=== PATIENT | male | born 1965 | race Caucasian/White ===

== ENCOUNTER 2017-06-23 22:43 | Emergency (ER) | payer OTHER ==
[2017-06-23 22:53] VITALS: TEMP 99.1; BMI 32.5
--- NOTE | 2017-06-23 23:02 | PDOC ---
History of Present Illness - General Chief Complaint: Respiratory Stated Complaint: DIFF BREATHING Time Seen by Provider: 06/23/17 22:50 - History of Present Illness Initial Comments: This 51-year-old man with history of hypertension/diabetes mellitus/ hyperlipidemia/hepatitis C/diabetic neuropathy presents to the emergency room with difficulty breathing of sudden onset this evening: Patient states when he was eating dinner at approximately 9 PM, he began to have sensation of not being able to catch his breath with some cough. He denies chest pain/nausea. Patient has had some diaphoresis during this time. He has generalized mild abdominal discomfort secondary to constipation (patient is on chronic morphine for neuropathy pain and has frequent constipation). He states that he has feeling of needing to have a bowel movement after taking cathartic (senna) earlier today No history of AZ/COPD No history of previous stress test: Patient states that he was able to have tests completed when it was scheduled several years ago. Past History - Past Medical History Allergies/Adverse Reactions: Allergies Allergy/AdvReac Type Severity Reaction Status Date / Time No Known Allergies Allergy Unverified 09/13/12 18:32 Home Medications: Ambulatory Orders Glyburide/Metformin HCl [Glyburide-Metformin 2.5-500 Mg] 1 each PO BID tablet 09/13/12 Cholecalciferol (Vitamin D3) [Vitamin D3] 4,000 unit PO DAILY capsule 08/18/15 Lisinopril 20 mg PO BID #60 tablet 07/08/16 Amlodipine Besylate [Norvasc -] 5 mg PO BIDAC 01/06/17 Clonidine HCl 1 mg PO DAILY 01/06/17 Collagenase Clostridium Hist. [Santyl] 1 applic TP DAILY #90 oint...g. 01/25/17 Morphine Sulfate [Morphine Sulfate ER] 240 mg PO DAILY 02/01/17 Collagenase Clostridium Hist. [Santyl] 1 applic TP DAILY #90 oint...g. 02/12/17 Collagenase Clostridium Hist. [Santyl] 1 applic TP DAILY #90 oint...g. 03/05/17 Collagenase Clostridium Hist. [Santyl] 1 applic TP DAILY #90 oint...g. 04/02/17 Anemia: No Asthma: No Cancer: No Cardiac Disorders: No CVA: No COPD: No CHF: No Dementia: No Diabetes: Yes GI Disorders: No Disorders: No HTN: Yes Hypercholesterolemia: Yes Liver Disease: No Seizures: No Thyroid Disease: No - Suicide/Smoking/Psychosocial Hx Smoking History: Former smoker Have you smoked in the past 12 months: Yes Number of Cigarettes Smoked Daily: 30 If you are a former smoker, when did you quit?: 7 months Cigars Per Day: 0 Information on smoking cessation initiated: No Hx Alcohol Use: No Drug/Substance Use Hx: No Substance Use Type: None Review of Systems - Review of Systems Able to Perform ROS?: Yes *Physical Exam - Vital Signs Last Vital Signs Temp Pulse Resp BP Pulse Ox 99.1 F 125 H 16 127/100 96 06/23/17 22:45 06/23/17 22:45 06/23/17 22:45 06/23/17 22:45 06/23/17 22:45 - Physical Exam Comments: GENERAL: Adult male, diaphoretic/pale and moderate respiratory distress HEAD: Normal with no signs of trauma. EYES: PERRLA, EOMI, sclera anicteric, conjunctiva clear. ENT: Ears normal, nares patent, oropharynx clear without exudates. Dry mucous membranes. NECK: Normal range of motion, supple without lymphadenopathy LUNGS: Distant breath sounds clear to auscultation bilaterally. No wheezes, and no crackles. HEART:Regular rate and rhythm, normal S1 and S2 without murmur, rub or gallop. ABDOMEN:.normal bowel sounds No guarding,tenderness or rebound.No masses No distention. EXTREMITIES: Normal range of motion, no edema. No clubbing or cyanosis. No erythema, or tenderness. NEUROLOGICAL: Cranial nerves II through XII grossly intact. Normal speech. No focal neurological deficits. MUSCULOSKELETAL: Back non-tender to palpation, no CVA tenderness SKIN: Warm, Dry, normal turgor, no rashes or lesions noted. ED Treatment Course - LABORATORY CBC & Chemistry Diagram: 06/23/17 23:15 06/23/17 23:15 Medical Decision Making - Medical Decision Making 06/24/17 00:00 Laboratory evaluation notable for troponin of 8.19; creatinine is normal at 0.9 CT angiogram of the chest ordered to rule out acute pulmonary embolus Dr. Reese called and case discussed with him: Agrees to Lopressor 5 mg IV. Anticoagulation will be started. 06/24/17 00:13 12-lead EKG discussed with Dr. Mitchell Because patient has Q waves in V [address] elevations in 3/4/5, it is unclear whether this is a subacute or acute AZ. Since there is no availability of critical care beds at [facility], transfer recommended. Portable chest x-ray shows pulmonary edema 06/24/17 00:46 Case discussed with community health agent at [facility] after transfer instituted through the transfer center. Patient will be admitted to the CCU under service. Patient has been given Plavix 300 mg/aspirin 324 milligrams orally *DC/Admit/Observation/Transfer Diagnosis at time of Disposition: Acute [place] Qualifiers: Myocardial infarction ST status: ST elevation myocardial infarction Involved coronary artery: unspecified coronary artery Qualified Code(s): I21.3 - ST elevation (STEMI) myocardial infarction of unspecified site Pulmonary edema Qualifiers: Chronicity: acute Qualified Code(s): J81.0 - Acute pulmonary edema - Discharge Dispostion Disposition: TRANSFER ACUTE CARE/OTHER HOSP Condition at time of disposition: Guarded - Referrals - Patient Instructions - Post Discharge Activity
[2017-06-23 23:26] LABS: BASO % 3.6 % (0-2.0); EOS % 1.4 % (0-4.5); HEMATOCRIT 43.4 % (35.4-49); HEMOGLOBIN 14.7 GM/dl (11.7-16.9); LYMPH % 22.4 % (8-40); MCH 31.3 pg (25.7-33.7); MCHC 33.9 g/dl (32.0-35.9); MEAN CELL VOLUME 92.4 fl (80-96); MEAN PLT VOLUME 10.4 fl (7.5-11.1); MONO % 10.4 % (3.8-10.2); NEUT % 62.2 % (42.8-82.8); PLATELET COUNT 252 K/MM3 (134-434); RDW 12.3 % (11.9-15.9); WHITE BLOOD COUNT 12.1 K/mm3 (4.0-10.8)
[2017-06-23 23:31] LABS: INR 1.1 (0.82-1.09); PROTHROMBIN TIME (PATIENT) 12.3 SEC (10.2-13.0)
[2017-06-23 23:36] LABS: ALBUMIN 3.7 g/dl (3.5-5.0); ALK PHOS 113 U/L (32-92); ANION GAP 12 (8-16); BILIRUBIN,TOTAL 0.9 mg/dl (0.2-1.0); BLOOD UREA NITROGEN 24 mg/dl (7-18); CALCIUM 8.9 mg/dl (8.4-10.2); CHLORIDE 94 mmol/L (98-107); CO2 22 mmol/L (22-28); CREATININE 0.9 mg/dl (0.6-1.3); GLUCOSE,RANDOM 234 mg/dl (74-106); POTASSIUM 3.9 mmol/L (3.5-5.1); SGOT/AST 91 U/L (10-42); SGPT/ALT 49 U/L (10-40); SODIUM 128 mmol/L (136-145); TOT PROT 8.1 g/dl (6.4-8.3)
[2017-06-23 23:48] LABS: TROPONIN I (DFP) 8.19 ng/ml (0.03-0.50)
[2017-06-23] MEDS ORDERED: METOPROLOL TARTRATE 5 MG/5 ML VIAL IVPUSH ONE (23:51)
[2017-06-24] MEDS ORDERED: ENOXAPARIN NA (PORCINE) 100 MG/1 ML DISP.SYRIN SQ ONE ×2 (00:09→00:13)
[2017-06-24] MEDS ORDERED: METOPROLOL TARTRATE 5 MG/5 ML VIAL ONE (00:13)
[2017-06-24] MEDS ORDERED: FUROSEMIDE 40 MG/4 ML INJECTABLE VIAL ONE (00:23)
[2017-06-24] MEDS ORDERED: FUROSEMIDE 40 MG/4 ML INJECTABLE VIAL IVPUSH ONE (00:23)
[2017-06-24] MEDS ORDERED: CLOPIDOGREL BISULFATE 300 MG TABLET ONE (00:36)
[2017-06-24] MEDS ORDERED: ASPIRIN 325 MG TABLET ONE (00:36)
[2017-06-24] MEDS ORDERED: ASPIRIN 81 MG CHEWABLE TABLETS PO ONE (00:40)
[2017-06-24] MEDS ORDERED: CLOPIDOGREL BISULFATE 300 MG TABLET PO ONE (00:40)
[2017-06-24 01:02] VITALS: BP 121/80; PULSE 105
--- NOTE | 2017-06-24 17:40 | EKG ---
Test Reason : Blood Pressure : / mmHG Vent. Rate : 125 BPM Atrial Rate : 125 BPM P-R Int : 172 ms QRS Dur : 100 ms QT Int : 286 ms P-R-T Axes : 047 069 079 degrees QTc Int : 412 ms POOR DATA QUALITY, INTERPRETATION MAY BE ADVERSELY AFFECTED SINUS TACHYCARDIA POSSIBLE LEFT ATRIAL ENLARGEMENT ANTERIOR INFARCT , possibly acute -> clinical correlation NO PREVIOUS ECGS AVAILABLE Confirmed by MD KAUR, JESSENIA ([id number]) on 06/24/2017 5:40:19 PM Referred By: MD BOWDEN Confirmed By:JESSENIA DIETRICH MD
== END 2017-06-24 01:04 | disposition short-term general hospital (02) ==
LOC: FER 22:43
PROC: 3E023GC Introduction of Other Therapeutic Substance into Muscle, Percutaneous Approach (ICD-10-PCS; principal; 2017-06-23)
DX: I21.3 ST elevation (STEMI) myocardial infarction of unspecified site (principal); J81.0 Acute pulmonary edema; I10 Essential (primary) hypertension; B19.20 Unspecified viral hepatitis C without hepatic coma; Z79.84 Long term (current) use of oral hypoglycemic drugs; E78.5 Hyperlipidemia, unspecified; E11.40 Type 2 diabetes mellitus with diabetic neuropathy, unspecified
CPT/HCPCS: 36415; 71045-TC; 80053; 82550; 82553; 84484; 85025; 85379; 85610; 93005; 99284-25

== ENCOUNTER 2019-01-23 08:16 | Inpatient (IN) | payer OTHER ==
[2019-01-23] MEDS ORDERED: FAMOTIDINE 20 MG/50 ML IVPB 20 MG/50 ML MG IVPB ONE ×2 (08:23→08:25)
[2019-01-23] MEDS ORDERED: methylPREDNISolone NA SUCC 125 MG/2 ML VIAL ONE (08:23)
[2019-01-23] MEDS ORDERED: methylPREDNISolone NA SUCC 125 MG/2 ML VIAL IVPB ONE (08:24)
[2019-01-23] MEDS ORDERED: EPINEPHrine 1:1,000 0.3 MG/0.3 ML SYR IM ONE (08:24)
--- NOTE | 2019-01-23 08:24 | PDOC ---
History of Present Illness - General Stated Complaint: BEE STING History Source: Patient Exam Limitations: No Limitations - History of Present Illness Initial Comments: 01/23/19 08:20 53 yo male h/o HTN CAD CABG chronic pain here s/p bee sting yesterday was stung in afternoon behind left ear. this am awoke with significant tongue swelling and inability to talk. no difficulty breathing. no n/v no loose stool no abd pain. no rash. mild irritation behind left ear. no h/o allergy to bees in the past. did not take anything prior to arrival. Past History - Past Medical History Allergies/Adverse Reactions: Allergies Allergy/AdvReac Type Severity Reaction Status Date / Time No Known Allergies Allergy Verified 01/23/19 08:33 Home Medications: Ambulatory Orders Glyburide/Metformin HCl [Glyburide-Metformin 2.5-500 Mg] 1 each PO BID tablet 09/13/12 Lisinopril 20 mg PO BID #60 tablet 07/08/16 Amlodipine Besylate [Norvasc -] 10 mg PO DAILY 01/06/17 Clonidine HCl 1 mg PO DAILY 01/06/17 Morphine Sulfate [Morphine Sulfate ER] 60 mg PO QID 02/01/17 Anemia: No Asthma: No Cancer: No Cardiac Disorders: No CVA: No COPD: No CHF: No Dementia: No Diabetes: Yes GI Disorders: No Disorders: No HTN: Yes Hypercholesterolemia: Yes Liver Disease: No Seizures: No Thyroid Disease: No - Suicide/Smoking/Psychosocial Hx Smoking History: Former smoker Have you smoked in the past 12 months: Yes Number of Cigarettes Smoked Daily: 30 If you are a former smoker, when did you quit?: 7 months Cigars Per Day: 0 Hx Alcohol Use: No Drug/Substance Use Hx: No Substance Use Type: None Review of Systems - Review of Systems Constitutional: No: Chills HEENTM: No: Eye Pain, Blurred Vision Respiratory: No: Cough, Orthopnea, Shortness of Breath Cardiac (ROS): No: Chest Pain, Edema Musculoskeletal: No: Back Pain Integumentary: Yes: Other (bee sting lesion behind ear) All Other Systems: Reviewed and Negative *Physical Exam - Physical Exam Comments: 01/23/19 08:22 awake alert NAD voice muflled. lungs clear bilat no stridor overairway. left sided significant tongue swelling involving base of tongue. min lip swelling. abd soft nt nd ext wwp. no edema. no calf tenderness. skin warm and dry no rash. nuero alert oriented x 3. Heart Score/ECG Review #1 General ECG Interpretation: Sinus Rhythm, Normal Rate, Normal Intervals, No acute ischemic changes ED Treatment Course - LABORATORY CBC & Chemistry Diagram: 01/23/19 08:50 01/23/19 08:50 Medical Decision Making - Medical Decision Making 01/23/19 08:22 53 yo M with h/o htn cad cabg here with bee sting, tongue swelling allergic reaction. plan benadryl solumedrol, epi IM, pepcid. will d/w ICU due to significance of swelling. 01/23/19 08:43 dr aguilera paged ENT DR Castañeda ICU paged. 01/23/19 08:[address] najera anesthesia at [facility], will evaluate on arrival should he worsen for possible awake nasotracheal intubation dW ICU pt accepted for transfer microblog sent , awaiting call back for admission 01/23/19 09:00 airway precautions taken, setup at bedside pt improving post meds. 01/23/19 09:18 d/w dr dubon in ED who will evaluate pt on arrival. overall pt voice much clearer, and improving 01/23/19 09:23 d/w admitting resident, accpting hospitalist for admission will be DR Merlos *DC/Admit/Observation/Transfer Diagnosis at time of Disposition: Allergic reaction, Anaphylaxis - Discharge Dispostion Decision to Admit order: Yes - Referrals - Patient Instructions - Post Discharge Activity
[2019-01-23 08:50] VITALS: BMI 27.1
[2019-01-23 09:30] LABS: BASO % 1.3 % (0-2.0); EOS % 4.9 % (0-4.5); HEMATOCRIT 42.8 % (35.4-49); HEMOGLOBIN 14.3 GM/dl (11.7-16.9); LYMPH % 41.9 % (8-40); MCH 32.5 pg (25.7-33.7); MCHC 33.3 g/dl (32.0-35.9); MEAN CELL VOLUME 97.6 fl (80-96); MEAN PLT VOLUME 8.8 fl (7.5-11.1); MONO % 14.8 % (3.8-10.2); NEUT % 37.1 % (42.8-82.8); PLATELET COUNT 380 K/MM3 (134-434); RBC 4.39 M/mm3 (4.00-5.60); RDW 13.6 % (11.9-15.9); WHITE BLOOD COUNT 10.9 K/mm3 (4.0-10.8)
[2019-01-23 09:47] LABS: ALBUMIN 4.3 g/dl (3.4-5.0); BILIRUBIN,TOTAL 0.7 mg/dl (0.2-1); CALCIUM 9.5 mg/dl (8.5-10); POTASSIUM 3.9 mmol/L (3.5-5.1); TOT PROT 8.1 g/dl (6.4-8.2)
--- NOTE | 2019-01-23 10:24 | HP ---
CHIEF COMPLAINT: bee sting; trouble swallowing PCP:dr adams HISTORY OF PRESENT ILLNESS: 53 y/o male with PMH of CAD, CABG, HTN, DM, peripheral neuropathy presented to the ED with trouble swallowing and speaking after getting stung by a bee behind his left ear last night. patient states that he was outside will friends at an event when all of the sudden he got stung by a bee behind his left ear patient states there was not a lot of bees surrounding the area he was near. he went out to dinner with friends after with no issues, came home, went to bed slept through the night and at around 7:30 this AM noticed that his tongue was very swollen (only on the left side) and he could not speak- he states that he did not have any associated respiratory distress nor was there any drooling that he noted, he just could not speak- this has never happened to him before. he has gotten stung by bees in the past and has never suffered from any allergic reaction. of note, patient is on lisinopril but has been taking it for almost the last 18 years with no issues- he denies any SOB/CP/N/V fevers or chills, no recent travel or sick contacts ER course was notable for: (1)vitals wnl (2)labs; wbc count 10.9 (3)given solumedrol 125, benadryl, pepcid and IM epi Recent Travel: denies PAST MEDICAL HISTORY: see above PAST SURGICAL HISTORY: CABG Social History: Smoking:smokes every time he drinks; had quit 2 years ago then recently restarted as work has been stressful Alcohol:drinks around 4 drinks of heavy liquor multiple times a week (has never suffered from withdrawal; never seized or been intubated) Drugs: denies Family History: mother- DM; both parents HTN Allergies No Known Allergies Allergy (Verified 01/23/19 08:33) HOME MEDICATIONS: Home Medications Medication Instructions Recorded Glyburide/Metformin HCl 1 each PO BID tablet 09/13/12 [Glyburide-Metformin 2.5-500 Mg] Lisinopril 20 mg PO BID #60 tablet 07/08/16 Amlodipine Besylate [Norvasc -] 10 mg PO DAILY 01/06/17 Clonidine HCl 1 mg PO DAILY 01/06/17 Morphine Sulfate [Morphine Sulfate 60 mg PO QID 02/01/17 ER] REVIEW OF SYSTEMS CONSTITUTIONAL: Absent: fever, chills, diaphoresis, generalized weakness, malaise, loss of appetite, weight change HEENT: Present: tongue swelling; difficulty speaking Absent: rhinorrhea, nasal congestion, throat pain, throat swelling, difficulty swallowing, mouth swelling , ear pain, eye pain, visual changes CARDIOVASCULAR: Absent: chest pain, syncope, palpitations, irregular heart rate, lightheadedness , peripheral edema RESPIRATORY: Absent: cough, shortness of breath, dyspnea with exertion, orthopnea, wheezing, stridor, hemoptysis GASTROINTESTINAL: Absent: abdominal pain, abdominal distension, nausea, vomiting, diarrhea, constipation, melena, hematochezia GENITOURINARY: Absent: dysuria, frequency, urgency, hesitancy, hematuria, flank pain, genital pain MUSCULOSKELETAL: Absent: myalgia, arthralgia, joint swelling, back pain, neck pain SKIN: Present: bee sting lesion behind left ear Absent: rash, itching, pallor HEMATOLOGIC/IMMUNOLOGIC: Absent: easy bleeding, easy bruising, lymphadenopathy, frequent infections ENDOCRINE: Absent: unexplained weight gain, unexplained weight loss, heat intolerance, cold intolerance NEUROLOGIC: Absent: headache, focal weakness or paresthesias, dizziness, unsteady gait, seizure, mental status changes, bladder or bowel incontinence PSYCHIATRIC: Absent: anxiety, depression, suicidal or homicidal ideation, hallucinations. PHYSICAL EXAMINATION Vital Signs - 24 hr 01/23/19 01/23/19 08:17 09:07 Temperature 99 F 99 F Pulse Rate 87 70 Respiratory 16 16 Rate Blood Pressure 195/93 H 155/84 O2 Sat by Pulse 100 Oximetry (%) GENERAL: Awake, alert, and fully oriented, some difficulty speaking EYES:PEERLA; EOMI; no scleral icterus EARS, NOSE, THROAT: asymmetric tongue swelling with left side being very swollen ; no erythema, surrounding saliva, uvula present; so stridor appreciated NECK: no lymphadenopathy; no JVD LUNGS: CTA B/L; no rales, rhonchi or wheezing HEART: Regular rate and rhythm, normal S1 and S2 without murmur, rub or gallop. ABDOMEN: Soft, NT/ND +BS in all 4 quadrants . MUSCULOSKELETAL: Normal range of motion at all joints. No bony deformities or tenderness. No CVA tenderness. EXTREMITIES: warm; well-perfused no clubbing/cyanosis or edema SKIN: bee sting lesion behind left ear- slightly erythematous Laboratory Results - last 24 hr 01/23/19 01/23/19 08:50 08:50 WBC 10.9 H RBC 4.39 Hgb 14.3 Hct 42.8 MCV 97.6 H MCH 32.5 MCHC 33.3 RDW 13.6 D Plt Count 380 D MPV 8.8 D Absolute Neuts (auto) 4.0 Neutrophils % 37.1 L D Lymphocytes % 41.9 H D Monocytes % 14.8 H Eosinophils % 4.9 H D Basophils % 1.3 Sodium 136 Potassium 3.9 Chloride 98 Carbon Dioxide 27 Anion Gap 11 BUN 18.0 Creatinine 1.0 Est GFR (CKD-EPI)AfAm 99.15 Est GFR (CKD-EPI)NonAf 85.55 Random Glucose 156 H Calcium 9.5 Total Bilirubin 0.7 AST 23 ALT 15 Alkaline Phosphatase 104 Total Protein 8.1 Albumin 4.3 ASSESSMENT/PLAN: 53 y/o male with PMH of CAD, CABG, HTN, DM, peripheral neuropathy presented to the ED with trouble swallowing and speaking after getting stung by a bee behind his left ear last night #Angioedema 2/2 bee sting patient already received 125 solumedrol, IM epi, pepcid, and benadryl in ED -patient now having improvement in speech and no stridor is appreciated -ENT has been consulted -IV decadron 10q6H -IV Pepcid -Benadryl -airway precautions -ICU monitoring -NPO until swelling improves; speech and swallow eval #DM holding oral hypoglycemics -BGMS ACHS -ISS #HTN -holding lisinopril and norvasc -PRN IV hydralazine while patient is NPO -monitor hemodynamics F/E/N NS @75mls/hr monitor electrolytes NPO for airway protection at this time DVT PPX: lovenox sq Problem List - Problem (1) HTN (hypertension) Code(s): I10 - ESSENTIAL (PRIMARY) HYPERTENSION (2) CAD (coronary artery disease) Code(s): I25.10 - ATHSCL HEART DISEASE OF [place] CORONARY ARTERY W/O ANG PCTRS (3) Diabetes Code(s): E11.9 - TYPE 2 DIABETES MELLITUS WITHOUT COMPLICATIONS (4) Allergic reaction Code(s): T78.40XA - ALLERGY, UNSPECIFIED, INITIAL ENCOUNTER (5) Anaphylaxis Code(s): T78.2XXA - ANAPHYLACTIC SHOCK, UNSPECIFIED, INITIAL ENCOUNTER Visit type - Emergency Visit Emergency Visit: Yes ED Registration Date: 01/23/19 Care time: The patient presented to the Emergency Department on the above date and was hospitalized for further evaluation of their emergent condition. - New Patient This patient is new to me today: Yes Date on this admission: 01/23/19 - Critical Care Critical Care patient: Yes Total Critical Care Time (in minutes): 35 Critical Care Statement: The care of this patient involved high complexity decision making to prevent further life threatening deterioration of the patient 's condition and/or to evaluate & treat vital organ system(s) failure or risk of failure. ATTENDING PHYSICIAN STATEMENT I saw and evaluated the patient. I reviewed the resident's note and discussed the case with the resident. I agree with the resident's findings and plan as documented. SUBJECTIVE: OBJECTIVE: ASSESSMENT AND PLAN:
[2019-01-23] MEDS ORDERED: SODIUM CHLORIDE 1,000 ML IV SCH (11:00)
--- NOTE | 2019-01-23 11:03 | CONSULT ---
Consultation: CONSULT SERVICE: ICU Resident HISTORY OF PRESENT ILLNESS: 53yo M with h/o of T2DM, HTN, and recent suspected carotid stenosis who presents today after bee string yesterday afternoon around L ear. Pt today woke up with tongue swelling and difficulty talking. He sought treatment in the ER. He reports being stung by a bee previously many years prior without reaction. His last meal compromised of rodgers chops for dinner, however he did not use any new ingredients during this meal. Pt denies any new soaps, mouthwashes, toothpastes. Pt currently has slightly improved talking and feels better. He just reports being tired since his medication regiment in the ER (Benadryl, Solumedrol 125mg, Epi-pen 0.3 x1, Famotidine). REVIEW OF SYSTEMS: As per HPI PHYSICAL EXAMINATION Vital Signs 01/23/19 01/23/19 08:17 09:07 Temperature 99 F 99 F Pulse Rate 87 70 Respiratory 16 16 Rate Blood Pressure 195/93 H 155/84 O2 Sat by Pulse 100 Oximetry (%) GENERAL: NAD, Awake, alert, and fully oriented HEENT: NC/AT, EOMI, NAHID, sclera anicteric, MMM, L side of tongue edematous extending to base, no posterior edema noted, voice hoarse, but improving. NECK: No stridor appreciated. LUNGS: CTA bilaterally. No wheezes, and no crackles. No accessory muscle use. HEART: RRR, normal S1 and S2 without murmur ABDOMEN: Soft, NT/ND, normoactive bowel sounds, no guarding EXTREMITIES: 2+ pulses, warm, well-perfused. No calf tenderness. No peripheral edema. PSYCHIATRIC: Cooperative. Good eye contact. Appropriate mood and affect. SKIN: Warm, dry, no rashes or lesions noted. Laboratory Results 01/23/19 01/23/19 08:50 08:50 WBC 10.9 H RBC 4.39 Hgb 14.3 Hct 42.8 MCV 97.6 H MCH 32.5 MCHC 33.3 RDW 13.6 D Plt Count 380 D MPV 8.8 D Absolute Neuts (auto) 4.0 Neutrophils % 37.1 L D Lymphocytes % 41.9 H D Monocytes % 14.8 H Eosinophils % 4.9 H D Basophils % 1.3 Sodium 136 Potassium 3.9 Chloride 98 Carbon Dioxide 27 Anion Gap 11 BUN 18.0 Creatinine 1.0 Est GFR (CKD-EPI)AfAm 99.15 Est GFR (CKD-EPI)NonAf 85.55 Random Glucose 156 H Calcium 9.5 Total Bilirubin 0.7 AST 23 ALT 15 Alkaline Phosphatase 104 Total Protein 8.1 Albumin 4.3 Active Medications Generic Name Dose Route Start Last Admin Trade Name Freq PRN Reason Stop Dose Admin Chlorhexidine Gluconate 1 applic 01/23/19 22:00 Hibiclens For Decolonization - TP HS [facility] Dexamethasone Sodium Phosphate 10 mg 01/23/19 15:00 Decadron Injection - IVPUSH Q6H-IV [facility] Enoxaparin Sodium 40 mg 01/24/19 10:00 Lovenox - SQ DAILY [facility] Sodium Chloride 1,000 mls @ 75 mls/hr 01/23/19 11:00 Normal Saline - IV ASDIR [facility] Famotidine/Sodium Chloride 20 mg in 50 mls @ 100 mls/hr 01/23/19 22:00 Pepcid 20 Mg Premixed Ivpb - IVPB BID [facility] Insulin Aspart 1 vial 01/23/19 11:00 Novolog Vial Sliding Scale - SQ ACHS [facility] Protocol Mupirocin 1 applic 01/23/19 22:00 Bactroban Ointment (For Decolonization) - NS 01/28/19 21:59 BID [facility] ASSESSMENT/PLAN: Angioedema of the tongue HTN T2DM --Can observe for airway management in ICU; anesthesia aware if airway worsens --Decadron 10mg q6h IVP --Famotidine BID IVP --Monitor for signs of hoarseness, stridor, or worsening edema of tongue --Discontinue Norvasc due to adverse effect of angioedema --Can continue Lisinopril considering pt has been on medication for 10 years without any adverse reactions --Continue rest of home medications currently FEN: Fluids: NS@ 100cc/hr while NPO Electrolyte abnormalities: None Nutrition: NPO while edema resolving PPX: DVT - On home eliquis GI - On famotidine already Dispo: Monitor in ICU 24h for airway mgmt Case discussed with Dr. Castañeda and primary team Suhail Costa, DO - IM PGY-3 ATTENDING PHYSICIAN STATEMENT I saw and evaluated the patient. I reviewed the resident's note and discussed the case with the resident. I agree with the resident's findings and plan as documented. SUBJECTIVE: OBJECTIVE: ASSESSMENT AND PLAN:
[2019-01-23] MEDS ORDERED: hydrALAZINE HCL 20 MG/ML VIAL IVPUSH PRN (11:14)
--- NOTE | 2019-01-23 11:14 | EKG ---
Test Reason : Blood Pressure : / mmHG Vent. Rate : 084 BPM Atrial Rate : 084 BPM P-R Int : 186 ms QRS Dur : 082 ms QT Int : 376 ms P-R-T Axes : 045 027 080 degrees QTc Int : 444 ms NORMAL SINUS RHYTHM POSSIBLE LEFT ATRIAL ENLARGEMENT SEPTAL INFARCT (CITED ON OR BEFORE 23-JUN-2017) ABNORMAL ECG WHEN COMPARED WITH ECG OF 23-JUN-2017 23:29, VENT. RATE HAS DECREASED BY 41 BPM QRS DURATION HAS DECREASED ST NO LONGER ELEVATED IN ANTERIOR LEADS Confirmed by GOLDEN GUNN, EARLE ([id number]) on 01/23/2019 11:13:27 AM Referred By: ELI RICARDO Confirmed By:EARLE FRANKS MD
[2019-01-23] MEDS: INSULIN SLIDING SCALE (NOVOLOG) 1 VIAL SQ SCH ×2 (12:15→17:33)
--- NOTE | 2019-01-23 12:18 | PN ---
Teaching Attending Note Name of Resident: Suhail Costa ATTENDING PHYSICIAN STATEMENT I saw and evaluated the patient. I reviewed the resident's note and discussed the case with the resident. I agree with the resident's findings and plan as documented. SUBJECTIVE: Pt seen and examined in the ICU. Briefly, 53yo male with h/o HTN, DM, CAD s/p CABG, bee allergy who was admitted after getting stung by a bee. This AM, noted to have swollen tongue with difficulty speaking. Given steroids, antihistamines , epinephrine in the ED with some improvement in speech and swallowing. Denies shortness of breath. OBJECTIVE: Vital Signs Period Temp Pulse Resp BP Sys/Mcnulty Pulse Ox Last 24 Hr 99 F-99 F 70-87 16-16 155-195/84-93 100 Intake & Output 01/20/19 01/21/19 01/22/19 01/23/19 23:59 23:59 23:59 23:59 Intake Total 300 Balance 300 Weight 90.718 kg Gen: dysarthric HEENT: left tongue edema Heart: RRR Lung: clear to auscultation Abd: soft, nontender Ext: no edema CBC, BMP 01/23/19 08:50 01/23/19 08:50 Active Medications Apixaban (Eliquis -) 5 mg PO BID [facility] Chlorhexidine Gluconate (Hibiclens For Decolonization -) 1 applic TP HS [facility] Dexamethasone Sodium Phosphate (Decadron Injection -) 10 mg IVPUSH Q6H-IV [facility] Diphenhydramine HCl (Benadryl Injection -) 12.5 mg IVPUSH Q4H PRN PRN Reason: FOR ITCHING Hydralazine HCl (Apresoline Injection -) 10 mg IVPUSH Q6H PRN PRN Reason: HYPERTENSION Sodium Chloride (Normal Saline -) 1,000 mls @ 75 mls/hr IV ASDIR [facility] Famotidine/Sodium Chloride (Pepcid 20 Mg Premixed Ivpb -) 20 mg in 50 mls @ 100 mls/hr IVPB BID [facility] Insulin Aspart (Novolog Vial Sliding Scale -) 1 vial SQ ACHS [facility]; Protocol Mupirocin (Bactroban Ointment (For Decolonization) -) 1 applic NS BID [facility] Stop: 01/28/19 21:59 ASSESSMENT AND PLAN: Acute Angioedema HTN DM CAD s/p CABG PAD - decadron - antihistamines - IVF - NPO - ICU for airway monitoring
[2019-01-23 12:39] VITALS: TEMP 98.8
[2019-01-23] MEDS ORDERED: DEXAMETHASONE SOD PHOSPHATE 10 MG/1 ML VIAL IVPUSH SCH (15:00)
--- NOTE | 2019-01-23 16:07 | CONSULT ---
Admitting History and Physical - Admission History of Present Illness: 53yo male with h/o HTN, DM, CAD s/p CABG, bee allergy who was admitted after getting stung by a bee. This AM, noted to have swollen tongue with difficulty speaking. Given steroids, antihistamines, epinephrine in the ED with some improvement in speech and swallowing. Denies shortness of breath. History Source: Patient Limitations to Obtaining History: No Limitations - Smoking History Smoking history: Former smoker Have you smoked in the past 12 months: Yes Aproximately how many cigarettes per day: 30 If you are a former smoker, when did you quit?: 7 months - Alcohol/Substance Use Hx Alcohol Use: No - Social History Occupation: on disability x 3 years because of Diabetic Neuropathy. History - Admission Reason For Visit: ANOPHYLAXIS - General Mental Status: Alert and Oriented, Awake and Alert, Able to Follow Commands Attention: Intact Ability to Follow Directions: Excellent Head/Neck Control: WFL - Hearing Hearing: Normal Speech Evaluation - Communication Primary Language: ANDORRAN Communication: Yes: Within Normal Limits Oral Expression Ability: Yes: No Impairment - Speech Production Able to Make Needs Known: Yes: WNL Intelligibility: Yes: WNL - Speech Characteristics Voice Loudness: Normal Voice Pitch: Yes: Normal Voice Phonatory-based Quality: Yes: Normal Speech Pattern: Normal Speech Clarity: < 100% Nasal Resonance: Normal Articulation: Yes: Imprecise (slight) - Language/Auditory Comprehension Follows: Yes: 2 Stage Simple Commands - Language/Verbal Expression Able to Respond to Simple Queries: Yes: WNL Able to Communicate Wants and Needs: Yes: WNL Functional Communication Status: Yes: WNL Attention: Yes: Intact - 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 ENT consult ordered.) Lingual Speed of Movement: Normal Lingual Movement Strgth Against Opposition: Normal Lingual Movement Characteristics: Normal Laryngeal Elevation: WFL Laryngeal Movement: Able to Palpate Rate of Intake: WFL Labial Seal: WFL Chewing: Impaired (mildly labored sec to tongue/cheek swelling and no lower fdentition.) Oral Prep Time: WFL A-P Transit: WFL Pocketing: None Timing of Swallow: WFL Coughing/Throat Clear: No Change in Voice: No Recommendations - Speech Evaluation, Impression/Plan Impression: Pt seen bedside, reported with significant improvement, not yet at baseline. Left side of face/tongue still mildly swollen. No cough noted and brisk swallow palpated. No observation of struggling, no triggering of multiple swallows, no need to wash down food with liquid. Evaluation of anatomy is cursory. ENT consult placed. - Dysphagia Impressions/Plan Dysphagia Impressions: Mild Impairment, Ongoing Evaluation *Silent aspiration: cannot be R/O at bedside Dysphagia Treatment Plan: Small Bites, Chin Tuck/Down, Clear Pocket Food, Safe Rate, 1/2 tsp. at a time, OOB for meals, OOB for 1 h. after meals Recommendations: Other (supervise meals. Observe tolerance.) - Recommendations Diet Consistency: Other (very soft, easy to chew foods reviewed with MD/RD. No meats, crunchy foods, saladsetc) Liquids: Thin Liquids
[2019-01-23 16:08] VITALS: BP 135/87; PULSE 65
--- NOTE | 2019-01-23 16:48 | PN ---
Teaching Attending Note Name of Resident: Liane Ferrell ATTENDING PHYSICIAN STATEMENT I saw and evaluated the patient. I reviewed the resident's note and discussed the case with the resident. I agree with the resident's findings and plan as documented. SUBJECTIVE: Speaking more clearly. Denies difficulty swallowing/dyspnea. No SOB/ wheeze. OBJECTIVE: Afebrile, hemodynamically stable. Comfortable on RA. Last Vital Signs Temp Pulse Resp BP Pulse Ox 98.8 F 65 18 135/87 100 01/23/19 12:00 01/23/19 16:00 01/23/19 16:00 01/23/19 16:00 01/23/19 08:17 HEENT - Atraumatic, Normocephalic. mild swelling L side of tongue. No stridor. Heart- S1, S2, RRR Lungs - clear to auscultation Abdomen - soft, non-tender. Bowel Sounds normal. Neuro - AAO x 3. Tone/power normal all 4 extremities. Extremities - no calf tenderness, no edema. Laboratory Results - last 24 hr 01/23/19 01/23/19 01/23/19 08:50 08:50 12:07 WBC 10.9 H RBC 4.39 Hgb 14.3 Hct 42.8 MCV 97.6 H MCH 32.5 MCHC 33.3 RDW 13.6 D Plt Count 380 D MPV 8.8 D Absolute Neuts (auto) 4.0 Neutrophils % 37.1 L D Lymphocytes % 41.9 H D Monocytes % 14.8 H Eosinophils % 4.9 H D Basophils % 1.3 Sodium 136 Potassium 3.9 Chloride 98 Carbon Dioxide 27 Anion Gap 11 BUN 18.0 Creatinine 1.0 Est GFR (CKD-EPI)AfAm 99.15 Est GFR (CKD-EPI)NonAf 85.55 POC Glucometer 190 Random Glucose 156 H Calcium 9.5 Total Bilirubin 0.7 AST 23 ALT 15 Alkaline Phosphatase 104 Total Protein 8.1 Albumin 4.3 Current Medications Generic Name Dose Route Start Last Admin Trade Name Freq PRN Reason Stop Dose Admin Apixaban 5 mg 01/23/19 22:00 Eliquis - PO BID GILMAR Chlorhexidine Gluconate 1 applic 01/23/19 22:00 Hibiclens For Decolonization - TP HS GILMAR Dexamethasone Sodium Phosphate 10 mg 01/23/19 15:00 01/23/19 14:53 Decadron Injection - IVPUSH 10 mg Q6H-IV GILMAR Administration Diphenhydramine HCl 12.5 mg 01/23/19 11:11 Benadryl Injection - IVPUSH Q4H PRN FOR ITCHING Hydralazine HCl 10 mg 01/23/19 11:14 Apresoline Injection - IVPUSH Q6H PRN HYPERTENSION Sodium Chloride 1,000 mls @ 75 mls/hr 01/23/19 11:00 01/23/19 12:15 Normal Saline - IV 75 mls/hr ASDIR GILMAR Administration Famotidine/Sodium Chloride 20 mg in 50 mls @ 100 mls/hr 01/23/19 22:00 Pepcid 20 Mg Premixed Ivpb - IVPB BID [facility] Insulin Aspart 1 vial 01/23/19 11:00 01/23/19 12:15 Novolog Vial Sliding Scale - SQ Not Given ACHS [facility] Protocol Mupirocin 1 applic 01/23/19 22:00 Bactroban Ointment (For Decolonization) - NS 01/28/19 21:59 BID [facility] Home Medications Medication Instructions Recorded Glyburide/Metformin HCl 1 each PO BID tablet 09/13/12 [Glyburide-Metformin 2.5-500 Mg] Amlodipine Besylate [Norvasc -] 10 mg PO DAILY 01/06/17 Clonidine HCl 1 mg PO DAILY 01/06/17 Morphine Sulfate [Morphine Sulfate 60 mg PO QID 02/01/17 ER] Apixaban [Eliquis] 5 mg PO BID 01/23/19 Gabapentin 600 mg DAILY 01/23/19 Lisinopril 20 mg PO DAILY 01/23/19 Metoprolol Succinate 100 mg PO DAILY 01/23/19 Rosuvastatin Calcium [Crestor] 10 mg PO DAILY 01/23/19 ASSESSMENT AND PLAN: 53 year old male with history of CAD s/p CABG, HTN, DM 2, 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 He reports being stung by a bee last night. He has had prior bee stings without anaphylaxis or allergic reactions. No dyspnea/stridor/wheeze. 1. Acute Angioedema of Tongue sec to Bee Sting vs JAMAAL-I ICU for airway monitoring IV Decadron/Famotidine/Benadryl NPO pending speech/swallow eval by ST. IV fluids Hemodynamic and Cardiopulmonary monitoring. 2. DM 2 - Maintain on Novolog sliding Scale. Glyburide/Metformin held. 3. HTN - Hold JAMAAL-I as possible culprit for angioedema. Continue Norvasc/ Clonidine from tomorrow am. 4. CAD s/p CABG - On BB, JAMAAL-I, Statin. 5. On Eliquis - reason unclear - will need clarification with patient's PCP DVT Px - on Eliquis
--- NOTE | 2019-01-23 19:03 | DS ---
Physical Exam: SUBJECTIVE: Patient seen and examined at bedside- [facility] OBJECTIVE: Vital Signs Period Temp Pulse Resp BP Sys/Mcnulty Pulse Ox Last 24 Hr 98.8 F-99 F 62-87 16-18 122-195/76-93 100 PHYSICAL EXAM GENERAL: The patient is awake, alert, and fully oriented, in no acute distress. HEAD: Normal with no signs of trauma. EYES: PERRL, extraocular movements intact, sclera anicteric, conjunctiva clear. ENT: Ears normal, nares patent, oropharynx clear without exudates, moist mucous membranes. NECK: Trachea midline, full range of motion, supple. LUNGS: Breath sounds equal, clear to auscultation bilaterally, no wheezes, no crackles, no accessory muscle use. HEART: Regular rate and rhythm, S1, S2 without murmur, rub or gallop. ABDOMEN: Soft, nontender, nondistended, normoactive bowel sounds, no guarding, no rebound, no hepatosplenomegaly, no masses. EXTREMITIES: 2+ pulses, warm, well-perfused, no edema. NEUROLOGICAL: Cranial nerves II through XII grossly intact. Normal speech, gait not observed. PSYCH: Normal mood, normal affect. SKIN: Warm, dry, normal turgor, no rashes or lesions noted. LABS Laboratory Results - last 24 hr 01/23/19 01/23/19 01/23/19 08:50 08:50 12:07 WBC 10.9 H RBC 4.39 Hgb 14.3 Hct 42.8 MCV 97.6 H MCH 32.5 MCHC 33.3 RDW 13.6 D Plt Count 380 D MPV 8.8 D Absolute Neuts (auto) 4.0 Neutrophils % 37.1 L D Lymphocytes % 41.9 H D Monocytes % 14.8 H Eosinophils % 4.9 H D Basophils % 1.3 Sodium 136 Potassium 3.9 Chloride 98 Carbon Dioxide 27 Anion Gap 11 BUN 18.0 Creatinine 1.0 Est GFR (CKD-EPI)AfAm 99.15 Est GFR (CKD-EPI)NonAf 85.55 POC Glucometer 190 Random Glucose 156 H Calcium 9.5 Total Bilirubin 0.7 AST 23 ALT 15 Alkaline Phosphatase 104 Total Protein 8.1 Albumin 4.3 01/23/19 17:24 WBC RBC Hgb Hct MCV MCH MCHC RDW Plt Count MPV Absolute Neuts (auto) Neutrophils % Lymphocytes % Monocytes % Eosinophils % Basophils % Sodium Potassium Chloride Carbon Dioxide Anion Gap BUN Creatinine Est GFR (CKD-EPI)AfAm Est GFR (CKD-EPI)NonAf POC Glucometer 221 Random Glucose Calcium Total Bilirubin AST ALT Alkaline Phosphatase Total Protein Albumin HOSPITAL COURSE: Date of Admission:01/23/19 patient wanted tp leave AMA- risks were discussed [facility] patient- he astneal agreed to sign AMA form- medications were sent to pharmacy and he was told to return if selling got wrose, if he had trouble breathing / swallowing; speaking. he agreed Date of Discharge: 01/23/19 Minutes to complete discharge: 35 Discharge Summary Reason For Visit: ANOPHYLAXIS Current Active Problems Allergic reaction (Acute) Anaphylaxis (Acute) CAD (coronary artery disease) (Acute) Diabetes (Acute) HTN (hypertension) (Acute) Condition: Fair - Instructions Diet, Activity, Other Instructions: You came in for tongue swelling after a bee sting- we treated you with IV steroids and benadryl and pepcid- you decided to leave against medical advice. the risks were shared with you and you agreed to sign the AMA form; prescriptions are sent to your pharmacy if you begin to experience worsening shortness of breath, trouble speaking/ swallowing please return to the ER immediately Disposition: AGAINST MEDICAL ADVICE - Home Medications Comprehensive Discharge Medication List: Ambulatory Orders Glyburide/Metformin HCl [Glyburide-Metformin 2.5-500 Mg] 1 each PO BID tablet 09/13/12 Amlodipine Besylate [Norvasc -] 10 mg PO DAILY 01/06/17 Clonidine HCl 1 mg PO DAILY 01/06/17 Morphine Sulfate [Morphine Sulfate ER] 60 mg PO QID 02/01/17 Apixaban [Eliquis] 5 mg PO BID 01/23/19 Famotidine [Pepcid -] 20 mg PO DAILY #7 tablet 01/23/19 Gabapentin 600 mg DAILY 01/23/19 Lisinopril 20 mg PO DAILY 01/23/19 Metoprolol Succinate 100 mg PO DAILY 01/23/19 Rosuvastatin Calcium [Crestor] 10 mg PO DAILY 01/23/19 predniSONE [Deltasone -] 20 mg PO UTDICT #5 tablet 01/23/19 Problem List - Problems (1) HTN (hypertension) Code(s): I10 - ESSENTIAL (PRIMARY) HYPERTENSION (2) CAD (coronary artery disease) Code(s): I25.10 - ATHSCL HEART DISEASE OF [place] CORONARY ARTERY W/O ANG PCTRS (3) Diabetes Code(s): E11.9 - TYPE 2 DIABETES MELLITUS WITHOUT COMPLICATIONS (4) Allergic reaction Code(s): T78.40XA - ALLERGY, UNSPECIFIED, INITIAL ENCOUNTER (5) Anaphylaxis Code(s): T78.2XXA - ANAPHYLACTIC SHOCK, UNSPECIFIED, INITIAL ENCOUNTER This patient is new to me today: Yes Date on this admission: 01/23/19 Emergency Visit: Yes ED Registration Date: 01/23/19 Care time: The patient presented to the Emergency Department on the above date and was hospitalized for further evaluation of their emergent condition. Critical Care patient: Yes Total Critical Care Time (in minutes): 35 Critical Care Statement: The care of this patient involved high complexity decision making to prevent further life threatening deterioration of the patient 's condition and/or to evaluate & treat vital organ system(s) failure or risk of failure. - Discharge Referral Referred to [facility] No Physician Referral: Jesus Gaines MD ([facility]) ATTENDING PHYSICIAN STATEMENT I saw and evaluated the patient. I reviewed the resident's note and discussed the case with the resident. I agree with the resident's findings and plan as documented. SUBJECTIVE: OBJECTIVE: ASSESSMENT AND PLAN:
[2019-01-23] MEDS ORDERED: CHLORHEXIDINE GLUCONATE 4% CLEANSER FOR DECOLONIZATION TP SCH (22:00)
[2019-01-23] MEDS ORDERED: MUPIROCIN 2% TOPICAL OINTMENT FOR DECOLONIZATION NS SCH (22:00)
[2019-01-23] MEDS ORDERED: FAMOTIDINE 20 MG/50 ML IVPB 20 MG/50 ML MG IVPB SCH (22:00)
[2019-01-23] MEDS ORDERED: APIXABAN 5 MG TABLET PO SCH (22:00)
[2019-01-24] MEDS ORDERED: ENOXAPARIN NA (PORCINE) 40 MG/0.4 ML DISP.SYRIN SQ SCH (10:00)
== END 2019-01-23 18:30 | disposition left against medical advice (07) | DRG 816 ==
LOC: FER 08:16 → JICU 10:01
DX: T63.441A Toxic effect of venom of bees, accidental (unintentional), initial encounter (principal); R22.0 Localized swelling, mass and lump, head; Z72.0 Tobacco use; Z72.89 Other problems related to lifestyle; I25.10 Atherosclerotic heart disease of native coronary artery without angina pectoris; E11.9 Type 2 diabetes mellitus without complications; T78.3XXA Angioneurotic edema, initial encounter; R26.2 Difficulty in walking, not elsewhere classified; R47.01 Aphasia; I10 Essential (primary) hypertension; Z95.1 Presence of aortocoronary bypass graft
CPT/HCPCS: 36415; 80053; 82962; 85025; 93005; 99283-25; J1100; J7030

== ENCOUNTER 2019-12-09 23:11 | Inpatient (IN) | payer OTHER ==
[2019-12-09] MEDS ORDERED: ACETAMINOPHEN 1000 MG/100 ML VIAL (NON FORMULARY) IVPB ONE (23:25)
[2019-12-09] MEDS ORDERED: ACETAMINOPHEN INJECTION 100 ML IVPB ONE (23:30)
--- NOTE | 2019-12-09 23:32 | PDOC ---
History of Present Illness - General Chief Complaint: Redness To Affected Area Stated Complaint: RT FOOT INFECTION Time Seen by Provider: 12/09/19 23:14 - History of Present Illness Initial Comments: 12/09/19 23:28 54 M with h/o CAD, CABG, HTN, DM, peripheral neuropathy, presenting to ED with R foot redness and fevers. Pt states that he stepped on a rock with his R foot about 4 days ago but did not notice it due to his neuropathy. Over the past 2 days, his R foot began to get red and painful. Today, pt began to feel feverish and weak, and he noticed that the redness was streaking up his leg. Pt denies any cough, denies SOB/CP. Past History - Medical History Allergies/Adverse Reactions: Allergies Allergy/AdvReac Type Severity Reaction Status Date / Time No Known Allergies Allergy Verified 01/23/19 08:33 Home Medications: Ambulatory Orders Glyburide/Metformin HCl [Glyburide-Metformin 2.5-500 Mg] 1 each PO DAILY tablet 09/13/12 Amlodipine Besylate [Norvasc -] 10 mg PO DAILY 01/06/17 Clonidine HCl 1 mg PO BID 01/06/17 Morphine Sulfate [Morphine Sulfate ER] 60 mg PO QID 02/01/17 Famotidine [Pepcid -] 20 mg PO DAILY #7 tablet 01/23/19 Gabapentin 600 mg DAILY 01/23/19 Metoprolol Succinate 100 mg PO DAILY 01/23/19 Rosuvastatin Calcium [Crestor] 10 mg PO DAILY 01/23/19 Anemia: No Asthma: No Cancer: No Cardiac Disorders: No CVA: No COPD: No CHF: No Dementia: No Diabetes: Yes GI Disorders: No Disorders: No HTN: Yes Hypercholesterolemia: Yes Liver Disease: No Seizures: No Thyroid Disease: No - Surgical History Cardiac Surgery: Yes (triple bypass) - Psycho-Social/Smoking History Smoking History: Unknown if ever smoked Have you smoked in the past 12 months: Yes Number of Cigarettes Smoked Daily: 30 If you are a former smoker, when did you quit?: 7 months Cigars Per Day: 0 Information on smoking cessation initiated: No Review of Systems - Review of Systems Comments:: 12/09/19 23:29 "GENERAL/CONSTITUTIONAL: No fever or chills. No weakness. HEAD, EYES, EARS, NOSE AND THROAT: No change in vision. No ear pain or discharg e. No sore throat. CARDIOVASCULAR: No chest pain, no shortness of breath, no loss of consciousness RESPIRATORY: No cough, wheezing, or hemoptysis. GASTROINTESTINAL: No nausea, vomiting, diarrhea or constipation. GENITOURINARY: No dysuria, frequency, or change in urination. MUSCULOSKELETAL: No joint or muscle swelling or pain. No neck or back pain. SKIN: + R foot redness NEUROLOGIC: No vertigo, no change in strength/sensation. ENDOCRINE: No increased thirst. No abnormal weight change. HEMATOLOGIC/LYMPHATIC: No anemia, easy bleeding, or history of blood clots. ALLERGIC/IMMUNOLOGIC: No hives or skin allergy. *Physical Exam - Vital Signs Last Vital Signs Temp Pulse Resp BP Pulse Ox 101.7 F H 85 18 186/102 H 99 12/09/19 23:16 12/09/19 23:16 12/09/19 23:16 12/09/19 23:16 12/09/19 23:16 - Physical Exam 12/09/19 23:30 "GENERAL: Awake, alert, and fully oriented, in no acute distress. HEAD: No signs of trauma EYES: PERRLA, EOMI, sclera anicteric, conjunctiva clear ENT: Auricles normal inspection, hearing grossly normal, nares patent, oropharynx clear without exudates. Moist mucosa NECK: Nontender, no stepoffs, Normal ROM, supple, no lymphadenopathy, JVD, or masses LUNGS: Breath sounds equal, clear to auscultation bilaterally. No wheezes, and no crackles HEART: Regular rate and rhythm, normal S1 and S2, no murmurs, rubs or gallops ABDOMEN: Soft, nontender, normoactive bowel sounds. No guarding, no rebound. No masses EXTREMITIES: Normal range of motion, no edema. No clubbing or cyanosis. No cords, erythema, or tenderness NEUROLOGICAL: Cranial nerves II through XII intact. 5/5 strength and sensation in all extremities, Normal speech, normal gait, normal cerebellar function SKIN: + erythema surrounding distal R foot up with streaking up to calf ED Treatment Course - LABORATORY CBC & Chemistry Diagram: 12/09/19 23:50 12/09/19 23:50 - RADIOLOGY Radiology Studies Ordered: Category Date Time Status CHEST X-RAY PORTABLE* [RAD] Stat Radiology 12/09/19 23:24 Ordered Medical Decision Making - Medical Decision Making 12/09/19 23:31 54 M with cellulitis of R foot as well as likely lymphangitis. - Labs, cultures - CXR, UA - IV abx 12/10/19 02:43 CXR and UA unremarkable Initial CBC clotted, will resend CMP wnl Pt started on IV clinda Admitted to hospitalist Discharge - Discharge Information Problems reviewed: Yes Clinical Impression/Diagnosis: Cellulitis, Lymphangitis Condition: Stable - Admission Yes - Follow up/Referral Referrals: Nader Orosco MD [Primary Care Provider] - - Patient Discharge Instructions - Post Discharge Activity
[2019-12-09] MEDS ORDERED: CLINDAMYCIN 600MG PREMIX IVPB 600 MG/50 ML BAG IVPB ONE (23:33)
[2019-12-09] MEDS ORDERED: CLINDAMYCIN PHOSPHATE 600 MG/4 ML VIAL ONE (23:40)
[2019-12-10 01:51] LABS: PH,URINE 7.5 (5.0-8.0); URINE APPEARANCE CLEAR; URINE BILIRUBIN NEGATIVE (NEGATIVE); URINE COLOR YELLOW; URINE GLUCOSE (UA) NEGATIVE (NEGATIVE); URINE KETONE NEGATIVE (NEGATIVE); URINE LEUK ESTERASE NEGATIVE (NEGATIVE); URINE NITRITE NEGATIVE (NEGATIVE); URINE PROTEIN 3+ (NEGATIVE)
[2019-12-10 02:03] LABS: EPI CELLS 10 /uL (0-25.1); URINE RBC 112 /uL (0-23.9); URINE WBC 6 /uL (0-25.8)
[2019-12-10 02:04] LABS: URINE BACTERIA 8 /uL (0-1359)
[2019-12-10 02:14] LABS: ALBUMIN 3.8 g/dl (3.4-5.0); BILIRUBIN,TOTAL 0.4 mg/dL (0.2-1); BLOOD UREA NITROGEN 15.6 mg/dL (7-18); CREATININE 1.2 mg/dL (0.55-1.3); POTASSIUM 4.4 mmol/L (3.5-5.1)
[2019-12-10 03:26] LABS: BASO % 0.3 % (0-2.0); EOS % 1.3 % (0-4.5); HEMATOCRIT 32.6 % (35.4-49); HEMOGLOBIN 11.1 GM/dL (11.7-16.9); LYMPH % 14.9 % (8-40); MCH 31.9 pg (25.7-33.7); MCHC 33.9 g/dl (32.0-35.9); MEAN CELL VOLUME 94.1 fl (80-96); MEAN PLT VOLUME 10.1 fl (7.5-11.1); MONO % 11.5 % (3.8-10.2); PLATELET COUNT 224 K/MM3 (134-434); RBC 3.46 M/mm3 (4.00-5.60); RDW 13.4 % (11.9-15.9); WHITE BLOOD COUNT 12.1 K/mm3 (4.0-10.0)
[2019-12-10 03:43] VITALS: BMI 30.1
[2019-12-10] MEDS: HEPARIN NA (PORCINE) 5,000 UNITS/ML 1ML VIAL SQ SCH ×3 (06:39→21:27)
--- NOTE | 2019-12-10 08:39 | HP ---
CHIEF COMPLAINT: right foot pain, fever PCP: Kwesi HISTORY OF PRESENT ILLNESS: 54 M with h/o CAD, CABG, HTN, DM, peripheral neuropathy, presenting to ED with R foot redness and fevers. Pt states that he stepped on a rock with his R foot about 4 days ago but did not notice it due to his neuropathy. Over the past 2 days, his R foot began to get red and painful. Yesterday, pt began to feel feverish and weak, and he noticed that the redness was streaking up his leg. Pt denies any cough, denies SOB/CP. pt seen at bedside this morning, pt c/o pain at site where he stepped on rock. Afebrile this AM. pt does not recall doses of medications he takes at home. pt denies abd pain, n/v, diarrhea, dizziness, headache. exposure to COVID. pt with chronic pain, [employer] med morphine ER 60 QID - pt reports he takes 2-3 pills at once sometimes in the morning due to pain. MA Prescription last filled 09/14/2019 #120 pills for 30 days Ref # [id number] ER course was notable for: (1)WBC 12.1, lactic wnl (2)Temp 101.7 (12/08) (3) Recent Travel: PAST MEDICAL HISTORY: h/o CAD, CABG, HTN, DM, peripheral neuropathy, PAST SURGICAL HISTORY: Social History: Smoking:denies Alcohol:denies Drugs: denies Allergies No Known Allergies Allergy (Verified 01/23/19 08:33) HOME MEDICATIONS: Home Medications Medication Instructions Recorded Glyburide/Metformin HCl 1 each PO DAILY tablet 09/13/12 [Glyburide-Metformin 2.5-500 Mg] Amlodipine Besylate [Norvasc -] 10 mg PO DAILY 01/06/17 Clonidine HCl 1 mg PO BID 01/06/17 Morphine Sulfate [Morphine Sulfate 60 mg PO QID 02/01/17 ER] Famotidine [Pepcid -] 20 mg PO DAILY #7 tablet 01/23/19 Gabapentin 600 mg DAILY 01/23/19 Metoprolol Succinate 100 mg PO DAILY 01/23/19 Rosuvastatin Calcium [Crestor] 10 mg PO DAILY 01/23/19 REVIEW OF SYSTEMS CONSTITUTIONAL: +fever, malaise Absent: chills, diaphoresis, generalized weakness, loss of appetite, weight change HEENT: Absent: rhinorrhea, nasal congestion, throat pain, throat swelling, difficulty swallowing, mouth swelling, ear pain, eye pain, visual changes CARDIOVASCULAR: Absent: chest pain, syncope, palpitations, irregular heart rate, lightheadedness, peripheral edema RESPIRATORY: Absent: cough, shortness of breath, dyspnea with exertion, orthopnea, wheezing, stridor, hemoptysis GASTROINTESTINAL: Absent: abdominal pain, abdominal distension, nausea, vomiting, diarrhea, constipation, melena, hematochezia GENITOURINARY: Absent: dysuria, frequency, urgency, hesitancy, hematuria, flank pain, genital pain MUSCULOSKELETAL:+pain in right side of 5th toe, not able to bear weight Absent: myalgia, arthralgia, joint swelling, back pain, neck pain SKIN: Absent: rash, itching, pallor HEMATOLOGIC/IMMUNOLOGIC: Absent: easy bleeding, easy bruising, lymphadenopathy, frequent infections ENDOCRINE: Absent: unexplained weight gain, unexplained weight loss, heat intolerance, cold intolerance NEUROLOGIC: Absent: headache, focal weakness or paresthesias, dizziness, unsteady gait, seizure, mental status changes, bladder or bowel incontinence PSYCHIATRIC: Absent: anxiety, depression, suicidal or homicidal ideation, hallucinations. PHYSICAL EXAMINATION Vital Signs - 24 hr 12/09/19 12/10/19 12/10/19 23:16 01:21 03:23 Temperature 101.7 F H 99.9 F H 98.2 F Pulse Rate 85 68 Pulse Rate [ 70 Radial] Respiratory 18 16 16 Rate Blood Pressure 186/102 H 139/71 Blood Pressure 144/81 [Arm] O2 Sat by Pulse 99 99 96 Oximetry (%) 12/10/19 06:24 Temperature 98.1 F Pulse Rate 69 Pulse Rate [ Radial] Respiratory 16 Rate Blood Pressure 156/71 Blood Pressure [Arm] O2 Sat by Pulse 100 Oximetry (%) GENERAL: Awake, alert, and fully oriented, in no acute distress. HEAD: Normal with no signs of trauma. EYES: Pupils equal, round and reactive to light, extraocular movements intact, sclera anicteric, conjunctiva clear. No lid lag. EARS, NOSE, THROAT: Ears normal, nares patent, oropharynx clear without exudates. Moist mucous membranes. NECK: Normal range of motion, supple without lymphadenopathy, JVD, or masses. LUNGS: Breath sounds equal, clear to auscultation bilaterally. No wheezes, and no crackles. No accessory muscle use. HEART: Regular rate and rhythm, normal S1 and S2 without murmur, rub or gallop. ABDOMEN: Soft, nontender, not distended, normoactive bowel sounds, no guarding, no rebound, no masses. No hepatomegaly or splenomegaly. MUSCULOSKELETAL: Normal range of motion at all joints. No bony deformities or tenderness. No CVA tenderness. UPPER EXTREMITIES: 2+ pulses, warm, well-perfused. No cyanosis. No clubbing. No peripheral edema. LOWER EXTREMITIES: 2+ pulses, warm, well-perfused. No calf tenderness. No peripheral edema. NEUROLOGICAL: Cranial nerves II-XII intact. Normal speech. Normal gait. PSYCHIATRIC: Cooperative. Good eye contact. Appropriate mood and affect. SKIN: swelling, bruising noted 5th toe planum,-tender to touch, redness on dorsum from 5th toe upward.Warm, dry, normal turgor, no rashes or lesions noted, normal capillary refill. Laboratory Results - last 24 hr 12/09/19 12/09/19 12/09/19 23:50 23:50 23:55 WBC Cancelled Corrected WBC (auto) Cancelled RBC Cancelled Hgb Cancelled Hct Cancelled MCV Cancelled MCH Cancelled MCHC Cancelled RDW Cancelled Plt Count Cancelled MPV Cancelled Absolute Neuts (auto) Cancelled Neutrophils % Cancelled Lymphocytes % Cancelled Monocytes % Cancelled Eosinophils % Cancelled Basophils % Cancelled Nucleated RBC % Cancelled Platelet Estimate Cancelled Platelet Comment Cancelled Sodium 135 L Potassium 4.4 Chloride 98 Carbon Dioxide 28 Anion Gap 9 BUN 15.6 Creatinine 1.2 Est GFR (CKD-EPI)AfAm 78.98 Est GFR (CKD-EPI)NonAf 68.14 POC Glucometer Random Glucose 114 H Lactic Acid Calcium 9.0 Total Bilirubin 0.4 AST 22 ALT 15 Alkaline Phosphatase 89 Total Protein 8.0 Albumin 3.8 Urine Color Yellow Urine Appearance Clear Urine pH 7.5 Ur Specific [place] 1.019 Urine Protein 3+ H Urine Glucose (UA) Negative Urine Ketones Negative Urine Blood Negative Urine Nitrite Negative Urine Bilirubin Negative Urine Urobilinogen 1.0 Ur Leukocyte Esterase Negative Urine WBC (Auto) 6 Urine RBC (Auto) 112 U Epithel Cells (Auto) 10 Urine Bacteria (Auto) 8 12/10/19 12/10/19 12/10/19 00:45 02:05 06:19 WBC 12.1 H Corrected WBC (auto) RBC 3.46 L Hgb 11.1 L Hct 32.6 L MCV 94.1 MCH 31.9 MCHC 33.9 RDW 13.4 Plt Count 224 MPV 10.1 Absolute Neuts (auto) 8.7 H Neutrophils % 72.0 Lymphocytes % 14.9 Monocytes % 11.5 H Eosinophils % 1.3 Basophils % 0.3 Nucleated RBC % 0 Platelet Estimate Platelet Comment Sodium Potassium Chloride Carbon Dioxide Anion Gap BUN Creatinine Est GFR (CKD-EPI)AfAm Est GFR (CKD-EPI)NonAf POC Glucometer 169 Random Glucose Lactic Acid 0.8 Calcium Total Bilirubin AST ALT Alkaline Phosphatase Total Protein Albumin Urine Color Urine Appearance Urine pH Ur Specific [place] Urine Protein Urine Glucose (UA) Urine Ketones Urine Blood Urine Nitrite Urine Bilirubin Urine Urobilinogen Ur Leukocyte Esterase Urine WBC (Auto) Urine RBC (Auto) U Epithel Cells (Auto) Urine Bacteria (Auto) ASSESSMENT/PLAN: Alexsander Ramirez is a 54 yr M, medical condition CAD s/p CABG, HTN, DM, peripheral neuropathy, admitted for Admitting Diagnosis Right foot Cellulitis Chronic Conditions CAD s/p CABG HTN DM Peripheral neuropathy #Right foot cellulitis -IV Clinda -ID consult -blood, urine cx in process -lactic wnl -xray right foot -pain mgt-morphine 2mg Q6hrs PRN #CAD s/p CABG #HTN -c/w statin, BB, CCB -unable to verify clonidine 1mg dose, 0.1,g BID ordered #DM -ISC -po med on hold -monitor FS AC/HS -diabetic diet #Peripheral neuropathy #Chronic pain -c/w gabapentin -po morphine on hold Full Code Dispo: requires inpatient care Visit type - Emergency Visit Emergency Visit: Yes ED Registration Date: 12/10/19 Care time: The patient presented to the Emergency Department on the above date and was hospitalized for further evaluation of their emergent condition. - New Patient This patient is new to me today: Yes Date on this admission: 12/10/19 - Critical Care Critical Care patient: No
[2019-12-10] MEDS ORDERED: morphine CARPU-JECT 2 MG/1 ML DISP.SYRIN IM PRN (09:25)
[2019-12-10] MEDS: FAMOTIDINE 20 MG TABLET PO SCH (09:55)
[2019-12-10] MEDS: CLINDAMYCIN 600MG PREMIX IVPB 600 MG/50 ML BAG IVPB SCH ×2 (09:55→17:05)
[2019-12-10] MEDS: amLODIPine BESYLATE 10 MG TABLET (FP) PO SCH (09:56)
[2019-12-10] MEDS: cloNIDine HCL 0.1 MG TABLET PO SCH ×2 (09:56→21:13)
[2019-12-10] MEDS: GABAPENTIN 300 MG CAPSULE PO SCH (09:56)
[2019-12-10] MEDS ORDERED: CLONIDINE HCL PO SCH (10:00)
[2019-12-10] MEDS: INSULIN SLIDING SCALE (NOVOLOG) 1 VIAL SQ SCH ×3 (10:57→21:21)
[2019-12-10] MEDS: morphine CARPU-JECT 2 MG/1 ML DISP.SYRIN IVPUSH PRN ×3 (10:58→22:14)
[2019-12-10] MEDS: ACETAMINOPHEN 325 MG TABLET (FP) PO PRN (14:33)
[2019-12-10 16:50] LABS: METHADONE, UR NEGATIVE ng/ml (CUTOFF=300); PHENCYCLIDINE,URINE NEGATIVE ng/ml (CUTOFF=25); URINE BARBITURATES NEGATIVE ng/ml (CUTOFF=200)
[2019-12-10 16:51] LABS: URINE AMPHETAMINES NEGATIVE ng/ml (CUTOFF=500); URINE BENZODIAZEPINES NEGATIVE ng/ml (CUTOFF=200)
[2019-12-10 16:54] LABS: COCAINE, UR POSITIVE ng/ml (CUTOFF=300); OPIATES, URI POSITIVE ng/ml (CUTOFF=300)
--- NOTE | 2019-12-10 17:40 | CON.ID ---
Consult - History of Present Illness History of Present Illness: 54 y.o. male with PMH of DM, diabetic neuropathy, CAD s/p CABG, and HTN presents with c/o Rt foot erythema/swelling and fever. He states that 4 days ago he noted a rock in his shoe when he was taking it off. 2 days later his foot started swelling up and turning red with extension up his leg and felt feverish. He denies pain but has severe neuropathy. In the ER, he was found to have temp of 101.7F with mild leukocytosis. Xray reveals soft tissue swelling but 2 tiny foreign bodies in the region of Lt 5th MT. Pt denies having any other complaints. - History Source History Provided By: Patient Limitations to Obtaining History: No Limitations - Past Medical History BODY MAN: Yes: Peripheral Neuropathy Cardio/Vascular: Yes: CAD, HTN Endocrine: Yes: Diabetes Mellitus - Past Surgical History Past Surgical History: Yes: CABG - Alcohol/Substance Use Hx Alcohol Use: No - Smoking History Smoking history: Current every day smoker Have you smoked in the past 12 months: Yes Aproximately how many cigarettes per day: 20 If you are a former smoker, when did you quit?: 7 months - Social History ADL: Independent Occupation: on disability x 3 years because of Diabetic Neuropathy. Home Medications - Allergies Allergies/Adverse Reactions: Allergies Allergy/AdvReac Type Severity Reaction Status Date / Time No Known Allergies Allergy Verified 01/23/19 08:33 - Home Medications Home Medications: Ambulatory Orders Glyburide/Metformin HCl [Glyburide-Metformin 2.5-500 Mg] 1 each PO DAILY tablet 09/13/12 Amlodipine Besylate [Norvasc -] 10 mg PO DAILY 01/06/17 Clonidine HCl 1 mg PO BID 01/06/17 Morphine Sulfate [Morphine Sulfate ER] 60 mg PO QID 02/01/17 Famotidine [Pepcid -] 20 mg PO DAILY #7 tablet 01/23/19 Gabapentin 600 mg DAILY 01/23/19 Metoprolol Succinate 100 mg PO DAILY 01/23/19 Rosuvastatin Calcium [Crestor] 10 mg PO DAILY 01/23/19 Review of Systems - Review of Systems Constitutional: reports: No Symptoms. denies: Chills, Diaphoresis, Fever, Lethargy, Loss of Appetite, Malaise, Night Sweats, Unintentional Wgt. Loss, Weakness, Other Eyes: reports: No Symptoms. denies: Blind Spots, Blurred Vision, Double Vision, Eye Pain, Floaters, Photophobia, Recent Change in Vision, Other HENT: reports: No Symptoms. denies: Difficult Swallowing, Ear Discharge, Ear Pain, Epistaxis, Gingival Bleeding, Hearing Loss, Mouth Swelling, Nasal Congestion, Ocular Prosthesis, Throat Pain, Toothache, Ringing in Ears, Other Neck: reports: No Symptoms. denies: Decreased ROM, Lumps, Pain on Movement, Stiffness, Swollen Glands, Tenderness, Other Cardiovascular: reports: No Symptoms. denies: Chest Pain, Edema, Palpitations, Shortness of Breath, Other Respiratory: reports: No Symptoms. denies: Cough, Exercise Intolerance, Hemoptysis, Orthopnea, PND, Snoring, SOB, SOB on Exertion, Wheezing, Other Gastrointestinal: reports: No Symptoms. denies: Abdominal Pain, Bloating, Constipation, Diarrhea, Dysphagia, Indigestion, Melena, Nausea, Rectal Bleeding, Vomiting, Vomiting Blood, Other Genitourinary: reports: No Symptoms. denies: Burning, Discharge, Dysuria, Flank Pain, Frequency, Hematuria, Incontinence, Lesions, Menses, Pain, Testicular Mass, Testicular Pain, Testicular Swelling, Urgency, Vaginal Bleeding, Other Musculoskeletal: reports: No Symptoms Integumentary: reports: Erythema (Rt foot dorsal and plantar erythema/swelling) Neurological: reports: No Symptoms. denies: Change in LOC, Change in Speech, Confusion, Dizziness, Headache, Incoordination, Numbness, Parasthesia, Pre- Existing Deficit, Seizure, Syncope, Tremors, Unsteady Gait, Weakness, Other Endocrine: reports: No Symptoms. denies: Excessive Sweating, Flushing, Increased Hunger, Increased Thirst, Intolerance to Cold, Intolerance to Heat, Unexplained Weight Gain, Unexplained Weight Loss, Other Hematology/Lymphatic: reports: No Symptoms. denies: Easily Bruised, Excessive Bleeding, Swollen Glands, Other Psychiatric: reports: No Symptoms. denies: Altered Sleep Pattern, Anxiety, Depression, Hallucinations, Panic, Paranoia, Suicidal, Other Physical Exam Vital Signs: Vital Signs Temperature 99.6 F 12/10/19 14:00 Pulse Rate 64 12/10/19 14:00 Respiratory Rate 18 12/10/19 14:00 Blood Pressure 140/64 12/10/19 14:00 O2 Sat by Pulse Oximetry (%) 92 L 12/10/19 14:00 Constitutional: Yes: No Distress, Calm Eyes: Yes: Conjunctiva Clear, EOM Intact HENT: Yes: Atraumatic Neck: Yes: Supple Cardiovascular: Yes: Regular Rate and Rhythm Respiratory: Yes: CTA Bilaterally Gastrointestinal: Yes: Normal Bowel Sounds, Soft Renal/: Yes: WNL Extremities: Yes: Erythema (Rt dorsal and Rt lateral plantar erythema/warmth with foot edema. plantar ulceration healed/dry in region of 5th MT. no tenderness. No drainage/fluctuance.) Edema: RLE: Trace Integumentary: Yes: WNL Neurological: Yes: Alert, Oriented Psychiatric: Yes: Alert, Oriented Labs: CBC, BMP 12/10/19 02:05 12/09/19 23:50 Laboratory Tests 12/09/19 12/09/19 12/09/19 23:50 23:50 23:55 WBC Cancelled Corrected WBC (auto) Cancelled RBC Cancelled Hgb Cancelled Hct Cancelled MCV Cancelled MCH Cancelled MCHC Cancelled RDW Cancelled Plt Count Cancelled MPV Cancelled Absolute Neuts (auto) Cancelled Neutrophils % Cancelled Lymphocytes % Cancelled Monocytes % Cancelled Eosinophils % Cancelled Basophils % Cancelled Nucleated RBC % Cancelled Platelet Estimate Cancelled Platelet Comment Cancelled Sodium 135 L Potassium 4.4 Chloride 98 Carbon Dioxide 28 Anion Gap 9 BUN 15.6 Creatinine 1.2 Est GFR (CKD-EPI)AfAm 78.98 Est GFR (CKD-EPI)NonAf 68.14 POC Glucometer Random Glucose 114 H Lactic Acid Calcium 9.0 Total Bilirubin 0.4 AST 22 ALT 15 Alkaline Phosphatase 89 Total Protein 8.0 Albumin 3.8 Urine Color Yellow Urine Appearance Clear Urine pH 7.5 Ur Specific [place] 1.019 Urine Protein 3+ H Urine Glucose (UA) Negative Urine Ketones Negative Urine Blood Negative Urine Nitrite Negative Urine Bilirubin Negative Urine Urobilinogen 1.0 Ur Leukocyte Esterase Negative Urine WBC (Auto) 6 Urine RBC (Auto) 112 U Epithel Cells (Auto) 10 Urine Bacteria (Auto) 8 Opiates Screen Methadone Screen Barbiturate Screen Phencyclidine Screen Ur Amphetamines Screen MDMA (Ecstasy) Screen Benzodiazepines Screen Cocaine Screen U Marijuana (THC) Screen 12/10/19 12/10/19 12/10/19 00:45 02:05 06:19 WBC 12.1 H Corrected WBC (auto) RBC 3.46 L Hgb 11.1 L Hct 32.6 L MCV 94.1 MCH 31.9 MCHC 33.9 RDW 13.4 Plt Count 224 MPV 10.1 Absolute Neuts (auto) 8.7 H Neutrophils % 72.0 Lymphocytes % 14.9 Monocytes % 11.5 H Eosinophils % 1.3 Basophils % 0.3 Nucleated RBC % 0 Platelet Estimate Platelet Comment Sodium Potassium Chloride Carbon Dioxide Anion Gap BUN Creatinine Est GFR (CKD-EPI)AfAm Est GFR (CKD-EPI)NonAf POC Glucometer 169 Random Glucose Lactic Acid 0.8 Calcium Total Bilirubin AST ALT Alkaline Phosphatase Total Protein Albumin Urine Color Urine Appearance Urine pH Ur Specific [place] Urine Protein Urine Glucose (UA) Urine Ketones Urine Blood Urine Nitrite Urine Bilirubin Urine Urobilinogen Ur Leukocyte Esterase Urine WBC (Auto) Urine RBC (Auto) U Epithel Cells (Auto) Urine Bacteria (Auto) Opiates Screen Methadone Screen Barbiturate Screen Phencyclidine Screen Ur Amphetamines Screen MDMA (Ecstasy) Screen Benzodiazepines Screen Cocaine Screen U Marijuana (THC) Screen 12/10/19 12/10/19 12/10/19 10:51 13:31 16:28 WBC Corrected WBC (auto) RBC Hgb Hct MCV MCH MCHC RDW Plt Count MPV Absolute Neuts (auto) Neutrophils % Lymphocytes % Monocytes % Eosinophils % Basophils % Nucleated RBC % Platelet Estimate Platelet Comment Sodium Potassium Chloride Carbon Dioxide Anion Gap BUN Creatinine Est GFR (CKD-EPI)AfAm Est GFR (CKD-EPI)NonAf POC Glucometer 234 139 Random Glucose Lactic Acid Calcium Total Bilirubin AST ALT Alkaline Phosphatase Total Protein Albumin Urine Color Urine Appearance Urine pH Ur Specific [place] Urine Protein Urine Glucose (UA) Urine Ketones Urine Blood Urine Nitrite Urine Bilirubin Urine Urobilinogen Ur Leukocyte Esterase Urine WBC (Auto) Urine RBC (Auto) U Epithel Cells (Auto) Urine Bacteria (Auto) Opiates Screen Positive A* Methadone Screen Negative Barbiturate Screen Negative Phencyclidine Screen Negative Ur Amphetamines Screen Negative MDMA (Ecstasy) Screen Negative Benzodiazepines Screen Negative Cocaine Screen Positive A* U Marijuana (THC) Screen Negative Imaging - Results Chest X-ray: Report Reviewed X-ray: Report Reviewed Problem List - Problems (1) Cellulitis Code(s): L03.90 - CELLULITIS, UNSPECIFIED (2) Lymphangitis Code(s): I89.1 - LYMPHANGITIS (3) CAD (coronary artery disease) Code(s): I25.10 - ATHSCL HEART DISEASE OF [place] CORONARY ARTERY W/O ANG PCTRS (4) Diabetes Code(s): E11.9 - TYPE 2 DIABETES MELLITUS WITHOUT COMPLICATIONS (5) HTN (hypertension) Code(s): I10 - ESSENTIAL (PRIMARY) HYPERTENSION Assessment/Plan 54 y.o. male with PMH of DM, diabetic neuropathy, CAD s/p CABG, and HTN presents with c/o Rt foot erythema/swelling and fever Rt foot cellulitis r/o foreign body DM with neuropathy CAD s/p CABG HTN -- continue Clindamycin IV for now, if no improvement will switch to Vancomycin/Levaquin empirically -- CT scan ordered -- monitor temps/wbc trend -- follow up blood culture results -- check esr/crp -- monitor glucose Will follow up Thank you
--- NOTE | 2019-12-10 19:05 | CONSULT ---
Consult Consult Specialty:: Podiatry Reason for Consultation:: Cellulitis with foreign body right foot - History of Present Illness History of Present Illness: States redness started 4 days ago. Came to ER yesterday. Remembers a rock in his shoe but no sharp needle like fragments - Past Medical History POWER MANAGER: Yes: Peripheral Neuropathy Cardio/Vascular: Yes: CAD, HTN Endocrine: Yes: Diabetes Mellitus - Past Surgical History Past Surgical History: Yes: CABG - Alcohol/Substance Use Hx Alcohol Use: No - Smoking History Smoking history: Current every day smoker Have you smoked in the past 12 months: Yes Aproximately how many cigarettes per day: 20 If you are a former smoker, when did you quit?: 7 months - Social History ADL: Independent Occupation: on disability x 3 years because of Diabetic Neuropathy. Home Medications - Allergies Allergies/Adverse Reactions: Allergies Allergy/AdvReac Type Severity Reaction Status Date / Time No Known Allergies Allergy Verified 01/23/19 08:33 - Home Medications Home Medications: Ambulatory Orders Glyburide/Metformin HCl [Glyburide-Metformin 2.5-500 Mg] 1 each PO DAILY tablet 09/13/12 Amlodipine Besylate [Norvasc -] 10 mg PO DAILY 01/06/17 Clonidine HCl 1 mg PO BID 01/06/17 Morphine Sulfate [Morphine Sulfate ER] 60 mg PO QID 02/01/17 Famotidine [Pepcid -] 20 mg PO DAILY #7 tablet 01/23/19 Gabapentin 600 mg DAILY 01/23/19 Metoprolol Succinate 100 mg PO DAILY 01/23/19 Rosuvastatin Calcium [Crestor] 10 mg PO DAILY 01/23/19 Physical Exam Vital Signs: Vital Signs Temperature 99.6 F 12/10/19 14:00 Pulse Rate 64 12/10/19 14:00 Respiratory Rate 18 12/10/19 14:00 Blood Pressure 140/64 12/10/19 14:00 O2 Sat by Pulse Oximetry (%) 92 L 12/10/19 14:00 Wound/Incision: Yes: Other (vsgi, +neuropathic, +streaking cellulitis right foot into ankle, +fluctuant collection sub met 5 with portal of entry visible, +xray for 2 fragments that are radio-opaque,) Labs: CBC, BMP 12/10/19 02:05 12/09/19 23:50 Imaging - Results X-ray: Image Reviewed (+2 fragments sub 5th met right) Assessment/Plan cellulitis foreign body right foot x 2 dm IVABX as per ID. Maximize for OR. Will attempt ID and removal of fragments on Wednesday. Hgba1c ordered. Vascular consult for clearance. Discussed with patient. Obtain consent for Wednesday. Will follow. INR tomorrow.
[2019-12-10] MEDS: ROSUVASTATIN CA 10 MG TABLET (FP) PO SCH (21:13)
[2019-12-10] MEDS ORDERED: GABAPENTIN 300 MG CAPSULE PO ONE (23:34)
[2019-12-10] MEDS ORDERED: morphine CARPU-JECT 2 MG/1 ML DISP.SYRIN IVPUSH ONE (23:35)
[2019-12-11] MEDS ORDERED: LORazepam 1 MG TABLET PO PRN (00:21)
--- NOTE | 2019-12-11 00:45 | HOSP ---
Subjective - Review of Symptoms Events since last encounter: Hospitalist Encounter Was notified by the primary RN and Overnight Nursing Plasterer Maintenance that the patient appears to be in withdrawal. Patient's UDT obtained earlier + Cocaine and Opiates. Per Riaz Reaves (Nursing Plasterer Maintenance), patient admits to polysubstance use. Assessment: 54 M with h/o CAD, CABG, HTN, DM, peripheral neuropathy, presenting to ED with R foot redness and fevers. Admitted for Cellulitis of R- Foot Plan: Detox Protocol Clonidine PO x1 now Sanitary Plumber Consult Metoprolol Held Seizure Protocol Continue with current regimen Other Systems: Psychiatric: Anxious, Agitated, Restless Physical Examination Vital Signs: Vital Signs Temperature 98.6 F 12/10/19 21:00 Pulse Rate 75 12/10/19 21:00 Respiratory Rate 18 12/10/19 21:00 Blood Pressure 157/76 12/10/19 21:00 O2 Sat by Pulse Oximetry (%) 99 12/10/19 19:35 Labs: CBC, BMP 12/10/19 02:05 12/09/19 23:50 Laboratory Results - last 24 hr 12/09/19 12/09/19 12/09/19 23:50 23:50 23:55 WBC Cancelled Corrected WBC (auto) Cancelled RBC Cancelled Hgb Cancelled Hct Cancelled MCV Cancelled MCH Cancelled MCHC Cancelled RDW Cancelled Plt Count Cancelled MPV Cancelled Absolute Neuts (auto) Cancelled Neutrophils % Cancelled Lymphocytes % Cancelled Monocytes % Cancelled Eosinophils % Cancelled Basophils % Cancelled Nucleated RBC % Cancelled Platelet Estimate Cancelled Platelet Comment Cancelled Sodium 135 L Potassium 4.4 Chloride 98 Carbon Dioxide 28 Anion Gap 9 BUN 15.6 Creatinine 1.2 Est GFR (CKD-EPI)AfAm 78.98 Est GFR (CKD-EPI)NonAf 68.14 POC Glucometer Random Glucose 114 H Lactic Acid Calcium 9.0 Total Bilirubin 0.4 AST 22 ALT 15 Alkaline Phosphatase 89 Total Protein 8.0 Albumin 3.8 Urine Color Yellow Urine Appearance Clear Urine pH 7.5 Ur Specific [place] 1.019 Urine Protein 3+ H Urine Glucose (UA) Negative Urine Ketones Negative Urine Blood Negative Urine Nitrite Negative Urine Bilirubin Negative Urine Urobilinogen 1.0 Ur Leukocyte Esterase Negative Urine WBC (Auto) 6 Urine RBC (Auto) 112 U Epithel Cells (Auto) 10 Urine Bacteria (Auto) 8 Opiates Screen Methadone Screen Barbiturate Screen Phencyclidine Screen Ur Amphetamines Screen MDMA (Ecstasy) Screen Benzodiazepines Screen Cocaine Screen U Marijuana (THC) Screen 12/10/19 12/10/19 12/10/19 00:45 02:05 06:19 WBC 12.1 H Corrected WBC (auto) RBC 3.46 L Hgb 11.1 L Hct 32.6 L MCV 94.1 MCH 31.9 MCHC 33.9 RDW 13.4 Plt Count 224 MPV 10.1 Absolute Neuts (auto) 8.7 H Neutrophils % 72.0 Lymphocytes % 14.9 Monocytes % 11.5 H Eosinophils % 1.3 Basophils % 0.3 Nucleated RBC % 0 Platelet Estimate Platelet Comment Sodium Potassium Chloride Carbon Dioxide Anion Gap BUN Creatinine Est GFR (CKD-EPI)AfAm Est GFR (CKD-EPI)NonAf POC Glucometer 169 Random Glucose Lactic Acid 0.8 Calcium Total Bilirubin AST ALT Alkaline Phosphatase Total Protein Albumin Urine Color Urine Appearance Urine pH Ur Specific [place] Urine Protein Urine Glucose (UA) Urine Ketones Urine Blood Urine Nitrite Urine Bilirubin Urine Urobilinogen Ur Leukocyte Esterase Urine WBC (Auto) Urine RBC (Auto) U Epithel Cells (Auto) Urine Bacteria (Auto) Opiates Screen Methadone Screen Barbiturate Screen Phencyclidine Screen Ur Amphetamines Screen MDMA (Ecstasy) Screen Benzodiazepines Screen Cocaine Screen U Marijuana (THC) Screen 12/10/19 12/10/19 12/10/19 10:51 13:31 16:28 WBC Corrected WBC (auto) RBC Hgb Hct MCV MCH MCHC RDW Plt Count MPV Absolute Neuts (auto) Neutrophils % Lymphocytes % Monocytes % Eosinophils % Basophils % Nucleated RBC % Platelet Estimate Platelet Comment Sodium Potassium Chloride Carbon Dioxide Anion Gap BUN Creatinine Est GFR (CKD-EPI)AfAm Est GFR (CKD-EPI)NonAf POC Glucometer 234 139 Random Glucose Lactic Acid Calcium Total Bilirubin AST ALT Alkaline Phosphatase Total Protein Albumin Urine Color Urine Appearance Urine pH Ur Specific [place] Urine Protein Urine Glucose (UA) Urine Ketones Urine Blood Urine Nitrite Urine Bilirubin Urine Urobilinogen Ur Leukocyte Esterase Urine WBC (Auto) Urine RBC (Auto) U Epithel Cells (Auto) Urine Bacteria (Auto) Opiates Screen Positive A* Methadone Screen Negative Barbiturate Screen Negative Phencyclidine Screen Negative Ur Amphetamines Screen Negative MDMA (Ecstasy) Screen Negative Benzodiazepines Screen Negative Cocaine Screen Positive A* U Marijuana (THC) Screen Negative 12/10/19 21:01 WBC Corrected WBC (auto) RBC Hgb Hct MCV MCH MCHC RDW Plt Count MPV Absolute Neuts (auto) Neutrophils % Lymphocytes % Monocytes % Eosinophils % Basophils % Nucleated RBC % Platelet Estimate Platelet Comment Sodium Potassium Chloride Carbon Dioxide Anion Gap BUN Creatinine Est GFR (CKD-EPI)AfAm Est GFR (CKD-EPI)NonAf POC Glucometer 169 Random Glucose Lactic Acid Calcium Total Bilirubin AST ALT Alkaline Phosphatase Total Protein Albumin Urine Color Urine Appearance Urine pH Ur Specific [place] Urine Protein Urine Glucose (UA) Urine Ketones Urine Blood Urine Nitrite Urine Bilirubin Urine Urobilinogen Ur Leukocyte Esterase Urine WBC (Auto) Urine RBC (Auto) U Epithel Cells (Auto) Urine Bacteria (Auto) Opiates Screen Methadone Screen Barbiturate Screen Phencyclidine Screen Ur Amphetamines Screen MDMA (Ecstasy) Screen Benzodiazepines Screen Cocaine Screen U Marijuana (THC) Screen
[2019-12-11] MEDS ORDERED: cloNIDine HCL 0.1 MG TABLET PO ONE (00:50)
[2019-12-11] MEDS: CLINDAMYCIN 600MG PREMIX IVPB 600 MG/50 ML BAG IVPB SCH ×3 (01:07→17:29)
[2019-12-11] MEDS: HEPARIN NA (PORCINE) 5,000 UNITS/ML 1ML VIAL SQ SCH ×3 (06:11→21:41)
[2019-12-11] MEDS: LORazepam 1 MG TABLET PO SCH ×2 (06:15→11:06)
[2019-12-11 07:45] LABS: HEMATOCRIT 36.4 % (35.4-49); HEMOGLOBIN 12.6 GM/dl (11.7-16.9); MCH 31.5 pg (25.7-33.7); MCHC 34.6 g/dl (32.0-35.9); MEAN CELL VOLUME 90.9 fl (80-96); MEAN PLT VOLUME 9.8 fl (7.5-11.1); PLATELET COUNT 248 K/MM3 (134-434); RDW 12.5 % (11.9-15.9); WHITE BLOOD COUNT 11.4 K/mm3 (4.0-10.8)
[2019-12-11] MEDS: INSULIN SLIDING SCALE (NOVOLOG) 1 VIAL SQ SCH ×4 (07:55→21:42)
[2019-12-11] MEDS: morphine CARPU-JECT 2 MG/1 ML DISP.SYRIN IVPUSH PRN (07:55)
[2019-12-11] MEDS ORDERED: morphine SULFATE IMMEDIATE RELEASE 30 MG TAB PO ONE (08:36)
[2019-12-11 08:39] LABS: ALBUMIN 3.2 g/dl (3.4-5.0); BILIRUBIN,TOTAL 0.7 mg/dl (0.2-1); CALCIUM 8.9 mg/dl (8.5-10); CREATININE 0.9 mg/dl (0.55-1.3); MAGNESIUM 1.8 mg/dL (1.8-2.4); TOT PROT 6.9 g/dl (6.4-8.2)
[2019-12-11 08:49] LABS: INR 1.26 (0.82-1.09)
[2019-12-11] MEDS ORDERED: morphine SO4 SUSTAINED ACTING 15 MG TABLET.SA PO ONE (08:53)
[2019-12-11] MEDS: amLODIPine BESYLATE 10 MG TABLET (FP) PO SCH (09:14)
[2019-12-11] MEDS: GABAPENTIN 300 MG CAPSULE PO SCH (09:14)
[2019-12-11] MEDS: FAMOTIDINE 20 MG TABLET PO SCH (09:14)
[2019-12-11] MEDS: cloNIDine HCL 0.1 MG TABLET PO SCH ×2 (09:14→21:41)
[2019-12-11 09:32] LABS: PLATELET ESTIMATE ADEQUATE
--- NOTE | 2019-12-11 10:50 | PN ---
Physical Exam: SUBJECTIVE: Patient seen and examined; with reported episode of agitation earlier today with staff when he did not get his morphine SR 60mg; discussed with patient, explained needed to verify this was his home medication dose, he expressed understanding; complains of pain that extends from left foot to groin area OBJECTIVE: Vital Signs Period Temp Pulse Resp BP Sys/Mcnulty Pulse Ox Last 24 Hr 98.4 F-100 F 64-82 18-20 140-164/62-78 92-99 GENERAL: The patient is awake, alert, and fully oriented, in no acute distress. LUNGS: Breath sounds equal, clear to auscultation HEART: Regular rate and rhythm, S1, S2 ABDOMEN: Soft, nontender, nondistended RLE: mild erythema and moderate swelling to dorsum of right foot; no streaking up the leg observed; palpable pulses, warm, well-perfused NEUROLOGICAL: Cranial nerves II through XII grossly intact. Moves all extremities freely, self-positions easily Laboratory Results - last 24 hr 12/10/19 12/10/19 12/10/19 10:51 13:31 16:28 WBC RBC Hgb Hct MCV MCH MCHC RDW Plt Count MPV Absolute Neuts (auto) Neutrophils % Neutrophils % (Manual) Band Neutrophils % Lymphocytes % Lymphocytes % (Manual) Monocytes % (Manual) Eosinophils % (Manual) Platelet Estimate ESR PT with INR INR Sodium Potassium Chloride Carbon Dioxide Anion Gap BUN Creatinine Est GFR (CKD-EPI)AfAm Est GFR (CKD-EPI)NonAf POC Glucometer 234 139 Random Glucose Calcium Magnesium Total Bilirubin AST ALT Alkaline Phosphatase Total Protein Albumin Opiates Screen Positive A* Methadone Screen Negative Barbiturate Screen Negative Phencyclidine Screen Negative Ur Amphetamines Screen Negative MDMA (Ecstasy) Screen Negative Benzodiazepines Screen Negative Cocaine Screen Positive A* U Marijuana (THC) Screen Negative 12/10/19 12/11/19 12/11/19 21:01 06:10 07:00 WBC 11.4 H RBC 4.00 Hgb 12.6 Hct 36.4 MCV 90.9 MCH 31.5 MCHC 34.6 RDW 12.5 Plt Count 248 D MPV 9.8 D Absolute Neuts (auto) 8.5 Neutrophils % No Result Required. Neutrophils % (Manual) 75.0 Band Neutrophils % 1.0 Lymphocytes % No Result Required. Lymphocytes % (Manual) 16.0 Monocytes % (Manual) 6 Eosinophils % (Manual) 2.0 Platelet Estimate Adequate ESR PT with INR INR Sodium Potassium Chloride Carbon Dioxide Anion Gap BUN Creatinine Est GFR (CKD-EPI)AfAm Est GFR (CKD-EPI)NonAf POC Glucometer 169 165 Random Glucose Calcium Magnesium Total Bilirubin AST ALT Alkaline Phosphatase Total Protein Albumin Opiates Screen Methadone Screen Barbiturate Screen Phencyclidine Screen Ur Amphetamines Screen MDMA (Ecstasy) Screen Benzodiazepines Screen Cocaine Screen U Marijuana (THC) Screen 12/11/19 12/11/19 12/11/19 07:02 07:02 07:50 WBC RBC Hgb Hct MCV MCH MCHC RDW Plt Count MPV Absolute Neuts (auto) Neutrophils % Neutrophils % (Manual) Band Neutrophils % Lymphocytes % Lymphocytes % (Manual) Monocytes % (Manual) Eosinophils % (Manual) Platelet Estimate ESR 94 H PT with INR 14.0 H INR 1.26 H Sodium 137 Potassium 4.0 Chloride 102 Carbon Dioxide 22 Anion Gap 13 BUN 11.0 Creatinine 0.9 Est GFR (CKD-EPI)AfAm 111.83 Est GFR (CKD-EPI)NonAf 96.49 POC Glucometer Random Glucose 194 H Calcium 8.9 Magnesium 1.8 Total Bilirubin 0.7 AST 14 L ALT 10 L Alkaline Phosphatase 56 Total Protein 6.9 Albumin 3.2 L Opiates Screen Methadone Screen Barbiturate Screen Phencyclidine Screen Ur Amphetamines Screen MDMA (Ecstasy) Screen Benzodiazepines Screen Cocaine Screen U Marijuana (THC) Screen d Active Medications Generic Name Dose Route Start Last Admin Trade Name Freq PRN Reason Stop Dose Admin Acetaminophen 650 mg 12/10/19 04:00 12/10/19 14:33 Tylenol - PO 650 mg Q6H PRN Administration PAIN LEVEL 6-10 Amlodipine Besylate 10 mg 12/10/19 10:00 12/11/19 09:14 Norvasc - PO 10 mg DAILY [facility] Administration Clonidine 0.1 mg 12/10/19 10:00 12/11/19 09:14 Catapres - PO 0.1 mg BID [facility] Administration Famotidine 20 mg 12/10/19 10:00 12/11/19 09:14 Pepcid - PO 20 mg DAILY [facility] Administration Gabapentin 600 mg 12/10/19 10:00 12/11/19 09:14 Neurontin - PO 600 mg DAILY [facility] Administration Heparin Sodium (Porcine) 5,000 unit 12/10/19 06:00 12/11/19 06:11 Heparin - SQ 5,000 unit TID [facility] Administration Clindamycin Phosphate 600 mg in 50 mls @ 100 mls/hr 12/10/19 10:00 12/11/19 09:14 Cleocin 600 Mg Premix Ivpb - IVPB 100 mls/hr Q8H-IV [facility] Administration Protocol Insulin Aspart 1 vial 12/10/19 11:00 12/11/19 07:55 Novolog Vial Sliding Scale - SQ 2 units ACHS [facility] Administration Protocol Lorazepam 1 mg 12/12/19 05:00 Ativan - PO 12/12/19 23:01 0500,1100,1700,2300 [facility] Lorazepam 1 mg 12/11/19 00:21 12/11/19 01:13 Ativan - PO 12/13/19 00:00 1 mg Q4H PRN Administration Symptoms of Withdrawal Lorazepam 2 mg 12/11/19 05:00 12/11/19 06:15 Ativan - PO 12/11/19 23:01 Not Given 0500,1100,1700,2300 [facility] Lorazepam 0.5 mg 12/13/19 05:00 Ativan - PO 12/13/19 23:01 Q6H [facility] Lorazepam 0.5 mg 12/13/19 00:00 Ativan - PO 12/14/19 00:00 Q4H PRN Symptoms of Withdrawal Lorazepam 0.5 mg 12/14/19 05:00 Ativan - PO 12/14/19 05:01 ONCE ONE Metoprolol Succinate 100 mg 12/10/19 10:00 12/10/19 09:56 Toprol Xl - PO 100 mg DAILY [facility] Administration Morphine Sulfate 2 mg 12/10/19 09:38 12/11/19 07:55 Morphine Injection - IVPUSH 2 mg Q6H PRN Administration PAIN LEVEL 6-10 Rosuvastatin Calcium 10 mg 12/10/19 22:00 12/10/19 21:13 Crestor - PO 10 mg HS [facility] Administration Review of Dr. Orosco's records: PRIOR MEDICAL HISTORY Hypertension Hyperlipidemia CAD s/p OH s/p CABG Type II NIDDM Asthma Alcohol abuse Opioid dependence Nonocclusive RIJ thrombus 2017 Hep C Polyneuropathy PRIOR SURGICAL HISTORY CABG x 3 (06/2017) ASSESSMENT/PLAN: 54 year-old male with a PMH signifcant for HTN, HLD, CAD s/p OH s/p CABG x 3 (2018), Type II NIDDM, asthma, alcohol abuse, morphine dependency, RIJ thrombus (2018), chronic Hep C, and polyneuropathy/chronic pain. Admitted for cellulitis of right foot. Sepsis secondary to cellulitis of right foot Foreign bodies right foot --12/10 CT: two (2) metallic foreign bodies within subq tissues about the fifth toe --T101.7, WBC 12.1k present on admission --clinda started in ED, switched to Zosyn today (day #1); ID following --plan is to OR tomorrow with podiatry to remove foreign bodies Coronary artery disease s/p CABG x 3 --ECG ordered --continue ToprolXL, rosuvastatin; hold home ASA pending surgery h/o RIJ thrombus 2018 --was on a/c for about a year, now off Hypertension --continue ToprolXL, amlodipine, clonidine, Lasix Hyperlipidemia --continue rosuvastatin Type II NIDDM --Novolog sliding scale coverage Asthma --Symbicort, Spiriva Chronic alcohol abuse --monitor closely for s/s withdrawal Morphine dependency Polyneuropathy/chronic pain --documented in PCP records and on ISTOP --will continue morphine SR 60mg q6h Chronic Hep C --stable FEN Fluids: PO intake adequate Electrolytes: replete as indicated Nutrition: low sodium, diabetic DVT prophylaxis: subq heparin; hold after this evening's dose Physical therapy Dispo: continues to require inpatient care. Full code. Visit type - Emergency Visit Emergency Visit: Yes ED Registration Date: 12/10/19 Care time: The patient presented to the Emergency Department on the above date and was hospitalized for further evaluation of their emergent condition. - New Patient This patient is new to me today: Yes Date on this admission: 12/11/19 - Critical Care Critical Care patient: No
[2019-12-11] MEDS ORDERED: PATIENT'S OWN MEDICATION (NON-FORMULARY) (Tiotropium Bromide [Spiriva] 1 INH) PO SCH (11:30)
[2019-12-11] MEDS: FUROSEMIDE 40 MG TABLET (FP) PO SCH (12:26)
[2019-12-11] MEDS: TIOTROPIUM BROMIDE 2.5 MCG (SPIRIVA) RESPIMAT INHALER IH SCH (12:27)
[2019-12-11] MEDS: BUDESONIDE/FORMETEROL FUMARATE 80/4.5 mcg INHALER IH SCH ×2 (12:27→21:46)
[2019-12-11] MEDS: ACETAMINOPHEN 325 MG TABLET (FP) PO PRN ×2 (12:34→20:57)
--- NOTE | 2019-12-11 14:13 | PN ---
Progress Note, Physician History of Present Illness: stable no new issues - Current Medication List Current Medications: Active Medications Acetaminophen (Tylenol -) 650 mg PO Q6H PRN PRN Reason: PAIN LEVEL 6-10 Last Admin: 12/11/19 12:34 Dose: 650 mg Documented by: Amlodipine Besylate (Norvasc -) 10 mg PO DAILY [facility] Last Admin: 12/11/19 09:14 Dose: 10 mg Documented by: Budesonide/Formoterol Fumarate (Symbicort 80/4.5mcg -) 2 puff IH BID [facility] Last Admin: 12/11/19 12:27 Dose: 2 puff Documented by: Clonidine (Catapres -) 0.1 mg PO BID [facility] Last Admin: 12/11/19 09:14 Dose: 0.1 mg Documented by: Famotidine (Pepcid -) 20 mg PO DAILY [facility] Last Admin: 12/11/19 09:14 Dose: 20 mg Documented by: Furosemide (Lasix -) 40 mg PO DAILY [facility] Last Admin: 12/11/19 12:26 Dose: 40 mg Documented by: Gabapentin (Neurontin -) 600 mg PO DAILY [facility] Last Admin: 12/11/19 09:14 Dose: 600 mg Documented by: Heparin Sodium (Porcine) (Heparin -) 5,000 unit SQ TID [facility] Last Admin: 12/11/19 06:11 Dose: 5,000 unit Documented by: Clindamycin Phosphate (Cleocin 600 Mg Premix Ivpb -) 600 mg in 50 mls @ 100 mls/hr IVPB Q8H-IV [facility]; Protocol Last Admin: 12/11/19 09:14 Dose: 100 mls/hr Documented by: Insulin Aspart (Novolog Vial Sliding Scale -) 1 vial SQ ACHS [facility]; Protocol Last Admin: 12/11/19 11:06 Dose: 4 units Documented by: Metoprolol Succinate (Toprol Xl -) 100 mg PO DAILY [facility] Last Admin: 12/11/19 12:26 Dose: 100 mg Documented by: Morphine Sulfate (Ms Contin -) 60 mg PO Q6H [facility] Rosuvastatin Calcium (Crestor -) 10 mg PO HS [facility] Last Admin: 12/10/19 21:13 Dose: 10 mg Documented by: Tiotropium [place] (Spiriva Respimat) 2 puff IH DAILY [facility] Last Admin: 07/06/20 12:27 Dose: 2 puff Documented by: - Objective Vital Signs: Vital Signs Temperature 100.0 F H 12/11/19 12:42 Pulse Rate 72 12/11/19 12:42 Respiratory Rate 18 12/11/19 12:42 Blood Pressure 146/73 12/11/19 12:42 O2 Sat by Pulse Oximetry (%) 96 12/11/19 12:42 Constitutional: Yes: No Distress, Calm Cardiovascular: Yes: S1, S2 Respiratory: Yes: Regular, CTA Bilaterally Gastrointestinal: Yes: Normal Bowel Sounds, Soft Musculoskeletal: Yes: WNL Extremities: Yes: Other (Yes: Erythema (Rt dorsal and Rt lateral plantar erythema/warmth with foot edema. plantar ulceration healed/dry in region of 5th MT. no tenderness. No drainage/fluctuance.)) Neurological: Yes: Alert, Oriented Psychiatric: Yes: Alert, Oriented Labs: CBC, BMP 12/11/19 07:00 12/11/19 07:02 INR, PTT INR 1.26 (0.82-1.09) H 12/11/19 07:02 Assessment/Plan Problem List - Problems (1) Cellulitis Code(s): L03.90 - CELLULITIS, UNSPECIFIED (2) Lymphangitis Code(s): I89.1 - LYMPHANGITIS (3) CAD (coronary artery disease) Code(s): I25.10 - ATHSCL HEART DISEASE OF [place] CORONARY ARTERY W/O ANG PCTRS (4) Diabetes Code(s): E11.9 - TYPE 2 DIABETES MELLITUS WITHOUT COMPLICATIONS (5) HTN (hypertension) Code(s): I10 - ESSENTIAL (PRIMARY) HYPERTENSION Assessment/Plan 54 y.o. male with PMH of DM, diabetic neuropathy, CAD s/p CABG, and HTN presents with c/o Rt foot erythema/swelling and fever Rt foot cellulitis r/o foreign body DM with neuropathy CAD s/p CABG HTN plan continue abx wound care podiatry on case rest as per the team
[2019-12-11] MEDS ORDERED: morphine SO4 SUSTAINED ACTING 30 MG TABLET.SA PO SCH (15:00)
[2019-12-11] MEDS ORDERED: PIPERACILLIN/TAZOBACTAM 3.375 GM VIAL IVPB ONE ×2 (15:28→21:31)
[2019-12-11] MEDS ORDERED: DEXTROSE 5%-WATER - 50 ML IVPB ONE ×2 (15:28→21:32)
[2019-12-11] MEDS: morphine SO4 SUSTAINED ACTING 30 MG TABLET.SA PO SCH ×2 (15:31→20:52)
[2019-12-11] MEDS: PIPERACILLIN/TAZOB 3.375 GM 3.375 GM in DEXTROSE 5%-WATER - 50 ML IVPB SCH ×2 (15:31→22:38)
[2019-12-11] MEDS: ROSUVASTATIN CA 10 MG TABLET (FP) PO SCH (21:41)
[2019-12-12] MEDS: CLINDAMYCIN 600MG PREMIX IVPB 600 MG/50 ML BAG IVPB SCH ×3 (01:57→17:58)
[2019-12-12] MEDS: morphine SO4 SUSTAINED ACTING 30 MG TABLET.SA PO SCH ×3 (02:43→15:37)
[2019-12-12] MEDS ORDERED: LORazepam 1 MG TABLET PO SCH (05:00)
[2019-12-12] MEDS ORDERED: PIPERACILLIN/TAZOBACTAM 3.375 GM VIAL IVPB ONE ×3 (05:48→21:35)
[2019-12-12] MEDS ORDERED: DEXTROSE 5%-WATER - 50 ML IVPB ONE ×3 (05:49→21:35)
[2019-12-12] MEDS: INSULIN SLIDING SCALE (NOVOLOG) 1 VIAL SQ SCH ×4 (06:14→21:45)
[2019-12-12] MEDS: PIPERACILLIN/TAZOB 3.375 GM 3.375 GM in DEXTROSE 5%-WATER - 50 ML IVPB SCH ×3 (06:15→22:48)
[2019-12-12] MEDS: cloNIDine HCL 0.1 MG TABLET PO SCH ×2 (09:20→21:40)
[2019-12-12] MEDS: FAMOTIDINE 20 MG TABLET PO SCH (09:21)
[2019-12-12] MEDS: amLODIPine BESYLATE 10 MG TABLET (FP) PO SCH (09:21)
[2019-12-12] MEDS: TIOTROPIUM BROMIDE 2.5 MCG (SPIRIVA) RESPIMAT INHALER IH SCH (09:21)
[2019-12-12] MEDS: BUDESONIDE/FORMETEROL FUMARATE 80/4.5 mcg INHALER IH SCH ×2 (09:21→21:42)
[2019-12-12] MEDS: GABAPENTIN 300 MG CAPSULE PO SCH (09:21)
[2019-12-12] MEDS: FUROSEMIDE 40 MG TABLET (FP) PO SCH (09:21)
--- NOTE | 2019-12-12 10:22 | PN ---
Progress Note, Physician History of Present Illness: States redness started 6 days ago. Came to E. Remembers a rock in his shoe but no sharp needle like fragments - Current Medication List Current Medications: Active Medications Acetaminophen (Tylenol -) 650 mg PO Q6H PRN PRN Reason: PAIN LEVEL 6-10 Last Admin: 12/11/19 20:57 Dose: 650 mg Documented by: Amlodipine Besylate (Norvasc -) 10 mg PO DAILY [facility] Last Admin: 12/12/19 09:21 Dose: 10 mg Documented by: Budesonide/Formoterol Fumarate (Symbicort 80/4.5mcg -) 2 puff IH BID [facility] Last Admin: 12/12/19 09:21 Dose: 2 puff Documented by: Clonidine (Catapres -) 0.1 mg PO BID [facility] Last Admin: 12/12/19 09:20 Dose: 0.1 mg Documented by: Famotidine (Pepcid -) 20 mg PO DAILY [facility] Last Admin: 12/12/19 09:21 Dose: Not Given Documented by: Furosemide (Lasix -) 40 mg PO DAILY [facility] Last Admin: 12/12/19 09:21 Dose: Not Given Documented by: Gabapentin (Neurontin -) 600 mg PO DAILY [facility] Last Admin: 12/12/19 09:21 Dose: Not Given Documented by: Clindamycin Phosphate (Cleocin 600 Mg Premix Ivpb -) 600 mg in 50 mls @ 100 mls/hr IVPB Q8H-IV [facility]; Protocol Last Admin: 12/12/19 01:57 Dose: 100 mls/hr Documented by: Piperacillin Sod/Tazobactam (Sod 3.375 gm/ Dextrose) 50 mls @ 100 mls/hr IVPB Q8H [facility]; Protocol Last Admin: 12/12/19 06:15 Dose: 100 mls/hr Documented by: Insulin Aspart (Novolog Vial Sliding Scale -) 1 vial SQ ACHS [facility]; Protocol Last Admin: 12/12/19 06:14 Dose: Not Given Documented by: Metoprolol Succinate (Toprol Xl -) 100 mg PO DAILY [facility] Last Admin: 12/12/19 09:21 Dose: 100 mg Documented by: Morphine Sulfate (Ms Contin -) 60 mg PO Q6H [facility] Last Admin: 12/12/19 09:19 Dose: 60 mg Documented by: Rosuvastatin Calcium (Crestor -) 10 mg PO HS [facility] Last Admin: 12/11/19 21:41 Dose: 10 mg Documented by: Tiotropium [place] (Spiriva Respimat) 2 puff IH DAILY [facility] Last Admin: 12/12/19 09:21 Dose: 2 puff Documented by: - Objective Vital Signs: Vital Signs Temperature 98.2 F 12/12/19 06:49 Pulse Rate 66 12/12/19 06:49 Respiratory Rate 18 12/12/19 06:49 Blood Pressure 151/75 12/12/19 06:49 O2 Sat by Pulse Oximetry (%) 96 12/12/19 08:45 Wound/Incision: Yes: Other (abscess, cellulitis right foot with foreign body x 2) Labs: CBC, BMP 12/11/19 07:00 12/11/19 07:02 INR, PTT INR 1.26 (0.82-1.09) H 12/11/19 07:02 Assessment/Plan cellulitis foreign body right foot x 2 dm Pt consented to removal of foreign bodies and drainage of abscess. Pt fully understands all risks, benefits, alternatives and possible complications. Image of foreign body reviewed with patient. Procedure scheduled for today at 10:30am.
[2019-12-12] MEDS ORDERED: LIDOCAINE HCL 1%, 10 MG/ML (20ML VIAL) ONE (10:23)
[2019-12-12] MEDS ORDERED: BUPIVACAINE HCL/PF 0.5% (5MG/ML) 10 ML VIAL ONE (10:23)
[2019-12-12] MEDS ORDERED: MIDAZOLAM HCL 2 MG/2 ML SINGLE DOSE VIAL ONE ×3 (10:30→10:43)
[2019-12-12] MEDS ORDERED: PROPOFOL 20 ML ONE (10:30)
[2019-12-12] MEDS ORDERED: LACTATED RINGERS SOLUTION 1,000 ML IV SCH (11:30)
[2019-12-12] MEDS ORDERED: INSULIN (NOVOLOG) ASPART 100 UNITS/ML 10ML VIAL SQ ONE (12:00)
--- NOTE | 2019-12-12 12:05 | OP ---
Operative Note - Note: Operative Date: 12/12/19 Pre-Operative Diagnosis: abscess with cellulitis and foreign body x 2 and 1 superficial skin Operation: incision and drainage abscess. removal deep foreign body x 2 through 2 seperate incisions. retention sutures. 1/4 inch iodoform packing. 1000cc pulse antibiotic lavage Findings: abscess. foreign body deep x 2. foreign body skin x 1. Estimated Blood Loss (mls): 5 Drains & Tubes with Location: 1/4 inch iodoform packing Operative Report Dictated: No
--- NOTE | 2019-12-12 12:07 | EKG ---
Test Reason : Blood Pressure : / mmHG Vent. Rate : 065 BPM Atrial Rate : 065 BPM P-R Int : 196 ms QRS Dur : 080 ms QT Int : 398 ms P-R-T Axes : 035 050 082 degrees QTc Int : 413 ms NORMAL SINUS RHYTHM POSSIBLE LEFT ATRIAL ENLARGEMENT SEPTAL INFARCT (CITED ON OR BEFORE 23-JUN-2017) ABNORMAL ECG WHEN COMPARED WITH ECG OF 23-JAN-2019 08:41, NO SIGNIFICANT CHANGE WAS FOUND Confirmed by MD Edmundo, Will ([id number]) on 12/12/2019 12:06:21 PM Referred By: RACQUEL HE Confirmed By:Will Wyatt MD
[2019-12-12 13:04] LABS: BASO % 0.3 % (0-2.0); EOS % 2.8 % (0-4.5); HEMATOCRIT 35.2 % (35.4-49); LYMPH % 15.2 % (8-40); MCH 31.4 pg (25.7-33.7); MCHC 34.2 g/dl (32.0-35.9); MEAN CELL VOLUME 91.9 fl (80-96); MEAN PLT VOLUME 8.9 fl (7.5-11.1); MONO % 8.4 % (3.8-10.2); NEUT % 73.3 % (42.8-82.8); PLATELET COUNT 261 K/MM3 (134-434); RBC 3.83 M/mm3 (4.00-5.60); RDW 12.3 % (11.9-15.9); WHITE BLOOD COUNT 9.3 K/mm3 (4.0-10.8)
--- NOTE | 2019-12-12 14:42 | PN ---
Progress Note, Physician History of Present Illness: stable no new issues - Current Medication List Current Medications: Active Medications Acetaminophen (Tylenol -) 650 mg PO Q6H PRN PRN Reason: PAIN LEVEL 6-10 Last Admin: 12/11/19 20:57 Dose: 650 mg Documented by: Amlodipine Besylate (Norvasc -) 10 mg PO DAILY [facility] Last Admin: 12/12/19 09:21 Dose: 10 mg Documented by: Budesonide/Formoterol Fumarate (Symbicort 80/4.5mcg -) 2 puff IH BID [facility] Last Admin: 12/12/19 09:21 Dose: 2 puff Documented by: Clonidine (Catapres -) 0.1 mg PO BID [facility] Last Admin: 12/12/19 09:20 Dose: 0.1 mg Documented by: Famotidine (Pepcid -) 20 mg PO DAILY [facility] Last Admin: 12/12/19 09:21 Dose: Not Given Documented by: Furosemide (Lasix -) 40 mg PO DAILY [facility] Last Admin: 12/12/19 09:21 Dose: Not Given Documented by: Gabapentin (Neurontin -) 600 mg PO DAILY [facility] Last Admin: 12/12/19 09:21 Dose: Not Given Documented by: Clindamycin Phosphate (Cleocin 600 Mg Premix Ivpb -) 600 mg in 50 mls @ 100 mls/hr IVPB Q8H-IV [facility]; Protocol Last Admin: 12/12/19 11:30 Dose: 100 mls/hr Documented by: Piperacillin Sod/Tazobactam (Sod 3.375 gm/ Dextrose) 50 mls @ 100 mls/hr IVPB Q8H [facility]; Protocol Last Admin: 12/12/19 06:15 Dose: 100 mls/hr Documented by: Lactated Ringer's (Lactated Ringers Solution) 1,000 mls @ 75 mls/hr IV [facility] Insulin Aspart (Novolog Vial Sliding Scale -) 1 vial SQ ACHS [facility]; Protocol Last Admin: 12/12/19 12:14 Dose: Not Given Documented by: Metoprolol Succinate (Toprol Xl -) 100 mg PO DAILY [facility] Last Admin: 12/12/19 09:21 Dose: 100 mg Documented by: Morphine Sulfate (Ms Contin -) 60 mg PO Q6H [facility] Last Admin: 12/12/19 09:19 Dose: 60 mg Documented by: Rosuvastatin Calcium (Crestor -) 10 mg PO HS [facility] Last Admin: 12/11/19 21:41 Dose: 10 mg Documented by: Tiotropium [place] (Spiriva Respimat) 2 puff IH DAILY [facility] Last Admin: 12/12/19 09:21 Dose: 2 puff Documented by: - Objective Vital Signs: Vital Signs Temperature 100.4 F H 12/12/19 14:00 Pulse Rate 54 L 12/12/19 14:00 Respiratory Rate 16 12/12/19 14:00 Blood Pressure 144/66 12/12/19 14:00 O2 Sat by Pulse Oximetry (%) 100 12/12/19 14:00 Constitutional: Yes: No Distress, Calm Cardiovascular: Yes: S1, S2 Respiratory: Yes: Regular, CTA Bilaterally Gastrointestinal: Yes: Normal Bowel Sounds, Soft Musculoskeletal: Yes: WNL Extremities: Yes: Other Wound/Incision: Yes: Dressing Dry and Intact Neurological: Yes: Alert, Oriented Psychiatric: Yes: Alert, Oriented Labs: CBC, BMP 12/12/19 12:40 12/11/19 07:02 INR, PTT INR 1.26 (0.82-1.09) H 12/11/19 07:02 Assessment/Plan Problem List - Problems (1) Cellulitis Code(s): L03.90 - CELLULITIS, UNSPECIFIED (2) Lymphangitis Code(s): I89.1 - LYMPHANGITIS (3) CAD (coronary artery disease) Code(s): I25.10 - ATHSCL HEART DISEASE OF [place] CORONARY ARTERY W/O ANG PCTRS (4) Diabetes Code(s): E11.9 - TYPE 2 DIABETES MELLITUS WITHOUT COMPLICATIONS (5) HTN (hypertension) Code(s): I10 - ESSENTIAL (PRIMARY) HYPERTENSION Assessment/Plan 54 y.o. male with PMH of DM, diabetic neuropathy, CAD s/p CABG, and HTN presents with c/o Rt foot erythema/swelling and fever Rt foot cellulitis r/o foreign body DM with neuropathy CAD s/p CABG HTN plan continue abx wound care podiatry on case rest as per the team
--- NOTE | 2019-12-12 14:52 | PN ---
Physical Exam: SUBJECTIVE: Patient seen and examined at bedside after returning from OR. Denies pain. Appears comfortable. OBJECTIVE: Vital Signs Period Temp Pulse Resp BP Sys/Mcnulty Pulse Ox Last 24 Hr 98.2 F-100.4 F 54-81 16-18 124-152/66-91 96-100 GENERAL: The patient is awake, alert, and fully oriented, in no acute distress. LUNGS: Breath sounds equal, clear to auscultation HEART: Regular rate and rhythm, S1, S2 ABDOMEN: Soft, nontender, nondistended RLE: surgical dressing c/d/i NEUROLOGICAL: Cranial nerves II through XII grossly intact. Moves all extremities freely, self-positions easily Laboratory Results - last 24 hr 12/09/19 12/11/19 12/11/19 23:50 07:02 17:27 WBC RBC Hgb Hct MCV MCH MCHC RDW Plt Count MPV Absolute Neuts (auto) Neutrophils % Lymphocytes % Monocytes % Eosinophils % Basophils % POC Glucometer 98 C-Reactive Protein 6.3 H COVID-19 ([facility]) Not detected 12/11/19 12/12/19 12/12/19 21:27 05:56 11:32 WBC RBC Hgb Hct MCV MCH MCHC RDW Plt Count MPV Absolute Neuts (auto) Neutrophils % Lymphocytes % Monocytes % Eosinophils % Basophils % POC Glucometer 151 187 163 C-Reactive Protein COVID-19 (UMA) 12/12/19 12:40 WBC 9.3 RBC 3.83 L Hgb 12.0 Hct 35.2 L MCV 91.9 MCH 31.4 MCHC 34.2 RDW 12.3 Plt Count 261 MPV 8.9 Absolute Neuts (auto) 6.8 Neutrophils % 73.3 D Lymphocytes % 15.2 D Monocytes % 8.4 Eosinophils % 2.8 Basophils % 0.3 POC Glucometer C-Reactive Protein COVID-19 ([facility]) Active Medications Generic Name Dose Route Start Last Admin Trade Name Freq PRN Reason Stop Dose Admin Acetaminophen 650 mg 12/10/19 04:00 12/11/19 20:57 Tylenol - PO 650 mg Q6H PRN Administration PAIN LEVEL 6-10 Amlodipine Besylate 10 mg 12/10/19 10:00 12/12/19 09:21 Norvasc - PO 10 mg DAILY [facility] Administration Budesonide/Formoterol Fumarate 2 puff 12/11/19 12:15 12/12/19 09:21 Symbicort 80/4.5mcg - IH 2 puff BID [facility] Administration Clonidine 0.1 mg 12/10/19 10:00 12/12/19 09:20 Catapres - PO 0.1 mg BID [facility] Administration Famotidine 20 mg 12/10/19 10:00 12/12/19 09:21 Pepcid - PO Not Given DAILY [facility] Furosemide 40 mg 12/11/19 11:30 12/12/19 09:21 Lasix - PO Not Given DAILY [facility] Gabapentin 600 mg 12/10/19 10:00 12/12/19 09:21 Neurontin - PO Not Given DAILY [facility] Clindamycin Phosphate 600 mg in 50 mls @ 100 mls/hr 12/10/19 10:00 12/12/19 11:30 Cleocin 600 Mg Premix Ivpb - IVPB 100 mls/hr Q8H-IV [facility] Administration Protocol Piperacillin Sod/Tazobactam 50 mls @ 100 mls/hr 12/11/19 15:00 12/12/19 06:15 Sod 3.375 gm/ Dextrose IVPB 100 mls/hr Q8H [facility] Administration Protocol Lactated Ringer's 1,000 mls @ 75 mls/hr 12/12/19 11:30 Lactated Ringers Solution IV ASDIR [facility] Insulin Aspart 1 vial 12/10/19 11:00 12/12/19 12:14 Novolog Vial Sliding Scale - SQ Not Given ACHS [facility] Protocol Metoprolol Succinate 100 mg 12/11/19 12:00 12/12/19 09:21 Toprol Xl - PO 100 mg DAILY [facility] Administration Morphine Sulfate 60 mg 12/11/19 15:00 12/12/19 09:19 Ms Contin - PO 60 mg Q6H [facility] Administration Rosuvastatin Calcium 10 mg 12/10/19 22:00 12/11/19 21:41 Crestor - PO 10 mg HS [facility] Administration Tiotropium [place] 2 puff 12/11/19 12:00 12/12/19 09:21 Spiriva Respimat IH 2 puff DAILY [facility] Administration ASSESSMENT/PLAN: 54 year-old male with a PMH signifcant for HTN, HLD, CAD s/p [place] s/p CABG x 3 (2018), Type II NIDDM, asthma, alcohol abuse, morphine dependency, RIJ thrombus (2018), chronic Hep C, and polyneuropathy/chronic pain. Admitted for cellulitis of right foot. Sepsis secondary to cellulitis of right foot Foreign bodies right foot --s/p I&D removal of foreign bodies right foot today with Dr. Leyva --continue Zosyn today (day #2); ID following Coronary artery disease s/p CABG x 3 --ECG: sinus rhythm @75bpm --continue ToprolXL, rosuvastatin; resume ASA 24 hours after surgery if no bleeding h/o RIJ thrombus 2018 --was on a/c for about a year, now off Hypertension --continue ToprolXL, amlodipine, clonidine, Lasix Hyperlipidemia --continue rosuvastatin Type II NIDDM --Novolog sliding scale coverage Asthma --Symbicort, Spiriva Chronic alcohol abuse --monitor closely for s/s withdrawal Morphine dependency Polyneuropathy/chronic pain --documented in PCP records and on ISTOP --will continue morphine SR 60mg q6h Chronic Hep C --stable FEN Fluids: PO intake adequate Electrolytes: replete as indicated Nutrition: low sodium, diabetic DVT prophylaxis: resume subq heparin Physical therapy Dispo: continues to require inpatient care. Full code. Visit type - Emergency Visit Emergency Visit: Yes ED Registration Date: 12/10/19 Care time: The patient presented to the Emergency Department on the above date and was hospitalized for further evaluation of their emergent condition. - New Patient This patient is new to me today: No - Critical Care Critical Care patient: No
[2019-12-12] MEDS: HEPARIN NA (PORCINE) 5,000 UNITS/ML 1ML VIAL SQ SCH ×2 (15:38→21:41)
[2019-12-12] MEDS ORDERED: ACETAMINOPHEN 325 MG TABLET (FP) PO PRN (17:54)
[2019-12-12] MEDS: LACTATED RINGERS SOLUTION 1,000 ML IV SCH (17:58)
[2019-12-12] MEDS: ACETAMINOPHEN WITH CODEINE 300MG/30MG TABLET PO PRN (21:40)
[2019-12-12] MEDS: ROSUVASTATIN CA 10 MG TABLET (FP) PO SCH (21:40)
[2019-12-13] MEDS ORDERED: LORazepam 0.5 MG TABLET PO PRN
[2019-12-13] MEDS: ACETAMINOPHEN WITH CODEINE 300MG/30MG TABLET PO PRN ×2 (01:18→04:43)
[2019-12-13] MEDS: CLINDAMYCIN 600MG PREMIX IVPB 600 MG/50 ML BAG IVPB SCH ×3 (01:18→19:28)
[2019-12-13] MEDS ORDERED: DOCUSATE SODIUM 100 MG CAPSULE (FP) PO PRN (02:23)
[2019-12-13] MEDS ORDERED: LORazepam 0.5 MG TABLET PO SCH (05:00)
[2019-12-13] MEDS ORDERED: PIPERACILLIN/TAZOBACTAM 3.375 GM VIAL IVPB ONE ×3 (06:06→23:09)
[2019-12-13] MEDS ORDERED: DEXTROSE 5%-WATER - 50 ML IVPB ONE ×3 (06:06→23:09)
[2019-12-13] MEDS: HEPARIN NA (PORCINE) 5,000 UNITS/ML 1ML VIAL SQ SCH ×3 (06:17→21:25)
[2019-12-13] MEDS: INSULIN SLIDING SCALE (NOVOLOG) 1 VIAL SQ SCH ×4 (06:18→21:32)
[2019-12-13] MEDS: PIPERACILLIN/TAZOB 3.375 GM 3.375 GM in DEXTROSE 5%-WATER - 50 ML IVPB SCH ×3 (06:18→23:12)
--- NOTE | 2019-12-13 07:01 | PN ---
Physical Exam: SUBJECTIVE: Patient seen and examined at bedside. Denies pain. Very concerned about getting his morphine medication. OBJECTIVE: Vital Signs Period Temp Pulse Resp BP Sys/Mcnulty Pulse Ox Last 24 Hr 97.8 F-100.4 F 54-81 16-18 124-166/57-91 94-100 GENERAL: The patient is awake, alert, and fully oriented, in no acute distress. LUNGS: Breath sounds equal, clear to auscultation HEART: Regular rate and rhythm, S1, S2 ABDOMEN: Soft, nontender, nondistended RLE: surgical dressing c/d/i NEUROLOGICAL: Cranial nerves II through XII grossly intact. Moves all extremities freely, self-positions easily Laboratory Results - last 24 hr 12/12/19 12/12/19 12/12/19 11:32 12:40 15:48 WBC 9.3 RBC 3.83 L Hgb 12.0 Hct 35.2 L MCV 91.9 MCH 31.4 MCHC 34.2 RDW 12.3 Plt Count 261 MPV 8.9 Absolute Neuts (auto) 6.8 Neutrophils % 73.3 D Lymphocytes % 15.2 D Monocytes % 8.4 Eosinophils % 2.8 Basophils % 0.3 POC Glucometer 163 171 12/12/19 12/13/19 21:45 06:14 WBC RBC Hgb Hct MCV MCH MCHC RDW Plt Count MPV Absolute Neuts (auto) Neutrophils % Lymphocytes % Monocytes % Eosinophils % Basophils % POC Glucometer 149 184 Active Medications Generic Name Dose Route Start Last Admin Trade Name Freq PRN Reason Stop Dose Admin Acetaminophen 650 mg 12/12/19 17:54 Tylenol - PO Q6H PRN PAIN LEVEL 6-10 Acetaminophen/Codeine Phosphate 1 tab 12/12/19 21:30 12/13/19 04:43 Tylenol # 3 - PO 1 tab Q4H PRN Administration PAIN LEVEL 1-5 Amlodipine Besylate 10 mg 12/13/19 10:00 Norvasc - PO DAILY [facility] Budesonide/Formoterol Fumarate 2 puff 12/12/19 22:00 12/12/19 21:42 Symbicort 80/4.5mcg - IH Not Given BID [facility] Clonidine 0.1 mg 12/12/19 22:00 12/12/19 21:40 Catapres - PO 0.1 mg BID [facility] Administration Docusate Sodium 100 mg 12/13/19 02:23 12/13/19 06:18 Colace - PO 100 mg BID PRN Administration CONSTIPATION Famotidine 20 mg 12/13/19 10:00 Pepcid - PO DAILY [facility] Furosemide 40 mg 12/13/19 10:00 Lasix - PO DAILY [facility] Gabapentin 600 mg 12/13/19 10:00 Neurontin - PO DAILY [facility] Heparin Sodium (Porcine) 5,000 unit 12/12/19 15:00 12/13/19 06:17 Heparin - SQ 5,000 unit TID [facility] Administration Clindamycin Phosphate 600 mg in 50 mls @ 100 mls/hr 12/12/19 18:00 12/13/19 01:18 Cleocin 600 Mg Premix Ivpb - IVPB 100 mls/hr Q8H-IV [facility] Administration Protocol Lactated Ringer's 1,000 mls @ 75 mls/hr 12/12/19 17:54 12/12/19 17:58 Lactated Ringers Solution IV 75 mls/hr ASDIR [facility] Administration Piperacillin Sod/Tazobactam 50 mls @ 100 mls/hr 12/12/19 23:00 12/13/19 06:18 Sod 3.375 gm/ Dextrose IVPB 100 mls/hr Q8H [facility] Administration Protocol Insulin Aspart 1 vial 12/12/19 22:00 12/13/19 06:18 Novolog Vial Sliding Scale - SQ 2 units ACHS [facility] Administration Protocol Metoprolol Succinate 100 mg 12/13/19 10:00 Toprol Xl - PO DAILY [facility] Rosuvastatin Calcium 10 mg 12/12/19 22:00 12/12/19 21:40 Crestor - PO 10 mg HS [facility] Administration Tiotropium [place] 2 puff 12/13/19 10:00 Spiriva Respimat IH DAILY [facility] ASSESSMENT/PLAN: 54 year-old male with a PMH signifcant for HTN, HLD, CAD s/p [place] s/p CABG x 3 (2018), Type II NIDDM, asthma, alcohol abuse, morphine dependency, RIJ thrombus (2018), chronic Hep C, and polyneuropathy/chronic pain. Admitted for cellulitis of right foot. Sepsis secondary to cellulitis of right foot Foreign bodies right foot --s/p I&D removal of foreign bodies right foot on 12/11 --continue Zosyn (day #3); ID following Coronary artery disease s/p CABG x 3 --ECG: sinus rhythm @75bpm --continue ToprolXL, rosuvastatin; resume ASA 24 hours after surgery if no bleeding h/o RIJ thrombus 2018 --was on a/c for about a year, now off Hypertension --continue ToprolXL, amlodipine, clonidine, Lasix Hyperlipidemia --continue rosuvastatin Type II NIDDM --Novolog sliding scale coverage Asthma --Symbicort, Spiriva Chronic alcohol abuse --no s/s withdrawal Morphine dependency Polyneuropathy/chronic pain --documented in PCP records and on ISTOP --will continue morphine SR 60mg q6h Chronic Hep C --stable FEN Fluids: PO intake adequate Electrolytes: replete as indicated Nutrition: low sodium, diabetic DVT prophylaxis: resume subq heparin Physical therapy Dispo: continues to require inpatient care. Full code. Visit type - Emergency Visit Emergency Visit: Yes ED Registration Date: 12/10/19 Care time: The patient presented to the Emergency Department on the above date and was hospitalized for further evaluation of their emergent condition. - New Patient This patient is new to me today: No - Critical Care Critical Care patient: No
[2019-12-13] MEDS: cloNIDine HCL 0.1 MG TABLET PO SCH ×2 (09:15→21:25)
[2019-12-13] MEDS: GABAPENTIN 300 MG CAPSULE PO SCH (09:15)
[2019-12-13] MEDS: morphine SO4 SUSTAINED ACTING 30 MG TABLET.SA PO SCH ×3 (09:15→20:28)
[2019-12-13] MEDS: FUROSEMIDE 40 MG TABLET (FP) PO SCH (09:16)
[2019-12-13] MEDS: FAMOTIDINE 20 MG TABLET PO SCH (09:16)
[2019-12-13] MEDS: NICOTINE 21 MG/24 HOURS TOPICAL PATCH TD SCH (09:27)
[2019-12-13] MEDS: TIOTROPIUM BROMIDE 2.5 MCG (SPIRIVA) RESPIMAT INHALER IH SCH (09:28)
[2019-12-13] MEDS: BUDESONIDE/FORMETEROL FUMARATE 80/4.5 mcg INHALER IH SCH ×2 (09:28→21:26)
[2019-12-13] MEDS: amLODIPine BESYLATE 10 MG TABLET (FP) PO SCH (10:00)
--- NOTE | 2019-12-13 10:39 | PN ---
Progress Note, Physician History of Present Illness: stable no new issues post op - Current Medication List Current Medications: Active Medications Acetaminophen (Tylenol -) 650 mg PO Q6H PRN PRN Reason: PAIN LEVEL 6-10 Amlodipine Besylate (Norvasc -) 10 mg PO DAILY [facility] Budesonide/Formoterol Fumarate (Symbicort 80/4.5mcg -) 2 puff IH BID [facility] Last Admin: 12/13/19 09:28 Dose: Not Given Documented by: Clonidine (Catapres -) 0.1 mg PO BID [facility] Last Admin: 12/13/19 09:15 Dose: 0.1 mg Documented by: Docusate Sodium (Colace -) 100 mg PO BID PRN PRN Reason: CONSTIPATION Last Admin: 12/13/19 06:18 Dose: 100 mg Documented by: Famotidine (Pepcid -) 20 mg PO DAILY [facility] Last Admin: 12/13/19 09:16 Dose: 20 mg Documented by: Furosemide (Lasix -) 40 mg PO DAILY [facility] Last Admin: 12/13/19 09:16 Dose: 40 mg Documented by: Gabapentin (Neurontin -) 600 mg PO DAILY [facility] Last Admin: 12/13/19 09:15 Dose: 600 mg Documented by: Heparin Sodium (Porcine) (Heparin -) 5,000 unit SQ TID [facility] Last Admin: 12/13/19 06:17 Dose: 5,000 unit Documented by: Clindamycin Phosphate (Cleocin 600 Mg Premix Ivpb -) 600 mg in 50 mls @ 100 mls/hr IVPB Q8H-IV [facility]; Protocol Last Admin: 12/13/19 09:16 Dose: 100 mls/hr Documented by: Lactated Ringer's (Lactated Ringers Solution) 1,000 mls @ 75 mls/hr IV ASDIR [facility] Last Admin: 12/12/19 17:58 Dose: 75 mls/hr Documented by: Piperacillin Sod/Tazobactam (Sod 3.375 gm/ Dextrose) 50 mls @ 100 mls/hr IVPB Q8H [facility]; Protocol Last Admin: 12/13/19 06:18 Dose: 100 mls/hr Documented by: Insulin Aspart (Novolog Vial Sliding Scale -) 1 vial SQ ACHS [facility]; Protocol Last Admin: 12/13/19 06:18 Dose: 2 units Documented by: Metoprolol Succinate (Toprol Xl -) 100 mg PO DAILY [facility] Last Admin: 12/13/19 09:16 Dose: 100 mg Documented by: Morphine Sulfate (Ms Contin -) 60 mg PO Q6H [facility] Last Admin: 12/13/19 09:15 Dose: 60 mg Documented by: Nicotine (Nicoderm Patch -) 21 mg TD DAILY [facility] Last Admin: 12/13/19 09:27 Dose: Not Given Documented by: Rosuvastatin Calcium (Crestor -) 10 mg PO HS [facility] Last Admin: 12/12/19 21:40 Dose: 10 mg Documented by: Tiotropium [place] (Spiriva Respimat) 2 puff IH DAILY [facility] Last Admin: 12/13/19 09:28 Dose: Not Given Documented by: - Objective Vital Signs: Vital Signs Temperature 97.8 F 12/13/19 06:15 Pulse Rate 60 12/13/19 06:15 Respiratory Rate 18 12/13/19 06:15 Blood Pressure 166/77 12/13/19 06:15 O2 Sat by Pulse Oximetry (%) 95 12/13/19 08:16 Constitutional: Yes: No Distress, Calm Cardiovascular: Yes: S1, S2 Respiratory: Yes: Regular, CTA Bilaterally Gastrointestinal: Yes: Normal Bowel Sounds, Soft Musculoskeletal: Yes: WNL Extremities: Yes: Other Wound/Incision: Yes: Dressing Dry and Intact Neurological: Yes: Alert, Oriented Psychiatric: Yes: Alert, Oriented Labs: CBC, BMP 12/12/19 12:40 12/11/19 07:02 INR, PTT INR 1.26 (0.82-1.09) H 12/11/19 07:02 Assessment/Plan Problem List - Problems (1) Cellulitis Code(s): L03.90 - CELLULITIS, UNSPECIFIED (2) Lymphangitis Code(s): I89.1 - LYMPHANGITIS (3) CAD (coronary artery disease) Code(s): I25.10 - ATHSCL HEART DISEASE OF [place] CORONARY ARTERY W/O ANG PCTRS (4) Diabetes Code(s): E11.9 - TYPE 2 DIABETES MELLITUS WITHOUT COMPLICATIONS (5) HTN (hypertension) Code(s): I10 - ESSENTIAL (PRIMARY) HYPERTENSION Assessment/Plan 54 y.o. male with PMH of DM, diabetic neuropathy, CAD s/p CABG, and HTN presents with c/o Rt foot erythema/swelling and fever Rt foot cellulitis r/o foreign body DM with neuropathy CAD s/p CABG HTN plan continue abx await for cx reports rest as per the team
[2019-12-13] MEDS: ROSUVASTATIN CA 10 MG TABLET (FP) PO SCH (21:25)
[2019-12-14] MEDS: morphine SO4 SUSTAINED ACTING 30 MG TABLET.SA PO SCH ×3 (02:16→16:04)
[2019-12-14] MEDS: CLINDAMYCIN 600MG PREMIX IVPB 600 MG/50 ML BAG IVPB SCH ×3 (02:31→17:49)
[2019-12-14] MEDS ORDERED: LORazepam 0.5 MG TABLET PO ONE (05:00)
[2019-12-14] MEDS ORDERED: PIPERACILLIN/TAZOBACTAM 3.375 GM VIAL IVPB ONE ×3 (05:30→22:05)
[2019-12-14] MEDS ORDERED: DEXTROSE 5%-WATER - 50 ML IVPB ONE ×3 (05:30→22:05)
[2019-12-14] MEDS: HEPARIN NA (PORCINE) 5,000 UNITS/ML 1ML VIAL SQ SCH ×3 (05:42→21:29)
[2019-12-14] MEDS: PIPERACILLIN/TAZOB 3.375 GM 3.375 GM in DEXTROSE 5%-WATER - 50 ML IVPB SCH ×3 (06:11→22:07)
[2019-12-14] MEDS: INSULIN SLIDING SCALE (NOVOLOG) 1 VIAL SQ SCH ×4 (06:11→21:37)
--- NOTE | 2019-12-14 07:39 | PN ---
Progress Note, Physician Chief Complaint: POD#2. No pain. - Current Medication List Current Medications: Active Medications Acetaminophen (Tylenol -) 650 mg PO Q6H PRN PRN Reason: PAIN LEVEL 6-10 Amlodipine Besylate (Norvasc -) 10 mg PO DAILY [facility] Last Admin: 12/13/19 10:00 Dose: 10 mg Documented by: Budesonide/Formoterol Fumarate (Symbicort 80/4.5mcg -) 2 puff IH BID [facility] Last Admin: 12/13/19 21:26 Dose: Not Given Documented by: Clonidine (Catapres -) 0.1 mg PO BID [facility] Last Admin: 12/13/19 21:25 Dose: 0.1 mg Documented by: Docusate Sodium (Colace -) 100 mg PO BID PRN PRN Reason: CONSTIPATION Last Admin: 12/13/19 06:18 Dose: 100 mg Documented by: Famotidine (Pepcid -) 20 mg PO DAILY [facility] Last Admin: 12/13/19 09:16 Dose: 20 mg Documented by: Furosemide (Lasix -) 40 mg PO DAILY [facility] Last Admin: 12/13/19 09:16 Dose: 40 mg Documented by: Gabapentin (Neurontin -) 600 mg PO DAILY [facility] Last Admin: 12/13/19 09:15 Dose: 600 mg Documented by: Heparin Sodium (Porcine) (Heparin -) 5,000 unit SQ TID [facility] Last Admin: 12/14/19 05:42 Dose: 5,000 unit Documented by: Clindamycin Phosphate (Cleocin 600 Mg Premix Ivpb -) 600 mg in 50 mls @ 100 mls/hr IVPB Q8H-IV [facility]; Protocol Last Admin: 12/14/19 02:31 Dose: 100 mls/hr Documented by: Lactated Ringer's (Lactated Ringers Solution) 1,000 mls @ 75 mls/hr IV ASDIR [facility] Last Admin: 12/12/19 17:58 Dose: 75 mls/hr Documented by: Piperacillin Sod/Tazobactam (Sod 3.375 gm/ Dextrose) 50 mls @ 100 mls/hr IVPB Q8H [facility]; Protocol Last Admin: 12/14/19 06:11 Dose: 100 mls/hr Documented by: Insulin Aspart (Novolog Vial Sliding Scale -) 1 vial SQ ACHS [facility]; Protocol Last Admin: 12/14/19 06:11 Dose: 2 units Documented by: Metoprolol Succinate (Toprol Xl -) 100 mg PO DAILY [facility] Last Admin: 12/13/19 09:16 Dose: 100 mg Documented by: Morphine Sulfate (Ms Contin -) 60 mg PO Q6H [facility] Last Admin: 12/14/19 02:16 Dose: 60 mg Documented by: Nicotine (Nicoderm Patch -) 21 mg TD DAILY [facility] Last Admin: 12/13/19 09:27 Dose: Not Given Documented by: Rosuvastatin Calcium (Crestor -) 10 mg PO HS [facility] Last Admin: 12/13/19 21:25 Dose: 10 mg Documented by: Tiotropium [place] (Spiriva Respimat) 2 puff IH DAILY [facility] Last Admin: 12/13/19 09:28 Dose: Not Given Documented by: - Objective Vital Signs: Vital Signs Temperature 98.1 F 12/14/19 03:00 Pulse Rate 61 12/14/19 03:00 Respiratory Rate 18 12/14/19 03:00 Blood Pressure 155/82 12/14/19 03:00 O2 Sat by Pulse Oximetry (%) 96 12/14/19 03:00 Wound/Incision: Yes: Other (packing in place, +retention sutures in place, +resolved cellulitis, -mal odor, -tender, +granulation all right foot) Labs: CBC, BMP 12/12/19 12:40 12/11/19 07:02 INR, PTT INR 1.26 (0.82-1.09) H 12/11/19 07:02 Assessment/Plan Post op day -2 Packing pulled. Betadine dressing change daily. If wbc within normal limits can be dc from Podiatry standpoint. Pt should follow up in wound care [phone] [facility] 5th floor on . Abx as per ID. Will follow till dc. Betadine dressing change daily.
[2019-12-14 08:23] LABS: BASO % 2.7 % (0-2.0); EOS % 4.2 % (0-4.5); HEMATOCRIT 35.3 % (35.4-49); HEMOGLOBIN 12.4 GM/dl (11.7-16.9); LYMPH % 24.8 % (8-40); MCHC 35.2 g/dl (32.0-35.9); MEAN CELL VOLUME 90.9 fl (80-96); MEAN PLT VOLUME 9.3 fl (7.5-11.1); NEUT % 57.3 % (42.8-82.8); PLATELET COUNT 293 K/MM3 (134-434); RBC 3.88 M/mm3 (4.00-5.60); RDW 12.4 % (11.9-15.9); WHITE BLOOD COUNT 9.2 K/mm3 (4.0-10.8)
[2019-12-14] MEDS: FAMOTIDINE 20 MG TABLET PO SCH (09:05)
[2019-12-14] MEDS: GABAPENTIN 300 MG CAPSULE PO SCH (09:05)
[2019-12-14] MEDS: amLODIPine BESYLATE 10 MG TABLET (FP) PO SCH (09:05)
[2019-12-14] MEDS: cloNIDine HCL 0.1 MG TABLET PO SCH ×2 (09:05→21:29)
[2019-12-14] MEDS: FUROSEMIDE 40 MG TABLET (FP) PO SCH (09:05)
[2019-12-14] MEDS: TIOTROPIUM BROMIDE 2.5 MCG (SPIRIVA) RESPIMAT INHALER IH SCH (09:06)
[2019-12-14] MEDS: NICOTINE 21 MG/24 HOURS TOPICAL PATCH TD SCH (09:06)
[2019-12-14] MEDS: BUDESONIDE/FORMETEROL FUMARATE 80/4.5 mcg INHALER IH SCH ×2 (09:06→21:32)
--- NOTE | 2019-12-14 12:11 | PN ---
Physical Exam: SUBJECTIVE: Patient seen and examined oob to chair. Patient seen frequently this morning wheeling himself on the floor in wheelchair. Denies pain. Received a call from PCP Dr. Orosco this morning who wants to cut morphine from QID to TID. Discussed this with the patient and he is agreeable. OBJECTIVE: Vital Signs Period Temp Pulse Resp BP Sys/Mcnulty Pulse Ox Last 24 Hr 98.1 F-99.1 F 61-84 17-18 103-155/49-82 96-100 GENERAL: The patient is awake, alert, and fully oriented, in no acute distress. LUNGS: Breath sounds equal, clear to auscultation HEART: Regular rate and rhythm, S1, S2 ABDOMEN: Soft, nontender, nondistended RLE: surgical dressing c/d/i NEUROLOGICAL: Cranial nerves II through XII grossly intact. Moves all extremities freely, self-positions easily Laboratory Results - last 24 hr 12/13/19 12/13/19 12/14/19 16:50 21:30 05:57 WBC RBC Hgb Hct MCV MCH MCHC RDW Plt Count MPV Absolute Neuts (auto) Neutrophils % Lymphocytes % Monocytes % Eosinophils % Basophils % POC Glucometer 151 171 186 12/14/19 12/14/19 07:22 10:52 WBC 9.2 RBC 3.88 L Hgb 12.4 Hct 35.3 L MCV 90.9 MCH 32.0 MCHC 35.2 RDW 12.4 Plt Count 293 MPV 9.3 Absolute Neuts (auto) 5.3 Neutrophils % 57.3 D Lymphocytes % 24.8 D Monocytes % 11.0 H Eosinophils % 4.2 Basophils % 2.7 H D POC Glucometer 200 ` Active Medications Generic Name Dose Route Start Last Admin Trade Name Freq PRN Reason Stop Dose Admin Acetaminophen 650 mg 12/12/19 17:54 Tylenol - PO Q6H PRN PAIN LEVEL 6-10 Amlodipine Besylate 10 mg 12/13/19 10:00 12/14/19 09:05 Norvasc - PO 10 mg DAILY [facility] Administration Budesonide/Formoterol Fumarate 2 puff 12/12/19 22:00 12/14/19 09:06 Symbicort 80/4.5mcg - IH Not Given BID [facility] Clonidine 0.1 mg 12/12/19 22:00 12/14/19 09:05 Catapres - PO 0.1 mg BID [facility] Administration Docusate Sodium 100 mg 12/13/19 02:23 12/13/19 06:18 Colace - PO 100 mg BID PRN Administration CONSTIPATION Famotidine 20 mg 12/13/19 10:00 12/14/19 09:05 Pepcid - PO 20 mg DAILY [facility] Administration Furosemide 40 mg 12/13/19 10:00 12/14/19 09:05 Lasix - PO 40 mg DAILY [facility] Administration Gabapentin 600 mg 12/13/19 10:00 12/14/19 09:05 Neurontin - PO 600 mg DAILY [facility] Administration Heparin Sodium (Porcine) 5,000 unit 12/12/19 15:00 12/14/19 05:42 Heparin - SQ 5,000 unit TID [facility] Administration Clindamycin Phosphate 600 mg in 50 mls @ 100 mls/hr 12/12/19 18:00 12/14/19 09:05 Cleocin 600 Mg Premix Ivpb - IVPB 100 mls/hr Q8H-IV [facility] Administration Protocol Lactated Ringer's 1,000 mls @ 75 mls/hr 12/12/19 17:54 12/12/19 17:58 Lactated Ringers Solution IV 75 mls/hr ASDIR [facility] Administration Piperacillin Sod/Tazobactam 50 mls @ 100 mls/hr 12/12/19 23:00 12/14/19 06:11 Sod 3.375 gm/ Dextrose IVPB 100 mls/hr Q8H [facility] Administration Protocol Insulin Aspart 1 vial 12/12/19 22:00 12/14/19 10:53 Novolog Vial Sliding Scale - SQ 2 units ACHS [facility] Administration Protocol Metoprolol Succinate 100 mg 12/13/19 10:00 12/14/19 09:05 Toprol Xl - PO 100 mg DAILY [facility] Administration Morphine Sulfate 60 mg 12/14/19 16:00 Ms Contin - PO Q8H [facility] Nicotine 21 mg 12/13/19 10:00 12/14/19 09:06 Nicoderm Patch - TD Not Given DAILY [facility] Rosuvastatin Calcium 10 mg 12/12/19 22:00 12/13/19 21:25 Crestor - PO 10 mg HS [facility] Administration Tiotropium [place] 2 puff 12/13/19 10:00 12/14/19 09:06 Spiriva Respimat IH Not Given DAILY [facility] ASSESSMENT/PLAN: 54 year-old male with a PMH signifcant for HTN, HLD, CAD s/p [place] s/p CABG x 3 (2018), Type II NIDDM, asthma, alcohol abuse, morphine dependency, RIJ thrombus (2018), chronic Hep C, and polyneuropathy/chronic pain. Admitted for cellulitis of right foot. Sepsis secondary to cellulitis of right foot Foreign bodies right foot --s/p I&D removal of foreign bodies right foot 7/, today is POD#2 --wound cultures from OR growing staph and second organism --continue Zosyn (day #4); ID following Coronary artery disease s/p CABG x 3 --ECG: sinus rhythm @75bpm --continue ToprolXL, rosuvastatin; ASA h/o RIJ thrombus 2018 --was on a/c for about a year, now off Hypertension --continue ToprolXL, amlodipine, clonidine, Lasix Hyperlipidemia --continue rosuvastatin Type II NIDDM --Novolog sliding scale coverage Asthma --Symbicort, Spiriva Chronic alcohol abuse --monitor closely for s/s withdrawal Morphine dependency Polyneuropathy/chronic pain --documented in PCP records and on ISTOP --decrease morphine SR to 60mg q8h Chronic Hep C --stable FEN Fluids: PO intake adequate Electrolytes: replete as indicated Nutrition: low sodium, diabetic DVT prophylaxis: continue subq heparin Physical therapy Dispo: continues to require inpatient care. Full code. Visit type - Emergency Visit Emergency Visit: Yes ED Registration Date: 12/10/19 Care time: The patient presented to the Emergency Department on the above date and was hospitalized for further evaluation of their emergent condition. - New Patient This patient is new to me today: No - Critical Care Critical Care patient: No
--- NOTE | 2019-12-14 14:06 | PN ---
Progress Note, Physician History of Present Illness: s/p post op doing well - Current Medication List Current Medications: Active Medications Acetaminophen (Tylenol -) 650 mg PO Q6H PRN PRN Reason: PAIN LEVEL 6-10 Amlodipine Besylate (Norvasc -) 10 mg PO DAILY [facility] Last Admin: 12/14/19 09:05 Dose: 10 mg Documented by: Aspirin (Ecotrin -) 81 mg PO DAILY [facility] Budesonide/Formoterol Fumarate (Symbicort 80/4.5mcg -) 2 puff IH BID [facility] Last Admin: 12/14/19 09:06 Dose: Not Given Documented by: Clonidine (Catapres -) 0.1 mg PO BID [facility] Last Admin: 12/14/19 09:05 Dose: 0.1 mg Documented by: Docusate Sodium (Colace -) 100 mg PO BID PRN PRN Reason: CONSTIPATION Last Admin: 12/13/19 06:18 Dose: 100 mg Documented by: Famotidine (Pepcid -) 20 mg PO DAILY [facility] Last Admin: 12/14/19 09:05 Dose: 20 mg Documented by: Furosemide (Lasix -) 40 mg PO DAILY [facility] Last Admin: 12/14/19 09:05 Dose: 40 mg Documented by: Gabapentin (Neurontin -) 600 mg PO DAILY [facility] Last Admin: 12/14/19 09:05 Dose: 600 mg Documented by: Heparin Sodium (Porcine) (Heparin -) 5,000 unit SQ TID [facility] Last Admin: 12/14/19 14:01 Dose: 5,000 unit Documented by: Clindamycin Phosphate (Cleocin 600 Mg Premix Ivpb -) 600 mg in 50 mls @ 100 mls/hr IVPB Q8H-IV [facility]; Protocol Last Admin: 12/14/19 09:05 Dose: 100 mls/hr Documented by: Lactated Ringer's (Lactated Ringers Solution) 1,000 mls @ 75 mls/hr IV ASDIR [facility] Last Admin: 12/12/19 17:58 Dose: 75 mls/hr Documented by: Piperacillin Sod/Tazobactam (Sod 3.375 gm/ Dextrose) 50 mls @ 100 mls/hr IVPB Q8H [facility]; Protocol Last Admin: 12/14/19 14:01 Dose: 100 mls/hr Documented by: Insulin Aspart (Novolog Vial Sliding Scale -) 1 vial SQ ACHS [facility]; Protocol Last Admin: 12/14/19 10:53 Dose: 2 units Documented by: Metoprolol Succinate (Toprol Xl -) 100 mg PO DAILY [facility] Last Admin: 12/14/19 09:05 Dose: 100 mg Documented by: Morphine Sulfate (Ms Contin -) 60 mg PO Q8H [facility] Nicotine (Nicoderm Patch -) 21 mg TD DAILY [facility] Last Admin: 12/14/19 09:06 Dose: Not Given Documented by: Rosuvastatin Calcium (Crestor -) 10 mg PO HS [facility] Last Admin: 12/13/19 21:25 Dose: 10 mg Documented by: Tiotropium [place] (Spiriva Respimat) 2 puff IH DAILY [facility] Last Admin: 12/14/19 09:06 Dose: Not Given Documented by: - Objective Vital Signs: Vital Signs Temperature 99.0 F 12/14/19 13:19 Pulse Rate 59 L 12/14/19 13:19 Respiratory Rate 22 H 12/14/19 13:19 Blood Pressure 142/69 12/14/19 13:19 O2 Sat by Pulse Oximetry (%) 96 12/14/19 09:00 Constitutional: Yes: No Distress, Calm Cardiovascular: Yes: S1, S2 Respiratory: Yes: Regular, CTA Bilaterally Gastrointestinal: Yes: Normal Bowel Sounds, Soft Musculoskeletal: Yes: WNL Extremities: Yes: Other Wound/Incision: Yes: Dressing Dry and Intact Neurological: Yes: Alert, Oriented Psychiatric: Yes: Alert, Oriented Labs: CBC, BMP 12/14/19 07:22 12/11/19 07:02 INR, PTT INR 1.26 (0.82-1.09) H 12/11/19 07:02 Assessment/Plan ssessment/Plan Problem List - Problems (1) Cellulitis Code(s): L03.90 - CELLULITIS, UNSPECIFIED (2) Lymphangitis Code(s): I89.1 - LYMPHANGITIS (3) CAD (coronary artery disease) Code(s): I25.10 - ATHSCL HEART DISEASE OF [place] CORONARY ARTERY W/O ANG PCTRS (4) Diabetes Code(s): E11.9 - TYPE 2 DIABETES MELLITUS WITHOUT COMPLICATIONS (5) HTN (hypertension) Code(s): I10 - ESSENTIAL (PRIMARY) HYPERTENSION Assessment/Plan 54 y.o. male with PMH of DM, diabetic neuropathy, CAD s/p CABG, and HTN presents with c/o Rt foot erythema/swelling and fever Rt foot cellulitis r/o foreign body DM with neuropathy CAD s/p CABG HTN plan continue abx await for cx reports rest as per the team
[2019-12-14] MEDS: ASPIRIN COATED 81 MG TABLET.EC PO SCH (14:19)
[2019-12-14] MEDS: ROSUVASTATIN CA 10 MG TABLET (FP) PO SCH (21:29)
[2019-12-14] MEDS: LACTATED RINGERS SOLUTION 1,000 ML IV SCH (21:31)
[2019-12-15] MEDS: morphine SO4 SUSTAINED ACTING 30 MG TABLET.SA PO SCH ×2 (00:54→09:52)
[2019-12-15] MEDS: CLINDAMYCIN 600MG PREMIX IVPB 600 MG/50 ML BAG IVPB SCH ×2 (01:06→09:54)
[2019-12-15] MEDS ORDERED: DEXTROSE 5%-WATER - 50 ML IVPB ONE ×2 (05:44→13:49)
[2019-12-15] MEDS ORDERED: PIPERACILLIN/TAZOBACTAM 3.375 GM VIAL IVPB ONE ×2 (05:44→13:48)
[2019-12-15] MEDS: PIPERACILLIN/TAZOB 3.375 GM 3.375 GM in DEXTROSE 5%-WATER - 50 ML IVPB SCH ×2 (06:08→14:00)
[2019-12-15] MEDS: HEPARIN NA (PORCINE) 5,000 UNITS/ML 1ML VIAL SQ SCH ×2 (06:09→13:55)
[2019-12-15] MEDS ORDERED: PT OWN MED DRAWER 7, Y5N ONE (09:44)
[2019-12-15] MEDS: FAMOTIDINE 20 MG TABLET PO SCH (09:54)
[2019-12-15] MEDS: ASPIRIN COATED 81 MG TABLET.EC PO SCH (09:54)
[2019-12-15] MEDS: FUROSEMIDE 40 MG TABLET (FP) PO SCH (09:55)
[2019-12-15] MEDS: GABAPENTIN 300 MG CAPSULE PO SCH (09:55)
[2019-12-15] MEDS: NICOTINE 21 MG/24 HOURS TOPICAL PATCH TD SCH (09:56)
[2019-12-15] MEDS: amLODIPine BESYLATE 10 MG TABLET (FP) PO SCH (09:56)
[2019-12-15] MEDS: cloNIDine HCL 0.1 MG TABLET PO SCH (09:59)
[2019-12-15] MEDS: INSULIN SLIDING SCALE (NOVOLOG) 1 VIAL SQ SCH ×2 (09:59→12:00)
[2019-12-15] MEDS: TIOTROPIUM BROMIDE 2.5 MCG (SPIRIVA) RESPIMAT INHALER IH SCH (12:18)
[2019-12-15] MEDS: BUDESONIDE/FORMETEROL FUMARATE 80/4.5 mcg INHALER IH SCH (12:18)
--- NOTE | 2019-12-15 14:06 | PN ---
Progress Note, Physician History of Present Illness: s/p post op doing well - Current Medication List Current Medications: Active Medications Acetaminophen (Tylenol -) 650 mg PO Q6H PRN PRN Reason: PAIN LEVEL 6-10 Amlodipine Besylate (Norvasc -) 10 mg PO DAILY [facility] Last Admin: 12/15/19 09:56 Dose: 10 mg Documented by: Aspirin (Ecotrin -) 81 mg PO DAILY [facility] Last Admin: 12/15/19 09:54 Dose: 81 mg Documented by: Budesonide/Formoterol Fumarate (Symbicort 80/4.5mcg -) 2 puff IH BID [facility] Last Admin: 12/15/19 12:18 Dose: Not Given Documented by: Clonidine (Catapres -) 0.1 mg PO BID [facility] Last Admin: 12/15/19 09:59 Dose: 0.1 mg Documented by: Docusate Sodium (Colace -) 100 mg PO BID PRN PRN Reason: CONSTIPATION Last Admin: 12/13/19 06:18 Dose: 100 mg Documented by: Famotidine (Pepcid -) 20 mg PO DAILY [facility] Last Admin: 12/15/19 09:54 Dose: 20 mg Documented by: Furosemide (Lasix -) 40 mg PO DAILY [facility] Last Admin: 12/15/19 09:55 Dose: 40 mg Documented by: Gabapentin (Neurontin -) 600 mg PO DAILY [facility] Last Admin: 12/15/19 09:55 Dose: 600 mg Documented by: Heparin Sodium (Porcine) (Heparin -) 5,000 unit SQ TID [facility] Last Admin: 12/15/19 13:55 Dose: 5,000 unit Documented by: Clindamycin Phosphate (Cleocin 600 Mg Premix Ivpb -) 600 mg in 50 mls @ 100 mls/hr IVPB Q8H-[facility]; Protocol Last Admin: 12/15/19 09:54 Dose: 100 mls/hr Documented by: Lactated Ringer's (Lactated Ringers Solution) 1,000 mls @ 75 mls/hr IV ASDIR [facility] Last Admin: 12/14/19 21:31 Dose: Not Given Documented by: Piperacillin Sod/Tazobactam (Sod 3.375 gm/ Dextrose) 50 mls @ 100 mls/hr IVPB Q8H [facility]; Protocol Last Admin: 12/15/19 14:00 Dose: 100 mls/hr Documented by: Insulin Aspart (Novolog Vial Sliding Scale -) 1 vial SQ ACHS [facility]; Protocol Last Admin: 12/15/19 12:00 Dose: 2 units Documented by: Metoprolol Succinate (Toprol Xl -) 100 mg PO DAILY [facility] Last Admin: 12/15/19 09:54 Dose: 100 mg Documented by: Morphine Sulfate (Ms Contin -) 60 mg PO Q8H [facility] Last Admin: 12/15/19 09:52 Dose: 60 mg Documented by: Nicotine (Nicoderm Patch -) 21 mg TD DAILY [facility] Last Admin: 12/15/19 09:56 Dose: 21 mg Documented by: Rosuvastatin Calcium (Crestor -) 10 mg PO HS [facility] Last Admin: 12/14/19 21:29 Dose: 10 mg Documented by: Tiotropium [place] (Spiriva Respimat) 2 puff IH DAILY [facility] Last Admin: 12/15/19 12:18 Dose: Not Given Documented by: - Objective Vital Signs: Vital Signs Temperature 98.2 F 12/15/19 07:03 Pulse Rate 64 12/15/19 07:03 Respiratory Rate 18 12/15/19 08:42 Blood Pressure 166/80 12/15/19 07:03 O2 Sat by Pulse Oximetry (%) 96 12/15/19 08:42 Constitutional: Yes: No Distress, Calm Eyes: Yes: Conjunctiva Clear, EOM Intact HENT: Yes: Atraumatic Neck: Yes: Supple Cardiovascular: Yes: Regular Rate and Rhythm Respiratory: Yes: Regular, CTA Bilaterally Gastrointestinal: Yes: Normal Bowel Sounds, Soft Musculoskeletal: Yes: WNL Extremities: Yes: Other Wound/Incision: Yes: Dressing Dry and Intact Neurological: Yes: Alert, Oriented Psychiatric: Yes: Alert, Oriented Labs: CBC, BMP 12/14/19 07:22 12/11/19 07:02 INR, PTT INR 1.26 (0.82-1.09) H 12/11/19 07:02 Assessment/Plan ssessment/Plan Problem List - Problems (1) Cellulitis Code(s): L03.90 - CELLULITIS, UNSPECIFIED (2) Lymphangitis Code(s): I89.1 - LYMPHANGITIS (3) CAD (coronary artery disease) Code(s): I25.10 - ATHSCL HEART DISEASE OF [place] CORONARY ARTERY W/O ANG PCTRS (4) Diabetes Code(s): E11.9 - TYPE 2 DIABETES MELLITUS WITHOUT COMPLICATIONS (5) HTN (hypertension) Code(s): I10 - ESSENTIAL (PRIMARY) HYPERTENSION Assessment/Plan 54 y.o. male with PMH of DM, diabetic neuropathy, CAD s/p CABG, and HTN presents with c/o Rt foot erythema/swelling and fever Rt foot cellulitis r/o foreign body DM with neuropathy CAD s/p CABG HTN plan wound f/u with podiatry complete course of augmentin keep weight off of the foot
[2019-12-15 14:13] VITALS: BP 140/65; PULSE 57; TEMP 97.8
--- NOTE | 2019-12-15 14:33 | DS ---
Physical Exam: SUBJECTIVE: Patient seen and examined OBJECTIVE: Vital Signs Period Temp Pulse Resp BP Sys/Mcnulty Pulse Ox Last 24 Hr 97.8 F-98.4 F 57-68 18-20 140-166/65-80 95-96 PHYSICAL EXAM GENERAL: The patient is awake, alert, and fully oriented, in no acute distress. LUNGS: Breath sounds equal, clear to auscultation HEART: Regular rate and rhythm, S1, S2 ABDOMEN: Soft, nontender, nondistended RLE: surgical dressing c/d/i NEUROLOGICAL: Cranial nerves II through XII grossly intact. Moves all extremities freely, self-positions easily LABS CBCD WBC 9.2 K/mm3 (4.0-10.8) 12/14/19 07:22 RBC 3.88 M/mm3 (4.00-5.60) L 12/14/19 07:22 Hgb 12.4 GM/dl (11.7-16.9) 12/14/19 07:22 Hct 35.3 % (35.4-49) L 12/14/19 07:22 MCV 90.9 fl (80-96) 12/14/19 07:22 MCHC 35.2 g/dl (32.0-35.9) 12/14/19 07:22 RDW 12.4 % (11.9-15.9) 12/14/19 07:22 Plt Count 293 K/MM3 (134-434) 12/14/19 07:22 MPV 9.3 fl (7.5-11.1) 12/14/19 07:22 CMP Sodium 137 mmol/L (136-145) 12/11/19 07:02 Potassium 4.0 mmol/L (3.5-5.1) 12/11/19 07:02 Chloride 102 mmol/L (98-107) 12/11/19 07:02 Carbon Dioxide 22 mmol/L (21-32) 12/11/19 07:02 Anion Gap 13 MMOL/L (8-16) 12/11/19 07:02 BUN 11.0 mg/dl (7-18) 12/11/19 07:02 Creatinine 0.9 mg/dl (0.55-1.3) 12/11/19 07:02 Calcium 8.9 mg/dl (8.5-10) 12/11/19 07:02 Total Bilirubin 0.7 mg/dl (0.2-1) 12/11/19 07:02 AST 14 U/L (15-37) L 12/11/19 07:02 ALT 10 U/L (13-61) L 12/11/19 07:02 Alkaline Phosphatase 56 U/L (45-117) 12/11/19 07:02 Total Protein 6.9 g/dl (6.4-8.2) 12/11/19 07:02 Albumin 3.2 g/dl (3.4-5.0) L 12/11/19 07:02 Date of Admission:12/10/19 Date of Discharge: 12/15/19 Pre-hospital course 54 M with h/o CAD, CABG, HTN, DM, peripheral neuropathy, presenting to ED with R foot redness and fevers. Pt states that he stepped on a rock with his R foot about 4 days ago but did not notice it due to his neuropathy. Over the past 2 days, his R foot began to get red and painful. Yesterday, pt began to feel feverish and weak, and he noticed that the redness was streaking up his leg. Pt denies any cough, denies SOB/CP. pt seen at bedside this morning, pt c/o pain at site where he stepped on rock. Afebrile this AM. pt does not recall doses of medications he takes at home. pt denies abd pain, n/v, diarrhea, dizziness, headache. exposure to COVID. 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 [place] Prescription last filled 09/14/2019 #120 pills for 30 days Ref # [id number] Hospital course 54 year-old male with a PMH signifcant for HTN, HLD, CAD s/p HI s/p CABG x 3 (2017), Type II NIDDM, asthma, alcohol abuse, morphine dependency, RIJ thrombus (2018), chronic Hep C, and polyneuropathy/chronic pain. Admitted for cellulitis of right foot. Sepsis secondary to cellulitis of right foot Foreign bodies right foot --s/p I&D removal of foreign bodies right foot 12/11 --wound cultures from OR grew staph and Enterococcus --treated with Zosyn x 5 days, discharged on augmentin x 10 days Coronary artery disease s/p CABG x 3 --ECG: sinus rhythm @75bpm --continued ToprolXL, rosuvastatin, ASA h/o RIJ thrombus 2018 --was on a/c for about a year, now off Hypertension --continued ToprolXL, amlodipine, clonidine, Lasix Hyperlipidemia --continued rosuvastatin Type II NIDDM --Novolog sliding scale coverage Asthma --Symbicort, Spiriva Chronic alcohol abuse --no s/s withdrawal Morphine dependency Polyneuropathy/chronic pain --documented in PCP records and on ISTOP --decrease morphine SR to 60mg q8h at request of Dr. Orosco Chronic Hep C --stable Minutes to complete discharge: 35 Discharge Summary Problems reviewed: Yes Reason For Visit: RT FOOT INFECTION Current Active Problems Cellulitis (Acute) Lymphangitis (Acute) Condition: Improved - Instructions Diet, Activity, Other Instructions: A prescription has been sent to your pharmacy for augmentin, an antibiotic. Take this medication as directed and be sure to finish all the medication. You should follow up with Dr. Wilkerson in the [facility] in 2 weeks. Return to the emergency department for any new or worsening symptoms. Referrals: Nader Orosco MD [Primary Care Provider] - Oh Wilkerson MD [Staff Physician] - 2 Weeks Disposition: HOME - Home Medications Comprehensive Discharge Medication List: Ambulatory Orders Glyburide/Metformin HCl [Glyburide-Metformin 2.5-500 mg] 1 each PO DAILY tablet 09/13/12 Amlodipine Besylate [Norvasc -] 10 mg PO DAILY 01/06/17 Clonidine HCl 1 mg PO BID 01/06/17 Morphine Sulfate [Morphine Sulfate ER] 60 mg PO QID 02/01/17 Gabapentin 600 mg DAILY 01/23/19 Metoprolol Succinate 100 mg PO DAILY 01/23/19 Rosuvastatin Calcium [Crestor] 10 mg PO DAILY 01/23/19 Aspirin [ASA -] 81 mg PO DAILY 12/11/19 Fluticasone/Vilanterol [Breo Ellipta 100-25 Mcg INH] 1 inh PO DAILY 12/11/19 Furosemide [Lasix] 40 mg PO DAILY 12/11/19 Tiotropium [place] [Spiriva] 1 inh PO DAILY 12/11/19 Amoxicillin/Potassium Clav [Augmentin 875-125 Tablet] 1 each PO BID #20 tablet 12/15/19 This patient is new to me today: No Emergency Visit: Yes ED Registration Date: 12/10/19 Care time: The patient presented to the Emergency Department on the above date and was hospitalized for further evaluation of their emergent condition. Critical Care patient: No - Discharge Referral Referred to [facility] Med P.C.: Yes Physician Referral: Nader Orosco MD (Int Med)
--- NOTE | 2019-12-15 16:37 | PATH ---
Surgical Pathology Report Patient Name: MARIAH BERG Med. Rec. #: [id number] /Age/Gender: 1965 (Age: 54) / M Account: [id number] Location: [facility] MED-SURG Taken: 12/12/2019 Received: 12/12/2019 Reported: 12/15/2019 Physicians: Marlin Leyva DPM Specimen(s) Received FOREIGN BODY RIGHT FOOT ( X3 ) Clinical History Right foot infection Final Diagnosis FOREIGN BODY, RIGHT FOOT (X3), REMOVAL: FOREIGN BODIES DESCRIBED (GROSS EXAMINATION ONLY). Electronically Signed Jennifer Phillips M.D. Gross Description Received fresh labeled "foreign body right foot x3," are 3 colin, possibly metallic foreign bodies ranging from 0.1-0.4 cm in greatest dimension. No soft tissue is present. No sections are submitted, gross only. /12/12/2019 saudi12/12/2019
--- NOTE | 2019-12-25 15:45 | OP ---
DATE OF OPERATION: 12/12/2019 PREOPERATIVE DIAGNOSIS: Foreign body, right foot x2. POSTOPERATIVE DIAGNOSIS: Foreign body, right foot x2. PROCEDURE: Removal of 2 subcutaneous foreign bodies and 1 superficial foreign body. SURGEON: Marlin Leyva DPM OPERATIONS CONTROLLER: Larry Rowan DPM PROCEDURE: After noting all preoperative vital signs were within normal limits and after the surgical consent was signed and witnessed, the patient was brought to the OR, placed on the table in the supine position. An IV line had been started prior to the patient coming to the OR. Once the patient was in the OR, patient's foot was prepped and draped in usual sterile fashion. A well-padded ankle tourniquet had been applied to the right ankle prior to the prepping and draping. Once this was done, attention was directed to the plantar aspect of the right foot. Utilizing fluoroscopy and two 25-gauge 1-1/2-inch needles, a map was created of the most lateral foreign body located plantar lateral to the proximal phalanx at the midshaft area. Utilizing fluoroscopy the fragment was mapped out. A stab incision was created approximately 3 cm in length. This incision was deepened using sharp and blunt dissection to the level of the foreign body. The first foreign body fragment was removed and sent down to Pathology at this time. Once this was done, attention was directed to the foreign body located plantar medially to the 5th metatarsal head. This foreign body was mapped out using fluoroscopy. Using two 25-gauge 1-1/2-inch needles this was done. A 2 cm long stab incision was created over the foreign body. This incision was deepened using sharp and blunt dissection to the level of the foreign body which was identified and removed and sent down to Pathology. A third nonmetallic fragment in nature was noted on the skin surface. Without incision this was removed and also sent down to Pathology. At this time the wound was explored. A wound culture was done. The foot was then irrigated using antibiotic irrigation under pulse lavage. The area was once again explored. There was no necrotic tissue noted. There was no abscess to be drained. At that point 1/4-inch Iodoform packing was put into place in the lateral incision and 3-0 nylon was utilized in a simple interrupted suture fashion as retention sutures on the lateral incision and 3-0 nylon was utilized to reapproximate the skin on the plantar incision. Betadine-soaked Adaptic, dry sterile gauze and a Isamar dressing were then applied. Patient tolerated the anesthesia and the procedure well. Patient returned to recovery room, vital signs stable and vascular status intact. AASHISH [id number]
== END 2019-12-15 16:00 | disposition home or self-care (01) | DRG 720 ==
LOC: FER 23:11 → FM/S 12-10 02:54
PROVIDERS: ADMIT Internal Medicine; ATTEND Nurse Practitioner Acute Care
PROC: 0HCMXZZ Extirpation of Matter from Right Foot Skin, External Approach (ICD-10-PCS; principal; 2019-12-12 10:50)
DX: A41.9 Sepsis, unspecified organism (principal); L03.115 Cellulitis of right lower limb; I25.10 Atherosclerotic heart disease of native coronary artery without angina pectoris; I10 Essential (primary) hypertension; E78.5 Hyperlipidemia, unspecified; J45.909 Unspecified asthma, uncomplicated; F10.239 Alcohol dependence with withdrawal, unspecified; E11.40 Type 2 diabetes mellitus with diabetic neuropathy, unspecified; F11.20 Opioid dependence, uncomplicated; Z95.1 Presence of aortocoronary bypass graft; I89.1 Lymphangitis
CPT/HCPCS: 36415; 71045-TC-FY; 73630-TC-RT-FY; 73700-TC-RT; 80053; 80307; 81003; 82962; 83036; 83605; 83735; 85025; 85610; 85651; 86140; 87040; 87070; 87086; 87186; 87205; 88300-TC; 93005; 94760; 97116-GP; 97161-GP; 99285-25; J0131; J0735; J1644; U0003

== ENCOUNTER 2019-12-22 12:39 | Inpatient (IN) | payer OTHER ==
--- NOTE | 2019-12-22 12:48 | PDOC ---
Rapid Medical Evaluation Chief Complaint: Wound Time Seen by Provider: 12/22/19 12:46 Medical Evaluation: Allergies Allergy/AdvReac Type Severity Reaction Status Date / Time lisinopril Allergy Severe Swelling Verified 12/11/19 11:13 Bee sting Allergy Severe Difficulty Uncoded 12/22/19 12:33 Breathing 12/22/19 12:46 I have performed a brief in-person evaluation of this patient. CC: sent by wound care for admission for infected right foot wound PE: deferred Orders: ekg, cxr, labs, urine, blood cx, covid Patient will proceed to ED for further evaluation. Discharge Disposition - Diagnosis Diabetic foot infection - Referrals Referrals: Nader Orosco MD [Primary Care Provider] - - Patient Instructions - Post Discharge Activity
--- NOTE | 2019-12-22 13:51 | PDOC ---
History of Present Illness - General Chief Complaint: Wound Stated Complaint: Wound Time Seen by Provider: 12/22/19 12:46 - History of Present Illness Initial Comments: Alexsander Ramirez is a 54 y/o male with PMH significant for CAD and [place] s/p triple bypass, DM, diabetic neuropathy, presenting today with right foot pain. He sees wound care for his foot wounds. Reports that he had some foreign bodies in right foot last week that were removed from the wound care center. Per wound care, these were IV drug needles. Pt states that he is not able to feel much in his feet. States that he was having some difficulty walking this past week. He was able to ambulate while in the ED. No chest pain/shortness of breath. No fever. No chills. No abd pain. No leg swelling. No bleeding or purulent discharge from the wound. SocHx: Pt reports 1 ppd smoking, cocaine, and etoh use. Past History - Medical History Allergies/Adverse Reactions: Allergies Allergy/AdvReac Type Severity Reaction Status Date / Time lisinopril Allergy Severe Swelling Verified 12/22/19 12:51 Bee sting Allergy Severe Difficulty Uncoded 12/22/19 12:51 Breathing Home Medications: Ambulatory Orders Glyburide/Metformin HCl [Glyburide-Metformin 2.5-500 mg] 1 each PO DAILY tablet 09/13/12 Amlodipine Besylate [Norvasc -] 10 mg PO DAILY 01/06/17 Clonidine HCl 1 mg PO BID 01/06/17 Morphine Sulfate [Morphine Sulfate ER] 60 mg PO QID 02/01/17 Gabapentin 600 mg DAILY 01/23/19 Metoprolol Succinate 100 mg PO DAILY 01/23/19 Rosuvastatin Calcium [Crestor] 10 mg PO DAILY 01/23/19 Aspirin [ASA -] 81 mg PO DAILY 12/11/19 Furosemide [Lasix] 40 mg PO DAILY 12/11/19 Tiotropium [place] [Spiriva] 1 inh PO DAILY 12/11/19 Amoxicillin/Potassium Clav [Augmentin 875-125 Tablet] 1 each PO BID #20 tablet 12/15/19 Anemia: No Asthma: No Cancer: No Cardiac Disorders: Yes (CAD) CVA: No COPD: No CHF: No Dementia: No Diabetes: Yes GI Disorders: No Disorders: No HTN: Yes Hypercholesterolemia: Yes Liver Disease: No Seizures: No Thyroid Disease: No - Surgical History Cardiac Surgery: Yes (CABGX3) - Psycho-Social/Smoking History Smoking History: Current every day smoker Have you smoked in the past 12 months: Yes Number of Cigarettes Smoked Daily: 10 If you are a former smoker, when did you quit?: 7 months Cigars Per Day: 0 Information on smoking cessation initiated: No - Substance Abuse Hx (Audit-C & DAST Scrn) How often the patient has a drink containing alcohol: 2-3 times / week Number of drinks the patient has on a typical day: 3 or 4 How often the patient has six or more drinks on one occasion: Less than monthly Score: In Men: 4 or > Positive; In Women: 3 or > Positive: 5 Screen Result (Pos requires Nsg. Audit-10AR): Positive In the last yr the pt used illegal drug/Rx for NonMed reason: No Score: Yes response is considered Positive: 0 Screen Result (Positive result requires Nsg. DAST-10): Negative Review of Systems - Review of Systems Comments:: GENERAL/CONSTITUTIONAL: No fever or chills. No weakness._ HEAD, EYES, EARS, NOSE AND THROAT: No change in vision. No change in hearing. No sore throat._ CARDIOVASCULAR: No chest pain or shortness of breath_ RESPIRATORY: Denies cough, hemoptysis_ GASTROINTESTINAL: No nausea, vomiting, diarrhea or constipation._ GENITOURINARY: No dysuria, frequency, or change in urination._ MUSCULOSKELETAL: Reports right foot pain. No neck or back pain._ SKIN: No rash_ NEUROLOGIC: No headache, vertigo, loss of consciousness, or change in strength/sensation._ ENDOCRINE: No increased thirst. No abnormal weight change_ HEMATOLOGIC/LYMPHATIC: No anemia, easy bleeding, or history of blood clots._ ALLERGIC/IMMUNOLOGIC: No hives or skin allergy._ *Physical Exam - Vital Signs Last Vital Signs Temp Pulse Resp BP Pulse Ox 98.4 F 57 L 16 153/75 100 12/22/19 12:46 12/22/19 12:46 12/22/19 12:46 12/22/19 12:46 12/22/19 12:46 - Physical Exam GENERAL: Awake, alert, and oriented to person/place/time, in no acute distress_ HEAD: No signs of trauma, normocephalic, atraumatic _ EYES: PERRLA, EOMI, sclera anicteric, conjunctiva clear_ ENT: Hearing grossly normal, nares patent, oropharynx clear without exudates. No uvular deviation. Moist mucosa_ NECK: Normal ROM, supple, no lymphadenopathy, JVD, or masses_ LUNGS: No distress, speaks in full sentences, clear to auscultation bilaterally _ HEART: Regular rate and rhythm, normal S1 and S2, no murmurs appreciated, peripheral pulses normal and equal bilaterally._ ABDOMEN: Soft, nontender, normoactive bowel sounds. No guarding, no rebound. No masses_ EXTREMITIES: Punctuate wounds over right lateral foot by 5th toe and between 4th and 5th toe. No purulent discharge or bleeding. Mild erythema over foot that does not appear to be enlarging based on previous skin marker. Mildly warm to touch. 5/5 strength and sensation in bilateral lower extremities. NEUROLOGICAL: Cranial nerves II through XII grossly intact. Normal speech, normal gait, no focal sensorimotor deficits _ SKIN: Warm, Dry, normal turgor, no rashes or lesions noted_ ED Treatment Course - LABORATORY CBC & Chemistry Diagram: 12/22/19 13:30 12/22/19 13:30 - RADIOLOGY Radiology Studies Ordered: Category Date Time Status CHEST X-RAY PORTABLE* [RAD] Stat Radiology 12/22/19 13:34 Completed Medical Decision Making - Medical Decision Making 54M hx of IVDU, CAD/[place]/CABG, DM and neuropathy, sent in by wound care center after IVDU needles removed from right foot. No infectious symptoms. Plan to admit for IV abx and vascular/ID/podiatry consults. -labs -blood cx -cxr -ekg 12/22/19 13:58 CXR negative for acute chest pathology. EKG shows 55 bpm, sinus rachel, nml axis, no ST elevation, QTc 424. 12/22/19 14:08 -vanc -zosyn 12/22/19 15:06 Labs reviewed. Laboratory Last Values WBC 11.1 K/mm3 (4.0-10.0) H 12/22/19 13:30 RBC 3.77 M/mm3 (4.00-5.60) L 12/22/19 13:30 Hgb 11.9 GM/dL (11.7-16.9) 12/22/19 13:30 Hct 35.6 % (35.4-49) 12/22/19 13:30 MCV 94.5 fl (80-96) 12/22/19 13:30 MCH 31.5 pg (25.7-33.7) 12/22/19 13:30 MCHC 33.3 g/dl (32.0-35.9) 12/22/19 13:30 RDW 13.4 % (11.9-15.9) 12/22/19 13:30 Plt Count 420 K/MM3 (134-434) 12/22/19 13:30 MPV 9.0 fl (7.5-11.1) 12/22/19 13:30 Absolute Neuts (auto) 6.5 K/mm3 (1.5-8.0) 12/22/19 13:30 Neutrophils % 58.2 % (42.8-82.8) 12/22/19 13:30 Lymphocytes % 29.3 % (8-40) 12/22/19 13:30 Monocytes % 7.5 % (3.8-10.2) 12/22/19 13:30 Eosinophils % 4.2 % (0-4.5) 12/22/19 13:30 Basophils % 0.8 % (0-2.0) 12/22/19 13:30 Nucleated RBC % 0 % (0-0) 12/22/19 13:30 Sodium 138 mmol/L (136-145) 12/22/19 13:30 Potassium 4.6 mmol/L (3.5-5.1) 12/22/19 13:30 Chloride 103 mmol/L (98-107) 12/22/19 13:30 Carbon Dioxide 24 mmol/L (21-32) 12/22/19 13:30 Anion Gap 11 MMOL/L (8-16) 12/22/19 13:30 BUN 19.2 mg/dL (7-18) H 12/22/19 13:30 Creatinine 1.1 mg/dL (0.55-1.3) 12/22/19 13:30 Est GFR (CKD-EPI)AfAm 87.74 12/22/19 13:30 Est GFR (CKD-EPI)NonAf 75.70 12/22/19 13:30 POC Glucometer 68 UNITS (80-120) 12/22/19 13:51 Random Glucose 66 mg/dL (74-106) L 12/22/19 13:30 Calcium 9.4 mg/dL (8.5-10.1) 12/22/19 13:30 Total Bilirubin 0.2 mg/dL (0.2-1) 12/22/19 13:30 AST 22 U/L (15-37) 12/22/19 13:30 ALT 22 U/L (13-61) 12/22/19 13:30 Alkaline Phosphatase 84 U/L (45-117) 12/22/19 13:30 Creatine Kinase 82 U/L (26-308) 12/22/19 13:30 Troponin I < 0.02 ng/ml (0.00-0.05) 12/22/19 13:30 Total Protein 8.2 g/dl (6.4-8.2) 12/22/19 13:30 Albumin 3.4 g/dl (3.4-5.0) 12/22/19 13:30 12/22/19 16:27 D/w Dr. Hernandez who accepts the patient for admission. Discharge - Discharge Information Problems reviewed: Yes Clinical Impression/Diagnosis: Diabetic foot infection Cellulitis Qualifiers: Site of cellulitis: extremity Site of cellulitis of extremity: lower extremity Laterality: right Qualified Code(s): L03.115 - Cellulitis of right lower limb Condition: Guarded - Admission Yes - Follow up/Referral Referrals: Nader Orosco MD [Primary Care Provider] - - Patient Discharge Instructions - Post Discharge Activity
[2019-12-22] MEDS ORDERED: PIPERACILLIN/TAZOB 3.375 GM 3.375 GM in DEXTROSE 5%-WATER - 50 ML IVPB ONE (14:09)
[2019-12-22] MEDS ORDERED: VANCOMYCIN 1 GM in D5W (PRE-DOCKED) 1,000 MG/250 ML IVPB ONE (14:09)
[2019-12-22] MEDS ORDERED: PIPERACILLIN/TAZOB 3.375 GM 3.375 GM/50 ML BAG IVPB ONE (14:12)
[2019-12-22] MEDS ORDERED: VANCOMYCIN 1 GRAM (PRE-DOCKED) 1,000 MG/250 ML BAG IVPB ONE (14:12)
[2019-12-22 14:29] LABS: BASO % 0.8 % (0-2.0); EOS % 4.2 % (0-4.5); HEMATOCRIT 35.6 % (35.4-49); HEMOGLOBIN 11.9 GM/dL (11.7-16.9); LYMPH % 29.3 % (8-40); MCH 31.5 pg (25.7-33.7); MCHC 33.3 g/dl (32.0-35.9); MEAN CELL VOLUME 94.5 fl (80-96); MONO % 7.5 % (3.8-10.2); NEUT % 58.2 % (42.8-82.8); PLATELET COUNT 420 K/MM3 (134-434); RBC 3.77 M/mm3 (4.00-5.60); RDW 13.4 % (11.9-15.9); WHITE BLOOD COUNT 11.1 K/mm3 (4.0-10.0)
[2019-12-22 15:01] LABS: ALBUMIN 3.4 g/dl (3.4-5.0); ALK PHOS 84 U/L (45-117); ANION GAP 11 MMOL/L (8-16); BILIRUBIN,TOTAL 0.2 mg/dL (0.2-1); BLOOD UREA NITROGEN 19.2 mg/dL (7-18); CALCIUM 9.4 mg/dL (8.5-10.1); CHLORIDE 103 mmol/L (98-107); CO2 24 mmol/L (21-32); CREATININE 1.1 mg/dL (0.55-1.3); GLUCOSE,RANDOM 66 mg/dL (74-106); POTASSIUM 4.6 mmol/L (3.5-5.1); SGOT/AST 22 U/L (15-37); SGPT/ALT 22 U/L (13-61); SODIUM 138 mmol/L (136-145); TOT PROT 8.2 g/dl (6.4-8.2)
--- NOTE | 2019-12-22 15:13 | PDOC ---
Documentation entered by Olaf Green SCRIBE, acting as scribe for Eloina Russ MD. Eloina Russ MD: This documentation has been prepared by the Norma seals Nirvannie, SCRIBE, under my direction and personally reviewed by me in its entirety. I confirm that the documentation accurately reflects all work, treatment, procedures, and medical decision making performed by me. Attending Attestation - Resident Resident Name: Gregory Masters - ED Attending Attestation I have performed the following: I have examined & evaluated the patient, The case was reviewed & discussed with the resident, I agree w/resident's findings & plan, Exceptions are as noted - HPI HPI: 12/22/19 14:20 54YOM with a significant past medical history of CAD (s/p DC and CABG), HTN, DM (poorly controlled), peripheral neuropathy, chronic Hepatitis C, and recent admission for right foot Cellulitis, Lymphangitis (12/08-10, on Clinda then switched to 4d Zosyn and d/c on Augmentin for 10d) presenting to ED with a right foot wound. As per EMR, the patient was evaluated in the ED 12/08 for right foot cellulitis and lymphangitis who was found to have a foreign body in the foot (s/p removal by wound care, IV drug needle tips) and discharged on Augmentin. Patient notes feeling better but, was evaluated in wound care today at which time was advised to report to the ED for further evaluation and admission secondary to worsening wound. Allergies: Lisinopril, bee sting - Physicial Exam PE: 12/22/19 14:21 GENERAL: nontoxic-appearing, A/Ox4, no distress, answers questions appropriately HEENT: PERRLA, EOMI, moist mucous membranes NECK/BACK: no midline ttp, no spinal stepoff or deformity, no hematoma, full ROM, neck supple CARDIOVASCULAR: regular rate/rhythm, no MGR, strong peripheral pulses, capillary refill <2 seconds, extremities wwp, no edema LUNGS/RESPIRATORY: no respiratory distress, CTAB GI/ABDOMEN: symmetric [id number], normoactive BS, soft, no ttp, no midline pulsatile masses : no CVA tenderness MSK/EXTREMITIES: +RLE: Overlying the distal 5th metatarsal there is a 2x2cm deep ulceration with granulation tissue and mils surrounding erythema. The webspace between the 4th and 5th webspace there is erythema and pustule without active drainage. Area is nontender secondary to lack of sensation to the foot. Streaking and redness from the wound to the distal third of the anterior tibia. SKIN: warm and dry, no pallor, no jaundice, no pathologic-appearing bruising, no cuts NEUROLOGICAL: GCS 15, CN II-XII grossly intact, 5/5 strength proximally and distally, no facial droop - Medical Decision Making 12/22/19 14:54 [id number] with DM p/w non-healing foot ulcer (states from procedure earlier this month) appearing infected. Initial Vital Signs Temp Pulse Resp BP Pulse Ox 98.4 F 57 L 16 153/75 100 12/22/19 12:46 12/22/19 12:46 12/22/19 12:46 12/22/19 12:46 12/22/19 12:46 DDX IBNLT: most likely infected foot ulcer/cellulitis, less likely but possible is osteomyelitis, necrotizing soft tissue infection, necrotizing myositis, septic arthritis, gangrene, sepsis, etc. W/U ordered: Labs as noted below. Will defer x-rays because he received these yesterday as well [place] ordered: vancomycin, Zosyn EKG: Reviewed; results as noted in ECG Review section. CXR: Prior sternotomy, nothing acute Laboratory Tests 12/22/19 12/22/19 12/22/19 13:30 13:30 13:51 WBC 11.1 H RBC 3.77 L Hgb 11.9 Hct 35.6 MCV 94.5 MCH 31.5 MCHC 33.3 RDW 13.4 Plt Count 420 MPV 9.0 Absolute Neuts (auto) 6.5 Neutrophils % 58.2 Lymphocytes % 29.3 Monocytes % 7.5 Eosinophils % 4.2 Basophils % 0.8 Nucleated RBC % 0 Sodium 138 Potassium 4.6 Chloride 103 Carbon Dioxide 24 Anion Gap 11 BUN 19.2 H Creatinine 1.1 Est GFR (CKD-EPI)AfAm 87.74 Est GFR (CKD-EPI)NonAf 75.70 POC Glucometer 68 Random Glucose 66 L Calcium 9.4 Total Bilirubin 0.2 AST 22 ALT 22 Alkaline Phosphatase 84 Creatine Kinase 82 Troponin I < 0.02 Total Protein 8.2 Albumin 3.4 12/22/19 15:19 The Pt is unsafe for discharge at this time. They require further hospital observation, workup, and treatment. Resident completing admission procedures to [facility]. Dr. Leyva had requested consults to himself, Dr. Wilkerson, and Dr. Worley. Heart Score/ECG Review #1 12/22/19 13:09 Sinus rhythm, rate 55, normal axis and intervals, q waves in III and V1/V2, no additional ST-T changes Discharge - Discharge Information Problems reviewed: Yes Clinical Impression/Diagnosis: Diabetic foot infection Cellulitis Qualifiers: Site of cellulitis: extremity Site of cellulitis of extremity: lower extremity Laterality: right Qualified Code(s): L03.115 - Cellulitis of right lower limb Condition: Guarded - Admission Yes - Follow up/Referral Referrals: Nader Orosco MD [Primary Care Provider] - - Patient Discharge Instructions - Post Discharge Activity
--- NOTE | 2019-12-22 15:31 | PN ---
Teaching Attending Note Name of Resident: Jake Hernandez ATTENDING PHYSICIAN STATEMENT I saw and evaluated the patient. I reviewed the resident's note and discussed the case with the resident. I agree with the resident's findings and plan as documented. SUBJECTIVE: Right foot pain OBJECTIVE: Vital Signs Temperature 98.4 F 12/22/19 12:46 Pulse Rate 57 L 12/22/19 12:46 Respiratory Rate 16 12/22/19 12:46 Blood Pressure 153/75 12/22/19 12:46 O2 Sat by Pulse Oximetry (%) 100 12/22/19 12:46 Active Medications Docusate Sodium (Colace -) 100 mg PO BID GILMAR Enoxaparin Sodium (Lovenox -) 40 mg SQ DAILY GILMAR Insulin Aspart (Novolog Vial Sliding Scale -) 0 vial SQ ACHS GILMAR; Protocol Senna (Senna -) 2 tab PO HS PRN PRN Reason: CONSTIPATION General: Young man, comfortable, not in distress HEENT mucous membranes moist, no anemia, no jaundice, PERRLA, no nystagmus Neck: No JVD, supple, no bruit, thyroid palpably normal, normal carotid pulsations. Chest: Nontender, clear to auscultation bilaterally CVS: S1-S2 regular no murmur/gallop/rub Abdomen: Nondistended, soft, bowel sounds present. Extremities: Right foot infected wound and surrounding cellulitis the base of fifth of on plantar and lateral aspect , no edema., No Calf tenderness, pulses present CASE CHECKER: AO X3 , no gross motor sensory deficit CBC,CMP WBC 11.1 K/mm3 (4.0-10.0) H 12/22/19 13:30 RBC 3.77 M/mm3 (4.00-5.60) L 12/22/19 13:30 Hgb 11.9 GM/dL (11.7-16.9) 12/22/19 13:30 Hct 35.6 % (35.4-49) 12/22/19 13:30 MCV 94.5 fl (80-96) 12/22/19 13:30 MCH 31.5 pg (25.7-33.7) 12/22/19 13:30 MCHC 33.3 g/dl (32.0-35.9) 12/22/19 13:30 RDW 13.4 % (11.9-15.9) 12/22/19 13:30 Plt Count 420 K/MM3 (134-434) 12/22/19 13:30 MPV 9.0 fl (7.5-11.1) 12/22/19 13:30 Absolute Neuts (auto) 6.5 K/mm3 (1.5-8.0) 12/22/19 13:30 Neutrophils % 58.2 % (42.8-82.8) 12/22/19 13:30 Lymphocytes % 29.3 % (8-40) 12/22/19 13:30 Monocytes % 7.5 % (3.8-10.2) 12/22/19 13:30 Eosinophils % 4.2 % (0-4.5) 12/22/19 13:30 Basophils % 0.8 % (0-2.0) 12/22/19 13:30 Nucleated RBC % 0 % (0-0) 12/22/19 13:30 Sodium 138 mmol/L (136-145) 12/22/19 13:30 Potassium 4.6 mmol/L (3.5-5.1) 12/22/19 13:30 Chloride 103 mmol/L (98-107) 12/22/19 13:30 Carbon Dioxide 24 mmol/L (21-32) 12/22/19 13:30 Anion Gap 11 MMOL/L (8-16) 12/22/19 13:30 BUN 19.2 mg/dL (7-18) H 12/22/19 13:30 Creatinine 1.1 mg/dL (0.55-1.3) 12/22/19 13:30 Est GFR (CKD-EPI)AfAm 87.74 12/22/19 13:30 Est GFR (CKD-EPI)NonAf 75.70 12/22/19 13:30 POC Glucometer 68 UNITS (80-120) 12/22/19 13:51 Random Glucose 66 mg/dL (74-106) L 12/22/19 13:30 Calcium 9.4 mg/dL (8.5-10.1) 12/22/19 13:30 Total Bilirubin 0.2 mg/dL (0.2-1) 12/22/19 13:30 AST 22 U/L (15-37) 12/22/19 13:30 ALT 22 U/L (13-61) 12/22/19 13:30 Alkaline Phosphatase 84 U/L (45-117) 12/22/19 13:30 Creatine Kinase 82 U/L (26-308) 12/22/19 13:30 Troponin I < 0.02 ng/ml (0.00-0.05) 12/22/19 13:30 Total Protein 8.2 g/dl (6.4-8.2) 12/22/19 13:30 Albumin 3.4 g/dl (3.4-5.0) 12/22/19 13:30 EKG: Chest x-ray: status post CABG, poor inspiration ASSESSMENT AND PLAN: Type 2 diabetes mellitus, CAD s/p CABG triple bypass in , dyslipidemia, polysubstance abuse, narcotic dependency chronic hep C, bilateral lower extremity polyneuropathy, recently discharged from [facility] after treated for right foot infected wound foreign body removal on December 15, 2019, patient was discharged on p.o. Augmentin after receiving clindamycin and Zosyn during hospitalization also underwent I&D and foreign body removal on December 12, 2019, today patient came to wound care center, transferred to ED for IV antibiotic as wound was not healing wanted to rule out osteomyelitis, patient complained of some pain in the right foot denies any fever chills nausea vomiting T WBC elevated Impression: Right foot cellulitis/osteomyelitis failed outpatient p.o. antibiotic Active issues: 1. Right foot cellulitis: Patient recently discharged on December 14, 2020 p.o. antibiotic Augmentin [wound culture grew staph aureus and coagulase-negative and E faecalis], still having wound discharge and nonhealing of the wound admitted for IV antibiotic, wound care, ID consult, podiatry consult, follow-up ESR CRP, considering diabetes mellitus start on Zosyn and vancomycin subsequently currently antibiotic can be modified as per ID recommendations, possible MRI for rule out osteomyelitis if high ESR and CRP. 2. Hypertension: Well-controlled continue all home medications 3. Type 2 diabetes mellitus: Hold metformin, continue glyburide, correction dose insulin follow-up hemoglobin A1c level. 4. CAD: History of CAD status post triple bypass at present asymptomatic resume aspirin, statin and beta-blockers 5. Hypercholesterolemia: Continue statin 6 asthma: Stable resume home medications 7. Polyneuropathy: Chronic 8.
[2019-12-22] MEDS ORDERED: SENNOSIDES 8.6MG TABLET (FP) PO PRN (16:28)
[2019-12-22] MEDS: INSULIN SLIDING SCALE (NOVOLOG) 1 VIAL SQ SCH ×2 (16:43→22:05)
--- NOTE | 2019-12-22 18:03 | HP ---
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 States that there is not much pain as he has neuropathy. 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 Denies foul smell from foot, fever, chills. ER course was notable for: (1) Tmax 98.4F, HR 57, 153/75 (2) WBC 11.1(Neutrophils 58.2%) (3) CXR: neg acute chest pathology Recent Travel: denies PAST MEDICAL HISTORY: as above PAST SURGICAL HISTORY: CABG Social History: Smoking: denies Alcohol: former heavy EtOH user, stopped 3-4wks prior Drugs: dnies Allergies lisinopril Allergy (Severe, Verified 12/22/19 12:51) Swelling Angioedema Bee sting Allergy (Severe, Uncoded 12/22/19 12:51) Difficulty Breathing HOME MEDICATIONS: Home Medications Medication Instructions Recorded Glyburide/Metformin HCl 1 each PO DAILY tablet 09/13/12 [Glyburide-Metformin 2.5-500 mg] Amlodipine Besylate [Norvasc -] 10 mg PO DAILY 01/06/17 Clonidine HCl 1 mg PO BID 01/06/17 Morphine Sulfate [Morphine Sulfate 60 mg PO QID 02/01/17 ER] Gabapentin 600 mg DAILY 01/23/19 Metoprolol Succinate 100 mg PO DAILY 01/23/19 Rosuvastatin Calcium [Crestor] 10 mg PO DAILY 01/23/19 Aspirin [ASA -] 81 mg PO DAILY 12/11/19 Furosemide [Lasix] 40 mg PO DAILY 12/11/19 Tiotropium [place] [Spiriva] 1 inh PO DAILY 12/11/19 Amoxicillin/Potassium Clav 1 each PO BID #20 tablet 12/15/19 [Augmentin 473-125 Tablet] REVIEW OF SYSTEMS CONSTITUTIONAL: Absent: fever, chills, diaphoresis, generalized weakness, malaise, loss of appetite, weight change HEENT: Absent: rhinorrhea, nasal congestion, throat pain, throat swelling, difficulty swallowing, mouth swelling, ear pain, eye pain, visual changes CARDIOVASCULAR: Absent: chest pain, syncope, palpitations, irregular heart rate, lightheadedness, peripheral edema RESPIRATORY: Absent: cough, shortness of breath, dyspnea with exertion, orthopnea, wheezing, stridor, hemoptysis GASTROINTESTINAL: Absent: abdominal pain, abdominal distension, nausea, vomiting, diarrhea, constipation, melena, hematochezia GENITOURINARY: Absent: dysuria, frequency, urgency, hesitancy, hematuria, flank pain, genital pain MUSCULOSKELETAL: Absent: myalgia, arthralgia, joint swelling, back pain, neck pain SKIN: Absent: rash, itching, pallor HEMATOLOGIC/IMMUNOLOGIC: Absent: easy bleeding, easy bruising, lymphadenopathy, frequent infections ENDOCRINE: Absent: unexplained weight gain, unexplained weight loss, heat intolerance, cold intolerance NEUROLOGIC: Absent: headache, focal weakness or paresthesias, dizziness, unsteady gait, seizure, mental status changes, bladder or bowel incontinence PSYCHIATRIC: Absent: anxiety, depression, suicidal or homicidal ideation, hallucinations. PHYSICAL EXAMINATION Vital Signs - 24 hr 12/22/19 12:46 Temperature 98.4 F Pulse Rate 57 L Respiratory 16 Rate Blood Pressure 153/75 O2 Sat by Pulse 100 Oximetry (%) GENERAL: Awake, alert, and fully oriented, in no acute distress. HEAD: Normal with no signs of trauma. EYES: sclera anicteric, conjunctiva clear. No lid lag. EARS, NOSE, THROAT: Ears normal, nares patent, oropharynx clear without exudates. Moist mucous membranes. NECK: Normal range of motion, supple without lymphadenopathy, JVD, or masses. LUNGS: Breath sounds equal, clear to auscultation bilaterally. No wheezes, and no crackles. No accessory muscle use. HEART: Regular rate and rhythm, normal S1 and S2 without murmur, rub or gallop. ABDOMEN: Soft, nontender, not distended, no guarding, no rebound, no masses. MUSCULOSKELETAL: Normal range of motion at all joints. No bony deformities or tenderness. UPPER EXTREMITIES: 2+ pulses, warm, well-perfused. No cyanosis. No clubbing. No peripheral edema. LOWER EXTREMITIES: Right foot lateral edge with open superficial wound and pink tissue bed, surrounding erythema, with mild warmth. Mild tenderness. No calf tenderness NEUROLOGICAL: Normal speech. Laboratory Results - last 24 hr 12/22/19 12/22/19 12/22/19 13:30 13:30 13:51 WBC 11.1 H RBC 3.77 L Hgb 11.9 Hct 35.6 MCV 94.5 MCH 31.5 MCHC 33.3 RDW 13.4 Plt Count 420 MPV 9.0 Absolute Neuts (auto) 6.5 Neutrophils % 58.2 Lymphocytes % 29.3 Monocytes % 7.5 Eosinophils % 4.2 Basophils % 0.8 Nucleated RBC % 0 Sodium 138 Potassium 4.6 Chloride 103 Carbon Dioxide 24 Anion Gap 11 BUN 19.2 H Creatinine 1.1 Est GFR (CKD-EPI)AfAm 87.74 Est GFR (CKD-EPI)NonAf 75.70 POC Glucometer 68 Random Glucose 66 L Calcium 9.4 Total Bilirubin 0.2 AST 22 ALT 22 Alkaline Phosphatase 84 Creatine Kinase 82 Troponin I < 0.02 Total Protein 8.2 Albumin 3.4 ASSESSMENT/PLAN: 54M pmh of CAD and [place](s/p triple bypass), 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 Admitted for cellulitis. #right foot cellulitis --less likely osteomyelitis > WBC 11.1 > wound care consult(Meir): --recs pending > podiatry consult(Gordon): --recs pending > ID consult(Rhea): --recs pending - abx regimen: --vanc + zosyn d1 #CAD(s/p CABG): - ASA 81mg #chronic HTN - clonidine 0.1mg BID, lasix 40mg QD, amlodipine 10, metoprolol 100 #NIDDM > HbA1c --pending - ISS #chronic HLD - cw rosuvastatin #chronic asthma - cw spiriva #chronic polyneuropathy - cw MS Contin 60mg TID, cw gabapentin 600mg FEN - diabetic diet - no mIVF DVT PPX - lovenox Family Medical History Family History: Unremarkable Visit type - Emergency Visit Emergency Visit: Yes ED Registration Date: 12/22/19 Care time: The patient presented to the Emergency Department on the above date and was hospitalized for further evaluation of their emergent condition. - New Patient This patient is new to me today: Yes Date on this admission: 12/23/19 - Critical Care Critical Care patient: No ATTENDING PHYSICIAN STATEMENT I saw and evaluated the patient. I reviewed the resident's note and discussed the case with the resident. I agree with the resident's findings and plan as documented. SUBJECTIVE: OBJECTIVE: ASSESSMENT AND PLAN:
--- NOTE | 2019-12-22 21:58 | CON.ID ---
Consult - History of Present Illness History of Present Illness: 54 y.o. male with PMH of CAD, [place] s/p CABG, DM with neuropathy, HTN, HLD, Chronic hep C (treated 2 years ago) , Rt IJ thrombus (off AC), opiate dependence presents from [facility] for Rt foot cellulitis. Pt was recently admitted on 12/09/19 and treated for Rt foot cellulitis/lymphangitis with removal of foreign body x 2 and drainage of abscess. Cultures grew Staph/Enterococcus. Pt was on IV Clindamycin and Zosyn prior to switch to Augmentin and d/c home on PO antibiotics. Pt now returns with signs of persistent Rt foot infection. Cultures on 12/21/19 growing gram negative organisms. In the ER pt was afebrile with stable vitals and wbc of 11.1K. plantar lateral foot ulcer noted. No current active drainage. Still with some erythema around forefoot. No tenderness but pt with neuropathy and decreased sensation. Denies recent fever/chills and has no other complaints. - History Source History Provided By: Patient, Medical Record - Past Medical History S[employer]IOR [employer]: Yes: Peripheral Neuropathy Cardio/Vascular: Yes: CAD, HTN Hepatobiliary: Yes: Hepatitis C Psych: Yes: Addictions (opiods) Endocrine: Yes: Diabetes Mellitus Dermatology: Yes: Cellulitis (Rt foot) - Past Surgical History Past Surgical History: Yes: CABG - Alcohol/Substance Use Hx Alcohol Use: Yes - Smoking History Smoking history: Current every day smoker Have you smoked in the past 12 months: Yes Aproximately how many cigarettes per day: 10 If you are a former smoker, when did you quit?: 7 months - Social History ADL: Independent Occupation: on disability x 3 years because of Diabetic Neuropathy. History of Recent Travel: No Home Medications - Allergies Allergies/Adverse Reactions: Allergies Allergy/AdvReac Type Severity Reaction Status Date / Time lisinopril Allergy Severe Swelling Verified 12/22/19 12:51 Bee sting Allergy Severe Difficulty Uncoded 12/22/19 12:51 Breathing - Home Medications Home Medications: Ambulatory Orders Glyburide/Metformin HCl [Glyburide-Metformin 2.5-500 mg] 1 each PO DAILY tablet 09/13/12 Amlodipine Besylate [Norvasc -] 10 mg PO DAILY 01/06/17 Clonidine HCl 1 mg PO BID 01/06/17 Morphine Sulfate [Morphine Sulfate ER] 60 mg PO QID PRN 02/01/17 Gabapentin 600 mg BID 01/23/19 Metoprolol Succinate 100 mg PO BID 01/23/19 Rosuvastatin Calcium [Crestor] 10 mg PO DAILY 01/23/19 Aspirin [ASA -] 81 mg PO DAILY 12/11/19 Furosemide [Lasix] 40 mg PO DAILY 12/11/19 Amoxicillin/Potassium Clav [Augmentin 875-125 Tablet] 1 each PO BID #20 tablet 12/15/19 Review of Systems - Review of Systems Constitutional: reports: No Symptoms. denies: Chills, Diaphoresis, Fever, Lethargy, Loss of Appetite, Malaise, Night Sweats, Unintentional Wgt. Loss, Weakness, Other Eyes: reports: No Symptoms. denies: Blind Spots, Blurred Vision, Double Vision, Eye Pain, Floaters, Photophobia, Recent Change in Vision, Other HENT: reports: No Symptoms. denies: Difficult Swallowing, Ear Discharge, Ear Pain, Epistaxis, Gingival Bleeding, Hearing Loss, Mouth Swelling, Nasal Congestion, Ocular Prosthesis, Throat Pain, Toothache, Ringing in Ears, Other Neck: reports: No Symptoms. denies: Decreased ROM, Lumps, Pain on Movement, Stiffness, Swollen Glands, Tenderness, Other Cardiovascular: reports: No Symptoms. denies: Chest Pain, Edema, Palpitations, Shortness of Breath, Other Respiratory: reports: No Symptoms. denies: Cough, Exercise Intolerance, Hemoptysis, Orthopnea, PND, Snoring, SOB, SOB on Exertion, Wheezing, Other Gastrointestinal: reports: No Symptoms. denies: Abdominal Pain, Bloating, Constipation, Diarrhea, Dysphagia, Indigestion, Melena, Nausea, Rectal Bleeding, Vomiting, Vomiting Blood, Other Genitourinary: reports: No Symptoms. denies: Burning, Discharge, Dysuria, Flank Pain, Frequency, Hematuria, Incontinence, Lesions, Menses, Pain, Testicular Mass, Testicular Pain, Testicular Swelling, Urgency, Vaginal Bleeding, Other Musculoskeletal: reports: No Symptoms. denies: Back Pain, Crepitus, Decreased ROM, Extremity Pain, Joint Pain, Joint Swelling, Muscle Pain, Muscle Cramps, Muscle Weakness, Other Integumentary: reports: Erythema (Rt foot), Wound Neurological: reports: No Symptoms Endocrine: reports: No Symptoms. denies: Excessive Sweating, Flushing, Increased Hunger, Increased Thirst, Intolerance to Cold, Intolerance to Heat, Unexplained Weight Gain, Unexplained Weight Loss, Other Hematology/Lymphatic: reports: No Symptoms. denies: Easily Bruised, Excessive Bleeding, Swollen Glands, Other Psychiatric: reports: No Symptoms. denies: Altered Sleep Pattern, Anxiety, Depression, Hallucinations, Panic, Paranoia, Suicidal, Other Physical Exam Vital Signs: Vital Signs Temperature 98.4 F 12/22/19 12:46 Pulse Rate 62 12/22/19 19:20 Respiratory Rate 16 12/22/19 19:20 Blood Pressure 148/81 12/22/19 19:20 O2 Sat by Pulse Oximetry (%) 100 12/22/19 19:20 Constitutional: Yes: Well Nourished, No Distress, Calm Eyes: Yes: Conjunctiva Clear, EOM Intact HENT: Yes: Atraumatic, Normocephalic Neck: Yes: Supple Cardiovascular: Yes: Regular Rate and Rhythm Respiratory: Yes: CTA Bilaterally Gastrointestinal: Yes: Normal Bowel Sounds, Soft Renal/: Yes: WNL Musculoskeletal: Yes: WNL Edema: No Integumentary: Yes: WNL Wound/Incision: Yes: Other (Rt plantar ulcer, no drainage noted. Rt 4th/5th toe interdigital ulcer. +Mild Rt forefoot erythema/edema. No tenderness, no necrosis.) Neurological: Yes: Alert, Oriented Labs: CBC, BMP 12/22/19 13:30 12/22/19 13:30 Imaging - Results Chest X-ray: Report Reviewed X-ray: Report Reviewed Cat Scan: Report Reviewed Problem List - Problems (1) Cellulitis Code(s): L03.90 - CELLULITIS, UNSPECIFIED Qualifiers: Site of cellulitis: extremity Site of cellulitis of extremity: lower extremity Laterality: right Qualified Code(s): L03.115 - Cellulitis of right lower limb (2) Diabetic foot infection Code(s): E11.628 - TYPE 2 DIABETES MELLITUS WITH OTHER SKIN COMPLICATIONS; L08.9 - LOCAL INFECTION OF THE SKIN AND SUBCUTANEOUS TISSUE, UNSP (3) CAD (coronary artery disease) Code(s): I25.10 - ATHSCL HEART DISEASE OF [place] CORONARY ARTERY W/O ANG PCTRS (4) Diabetes Code(s): E11.9 - TYPE 2 DIABETES MELLITUS WITHOUT COMPLICATIONS (5) HTN (hypertension) Code(s): I10 - ESSENTIAL (PRIMARY) HYPERTENSION Assessment/Plan Rt foot infected diabetic ulcer Rt foot Cellulitis Recent Rt foot abscess s/p I+D and foreign body removal DM with neuropathy CAD [place] s/p CABG s/p Hep C treatment Opiod dependence -- follow up wound culture results of 12/21/19 -- foot/CT results done recently reviewed -- Zosyn/Vancomycin IV empirically for now, monitor renal function -- continue wound care Will follow up Thank you
[2019-12-22] MEDS: morphine SO4 SUSTAINED ACTING 30 MG TABLET.SA PO SCH (22:01)
[2019-12-22] MEDS: cloNIDine HCL 0.1 MG TABLET PO SCH (22:05)
[2019-12-22] MEDS: ROSUVASTATIN CA 10 MG TABLET (FP) PO SCH (22:06)
[2019-12-22] MEDS: DOCUSATE SODIUM 100 MG CAPSULE (FP) PO SCH (22:08)
[2019-12-22] MEDS: VANCOMYCIN 1,250 MG in DEXTROSE 5%-WATER - 250 ML IVPB SCH (23:04)
[2019-12-23] MEDS ORDERED: PIPERACILLIN/TAZOBACTAM 3.375 GM VIAL IVPB ONE ×3 (00:55→17:38)
[2019-12-23] MEDS ORDERED: DEXTROSE 5%-WATER - 50 ML IVPB ONE ×3 (00:56→17:38)
[2019-12-23] MEDS: PIPERACILLIN/TAZOB 3.375 GM 3.375 GM in DEXTROSE 5%-WATER - 50 ML IVPB SCH ×3 (02:00→17:41)
[2019-12-23] MEDS: morphine SO4 SUSTAINED ACTING 30 MG TABLET.SA PO SCH ×3 (05:57→22:06)
[2019-12-23] MEDS: INSULIN SLIDING SCALE (NOVOLOG) 1 VIAL SQ SCH ×4 (06:07→22:09)
[2019-12-23 08:52] LABS: HEMATOCRIT 37.1 % (35.4-49); HEMOGLOBIN 12.3 GM/dL (11.7-16.9); MCH 31.2 pg (25.7-33.7); MCHC 33.1 g/dl (32.0-35.9); MEAN CELL VOLUME 94.2 fl (80-96); MEAN PLT VOLUME 8.9 fl (7.5-11.1); PLATELET COUNT 432 K/MM3 (134-434); RBC 3.94 M/mm3 (4.00-5.60); RDW 13.4 % (11.9-15.9); WHITE BLOOD COUNT 9.4 K/mm3 (4.0-10.0)
[2019-12-23 09:19] LABS: BLOOD UREA NITROGEN 18.5 mg/dL (7-18); CALCIUM 9.7 mg/dL (8.5-10.1); CREATININE 1.1 mg/dL (0.55-1.3); MAGNESIUM 2.4 mg/dL (1.8-2.4); PHOSPHOROUS 4.4 mg/dL (2.5-4.9); POTASSIUM 4.7 mmol/L (3.5-5.1)
--- NOTE | 2019-12-23 10:05 | PN ---
Progress Note (short form) - Note Progress Note: Patient is comfortable with no acute distress. No shortness of breath, no nausea or vomiting. Vital Signs Temperature 97.6 F 12/23/19 06:51 Pulse Rate 61 12/23/19 06:51 Respiratory Rate 18 12/23/19 06:51 Blood Pressure 139/76 12/23/19 06:51 O2 Sat by Pulse Oximetry (%) 98 12/22/19 21:00 GENERAL: The patient is awake, alert, and fully oriented, in no acute distress. HEAD: Normal with no signs of trauma. EYES: PERRL, extraocular movements intact, sclera anicteric, conjunctiva clear. ENT: Ears normal, oropharynx clear without exudates, moist mucous membranes. NECK: Trachea midline, full range of motion, supple. LUNGS: Breath sounds equal, clear to auscultation bilaterally, no wheezes, no crackles, no accessory muscle use. HEART: Regular rate and rhythm, S1, S2 without murmur, rub or gallop. ABDOMEN: Soft, NT,ND, normoactive bowel sounds, no guarding, no rebound, no hepatosplenomegaly, no masses. EXTREMITIES: 2+ pulses, warm, well-perfused, left foot + open wound. NEUROLOGICAL: Cranial nerves II through XII grossly intact. Normal speech, gait not observed. PSYCH: Normal mood, normal affect. SKIN: Warm, dry, normal turgor, no rashes or lesions noted CBCD WBC 9.4 K/mm3 (4.0-10.0) 12/23/19 08:00 RBC 3.94 M/mm3 (4.00-5.60) L 12/23/19 08:00 Hgb 12.3 GM/dL (11.7-16.9) 12/23/19 08:00 Hct 37.1 % (35.4-49) 12/23/19 08:00 MCV 94.2 fl (80-96) 12/23/19 08:00 MCHC 33.1 g/dl (32.0-35.9) 12/23/19 08:00 RDW 13.4 % (11.9-15.9) 12/23/19 08:00 Plt Count 432 K/MM3 (134-434) 12/23/19 08:00 MPV 8.9 fl (7.5-11.1) 12/23/19 08:00 CMP Sodium 135 mmol/L (136-145) L 12/23/19 08:00 Potassium 4.7 mmol/L (3.5-5.1) 12/23/19 08:00 Chloride 101 mmol/L (98-107) 12/23/19 08:00 Carbon Dioxide 26 mmol/L (21-32) 12/23/19 08:00 Anion Gap 8 MMOL/L (8-16) 12/23/19 08:00 BUN 18.5 mg/dL (7-18) H 12/23/19 08:00 Creatinine 1.1 mg/dL (0.55-1.3) 12/23/19 08:00 Random Glucose 100 mg/dL (74-106) 12/23/19 08:00 Calcium 9.7 mg/dL (8.5-10.1) 12/23/19 08:00 Total Bilirubin 0.2 mg/dL (0.2-1) 12/22/19 13:30 AST 22 U/L (15-37) 12/22/19 13:30 ALT 22 U/L (13-61) 12/22/19 13:30 Alkaline Phosphatase 84 U/L (45-117) 12/22/19 13:30 Total Protein 8.2 g/dl (6.4-8.2) 12/22/19 13:30 Albumin 3.4 g/dl (3.4-5.0) 12/22/19 13:30 CARDIAC ENZYMES Creatine Kinase 82 U/L (26-308) 12/22/19 13:30 Troponin I < 0.02 ng/ml (0.00-0.05) 12/22/19 13:30 Current Medications Generic Name Dose Route Start Last Admin Trade Name Freq PRN Reason Stop Dose Admin Amlodipine Besylate 10 mg 12/23/19 10:00 Norvasc - PO DAILY [facility] Aspirin 81 mg 12/23/19 10:00 Ecotrin - PO DAILY [facility] Clonidine 0.1 mg 12/22/19 22:00 12/22/19 22:05 Catapres - PO 0.1 mg BID [facility] Administration Docusate Sodium 100 mg 12/22/19 22:00 12/22/19 22:08 Colace - PO Not Given BID [facility] Enoxaparin Sodium 40 mg 12/23/19 10:00 Lovenox - SQ DAILY [facility] Furosemide 40 mg 12/23/19 10:00 Lasix - PO DAILY [facility] Gabapentin 600 mg 12/23/19 10:00 Neurontin - PO DAILY [facility] Piperacillin Sod/Tazobactam 50 mls @ 100 mls/hr 12/23/19 02:00 12/23/19 02:00 Sod 3.375 gm/ Dextrose IVPB 100 mls/hr Q8H-IV [facility] Administration Protocol Vancomycin HCl 1,250 mg/ 250 mls @ 166.667 mls/hr 12/22/19 22:00 12/22/19 23:04 Dextrose IVPB 166.667 mls/hr Q12H [facility] Administration Protocol Insulin Aspart 0 vial 12/22/19 16:30 12/23/19 06:07 Novolog Vial Sliding Scale - SQ Not Given ACHS [facility] Protocol Metoprolol Succinate 100 mg 12/23/19 10:00 Toprol Xl - PO DAILY [facility] Morphine Sulfate 60 mg 12/22/19 22:00 12/23/19 05:57 Ms Contin - PO 60 mg TID [facility] Administration Rosuvastatin Calcium 10 mg 12/22/19 22:00 12/22/19 22:06 Crestor - PO 10 mg HS [facility] Administration Senna 2 tab 12/22/19 16:28 Senna - PO HS PRN CONSTIPATION Tiotropium [place] 2 puff 12/23/19 10:00 Spiriva Respimat IH DAILY [facility] Home Medications Medication Instructions Recorded Glyburide/Metformin HCl 1 each PO DAILY tablet 09/13/12 [Glyburide-Metformin 2.5-500 mg] Amlodipine Besylate [Norvasc -] 10 mg PO DAILY 01/06/17 Clonidine HCl 1 mg PO BID 01/06/17 Morphine Sulfate [Morphine Sulfate 60 mg PO QID PRN 02/01/17 ER] Gabapentin 600 mg BID 01/23/19 Metoprolol Succinate 100 mg PO BID 01/23/19 Rosuvastatin Calcium [Crestor] 10 mg PO DAILY 01/23/19 Aspirin [ASA -] 81 mg PO DAILY 12/11/19 Furosemide [Lasix] 40 mg PO DAILY 12/11/19 Amoxicillin/Potassium Clav 1 each PO BID #20 tablet 12/15/19 [Augmentin 875-125 Tablet] Chest x-ray: status post CABG, poor inspiration Microbiology 12/22/19 13:30 Blood - Peripheral Venous Blood Culture - Preliminary NO GROWTH OBTAINED AFTER 24 HOURS, INCUBATION TO CONTINUE FOR 4 DAYS. 12/22/19 13:30 Blood - Peripheral Venous Blood Culture - Preliminary NO GROWTH OBTAINED AFTER 24 HOURS, INCUBATION TO CONTINUE FOR 4 DAYS. ASSESSMENT AND PLAN: This patient is a 54yom with PMhx of T2DM, CAD s/p CABG triple bypass in 2018, dyslipidemia, polysubstance abuse, narcotic dependency chronic hep C, bilateral lower extremity polyneuropathy, recently discharged from [facility] after treated for right foot infected wound foreign body removal on December 15, 2019, patient was discharged on p.o. Augmentin after receiving clindamycin and Zosyn during hospitalization also underwent I&D and foreign body removal on December 12, 2019, today patient came to wound care center, transferred to ED for IV antibiotic as wound was not healing wanted to rule out osteomyelitis. Patient failed outpatient p.o. antibiotic # Right foot cellulitis:wound culture grew staph aureus and coagulase-negative and E faecalis; on Zosyn and vancomycin , MRI for rule out osteomyelitis. ID and podiatry consult appreciated # Hypertension: Well-controlled continue all home medications # T2DM : Hold metformin, continue glyburide. SS with coverage # Hx of CAD: s/p triple bypass at present asymptomatic resume aspirin, statin and beta-blockers # Hypercholesterolemia: Continue statin # asthma: Stable resume home medications # Polyneuropathy: Chronic due to T2DM for over 5 yrs DVT Px: Lovenox Visit type - Emergency Visit Emergency Visit: Yes ED Registration Date: 12/22/19 Care time: The patient presented to the Emergency Department on the above date and was hospitalized for further evaluation of their emergent condition. - New Patient This patient is new to me today: Yes Date on this admission: 12/23/19 - Critical Care Critical Care patient: No - Discharge Referral Referred to [facility] Med [facility].: No
[2019-12-23 10:25] LABS: ERYTHROCYTE SEDIMENTATION RATE 91 mm/hr (0-20)
[2019-12-23] MEDS: ASPIRIN COATED 81 MG TABLET.EC PO SCH (10:50)
[2019-12-23] MEDS: GABAPENTIN 300 MG CAPSULE PO SCH (10:50)
[2019-12-23] MEDS: FUROSEMIDE 40 MG TABLET (FP) PO SCH (10:51)
[2019-12-23] MEDS: cloNIDine HCL 0.1 MG TABLET PO SCH ×2 (10:51→22:09)
[2019-12-23] MEDS: amLODIPine BESYLATE 10 MG TABLET (FP) PO SCH (10:51)
[2019-12-23] MEDS: DOCUSATE SODIUM 100 MG CAPSULE (FP) PO SCH ×2 (10:51→22:09)
[2019-12-23] MEDS: ENOXAPARIN NA (PORCINE) 40 MG/0.4 ML DISP.SYRIN SQ SCH (11:00)
[2019-12-23] MEDS: TIOTROPIUM BROMIDE 2.5 MCG (SPIRIVA) RESPIMAT INHALER IH SCH ×2 (11:04→11:34)
[2019-12-23] MEDS ORDERED: INSULIN (NOVOLOG) ASPART 100 UNITS/ML 10ML VIAL ONE (11:13)
[2019-12-23] MEDS: VANCOMYCIN 1,250 MG in DEXTROSE 5%-WATER - 250 ML IVPB SCH ×2 (11:35→22:09)
--- NOTE | 2019-12-23 14:07 | CON.ID ---
Consult - History of Present Illness History of Present Illness: 54 y.o. male with PMH of CAD, [place] s/p CABG, DM with neuropathy, HTN, HLD, Chronic hep C, Rt IJ thrombus (off AC), ETOH and opiate dependence presents from [facility] for Rt foot cellulitis. Pt was recently admitted on 12/09/19 and treated for Rt foot cellulitis/lymphangitis with foreign body (removed IV drug needle tip). Cultures grew Staph/Enterococcus. Pt was on IV Zosyn prior to switch to Augmentin and d/c home on PO antibiotics. Pt now returns with signs of persistent Rt foot infection. Cultures on 12/21/19 growing Pseudomonas/Strep vs Enterococcus. In t he ER pt was afebrile with stable vitals and wbc of 11.1K. 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 Cardio/Vascular: Yes: CAD, HTN Infectious Disease: Yes: Other (Hep C) Endocrine: Yes: Diabetes Mellitus Dermatology: Yes: Cellulitis Additional Medical History: Rt foot wound infection/lymphangitis - Past Surgical History Past Surgical History: Yes: CABG - Alcohol/Substance Use Hx Alcohol Use: Yes - Smoking History Smoking history: Current every day smoker Have you smoked in the past 12 months: Yes Aproximately how many cigarettes per day: 10 If you are a former smoker, when did you quit?: 7 months - Social History ADL: Independent Occupation: on disability x 3 years because of Diabetic Neuropathy. Home Medications - Allergies Allergies/Adverse Reactions: Allergies Allergy/AdvReac Type Severity Reaction Status Date / Time lisinopril Allergy Severe Swelling Verified 12/22/19 12:51 Bee sting Allergy Severe Difficulty Uncoded 12/22/19 12:51 Breathing - Home Medications Home Medications: Ambulatory Orders Glyburide/Metformin HCl [Glyburide-Metformin 2.5-500 mg] 1 each PO DAILY tablet 09/13/12 Amlodipine Besylate [Norvasc -] 10 mg PO DAILY 01/06/17 Clonidine HCl 1 mg PO BID 01/06/17 Morphine Sulfate [Morphine Sulfate ER] 60 mg PO QID PRN 02/01/17 Gabapentin 600 mg BID 01/23/19 Metoprolol Succinate 100 mg PO BID 01/23/19 Rosuvastatin Calcium [Crestor] 10 mg PO DAILY 01/23/19 Aspirin [ASA -] 81 mg PO DAILY 12/11/19 Furosemide [Lasix] 40 mg PO DAILY 12/11/19 Amoxicillin/Potassium Clav [Augmentin 875-125 Tablet] 1 each PO BID #20 tablet 12/15/19 Physical Exam Vital Signs: Vital Signs Temperature 98.7 F 12/23/19 10:13 Pulse Rate 62 12/23/19 10:13 Respiratory Rate 18 12/23/19 10:13 Blood Pressure 142/89 12/23/19 10:13 O2 Sat by Pulse Oximetry (%) 100 12/23/19 10:13 Labs: CBC, BMP 12/23/19 08:00 12/23/19 08:00 Laboratory Tests 12/22/19 12/22/19 12/22/19 13:30 13:30 13:51 WBC 11.1 H RBC 3.77 L Hgb 11.9 Hct 35.6 MCV 94.5 MCH 31.5 MCHC 33.3 RDW 13.4 Plt Count 420 MPV 9.0 Absolute Neuts (auto) 6.5 Neutrophils % 58.2 Lymphocytes % 29.3 Monocytes % 7.5 Eosinophils % 4.2 Basophils % 0.8 Nucleated RBC % 0 ESR Sodium 138 Potassium 4.6 Chloride 103 Carbon Dioxide 24 Anion Gap 11 BUN 19.2 H Creatinine 1.1 Est GFR (CKD-EPI)AfAm 87.74 Est GFR (CKD-EPI)NonAf 75.70 POC Glucometer 68 Random Glucose 66 L Calcium 9.4 Phosphorus Magnesium Total Bilirubin 0.2 AST 22 ALT 22 Alkaline Phosphatase 84 Creatine Kinase 82 Troponin I < 0.02 C-Reactive Protein Total Protein 8.2 Albumin 3.4 12/22/19 12/23/19 12/23/19 21:41 05:48 08:00 WBC 9.4 RBC 3.94 L Hgb 12.3 Hct 37.1 MCV 94.2 MCH 31.2 MCHC 33.1 RDW 13.4 Plt Count 432 MPV 8.9 Absolute Neuts (auto) Neutrophils % Lymphocytes % Monocytes % Eosinophils % Basophils % Nucleated RBC % ESR 91 H Sodium Potassium Chloride Carbon Dioxide Anion Gap BUN Creatinine Est GFR (CKD-EPI)AfAm Est GFR (CKD-EPI)NonAf POC Glucometer 138 99 Random Glucose Calcium Phosphorus Magnesium Total Bilirubin AST ALT Alkaline Phosphatase Creatine Kinase Troponin I C-Reactive Protein Total Protein Albumin 12/23/19 12/23/19 08:00 11:32 WBC RBC Hgb Hct MCV MCH MCHC RDW Plt Count MPV Absolute Neuts (auto) Neutrophils % Lymphocytes % Monocytes % Eosinophils % Basophils % Nucleated RBC % ESR Sodium 135 L Potassium 4.7 Chloride 101 Carbon Dioxide 26 Anion Gap 8 BUN 18.5 H Creatinine 1.1 Est GFR (CKD-EPI)AfAm 87.74 Est GFR (CKD-EPI)NonAf 75.70 POC Glucometer 141 Random Glucose 100 Calcium 9.7 Phosphorus 4.4 Magnesium 2.4 Total Bilirubin AST ALT Alkaline Phosphatase Creatine Kinase Troponin I C-Reactive Protein 0.7 H Total Protein Albumin Blood cultures - pending Problem List - Problems (1) Cellulitis Code(s): L03.90 - CELLULITIS, UNSPECIFIED Qualifiers: Site of cellulitis: extremity Site of cellulitis of extremity: lower extremity Laterality: right Qualified Code(s): L03.115 - Cellulitis of right lower limb (2) Diabetic foot infection Code(s): E11.628 - TYPE 2 DIABETES MELLITUS WITH OTHER SKIN COMPLICATIONS; L08.9 - LOCAL INFECTION OF THE SKIN AND SUBCUTANEOUS TISSUE, UNSP (3) CAD (coronary artery disease) Code(s): I25.10 - ATHSCL HEART DISEASE OF [place] CORONARY ARTERY W/O ANG PCTRS (4) Diabetes Code(s): E11.9 - TYPE 2 DIABETES MELLITUS WITHOUT COMPLICATIONS (5) HTN (hypertension) Code(s): I10 - ESSENTIAL (PRIMARY) HYPERTENSION
--- NOTE | 2019-12-23 15:05 | EKG ---
Test Reason : Blood Pressure : / mmHG Vent. Rate : 055 BPM Atrial Rate : 055 BPM P-R Int : 202 ms QRS Dur : 096 ms QT Int : 444 ms P-R-T Axes : 040 021 076 degrees QTc Int : 424 ms SINUS BRADYCARDIA POSSIBLE LEFT ATRIAL ENLARGEMENT BORDERLINE ECG WHEN COMPARED WITH ECG OF 11-DEC-2019 22:28, NO SIGNIFICANT CHANGE WAS FOUND Confirmed by FAIAZ DINERO MD ([id number]) on 12/23/2019 3:05:15 PM Referred By: Confirmed By:FAIZA DINERO MD
--- NOTE | 2019-12-23 16:11 | PN ---
Progress Note, Physician History of Present Illness: Pt with less edema/erythema in Rt foot. Remains afebrile. Wound culture results noted. - Current Medication List Current Medications: Active Medications Amlodipine Besylate (Norvasc -) 10 mg PO DAILY [facility] Last Admin: 12/23/19 10:51 Dose: 10 mg Documented by: Aspirin (Ecotrin -) 81 mg PO DAILY [facility] Last Admin: 12/23/19 10:50 Dose: 81 mg Documented by: Clonidine (Catapres -) 0.1 mg PO BID [facility] Last Admin: 12/23/19 10:51 Dose: 0.1 mg Documented by: Docusate Sodium (Colace -) 100 mg PO BID [facility] Last Admin: 12/23/19 10:51 Dose: 100 mg Documented by: Enoxaparin Sodium (Lovenox -) 40 mg SQ DAILY [facility] Last Admin: 12/23/19 11:00 Dose: 40 mg Documented by: Furosemide (Lasix -) 40 mg PO DAILY [facility] Last Admin: 12/23/19 10:51 Dose: 40 mg Documented by: Gabapentin (Neurontin -) 600 mg PO DAILY [facility] Last Admin: 12/23/19 10:50 Dose: 600 mg Documented by: Piperacillin Sod/Tazobactam (Sod 3.375 gm/ Dextrose) 50 mls @ 100 mls/hr IVPB Q8H-IV [facility]; Protocol Last Admin: 12/23/19 10:52 Dose: 100 mls/hr Documented by: Vancomycin HCl 1,250 mg/ (Dextrose) 250 mls @ 166.667 mls/hr IVPB Q12H [facility]; Protocol Last Admin: 12/23/19 11:35 Dose: 166.667 mls/hr Documented by: Insulin Aspart (Novolog Vial Sliding Scale -) 0 vial SQ ACHS [facility]; Protocol Last Admin: 12/23/19 11:34 Dose: Not Given Documented by: Metoprolol Succinate (Toprol Xl -) 100 mg PO DAILY [facility] Last Admin: 12/23/19 10:51 Dose: 100 mg Documented by: Morphine Sulfate (Ms Contin -) 60 mg PO TID [facility] Last Admin: 12/23/19 13:26 Dose: 60 mg Documented by: Rosuvastatin Calcium (Crestor -) 10 mg PO HS [facility] Last Admin: 12/22/19 22:06 Dose: 10 mg Documented by: Senna (Senna -) 2 tab PO HS PRN PRN Reason: CONSTIPATION Tiotropium [place] (Spiriva Respimat) 2 puff IH DAILY [facility] Last Admin: 12/23/19 11:34 Dose: Not Given Documented by: - Objective Vital Signs: Vital Signs Temperature 98.0 F 12/23/19 15:00 Pulse Rate 60 12/23/19 15:00 Respiratory Rate 18 12/23/19 15:00 Blood Pressure 136/81 12/23/19 15:00 O2 Sat by Pulse Oximetry (%) 96 12/23/19 15:00 Constitutional: Yes: No Distress, Calm Cardiovascular: Yes: Regular Rate and Rhythm Respiratory: Yes: Regular Gastrointestinal: Yes: Normal Bowel Sounds, Soft Genitourinary: Yes: WNL Wound/Incision: Yes: Other (Less Rt foot edema/erythema/warmth, +plantar ulcer dry, no fluctuance) Neurological: Yes: Alert, Oriented Labs: CBC, BMP 12/23/19 08:00 12/23/19 08:00 Microbiology 12/22/19 13:30 Blood - Peripheral Venous Blood Culture - Preliminary NO GROWTH OBTAINED AFTER 24 HOURS, INCUBATION TO CONTINUE FOR 4 DAYS. 12/22/19 13:30 Blood - Peripheral Venous Blood Culture - Preliminary NO GROWTH OBTAINED AFTER 24 HOURS, INCUBATION TO CONTINUE FOR 4 DAYS. 12/21/19 Wound culture: Pseudomonas, Strep vs enterococcus sp Problem List - Problems (1) Cellulitis Code(s): L03.90 - CELLULITIS, UNSPECIFIED Qualifiers: Site of cellulitis: extremity Site of cellulitis of extremity: lower e xtremity Laterality: right Qualified Code(s): L03.115 - Cellulitis of right lower limb (2) Diabetic foot infection Code(s): E11.628 - TYPE 2 DIABETES MELLITUS WITH OTHER SKIN COMPLICATIONS; L08.9 - LOCAL INFECTION OF THE SKIN AND SUBCUTANEOUS TISSUE, UNSP (3) CAD (coronary artery disease) Code(s): I25.10 - ATHSCL HEART DISEASE OF [place] CORONARY ARTERY W/O ANG PCTRS (4) Diabetes Code(s): E11.9 - TYPE 2 DIABETES MELLITUS WITHOUT COMPLICATIONS (5) HTN (hypertension) Code(s): I10 - ESSENTIAL (PRIMARY) HYPERTENSION Assessment/Plan Rt foot infected diabetic ulcer Rt foot Cellulitis Recent Rt foot abscess s/p I+D and foreign body removal DM with neuropathy CAD [place] s/p CABG s/p Hep C treatment Opiod dependence -- wound culture isolates noted, follow up susceptibilities -- Rt foot appears to be improving -- Zosyn/Vancomycin IV empirically for now, monitor renal function -- Vancomycin trough prior to 4th dose -- continue wound care
--- NOTE | 2019-12-23 21:17 | CONSULT ---
Consult Consult Specialty:: Podiatry Reason for Consultation:: Cellulitis right foot - History of Present Illness History of Present Illness: Pt presented to [facility] on with healed surgical sites on plantar surface. Also presented with a new wound lateral right foot secondary to non compliance and go back to work with loafers on his feet which he presented with on to [facility]. Labs drawn. xray done. Asked to return Wednesday. If labs up and foot did not look better he would be admitted, as he was on Wednesday. 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 History of Recent Travel: No Home Medications - Allergies Allergies/Adverse Reactions: Allergies Allergy/AdvReac Type Severity Reaction Status Date / Time lisinopril Allergy Severe Swelling Verified 12/22/19 12:51 Bee sting Allergy Severe Difficulty Uncoded 12/22/19 12:51 Breathing - Home Medications Home Medications: Ambulatory Orders Glyburide/Metformin HCl [Glyburide-Metformin 2.5-500 mg] 1 each PO DAILY tablet 09/13/12 Amlodipine Besylate [Norvasc -] 10 mg PO DAILY 01/06/17 Clonidine HCl 1 mg PO BID 01/06/17 Morphine Sulfate [Morphine Sulfate ER] 60 mg PO QID PRN 02/01/17 Gabapentin 600 mg BID 01/23/19 Metoprolol Succinate 100 mg PO BID 01/23/19 Rosuvastatin Calcium [Crestor] 10 mg PO DAILY 01/23/19 Aspirin [ASA -] 81 mg PO DAILY 12/11/19 Furosemide [Lasix] 40 mg PO DAILY 12/11/19 Amoxicillin/Potassium Clav [Augmentin 875-125 Tablet] 1 each PO BID #20 tablet 12/15/19 Physical Exam Vital Signs: Vital Signs Temperature 98.5 F 12/23/19 18:24 Pulse Rate 89 12/23/19 18:24 Respiratory Rate 18 12/23/19 18:24 Blood Pressure 146/75 12/23/19 18:24 O2 Sat by Pulse Oximetry (%) 96 12/23/19 15:00 Wound/Incision: Yes: Other (vsgi, +neuropathy, +open wound lateral 5th met head right foot, +cellulitis, +soft and appears necrotic, -mal odor,+for pseudomonas on Culture done in [facility], +healed prior 2 sx sites on plantar surface of foot) Labs: CBC, BMP 12/23/19 08:00 12/23/19 08:00 Assessment/Plan om? grade 3 wound unrelated to foreign body removal cellulitis abscess? Advised pt that he had to comply going forward and this wound would take a long time and due to his non-compliance he may need resection of his 5th toe and 5th met head. Santyl dressing to wound daily. Awaiting MRI result. Awaiting vascular consult. Will follow. Discussed with Dr. Noonan. Drug screen pending. Pt has post op shoe that was given to him in [facility]. Must wear over dressing when getting up to walk. Pt fully understood his current tx plan as he did not appear intoxicated at this time.
[2019-12-23] MEDS ORDERED: PT OWN MED DRAWER 7, Y5N ONE (22:01)
[2019-12-23] MEDS: ROSUVASTATIN CA 10 MG TABLET (FP) PO SCH (22:09)
[2019-12-24] MEDS ORDERED: PIPERACILLIN/TAZOBACTAM 3.375 GM VIAL IVPB ONE ×2 (01:34→09:04)
[2019-12-24] MEDS ORDERED: DEXTROSE 5%-WATER - 50 ML IVPB ONE ×2 (01:34→09:04)
[2019-12-24] MEDS ORDERED: PT OWN MED DRAWER 7, Y5N ONE ×2 (01:35→21:51)
[2019-12-24] MEDS: PIPERACILLIN/TAZOB 3.375 GM 3.375 GM in DEXTROSE 5%-WATER - 50 ML IVPB SCH ×2 (01:39→09:20)
[2019-12-24] MEDS: morphine SO4 SUSTAINED ACTING 30 MG TABLET.SA PO SCH ×3 (05:47→22:08)
[2019-12-24] MEDS: INSULIN SLIDING SCALE (NOVOLOG) 1 VIAL SQ SCH ×4 (07:16→22:10)
[2019-12-24] MEDS: DOCUSATE SODIUM 100 MG CAPSULE (FP) PO SCH ×2 (09:18→22:08)
[2019-12-24] MEDS: GABAPENTIN 300 MG CAPSULE PO SCH (09:18)
[2019-12-24] MEDS: ASPIRIN COATED 81 MG TABLET.EC PO SCH (09:18)
[2019-12-24] MEDS: FUROSEMIDE 40 MG TABLET (FP) PO SCH (09:19)
[2019-12-24] MEDS: amLODIPine BESYLATE 10 MG TABLET (FP) PO SCH (09:19)
[2019-12-24] MEDS: cloNIDine HCL 0.1 MG TABLET PO SCH ×2 (09:19→22:09)
[2019-12-24] MEDS: TIOTROPIUM BROMIDE 2.5 MCG (SPIRIVA) RESPIMAT INHALER IH SCH (09:20)
[2019-12-24] MEDS: ENOXAPARIN NA (PORCINE) 40 MG/0.4 ML DISP.SYRIN SQ SCH (09:30)
[2019-12-24 10:01] LABS: HEMATOCRIT 33.6 % (35.4-49); HEMOGLOBIN 11.3 GM/dL (11.7-16.9); MCH 31.5 pg (25.7-33.7); MCHC 33.6 g/dl (32.0-35.9); MEAN CELL VOLUME 93.8 fl (80-96); MEAN PLT VOLUME 9.1 fl (7.5-11.1); PLATELET COUNT 411 K/MM3 (134-434); RBC 3.58 M/mm3 (4.00-5.60); RDW 13.2 % (11.9-15.9); WHITE BLOOD COUNT 10.5 K/mm3 (4.0-10.0)
[2019-12-24] MEDS: VANCOMYCIN 1,250 MG in DEXTROSE 5%-WATER - 250 ML IVPB SCH ×3 (10:11→22:46)
[2019-12-24 10:26] LABS: BLOOD UREA NITROGEN 20.6 mg/dL (7-18); CALCIUM 8.9 mg/dL (8.5-10.1); CREATININE 1.1 mg/dL (0.55-1.3); MAGNESIUM 2.2 mg/dL (1.8-2.4); PHOSPHOROUS 4.3 mg/dL (2.5-4.9); POTASSIUM 4.8 mmol/L (3.5-5.1)
[2019-12-24] MEDS ORDERED: INSULIN (NOVOLOG) ASPART 100 UNITS/ML 10ML VIAL ONE (10:50)
[2019-12-24] MEDS ORDERED: MEROPENEM 1 GM VIAL (RESTRICTED TO ID) IVPB ONE (17:06)
[2019-12-24] MEDS ORDERED: DEXTROSE 5%-WATER 100 ML IVPB ONE (17:07)
[2019-12-24] MEDS: MEROPENEM 1 GM in DEXTROSE 5%-WATER 100 ML IVPB SCH (17:13)
--- NOTE | 2019-12-24 18:04 | PN ---
Teaching Attending Note Name of Resident: Antonieta Gonzalez ATTENDING PHYSICIAN STATEMENT I saw and evaluated the patient. I reviewed the resident's note and discussed the case with the resident. I agree with the resident's findings and plan as documented. SUBJECTIVE: Patient is comfortable with no acute distress. OBJECTIVE: Vital Signs Temperature 98.8 F 12/24/19 14:00 Pulse Rate 59 L 12/24/19 14:00 Respiratory Rate 18 12/24/19 14:00 Blood Pressure 129/74 12/24/19 14:00 O2 Sat by Pulse Oximetry (%) 94 L 12/24/19 14:00 PE: per resident's note CBCD WBC 10.5 K/mm3 (4.0-10.0) H 12/24/19 09:10 RBC 3.58 M/mm3 (4.00-5.60) L 12/24/19 09:10 Hgb 11.3 GM/dL (11.7-16.9) L 12/24/19 09:10 Hct 33.6 % (35.4-49) L 12/24/19 09:10 MCV 93.8 fl (80-96) 12/24/19 09:10 MCHC 33.6 g/dl (32.0-35.9) 12/24/19 09:10 RDW 13.2 % (11.9-15.9) 12/24/19 09:10 Plt Count 411 K/MM3 (134-434) 12/24/19 09:10 MPV 9.1 fl (7.5-11.1) 12/24/19 09:10 CMP Sodium 136 mmol/L (136-145) 12/24/19 09:10 Potassium 4.8 mmol/L (3.5-5.1) 12/24/19 09:10 Chloride 102 mmol/L (98-107) 12/24/19 09:10 Carbon Dioxide 29 mmol/L (21-32) 12/24/19 09:10 Anion Gap 5 MMOL/L (8-16) L 12/24/19 09:10 BUN 20.6 mg/dL (7-18) H 12/24/19 09:10 Creatinine 1.1 mg/dL (0.55-1.3) 12/24/19 09:10 Random Glucose 154 mg/dL (74-106) H 12/24/19 09:10 Calcium 8.9 mg/dL (8.5-10.1) 12/24/19 09:10 Total Bilirubin 0.2 mg/dL (0.2-1) 12/22/19 13:30 AST 22 U/L (15-37) 12/22/19 13:30 ALT 22 U/L (13-61) 12/22/19 13:30 Alkaline Phosphatase 84 U/L (45-117) 12/22/19 13:30 Total Protein 8.2 g/dl (6.4-8.2) 12/22/19 13:30 Albumin 3.4 g/dl (3.4-5.0) 12/22/19 13:30 CARDIAC ENZYMES Creatine Kinase 82 U/L (26-308) 12/22/19 13:30 Troponin I < 0.02 ng/ml (0.00-0.05) 12/22/19 13:30 Current Medications Generic Name Dose Route Start Last Admin Trade Name Ulices PRN Reason Stop Dose Admin Amlodipine Besylate 10 mg 12/23/19 10:00 12/24/19 09:19 Norvasc - PO 10 mg DAILY [facility] Administration Aspirin 81 mg 12/23/19 10:00 12/24/19 09:18 Ecotrin - PO 81 mg DAILY [facility] Administration Clonidine 0.1 mg 12/22/19 22:00 12/24/19 09:19 Catapres - PO 0.1 mg BID [facility] Administration Docusate Sodium 100 mg 12/22/19 22:00 12/24/19 09:18 Colace - PO 100 mg BID [facility] Administration Enoxaparin Sodium 40 mg 12/23/19 10:00 12/24/19 09:30 Lovenox - SQ 40 mg DAILY [facility] Administration Furosemide 40 mg 12/23/19 10:00 12/24/19 09:19 Lasix - PO 40 mg DAILY [facility] Administration Gabapentin 600 mg 12/23/19 10:00 12/24/19 09:18 Neurontin - PO 600 mg DAILY [facility] Administration Vancomycin HCl 1,250 mg/ 250 mls @ 166.667 mls/hr 12/22/19 22:00 12/24/19 10:11 Dextrose IVPB 166.667 mls/hr Q12H [facility] Administration Protocol Meropenem 1 gm/ Dextrose 100 mls @ 200 mls/hr 07/19/20 18:00 12/24/19 17:13 IVPB 200 mls/hr Q8H-IV [facility] Administration Insulin Aspart 0 vial 12/22/19 16:30 12/24/19 16:17 Novolog Vial Sliding Scale - SQ Not Given ACHS [facility] Protocol Metoprolol Succinate 100 mg 12/23/19 10:00 12/24/19 09:19 Toprol Xl - PO 100 mg DAILY [facility] Administration Morphine Sulfate 60 mg 12/22/19 22:00 12/24/19 13:09 Ms Contin - PO 60 mg TID [facility] Administration Rosuvastatin Calcium 10 mg 12/22/19 22:00 12/23/19 22:09 Crestor - PO 10 mg HS [facility] Administration Senna 2 tab 12/22/19 16:28 Senna - PO HS PRN CONSTIPATION Tiotropium [place] 2 puff 12/23/19 10:00 12/24/19 09:20 Spiriva Respimat IH Not Given DAILY [facility] Home Medications Medication Instructions Recorded Glyburide/Metformin HCl 1 each PO DAILY tablet 09/13/12 [Glyburide-Metformin 2.5-500 mg] Amlodipine Besylate [Norvasc -] 10 mg PO DAILY 01/06/17 Clonidine HCl 1 mg PO BID 01/06/17 Morphine Sulfate [Morphine Sulfate 60 mg PO QID PRN 02/01/17 ER] Gabapentin 600 mg BID 01/23/19 Metoprolol Succinate 100 mg PO BID 01/23/19 Rosuvastatin Calcium [Crestor] 10 mg PO DAILY 01/23/19 Aspirin [ASA -] 81 mg PO DAILY 12/11/19 Furosemide [Lasix] 40 mg PO DAILY 12/11/19 Amoxicillin/Potassium Clav 1 each PO BID #20 tablet 12/15/19 [Augmentin 875-125 Tablet] Microbiology 12/22/19 13:30 Blood - Peripheral Venous Blood Culture - Preliminary NO GROWTH OBTAINED AFTER 48 HOURS, INCUBATION TO CONTINUE FOR 3 DAYS. 12/22/19 13:30 Blood - Peripheral Venous Blood Culture - Preliminary NO GROWTH OBTAINED AFTER 48 HOURS, INCUBATION TO CONTINUE FOR 3 DAYS. 12/22/19 17:55 Urine - Urine Clean Catch Urine Culture - Final NO GROWTH OBTAINED ASSESSMENT AND PLAN: This patient is a 54yom with PMhx of T2DM, CAD s/p CABG triple bypass in 2018, dyslipidemia, polysubstance abuse, narcotic dependency chronic hep C, bilateral lower extremity polyneuropathy, recently discharged from [facility] after treated for right foot infected wound foreign body removal on December 15, 2019, patient was discharged on p.o. Augmentin after receiving clindamycin and Zosyn during hospitalization also underwent I&D and foreign body removal on December 12, 2019, today patient came to wound care center, transferred to ED for IV antibiotic as wound was not healing wanted to rule out osteomyelitis. Patient failed outpatient p.o. antibiotic # Right foot cellulitis:wound culture grew staph aureus and coagulase-negative and E faecalis; on vancomycin and meropenem as per Id, MRI + for osteomyelitis , ID and podiatry consult appreciated # Hypertension: Well-controlled continue all home medications # T2DM : Hold metformin, continue glyburide. SS with coverage # Hx of CAD: s/p triple bypass at present asymptomatic resume aspirin, statin and beta-blockers # Hypercholesterolemia: Continue statin # asthma: Stable resume home medications # Polyneuropathy: Chronic due to T2DM for over 5 yrs DVT Px: Lovenox
--- NOTE | 2019-12-24 18:32 | PN ---
Physical Exam: SUBJECTIVE: Patient seen and examined bedside. In no acute distress. Resting comfortably. OBJECTIVE: Vital Signs Period Temp Pulse Resp BP Sys/Mcnulty Pulse Ox Last 24 Hr 97.3 F-98.8 F 59-89 18-18 125-146/73-78 94-100 GENERAL: The patient is awake, alert, and fully oriented, in no acute distress. HEAD: Normal with no signs of trauma. EYES: PERRL, extraocular movements intact, sclera anicteric, conjunctiva clear. LUNGS: Breath sounds equal, clear to auscultation bilaterally, HEART: Regular rate and rhythm, S1, S2 ABDOMEN: Soft, nontender, nondistended, normoactive bowel sounds MSK: pulses, warm, no edema. Right plantar surface has open wound at proximal 5th/4th metatarsal. Lateral right foot has open wound with surrounding erythema. NEUROLOGICAL: Normal speech Laboratory Results - last 24 hr 12/23/19 12/24/19 12/24/19 21:58 05:39 09:10 WBC 10.5 H RBC 3.58 L Hgb 11.3 L Hct 33.6 L MCV 93.8 MCH 31.5 MCHC 33.6 RDW 13.2 Plt Count 411 MPV 9.1 Sodium Potassium Chloride Carbon Dioxide Anion Gap BUN Creatinine Est GFR (CKD-EPI)AfAm Est GFR (CKD-EPI)NonAf POC Glucometer 128 135 Random Glucose Calcium Phosphorus Magnesium 12/24/19 12/24/19 12/24/19 09:10 11:05 16:14 WBC RBC Hgb Hct MCV MCH MCHC RDW Plt Count MPV Sodium 136 Potassium 4.8 Chloride 102 Carbon Dioxide 29 Anion Gap 5 L BUN 20.6 H Creatinine 1.1 Est GFR (CKD-EPI)AfAm 87.74 Est GFR (CKD-EPI)NonAf 75.70 POC Glucometer 160 141 Random Glucose 154 H Calcium 8.9 Phosphorus 4.3 Magnesium 2.2 Active Medications Generic Name Dose Route Start Last Admin Trade Name Freq PRN Reason Stop Dose Admin Amlodipine Besylate 10 mg 12/23/19 10:00 12/24/19 09:19 Norvasc - PO 10 mg DAILY [facility] Administration Aspirin 81 mg 12/23/19 10:00 12/24/19 09:18 Ecotrin - PO 81 mg DAILY [facility] Administration Clonidine 0.1 mg 12/22/19 22:00 12/24/19 09:19 Catapres - PO 0.1 mg BID [facility] Administration Docusate Sodium 100 mg 12/22/19 22:00 12/24/19 09:18 Colace - PO 100 mg BID [facility] Administration Enoxaparin Sodium 40 mg 12/23/19 10:00 12/24/19 09:30 Lovenox - SQ 40 mg DAILY [facility] Administration Furosemide 40 mg 12/23/19 10:00 12/24/19 09:19 Lasix - PO 40 mg DAILY [facility] Administration Gabapentin 600 mg 12/23/19 10:00 12/24/19 09:18 Neurontin - PO 600 mg DAILY [facility] Administration Vancomycin HCl 1,250 mg/ 250 mls @ 166.667 mls/hr 12/22/19 22:00 12/24/19 10:11 Dextrose IVPB 166.667 mls/hr Q12H [facility] Administration Protocol Meropenem 1 gm/ Dextrose 100 mls @ 200 mls/hr 12/24/19 18:00 12/24/19 17:13 IVPB 200 mls/hr Q8H-IV [facility] Administration Insulin Aspart 0 vial 12/22/19 16:30 12/24/19 16:17 Novolog Vial Sliding Scale - SQ Not Given ACHS [facility] Protocol Metoprolol Succinate 100 mg 12/23/19 10:00 12/24/19 09:19 Toprol Xl - PO 100 mg DAILY [facility] Administration Morphine Sulfate 60 mg 12/22/19 22:00 12/24/19 13:09 Ms Contin - PO 60 mg TID [facility] Administration Rosuvastatin Calcium 10 mg 12/22/19 22:00 12/23/19 22:09 Crestor - PO 10 mg HS [facility] Administration Senna 2 tab 12/22/19 16:28 Senna - PO HS PRN CONSTIPATION Tiotropium [place] 2 puff 12/23/19 10:00 12/24/19 09:20 Spiriva Respimat IH Not Given DAILY [facility] MRI RIGHT FOOT There is soft tissue swelling of the foot more prominent since dorsal aspect and is related to cellulitis. There is no soft tissue abscess. There is edema of the bone marrow of the head of the fifth metatarsal and of the phalanges more prominent in the proximal and middle phalanges related to osteomyelitis. There are moderate degenerative changes of the first metatarsophalangeal joint. There are no soft tissue masses. There is no disruption of the flexor of the extensor tendons. Impression: Cellulitis. There is no soft tissue abscess. Osteomyelitis of the head of the fifth metatarsal and of the phalanges more prominent in the proximal and middle phalanx. ASSESSMENT/PLAN: 54yo M with PMH of T2DM, CAD s/p CABG triple bypass in 2018, dyslipidemia, polysubstance abuse, narcotic dependency chronic hep C, bilateral lower extremity polyneuropathy, recently discharged from [facility] after treated for right foot infected wound foreign body removal on 12/15/19. The patient was discharged on PO Augmentin after receiving clindamycin & Zosyn during hospitalization also underwent I&D and foreign body removal on 12/12/19. Today the patient came to wound care center and was transferred to ED for IV antibiotic as wound was not healing wanted to r/o osteomyelitis. Patient failed outpatient p.o. antibiotic Right foot cellulitis/failed PO antibiotics - wound culture grew staph aureus and coagulase-negative and E faecalis - ID consulted (Dr. Wilkerson) Zosyn & vancomycin - Vascular consulted (Dr. Worley) - Podiatry Consulted (Dr. Leyva) Santyl dressing to wound daily Pt has post op shoe that was given to him in [facility]. Must wear over dressing when getting up to walk. - MRI showed OM of the head of the fifth metatarsal and of the phalanges more prominent in the proximal and middle phalanx. Hypertension: well controlled - continue all home medications T2DM: - Hold metformin - continue glyburide - SS with coverage CAD: s/p triple bypass - resume aspirin, statin & beta-blockers Hypercholesterolemia: - Continue statin Asthma: - Stable resume home medications Polyneuropathy: Chronic 2/2 diabetes - gabapentin 600 mg PO daily DVT Px: - Lovenox Visit type - Emergency Visit Emergency Visit: Yes ED Registration Date: 12/22/19 Care time: The patient presented to the Emergency Department on the above date and was hospitalized for further evaluation of their emergent condition. - New Patient This patient is new to me today: Yes Date on this admission: 12/22/19 - Critical Care Critical Care patient: No - Discharge Referral Referred to [facility] Med P.C.: No Physician Referral: Abner Worley DO ([facility]) ATTENDING PHYSICIAN STATEMENT I saw and evaluated the patient. I reviewed the resident's note and discussed the case with the resident. I agree with the resident's findings and plan as documented. SUBJECTIVE: OBJECTIVE: ASSESSMENT AND PLAN:
--- NOTE | 2019-12-24 20:29 | PN ---
Progress Note, Physician History of Present Illness: Pt still with erythema of the foot. MRI + OM of 5th MT/phalanx. Afebrile. - Current Medication List Current Medications: Active Medications Amlodipine Besylate (Norvasc -) 10 mg PO DAILY [facility] Last Admin: 12/24/19 09:19 Dose: 10 mg Documented by: Aspirin (Ecotrin -) 81 mg PO DAILY [facility] Last Admin: 12/24/19 09:18 Dose: 81 mg Documented by: Clonidine (Catapres -) 0.1 mg PO BID [facility] Last Admin: 12/24/19 09:19 Dose: 0.1 mg Documented by: Docusate Sodium (Colace -) 100 mg PO BID [facility] Last Admin: 12/24/19 09:18 Dose: 100 mg Documented by: Enoxaparin Sodium (Lovenox -) 40 mg SQ DAILY [facility] Last Admin: 12/24/19 09:30 Dose: 40 mg Documented by: Furosemide (Lasix -) 40 mg PO DAILY [facility] Last Admin: 12/24/19 09:19 Dose: 40 mg Documented by: Gabapentin (Neurontin -) 600 mg PO DAILY [facility] Last Admin: 12/24/19 09:18 Dose: 600 mg Documented by: Vancomycin HCl 1,250 mg/ (Dextrose) 250 mls @ 166.667 mls/hr IVPB Q12H [facility]; Protocol Last Admin: 12/24/19 10:11 Dose: 166.667 mls/hr Documented by: Meropenem 1 gm/ Dextrose 100 mls @ 200 mls/hr IVPB Q8H-IV [facility] Last Admin: 12/24/19 17:13 Dose: 200 mls/hr Documented by: Insulin Aspart (Novolog Vial Sliding Scale -) 0 vial SQ ACHS [facility]; Protocol Last Admin: 12/24/19 16:17 Dose: Not Given Documented by: Metoprolol Succinate (Toprol Xl -) 100 mg PO DAILY [facility] Last Admin: 12/24/19 09:19 Dose: 100 mg Documented by: Morphine Sulfate (Ms Contin -) 60 mg PO TID [facility] Last Admin: 12/24/19 13:09 Dose: 60 mg Documented by: Rosuvastatin Calcium (Crestor -) 10 mg PO HS [facility] Last Admin: 12/23/19 22:09 Dose: 10 mg Documented by: Senna (Senna -) 2 tab PO HS PRN PRN Reason: CONSTIPATION Tiotropium [place] (Spiriva Respimat) 2 puff IH DAILY [facility] Last Admin: 12/24/19 09:20 Dose: Not Given Documented by: - Objective Vital Signs: Vital Signs Temperature 97.6 F 12/24/19 18:00 Pulse Rate 59 L 12/24/19 18:00 Respiratory Rate 18 12/24/19 18:00 Blood Pressure 135/85 12/24/19 18:00 O2 Sat by Pulse Oximetry (%) 95 12/24/19 18:00 Constitutional: Yes: No Distress, Calm Cardiovascular: Yes: Regular Rate and Rhythm Respiratory: Yes: Regular Gastrointestinal: Yes: Normal Bowel Sounds, Soft, Abdomen, Obese Genitourinary: Yes: WNL Wound/Incision: Yes: Other (Forefoot erythema/warmth. + ulcer without current drainage.) Neurological: Yes: Alert, Oriented Labs: CBC, BMP 12/24/19 09:10 12/24/19 09:10 Laboratory Last Values WBC 10.5 K/mm3 (4.0-10.0) H 12/24/19 09:10 RBC 3.58 M/mm3 (4.00-5.60) L 12/24/19 09:10 Hgb 11.3 GM/dL (11.7-16.9) L 12/24/19 09:10 Hct 33.6 % (35.4-49) L 12/24/19 09:10 MCV 93.8 fl (80-96) 12/24/19 09:10 MCH 31.5 pg (25.7-33.7) 12/24/19 09:10 MCHC 33.6 g/dl (32.0-35.9) 12/24/19 09:10 RDW 13.2 % (11.9-15.9) 12/24/19 09:10 Plt Count 411 K/MM3 (134-434) 12/24/19 09:10 MPV 9.1 fl (7.5-11.1) 12/24/19 09:10 Absolute Neuts (auto) 6.5 K/mm3 (1.5-8.0) 12/22/19 13:30 Neutrophils % 58.2 % (42.8-82.8) 12/22/19 13:30 Lymphocytes % 29.3 % (8-40) 12/22/19 13:30 Monocytes % 7.5 % (3.8-10.2) 12/22/19 13:30 Eosinophils % 4.2 % (0-4.5) 12/22/19 13:30 Basophils % 0.8 % (0-2.0) 12/22/19 13:30 Nucleated RBC % 0 % (0-0) 12/22/19 13:30 ESR 91 mm/hr (0-20) H 12/23/19 08:00 Sodium 136 mmol/L (136-145) 12/24/19 09:10 Potassium 4.8 mmol/L (3.5-5.1) 12/24/19 09:10 Chloride 102 mmol/L (98-107) 12/24/19 09:10 Carbon Dioxide 29 mmol/L (21-32) 12/24/19 09:10 Anion Gap 5 MMOL/L (8-16) L 12/24/19 09:10 BUN 20.6 mg/dL (7-18) H 12/24/19 09:10 Creatinine 1.1 mg/dL (0.55-1.3) 12/24/19 09:10 Est GFR (CKD-EPI)AfAm 87.74 12/24/19 09:10 Est GFR (CKD-EPI)NonAf 75.70 12/24/19 09:10 POC Glucometer 141 UNITS (80-120) 12/24/19 16:14 Random Glucose 154 mg/dL (74-106) H 12/24/19 09:10 Calcium 8.9 mg/dL (8.5-10.1) 12/24/19 09:10 Phosphorus 4.3 mg/dL (2.5-4.9) 12/24/19 09:10 Magnesium 2.2 mg/dL (1.8-2.4) 12/24/19 09:10 Total Bilirubin 0.2 mg/dL (0.2-1) 12/22/19 13:30 AST 22 U/L (15-37) 12/22/19 13:30 ALT 22 U/L (13-61) 12/22/19 13:30 Alkaline Phosphatase 84 U/L (45-117) 12/22/19 13:30 Creatine Kinase 82 U/L (26-308) 12/22/19 13:30 Troponin I < 0.02 ng/ml (0.00-0.05) 12/22/19 13:30 C-Reactive Protein 0.7 MG/DL (0.00-0.3) H 12/23/19 08:00 Total Protein 8.2 g/dl (6.4-8.2) 12/22/19 13:30 Albumin 3.4 g/dl (3.4-5.0) 12/22/19 13:30 Microbiology 12/22/19 13:30 Blood - Peripheral Venous Blood Culture - Preliminary NO GROWTH OBTAINED AFTER 48 HOURS, INCUBATION TO CONTINUE FOR 3 DAYS. 12/22/19 13:30 Blood - Peripheral Venous Blood Culture - Preliminary NO GROWTH OBTAINED AFTER 48 HOURS, INCUBATION TO CONTINUE FOR 3 DAYS. 12/22/19 17:55 Urine - Urine Clean Catch Urine Culture - Final NO GROWTH OBTAINED - ....Imaging MRI: Report Reviewed Problem List - Problems (1) Cellulitis Code(s): L03.90 - CELLULITIS, UNSPECIFIED Qualifiers: Site of cellulitis: extremity Site of cellulitis of extremity: lower extremity Laterality: right Qualified Code(s): L03.115 - Cellulitis of right lower limb (2) Diabetic foot infection Code(s): E11.628 - TYPE 2 DIABETES MELLITUS WITH OTHER SKIN COMPLICATIONS; L08.9 - LOCAL INFECTION OF THE SKIN AND SUBCUTANEOUS TISSUE, UNSP (3) CAD (coronary artery disease) Code(s): I25.10 - ATHSCL HEART DISEASE OF [place] CORONARY ARTERY W/O ANG PCTRS (4) Diabetes Code(s): E11.9 - TYPE 2 DIABETES MELLITUS WITHOUT COMPLICATIONS (5) HTN (hypertension) Code(s): I10 - ESSENTIAL (PRIMARY) HYPERTENSION Assessment/Plan Rt foot infected diabetic ulcer Rt foot Cellulitis/ OM of 5th MT/phalanx Recent Rt foot abscess s/p I+D and foreign body removal DM with neuropathy CAD [place] s/p CABG s/p Hep C treatment Opiod dependence -- wound culture (12/21/19) isolates noted, the Pseudomonas is resistant to Zosyn. Will switch to Meropenem, continue Vancomycin -- wbc slightly higher, continue monitor -- Vancomycin level ordered for tonight, monitor renal function -- continue wound care
[2019-12-24] MEDS: ROSUVASTATIN CA 10 MG TABLET (FP) PO SCH (22:07)
[2019-12-25] MEDS ORDERED: MEROPENEM 1 GM VIAL (RESTRICTED TO ID) IVPB ONE ×4 (01:06→21:25)
[2019-12-25] MEDS ORDERED: DEXTROSE 5%-WATER 100 ML IVPB ONE ×4 (01:06→21:25)
[2019-12-25] MEDS: MEROPENEM 1 GM in DEXTROSE 5%-WATER 100 ML IVPB SCH ×3 (01:08→17:03)
[2019-12-25] MEDS: morphine SO4 SUSTAINED ACTING 30 MG TABLET.SA PO SCH ×3 (06:04→22:31)
[2019-12-25] MEDS: INSULIN SLIDING SCALE (NOVOLOG) 1 VIAL SQ SCH ×4 (06:20→22:46)
[2019-12-25 09:08] LABS: HEMATOCRIT 37.4 % (35.4-49); HEMOGLOBIN 12.6 GM/dL (11.7-16.9); MCH 31.8 pg (25.7-33.7); MCHC 33.6 g/dl (32.0-35.9); MEAN CELL VOLUME 94.5 fl (80-96); MEAN PLT VOLUME 9.1 fl (7.5-11.1); PLATELET COUNT 368 K/MM3 (134-434); RBC 3.96 M/mm3 (4.00-5.60); RDW 13.3 % (11.9-15.9); WHITE BLOOD COUNT 8.4 K/mm3 (4.0-10.0)
[2019-12-25 09:18] LABS: BLOOD UREA NITROGEN 15.8 mg/dL (7-18); CALCIUM 9.1 mg/dL (8.5-10.1); CREATININE 0.9 mg/dL (0.55-1.3); MAGNESIUM 2.2 mg/dL (1.8-2.4); PHOSPHOROUS 3.5 mg/dL (2.5-4.9); POTASSIUM 4.4 mmol/L (3.5-5.1)
[2019-12-25] MEDS: ASPIRIN COATED 81 MG TABLET.EC PO SCH (09:42)
[2019-12-25] MEDS: DOCUSATE SODIUM 100 MG CAPSULE (FP) PO SCH ×2 (09:42→22:32)
[2019-12-25] MEDS: GABAPENTIN 300 MG CAPSULE PO SCH (09:42)
[2019-12-25] MEDS: FUROSEMIDE 40 MG TABLET (FP) PO SCH (09:42)
[2019-12-25] MEDS: amLODIPine BESYLATE 10 MG TABLET (FP) PO SCH (09:42)
[2019-12-25] MEDS: cloNIDine HCL 0.1 MG TABLET PO SCH ×2 (09:43→22:33)
[2019-12-25] MEDS: ENOXAPARIN NA (PORCINE) 40 MG/0.4 ML DISP.SYRIN SQ SCH (09:44)
[2019-12-25] MEDS: TIOTROPIUM BROMIDE 2.5 MCG (SPIRIVA) RESPIMAT INHALER IH SCH (10:09)
--- NOTE | 2019-12-25 10:37 | PN ---
Physical Exam: SUBJECTIVE: Patient seen and examined bedside. He wants to go home. He says his foot is not bothering him. No events overnight. OBJECTIVE: Vital Signs Period Temp Pulse Resp BP Sys/Mcnulty Pulse Ox Last 24 Hr 97.5 F-98.8 F 59-65 18-18 129-161/74-91 94-97 GENERAL: The patient is awake, alert, and fully oriented, in no acute distress. HEAD: Normal with no signs of trauma. EYES: PERRL, extraocular movements intact, sclera anicteric, conjunctiva clear. LUNGS: Breath sounds equal, clear to auscultation bilaterally, HEART: RRR, s1, s2 ABDOMEN: Soft, nontender, nondistended, normoactive bowel sounds MSK: Right plantar surface has open wound with no purulent discharge, non bloody - at proximal 5th/4th metatarsal, looks about the same as yesterday. NEUROLOGICAL: Normal speech Laboratory Results - last 24 hr 12/24/19 12/24/19 12/24/19 09:10 11:05 16:14 WBC RBC Hgb Hct MCV MCH MCHC RDW Plt Count MPV Sodium Potassium Chloride Carbon Dioxide Anion Gap BUN Creatinine Est GFR (CKD-EPI)AfAm Est GFR (CKD-EPI)NonAf POC Glucometer 160 141 Random Glucose 154 H Calcium Phosphorus Magnesium Vancomycin Pre-Dose 12/24/19 12/24/19 12/25/19 19:34 22:06 06:05 WBC RBC Hgb Hct MCV MCH MCHC RDW Plt Count MPV Sodium Potassium Chloride Carbon Dioxide Anion Gap BUN Creatinine Est GFR (CKD-EPI)AfAm Est GFR (CKD-EPI)NonAf POC Glucometer 131 135 Random Glucose Calcium Phosphorus Magnesium Vancomycin Pre-Dose 23.8 H 12/25/19 12/25/19 08:30 08:30 WBC 8.4 RBC 3.96 L Hgb 12.6 Hct 37.4 MCV 94.5 MCH 31.8 MCHC 33.6 RDW 13.3 Plt Count 368 MPV 9.1 Sodium 140 Potassium 4.4 Chloride 105 Carbon Dioxide 28 Anion Gap 7 L BUN 15.8 Creatinine 0.9 Est GFR (CKD-EPI)AfAm 111.83 Est GFR (CKD-EPI)NonAf 96.49 POC Glucometer Random Glucose 132 H Calcium 9.1 Phosphorus 3.5 Magnesium 2.2 Vancomycin Pre-Dose Active Medications Generic Name Dose Route Start Last Admin Trade Name Ulices PRN Reason Stop Dose Admin Amlodipine Besylate 10 mg 12/23/19 10:00 12/25/19 09:42 Norvasc - PO 10 mg DAILY [facility] Administration Aspirin 81 mg 12/23/19 10:00 12/25/19 09:42 Ecotrin - PO 81 mg DAILY [facility] Administration Clonidine 0.1 mg 12/22/19 22:00 12/25/19 09:43 Catapres - PO 0.1 mg BID [facility] Administration Docusate Sodium 100 mg 12/22/19 22:00 12/25/19 09:42 Colace - PO 100 mg BID [facility] Administration Enoxaparin Sodium 40 mg 12/23/19 10:00 12/25/19 09:44 Lovenox - SQ 40 mg DAILY [facility] Administration Furosemide 40 mg 12/23/19 10:00 12/25/19 09:42 Lasix - PO 40 mg DAILY [facility] Administration Gabapentin 600 mg 12/23/19 10:00 12/25/19 09:42 Neurontin - PO 600 mg DAILY [facility] Administration Vancomycin HCl 1,250 mg/ 250 mls @ 166.667 mls/hr 12/22/19 22:00 12/24/19 22:46 Dextrose IVPB 166.667 mls/hr Q12H [facility] Administration Protocol Meropenem 1 gm/ Dextrose 100 mls @ 200 mls/hr 12/24/19 18:00 12/25/19 09:41 IVPB 200 mls/hr Q8H-IV [facility] Administration Insulin Aspart 0 vial 12/22/19 16:30 12/25/19 06:20 Novolog Vial Sliding Scale - SQ Not Given ACHS [facility] Protocol Metoprolol Succinate 100 mg 12/23/19 10:00 12/25/19 09:42 Toprol Xl - PO 100 mg DAILY [facility] Administration Morphine Sulfate 60 mg 12/22/19 22:00 12/25/19 06:04 Ms Contin - PO 60 mg TID [facility] Administration Rosuvastatin Calcium 10 mg 12/22/19 22:00 12/24/19 22:07 Crestor - PO 10 mg HS [facility] Administration Senna 2 tab 12/22/19 16:28 Senna - PO HS PRN CONSTIPATION Tiotropium [place] 2 puff 12/23/19 10:00 12/25/19 10:09 Spiriva Respimat IH Not Given DAILY [facility] MRI RIGHT FOOT There is soft tissue swelling of the foot more prominent since dorsal aspect and is related to cellulitis. There is no soft tissue abscess. There is edema of the bone marrow of the head of the fifth metatarsal and of the phalanges more prominent in the proximal and middle phalanges related to osteomyelitis. There are moderate degenerative changes of the first metatarsophalangeal joint. There are no soft tissue masses. There is no disruption of the flexor of the extensor tendons. Impression: Cellulitis. There is no soft tissue abscess. Osteomyelitis of the head of the fifth metatarsal and of the phalanges more prominent in the proximal and middle phalanx. ASSESSMENT/PLAN: 54yo M with PMH of T2DM, CAD s/p CABG triple bypass in 2018, dyslipidemia, polysubstance abuse, narcotic dependency chronic hep C, bilateral lower extremity polyneuropathy, recently discharged from [facility] after treated for right foot infected wound foreign body removal on 12/15/19. The patient was discharged on PO Augmentin after receiving clindamycin & Zosyn during hospitalization also underwent I&D and foreign body removal on 12/12/19. Today the patient came to wound care center and was transferred to ED for IV antibiotic as wound was not healing wanted to r/o osteomyelitis. Patient failed outpatient p.o. antibiotic Right Foot Osteomyelitis - MRI + for osteo - wound culture grew staph aureus and coagulase-negative and E faecalis - ID consulted (Dr. Wilkerson) Vancomycin Day 3 Meropenem Day 2 - Vascular consulted (Dr. Worley) - Podiatry Consulted (Dr. Leyva) Will re-evulate for debridement possible hyperbaric chamber referral Hypertension: well controlled - continue all home medications T2DM: - Hold metformin - continue glyburide - SS with coverage CAD: s/p triple bypass - resume aspirin, statin & beta-blockers - verify patient takes ASA daily Hypercholesterolemia: - Continue statin Asthma: - Stable resume home medications Polyneuropathy: Chronic 2/2 diabetes - gabapentin 600 mg PO daily DVT Px: - Lovenox Visit type - Emergency Visit Emergency Visit: Yes ED Registration Date: 12/22/19 Care time: The patient presented to the Emergency Department on the above date and was hospitalized for further evaluation of their emergent condition. - New Patient This patient is new to me today: No - Critical Care Critical Care patient: No - Discharge Referral Referred to [facility] No ATTENDING PHYSICIAN STATEMENT I saw and evaluated the patient. I reviewed the resident's note and discussed the case with the resident. I agree with the resident's findings and plan as documented. SUBJECTIVE: OBJECTIVE: ASSESSMENT AND PLAN:
[2019-12-25] MEDS: VANCOMYCIN 1,250 MG in DEXTROSE 5%-WATER - 250 ML IVPB SCH ×2 (11:34→22:46)
--- NOTE | 2019-12-25 14:06 | PN ---
Progress Note, Physician History of Present Illness: Pt still with erythema of the foot. MRI + OM of 5th MT/phalanx. Afebrile. - Current Medication List Current Medications: Active Medications Amlodipine Besylate (Norvasc -) 10 mg PO DAILY [facility] Last Admin: 12/25/19 09:42 Dose: 10 mg Documented by: Aspirin (Ecotrin -) 81 mg PO DAILY [facility] Last Admin: 12/25/19 09:42 Dose: 81 mg Documented by: Clonidine (Catapres -) 0.1 mg PO BID [facility] Last Admin: 12/25/19 09:43 Dose: 0.1 mg Documented by: Docusate Sodium (Colace -) 100 mg PO BID [facility] Last Admin: 12/25/19 09:42 Dose: 100 mg Documented by: Enoxaparin Sodium (Lovenox -) 40 mg SQ DAILY [facility] Last Admin: 12/25/19 09:44 Dose: 40 mg Documented by: Furosemide (Lasix -) 40 mg PO DAILY [facility] Last Admin: 12/25/19 09:42 Dose: 40 mg Documented by: Gabapentin (Neurontin -) 600 mg PO DAILY [facility] Last Admin: 12/25/19 09:42 Dose: 600 mg Documented by: Vancomycin HCl 1,250 mg/ (Dextrose) 250 mls @ 166.667 mls/hr IVPB Q12H [facility]; Protocol Last Admin: 12/25/19 11:34 Dose: 166.667 mls/hr Documented by: Meropenem 1 gm/ Dextrose 100 mls @ 200 mls/hr IVPB Q8H-IV [facility] Last Admin: 12/25/19 09:41 Dose: 200 mls/hr Documented by: Insulin Aspart (Novolog Vial Sliding Scale -) 0 vial SQ ACHS [facility]; Protocol Last Admin: 12/25/19 11:44 Dose: Not Given Documented by: Metoprolol Succinate (Toprol Xl -) 100 mg PO DAILY [facility] Last Admin: 12/25/19 09:42 Dose: 100 mg Documented by: Morphine Sulfate (Ms Contin -) 60 mg PO TID [facility] Last Admin: 12/25/19 06:04 Dose: 60 mg Documented by: Rosuvastatin Calcium (Crestor -) 10 mg PO HS [facility] Last Admin: 12/24/19 22:07 Dose: 10 mg Documented by: Senna (Senna -) 2 tab PO HS PRN PRN Reason: CONSTIPATION Tiotropium [place] (Spiriva Respimat) 2 puff IH DAILY [facility] Last Admin: 12/25/19 10:09 Dose: Not Given Documented by: - Objective Vital Signs: Vital Signs Temperature 98.1 F 12/25/19 10:00 Pulse Rate 66 12/25/19 10:00 Respiratory Rate 18 12/25/19 10:00 Blood Pressure 160/87 12/25/19 10:00 O2 Sat by Pulse Oximetry (%) 96 12/25/19 10:00 Constitutional: Yes: No Distress, Calm Neck: Yes: Supple, Trachea Midline Cardiovascular: Yes: S1, S2 Respiratory: Yes: Regular, CTA Bilaterally Gastrointestinal: Yes: Normal Bowel Sounds, Soft Musculoskeletal: Yes: WNL Extremities: Yes: Other Wound/Incision: Yes: Dressing Dry and Intact Neurological: Yes: Alert, Oriented Psychiatric: Yes: Alert, Oriented Labs: CBC, BMP 12/25/19 08:30 12/25/19 08:30 Assessment/Plan roblem List - Problems (1) Cellulitis Code(s): L03.90 - CELLULITIS, UNSPECIFIED Qualifiers: Site of cellulitis: extremity Site of cellulitis of extremity: lower extremity Laterality: right Qualified Code(s): L03.115 - Cellulitis of right lower limb (2) Diabetic foot infection Code(s): E11.628 - TYPE 2 DIABETES MELLITUS WITH OTHER SKIN COMPLICATIONS; L08.9 - LOCAL INFECTION OF THE SKIN AND SUBCUTANEOUS TISSUE, UNSP (3) CAD (coronary artery disease) Code(s): I25.10 - ATHSCL HEART DISEASE OF [place] CORONARY ARTERY W/O ANG PCTRS (4) Diabetes Code(s): E11.9 - TYPE 2 DIABETES MELLITUS WITHOUT COMPLICATIONS (5) HTN (hypertension) Code(s): I10 - ESSENTIAL (PRIMARY) HYPERTENSION Assessment/Plan Rt foot infected diabetic ulcer Rt foot Cellulitis/ OM of 5th MT/phalanx Recent Rt foot abscess s/p I+D and foreign body removal DM with neuropathy CAD [place] s/p CABG s/p Hep C treatment Opiod dependence continue artem and vanco follow vanco levels wound care will need [facility] abx woud suggest a bone biopsy if not done
--- NOTE | 2019-12-25 15:07 | CONSULT ---
- Consultation REQUESTING PROVIDER: CONSULT REQUEST: We have been asked to surgically evaluate this patient with non-healing right foot wound. PCP: Osorio Arshad HISTORY OF PRESENT ILLNESS: 54 y.o. male with PMH of CAD, [place] s/p CABG, DM with neuropathy, HTN, HLD, Chronic hep C (treated 2 years ago) , Rt IJ thrombus (off AC), opiate dependence presents from [facility] for Rt foot cellulitis. Pt was recently admitted on 12/09/19 and treated for Rt foot cellulitis/lymphangitis with removal of foreign body x 2 and drainage of abscess. Cultures grew Staph/Enterococcus. P t was on IV Clindamycin and Zosyn prior to switch to Augmentin and d/c home on PO antibiotics. Pt now returns with signs of persistent Rt foot infection. Cultures on 12/21/19 growing gram negative organisms. Patient with neuropathy and decreased sensation at baseline. He Denies recent fever/chills and has no other complaints. 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 AGENT: Yes: Peripheral Neuropathy Cardio/Vascular: Yes: CAD, HTN Hepatobiliary: Yes: Hepatitis C Psych: Yes: Addictions (opiods) Endocrine: Yes: Diabetes Mellitus Dermatology: Yes: Cellulitis (Rt foot) - Past Surgical History Past Surgical History: Yes: CABG - Alcohol/Substance Use Hx Alcohol Use: Yes - Smoking History Smoking history: Current every day smoker Have you smoked in the past 12 months: Yes Aproximately how many cigarettes per day: 10 If you are a former smoker, when did you quit?: 7 months - Social History ADL: Independent Occupation: on disability x 3 years because of Diabetic Neuropathy. History of Recent Travel: No Home Medications - Allergies Allergies/Adverse Reactions: Allergies Allergy/AdvReac Type Severity Reaction Status Date / Time lisinopril Allergy Severe Swelling Verified 12/22/19 12:51 Bee sting Allergy Severe Difficulty Uncoded 12/22/19 12:51 Breathing - Home Medications Home Medications: Ambulatory Orders Glyburide/Metformin HCl [Glyburide-Metformin 2.5-500 mg] 1 each PO DAILY tablet 09/13/12 Amlodipine Besylate [Norvasc -] 10 mg PO DAILY 01/06/17 Clonidine HCl 1 mg PO BID 01/06/17 Morphine Sulfate [Morphine Sulfate ER] 60 mg PO QID PRN 02/01/17 Gabapentin 600 mg BID 01/23/19 Metoprolol Succinate 100 mg PO BID 01/23/19 Rosuvastatin Calcium [Crestor] 10 mg PO DAILY 01/23/19 Aspirin [ASA -] 81 mg PO DAILY 12/11/19 Furosemide [Lasix] 40 mg PO DAILY 12/11/19 Amoxicillin/Potassium Clav [Augmentin 875-125 Tablet] 1 each PO BID #20 tablet 12/15/19 - Review of Systems Constitutional: reports: No Symptoms. denies: Chills, Diaphoresis, Fever, Lethargy, Loss of Appetite, Malaise, Night Sweats, Unintentional Wgt. Loss, Eyes: reports: No Symptoms. denies: Blind Spots, Blurred Vision, Double Vision, HENT: reports: No Symptoms. denies: Difficult Swallowing, Ear Discharge, Ear Pain, Epistaxis, Gingival Bleeding, Hearing Loss, Neck: reports: No Symptoms. denies: Decreased ROM, Lumps, Pain on Movement, Stiffness, Swollen Glands, Tenderness, Other Cardiovascular: reports: No Symptoms. denies: Chest Pain, Edema, Palpitations, Shortness of Breath, Other Respiratory: reports: No Symptoms. denies: Cough, Exercise Intolerance, H emoptysis, Orthopnea, PND, Snoring, SOB, Gastrointestinal: reports: No Symptoms. denies: Abdominal Pain, Bloating, Constipation, Diarrhea, Dysphagia, Indigestion, Melena, Nausea, Genitourinary: reports: No Symptoms. denies: Burning, Discharge, Dysuria, Flank Pain, Frequency, Hematuria, Incontinence, Lesions, Menses, Pain, Musculoskeletal: reports: No Symptoms. denies: Back Pain, Crepitus, Decreased ROM, Extremity Pain, Joint Pain, Joint Swelling, Muscle Pain, Integumentary: reports: Erythema (Rt foot), Wound, erythema and edema Neurological: reports: Diabetic neuropathy Endocrine: reports: No Symptoms. denies: Excessive Sweating, Flushing, Increased Hunger, Increased Thirst, Hematology/Lymphatic: reports: No Symptoms. denies: Easily Bruised, Excessive Bleeding, Swollen Glands, Other Psychiatric: reports: No Symptoms. denies: Altered Sleep Pattern, Anxiety, Depression, Physical Exam Vital Signs: Vital Signs Period Temp Pulse Resp BP Sys/Mcnulty Pulse Ox Last 24 Hr 97.5 F-98.1 F 59-66 18-18 135-161/75-91 94-97 Constitutional: A&Ox3, NAD Eyes: : Conjunctiva Clear, EOM Intact HENT: Atraumatic, Normocephalic Neck: trachea midline Respiratory: Unlabored resp on RA Gastrointestinal: NT, ND, Soft Musculoskeletal: WNL, moving all extremities without limitation Edema: No Integumentary: Chronic skin changes seen throughout B/L LE-extending through feet. Wound/Incision: Other Right foot small plantar/lateral ulcer @ 1x1.5 with well defined with irregular boarders and desqumatted tissue extending out from margins, firbinous tissue seen at the base throughout, no fluctuance or evidence of collection. smaller scab-healing ulcer over later boarder of 5th toe <.5x.5c m, No drainage or foul odor noted. Rt 4th/5th toe interdigital scab-healing wound no erythema, edema or evidence of abscess or collection. No tracking erythema, no edema seen in LE or foot, no TTP throughout. Foot warm and well perfused with good signal on doppler at DP and PT. Neurological: Alert, Oriented Labs: CBC, BMP 12/25/19 08:30 12/25/19 08:30 Microbiology 12/22/19 13:30 Blood - Peripheral Venous Blood Culture - Preliminary NO GROWTH OBTAINED AFTER 72 HOURS, INCUBATION TO CONTINUE FOR 2 DAYS. 12/22/19 13:30 Blood - Peripheral Venous Blood Culture - Preliminary NO GROWTH OBTAINED AFTER 72 HOURS, INCUBATION TO CONTINUE FOR 2 DAYS. 12/22/19 17:55 Urine - Urine Clean Catch Urine Culture - Final NO GROWTH OBTAINED Problem List - Problems (1) Diabetic foot infection Assessment/Plan: 54yo male with Diabetic neuropathy s/p I&D right foot wound (OA) and non- compliant post op, with resolving cellulitis and stable wound in the setting of palpably pulses-no indication for vascular intervention at this time. -Continue local wound care per podiatry -IV ABX per ID-Plan for half-way IV ABX given patient history -trend daily labs- renal function -Offload pressure sensitive areas - f/u wound cultures -Case management for rehab placement -F/U with Dr Worley as outpatient. Evaluation and plan discussed with Dr Worley. Code(s): E11.628 - TYPE 2 DIABETES MELLITUS WITH OTHER SKIN COMPLICATIONS; L08.9 - LOCAL INFECTION OF THE SKIN AND SUBCUTANEOUS TISSUE, UNSP
--- NOTE | 2019-12-25 16:17 | PN ---
Progress Note, Physician History of Present Illness: Pt presented to [facility] on with healed surgical sites on plantar surface. Also presented with a new wound lateral right foot secondary to non compliance and go back to work with loafers on his feet which he presented with on to [facility]. Labs drawn. xray done. Asked to return Wednesday. If labs up and foot did not look better he would be admitted, as he was on Wednesday. - Current Medication List Current Medications: Active Medications Amlodipine Besylate (Norvasc -) 10 mg PO DAILY [facility] Last Admin: 12/25/19 09:42 Dose: 10 mg Documented by: Aspirin (Ecotrin -) 81 mg PO DAILY [facility] Last Admin: 12/25/19 09:42 Dose: 81 mg Documented by: Clonidine (Catapres -) 0.1 mg PO BID [facility] Last Admin: 12/25/19 09:43 Dose: 0.1 mg Documented by: Docusate Sodium (Colace -) 100 mg PO BID [facility] Last Admin: 12/25/19 09:42 Dose: 100 mg Documented by: Enoxaparin Sodium (Lovenox -) 40 mg SQ DAILY [facility] Last Admin: 12/25/19 09:44 Dose: 40 mg Documented by: Furosemide (Lasix -) 40 mg PO DAILY [facility] Last Admin: 12/25/19 09:42 Dose: 40 mg Documented by: Gabapentin (Neurontin -) 600 mg PO DAILY [facility] Last Admin: 12/25/19 09:42 Dose: 600 mg Documented by: Vancomycin HCl 1,250 mg/ (Dextrose) 250 mls @ 166.667 mls/hr IVPB Q12H [facility]; Protocol Last Admin: 12/25/19 11:34 Dose: 166.667 mls/hr Documented by: Meropenem 1 gm/ Dextrose 100 mls @ 200 mls/hr IVPB Q8H-IV [facility] Last Admin: 12/25/19 09:41 Dose: 200 mls/hr Documented by: Insulin Aspart (Novolog Vial Sliding Scale -) 0 vial SQ ACHS [facility]; Protocol Last Admin: 12/25/19 11:44 Dose: Not Given Documented by: Metoprolol Succinate (Toprol Xl -) 100 mg PO DAILY [facility] Last Admin: 12/25/19 09:42 Dose: 100 mg Documented by: Morphine Sulfate (Ms Contin -) 60 mg PO TID [facility] Last Admin: 12/25/19 15:21 Dose: 60 mg Documented by: Rosuvastatin Calcium (Crestor -) 10 mg PO HS [facility] Last Admin: 12/24/19 22:07 Dose: 10 mg Documented by: Senna (Senna -) 2 tab PO HS PRN PRN Reason: CONSTIPATION Tiotropium [place] (Spiriva Respimat) 2 puff IH DAILY [facility] Last Admin: 12/25/19 10:09 Dose: Not Given Documented by: - Objective Vital Signs: Vital Signs Temperature 98.6 F 12/25/19 15:30 Pulse Rate 61 12/25/19 15:30 Respiratory Rate 18 12/25/19 15:30 Blood Pressure 127/67 12/25/19 15:30 O2 Sat by Pulse Oximetry (%) 93 L 12/25/19 15:30 Wound/Incision: Yes: Other (+improved cellulitis, +om on mri, -drainage, +granulation with central necrotic patch) Labs: CBC, BMP 12/25/19 08:30 12/25/19 08:30 Assessment/Plan om grade 3 wound unrelated to foreign body removal cellulitis Discussed with patient at length. Gave him conservative (hbo, ivabx wcc) vs surgical(debridement possible amputation). Pt wants to save toe and foot. DIANNE was there with me. Advised pt that would take 2-3 months conservatively and would require strict compliance to directions. Stated he would do that. Santyl daily to wound right foot. IVABX as per ID. Rest as per team. Will follow.
--- NOTE | 2019-12-25 17:24 | PN ---
Teaching Attending Note Name of Resident: Antonieta Gonzalez ATTENDING PHYSICIAN STATEMENT I saw and evaluated the patient. I reviewed the resident's note and discussed the case with the resident. I agree with the resident's findings and plan as documented. SUBJECTIVE: Patient is comfortable , no fever or chills. OBJECTIVE: Vital Signs Temperature 98.6 F 12/25/19 15:30 Pulse Rate 61 12/25/19 15:30 Respiratory Rate 18 12/25/19 15:30 Blood Pressure 127/67 12/25/19 15:30 O2 Sat by Pulse Oximetry (%) 93 L 12/25/19 15:30 PE: per resident's note right heel non healing open wound with osteo CBCD WBC 8.4 K/mm3 (4.0-10.0) 12/25/19 08:30 RBC 3.96 M/mm3 (4.00-5.60) L 12/25/19 08:30 Hgb 12.6 GM/dL (11.7-16.9) 12/25/19 08:30 Hct 37.4 % (35.4-49) 12/25/19 08:30 MCV 94.5 fl (80-96) 12/25/19 08:30 MCHC 33.6 g/dl (32.0-35.9) 12/25/19 08:30 RDW 13.3 % (11.9-15.9) 12/25/19 08:30 Plt Count 368 K/MM3 (134-434) 12/25/19 08:30 MPV 9.1 fl (7.5-11.1) 12/25/19 08:30 CMP Sodium 140 mmol/L (136-145) 12/25/19 08:30 Potassium 4.4 mmol/L (3.5-5.1) 12/25/19 08:30 Chloride 105 mmol/L (98-107) 12/25/19 08:30 Carbon Dioxide 28 mmol/L (21-32) 12/25/19 08:30 Anion Gap 7 MMOL/L (8-16) L 12/25/19 08:30 BUN 15.8 mg/dL (7-18) 12/25/19 08:30 Creatinine 0.9 mg/dL (0.55-1.3) 12/25/19 08:30 Random Glucose 132 mg/dL (74-106) H 12/25/19 08:30 Calcium 9.1 mg/dL (8.5-10.1) 12/25/19 08:30 Total Bilirubin 0.2 mg/dL (0.2-1) 12/22/19 13:30 AST 22 U/L (15-37) 12/22/19 13:30 ALT 22 U/L (13-61) 12/22/19 13:30 Alkaline Phosphatase 84 U/L (45-117) 12/22/19 13:30 Total Protein 8.2 g/dl (6.4-8.2) 12/22/19 13:30 Albumin 3.4 g/dl (3.4-5.0) 12/22/19 13:30 CARDIAC ENZYMES Creatine Kinase 82 U/L (26-308) 12/22/19 13:30 Troponin I < 0.02 ng/ml (0.00-0.05) 12/22/19 13:30 Current Medications Generic Name Dose Route Start Last Admin Trade Name Ulices PRN Reason Stop Dose Admin Amlodipine Besylate 10 mg 12/23/19 10:00 12/25/19 09:42 Norvasc - PO 10 mg DAILY [facility] Administration Aspirin 81 mg 12/23/19 10:00 12/25/19 09:42 Ecotrin - PO 81 mg DAILY [facility] Administration Clonidine 0.1 mg 12/22/19 22:00 12/25/19 09:43 Catapres - PO 0.1 mg BID [facility] Administration Collagenase 1 applic 12/26/19 10:00 Santyl - TP DAILY [facility] Protocol Docusate Sodium 100 mg 12/22/19 22:00 12/25/19 09:42 Colace - PO 100 mg BID [facility] Administration Enoxaparin Sodium 40 mg 12/23/19 10:00 12/25/19 09:44 Lovenox - SQ 40 mg DAILY [facility] Administration Furosemide 40 mg 12/23/19 10:00 12/25/19 09:42 Lasix - PO 40 mg DAILY [facility] Administration Gabapentin 600 mg 12/23/19 10:00 12/25/19 09:42 Neurontin - PO 600 mg DAILY [facility] Administration Vancomycin HCl 1,250 mg/ 250 mls @ 166.667 mls/hr 12/22/19 22:00 12/25/19 11:34 Dextrose IVPB 166.667 mls/hr Q12H [facility] Administration Protocol Meropenem 1 gm/ Dextrose 100 mls @ 200 mls/hr 12/24/19 18:00 12/25/19 17:03 IVPB 200 mls/hr Q8H-IV [facility] Administration Insulin Aspart 0 vial 12/22/19 16:30 12/25/19 16:21 Novolog Vial Sliding Scale - SQ Not Given ACHS [facility] Protocol Metoprolol Succinate 100 mg 12/23/19 10:00 12/25/19 09:42 Toprol Xl - PO 100 mg DAILY [facility] Administration Morphine Sulfate 60 mg 12/22/19 22:00 12/25/19 15:21 Ms Contin - PO 60 mg TID [facility] Administration Rosuvastatin Calcium 10 mg 12/22/19 22:00 12/24/19 22:07 Crestor - PO 10 mg HS [facility] Administration Senna 2 tab 12/22/19 16:28 Senna - PO HS PRN CONSTIPATION Tiotropium [place] 2 puff 12/23/19 10:00 12/25/19 10:09 Spiriva Respimat IH Not Given DAILY [facility] Home Medications Medication Instructions Recorded Glyburide/Metformin HCl 1 each PO DAILY tablet 09/13/12 [Glyburide-Metformin 2.5-500 mg] Amlodipine Besylate [Norvasc -] 10 mg PO DAILY 01/06/17 Clonidine HCl 0.1 mg PO BID 01/06/17 Morphine Sulfate [Morphine Sulfate 60 mg PO QID PRN 02/01/17 ER] Gabapentin 600 mg BID 01/23/19 Metoprolol Succinate 100 mg PO BID 01/23/19 Aspirin [ASA -] 81 mg PO DAILY 12/11/19 Furosemide [Lasix] 40 mg PO DAILY 12/11/19 Lovastatin 10 mg PO DAILY 12/25/19 Microbiology 12/22/19 13:30 Blood - Peripheral Venous Blood Culture - Preliminary NO GROWTH OBTAINED AFTER 72 HOURS, INCUBATION TO CONTINUE FOR 2 DAYS. 12/22/19 13:30 Blood - Peripheral Venous Blood Culture - Preliminary NO GROWTH OBTAINED AFTER 72 HOURS, INCUBATION TO CONTINUE FOR 2 DAYS. 12/22/19 17:55 Urine - Urine Clean Catch Urine Culture - Final NO GROWTH OBTAINED ASSESSMENT AND PLAN: This patient is a 54yom with PMhx of T2DM, CAD s/p CABG triple bypass in 2018, dyslipidemia, polysubstance abuse, narcotic dependency chronic hep C, bilateral lower extremity polyneuropathy, recently discharged from [facility] after treated for right foot infected wound foreign body removal on December 15, 2019, patient was discharged on p.o. Augmentin after receiving clindamycin and Zosyn during hospitalization also underwent I&D and foreign body removal on December 12, 2019, today patient came to wound care center, transferred to ED for IV antibiotic as wound was not healing wanted to rule out osteomyelitis. Patient failed outpatient p.o. antibiotic # Right foot infected diabetic foot ulcer with osteo :wound culture grew staph aureus and coagulase-negative and E faecalis; on vancomycin, on meropenem as per Id, ( MRI + for osteomyelitis) , ID and podiatry consult appreciated. #Right foot cellulitis/om of the 5th MT/phalanx : with recent foot abscess I&D and foreign body removal, on IV antibiotics, continue # Hypertension: Well-controlled continue all home medications # T2DM : Hold metformin, continue glyburide. SS with coverage # Hx of CAD: s/p triple bypass at present asymptomatic resume aspirin, statin and beta-blockers # Hypercholesterolemia: Continue statin # asthma: Stable resume home medications # diabetic with neuropathy: Chronic due to T2DM for over 5 yrs #opoid dependency s/p Hep C treatment DVT Px: Lovenox
[2019-12-25] MEDS: ROSUVASTATIN CA 10 MG TABLET (FP) PO SCH (22:33)
[2019-12-25] MEDS ORDERED: PT OWN MED DRAWER 7, Y5N ONE ×2 (22:34→22:35)
[2019-12-26] MEDS: MEROPENEM 1 GM in DEXTROSE 5%-WATER 100 ML IVPB SCH ×3 (01:30→17:52)
[2019-12-26] MEDS: morphine SO4 SUSTAINED ACTING 30 MG TABLET.SA PO SCH ×3 (05:38→21:59)
[2019-12-26 08:13] LABS: HEMATOCRIT 35.5 % (35.4-49); HEMOGLOBIN 11.9 GM/dL (11.7-16.9); MCHC 33.5 g/dl (32.0-35.9); MEAN CELL VOLUME 92.6 fl (80-96); MEAN PLT VOLUME 8.5 fl (7.5-11.1); PLATELET COUNT 318 K/MM3 (134-434); RBC 3.83 M/mm3 (4.00-5.60); RDW 13.2 % (11.9-15.9); WHITE BLOOD COUNT 7.6 K/mm3 (4.0-10.0)
[2019-12-26 09:03] LABS: CALCIUM 9.3 mg/dL (8.5-10.1); CREATININE 0.9 mg/dL (0.55-1.3); MAGNESIUM 2.4 mg/dL (1.8-2.4); PHOSPHOROUS 3.4 mg/dL (2.5-4.9)
[2019-12-26] MEDS ORDERED: DEXTROSE 5%-WATER 100 ML IVPB ONE (09:12)
[2019-12-26] MEDS ORDERED: MEROPENEM 1 GM VIAL (RESTRICTED TO ID) IVPB ONE (09:12)
[2019-12-26] MEDS: INSULIN SLIDING SCALE (NOVOLOG) 1 VIAL SQ SCH ×4 (09:52→22:01)
[2019-12-26] MEDS: ENOXAPARIN NA (PORCINE) 40 MG/0.4 ML DISP.SYRIN SQ SCH (09:53)
[2019-12-26] MEDS: DOCUSATE SODIUM 100 MG CAPSULE (FP) PO SCH ×2 (09:53→22:00)
[2019-12-26] MEDS: ASPIRIN COATED 81 MG TABLET.EC PO SCH (09:54)
[2019-12-26] MEDS: FUROSEMIDE 40 MG TABLET (FP) PO SCH (09:54)
[2019-12-26] MEDS: GABAPENTIN 300 MG CAPSULE PO SCH (09:54)
[2019-12-26] MEDS: amLODIPine BESYLATE 10 MG TABLET (FP) PO SCH (09:54)
[2019-12-26] MEDS: cloNIDine HCL 0.1 MG TABLET PO SCH ×2 (09:54→22:00)
[2019-12-26] MEDS: TIOTROPIUM BROMIDE 2.5 MCG (SPIRIVA) RESPIMAT INHALER IH SCH (09:55)
[2019-12-26] MEDS: COLLAGENASE CLOSTRIDIUM HIST. 30 GRAMS TUBE TP SCH (09:57)
--- NOTE | 2019-12-26 10:35 | PN ---
Progress Note, Physician History of Present Illness: Pt presented to [facility] on with healed surgical sites on plantar surface. Also presented with a new wound lateral right foot secondary to non compliance and go back to work with loafers on his feet which he presented with on to [facility]. Labs drawn. xray done. Asked to return Wednesday. If labs up and foot did not look better he would be admitted, as he was on Wednesday. - Current Medication List Current Medications: Active Medications Amlodipine Besylate (Norvasc -) 10 mg PO DAILY [facility] Last Admin: 12/26/19 09:54 Dose: 10 mg Documented by: Aspirin (Ecotrin -) 81 mg PO DAILY [facility] Last Admin: 12/26/19 09:54 Dose: 81 mg Documented by: Clonidine (Catapres -) 0.1 mg PO BID [facility] Last Admin: 12/26/19 09:54 Dose: 0.1 mg Documented by: Collagenase (Santyl -) 1 applic TP DAILY [facility]; Protocol Last Admin: 12/26/19 09:57 Dose: 1 applic Documented by: Docusate Sodium (Colace -) 100 mg PO BID [facility] Last Admin: 12/26/19 09:53 Dose: 100 mg Documented by: Enoxaparin Sodium (Lovenox -) 40 mg SQ DAILY [facility] Last Admin: 12/26/19 09:53 Dose: 40 mg Documented by: Furosemide (Lasix -) 40 mg PO DAILY [facility] Last Admin: 12/26/19 09:54 Dose: 40 mg Documented by: Gabapentin (Neurontin -) 600 mg PO DAILY [facility] Last Admin: 12/26/19 09:54 Dose: 600 mg Documented by: Vancomycin HCl 1,250 mg/ (Dextrose) 250 mls @ 166.667 mls/hr IVPB Q12H [facility]; Protocol Last Admin: 12/25/19 22:46 Dose: 166.667 mls/hr Documented by: Meropenem 1 gm/ Dextrose 100 mls @ 200 mls/hr IVPB Q8H-IV [facility] Last Admin: 12/26/19 09:53 Dose: 200 mls/hr Documented by: Insulin Aspart (Novolog Vial Sliding Scale -) 0 vial SQ ACHS [facility]; Protocol Last Admin: 12/26/19 09:52 Dose: Not Given Documented by: Metoprolol Succinate (Toprol Xl -) 100 mg PO DAILY [facility] Last Admin: 12/26/19 09:54 Dose: 100 mg Documented by: Morphine Sulfate (Ms Contin -) 60 mg PO TID [facility] Last Admin: 12/26/19 05:38 Dose: 60 mg Documented by: Nicotine (Nicoderm Patch -) 7 mg TD DAILY [facility] Rosuvastatin Calcium (Crestor -) 10 mg PO HS [facility] Last Admin: 12/25/19 22:33 Dose: 10 mg Documented by: Senna (Senna -) 2 tab PO HS PRN PRN Reason: CONSTIPATION Tiotropium [place] (Spiriva Respimat) 2 puff IH DAILY [facility] Last Admin: 12/26/19 09:55 Dose: Not Given Documented by: - Objective Vital Signs: Vital Signs Temperature 97.8 F 12/26/19 07:00 Pulse Rate 57 L 12/26/19 07:00 Respiratory Rate 18 12/26/19 07:00 Blood Pressure 150/77 12/26/19 07:00 O2 Sat by Pulse Oximetry (%) 108 H 12/26/19 07:00 Wound/Incision: Yes: Other (+om, +grade 3 wound right foot, tox screen pending) Labs: CBC, BMP 12/26/19 07:52 12/26/19 06:00 Assessment/Plan om grade 3 wound unrelated to foreign body removal cellulitis Santyl daily to wound. HBO consult done. IVABX as per ID. Follow up in [facility]. Will follow till DC. Tox screening pending.
[2019-12-26] MEDS: NICOTINE 7 MG/24 HOURS TOPICAL PATCH TD SCH (11:16)
[2019-12-26] MEDS: VANCOMYCIN 1,250 MG in DEXTROSE 5%-WATER - 250 ML IVPB SCH (11:18)
[2019-12-26] MEDS ORDERED: INSULIN (NOVOLOG) ASPART 100 UNITS/ML 10ML VIAL ONE (12:45)
--- NOTE | 2019-12-26 12:55 | PN ---
Progress Note, Physician History of Present Illness: stable no new issues - Current Medication List Current Medications: Active Medications Amlodipine Besylate (Norvasc -) 10 mg PO DAILY [facility] Last Admin: 12/26/19 09:54 Dose: 10 mg Documented by: Aspirin (Ecotrin -) 81 mg PO DAILY [facility] Last Admin: 12/26/19 09:54 Dose: 81 mg Documented by: Clonidine (Catapres -) 0.1 mg PO BID [facility] Last Admin: 12/26/19 09:54 Dose: 0.1 mg Documented by: Collagenase (Santyl -) 1 applic TP DAILY [facility]; Protocol Last Admin: 12/26/19 09:57 Dose: 1 applic Documented by: Docusate Sodium (Colace -) 100 mg PO BID [facility] Last Admin: 12/26/19 09:53 Dose: 100 mg Documented by: Enoxaparin Sodium (Lovenox -) 40 mg SQ DAILY [facility] Last Admin: 12/26/19 09:53 Dose: 40 mg Documented by: Furosemide (Lasix -) 40 mg PO DAILY [facility] Last Admin: 12/26/19 09:54 Dose: 40 mg Documented by: Gabapentin (Neurontin -) 600 mg PO DAILY [facility] Last Admin: 12/26/19 09:54 Dose: 600 mg Documented by: Vancomycin HCl 1,250 mg/ (Dextrose) 250 mls @ 166.667 mls/hr IVPB Q12H [facility]; Protocol Last Admin: 12/26/19 11:18 Dose: 166.667 mls/hr Documented by: Meropenem 1 gm/ Dextrose 100 mls @ 200 mls/hr IVPB Q8H-IV [facility] Last Admin: 12/26/19 09:53 Dose: 200 mls/hr Documented by: Insulin Aspart (Novolog Vial Sliding Scale -) 0 vial SQ ACHS [facility]; Protocol Last Admin: 12/26/19 12:47 Dose: 2 units Documented by: Metoprolol Succinate (Toprol Xl -) 100 mg PO DAILY [facility] Last Admin: 12/26/19 09:54 Dose: 100 mg Documented by: Morphine Sulfate (Ms Contin -) 60 mg PO TID [facility] Last Admin: 12/26/19 05:38 Dose: 60 mg Documented by: Nicotine (Nicoderm Patch -) 7 mg TD DAILY [facility] Last Admin: 12/26/19 11:16 Dose: 7 mg Documented by: Rosuvastatin Calcium (Crestor -) 10 mg PO HS [facility] Last Admin: 12/25/19 22:33 Dose: 10 mg Documented by: Senna (Senna -) 2 tab PO HS PRN PRN Reason: CONSTIPATION Tiotropium [place] (Spiriva Respimat) 2 puff IH DAILY [facility] Last Admin: 12/26/19 09:55 Dose: Not Given Documented by: - Objective Vital Signs: Vital Signs Temperature 97.8 F 12/26/19 07:00 Pulse Rate 57 L 12/26/19 07:00 Respiratory Rate 18 12/26/19 07:00 Blood Pressure 150/77 12/26/19 07:00 O2 Sat by Pulse Oximetry (%) 108 H 12/26/19 07:00 Constitutional: Yes: No Distress, Calm Cardiovascular: Yes: S1, S2 Respiratory: Yes: Regular, CTA Bilaterally Gastrointestinal: Yes: Normal Bowel Sounds, Soft Musculoskeletal: Yes: WNL Extremities: Yes: Other Neurological: Yes: Alert, Oriented Psychiatric: Yes: Alert, Oriented Labs: CBC, BMP 12/26/19 07:52 12/26/19 06:00 Assessment/Plan roblem List - Problems (1) Cellulitis Code(s): L03.90 - CELLULITIS, UNSPECIFIED Qualifiers: Site of cellulitis: extremity Site of cellulitis of extremity: lower extremity Laterality: right Qualified Code(s): L03.115 - Cellulitis of right lower limb (2) Diabetic foot infection Code(s): E11.628 - TYPE 2 DIABETES MELLITUS WITH OTHER SKIN COMPLICATIONS; L08.9 - LOCAL INFECTION OF THE SKIN AND SUBCUTANEOUS TISSUE, UNSP (3) CAD (coronary artery disease) Code(s): I25.10 - ATHSCL HEART DISEASE OF [place] CORONARY ARTERY W/O ANG PCTRS (4) Diabetes Code(s): E11.9 - TYPE 2 DIABETES MELLITUS WITHOUT COMPLICATIONS (5) HTN (hypertension) Code(s): I10 - ESSENTIAL (PRIMARY) HYPERTENSION Assessment/Plan Rt foot infected diabetic ulcer Rt foot Cellulitis/ OM of 5th MT/phalanx Recent Rt foot abscess s/p I+D and foreign body removal DM with neuropathy CAD NH s/p CABG s/p Hep C treatment Opiod dependence continue artem and vanco follow vanco levels wound care will need alf abx will need the baove abx for 6-7 weeks more
[2019-12-26 18:52] LABS: HEMATOCRIT 34.5 % (35.4-49); HEMOGLOBIN 11.9 GM/dL (11.7-16.9); MCH 32.2 pg (25.7-33.7); MCHC 34.4 g/dl (32.0-35.9); MEAN CELL VOLUME 93.4 fl (80-96); MEAN PLT VOLUME 9.1 fl (7.5-11.1); PLATELET COUNT 359 K/MM3 (134-434); RBC 3.69 M/mm3 (4.00-5.60); RDW 13.1 % (11.9-15.9); WHITE BLOOD COUNT 8.4 K/mm3 (4.0-10.0)
--- NOTE | 2019-12-26 19:17 | PN ---
Physical Exam: SUBJECTIVE: Patient seen and examined today. Expressed the desire to take a drag of cigarette. Told patient again that he absolutely can not smoke in the room and we can provide nicotine patch if he needs. OBJECTIVE: Vital Signs Period Temp Pulse Resp BP Sys/Mcnulty Pulse Ox Last 24 Hr 97.8 F-98.5 F 56-64 18-18 134-159/60-79 95-108 GENERAL: The patient is awake, alert, and fully oriented, in no acute distress. HEAD: Normal with no signs of trauma. EYES: PERRL, conjunctiva clear. LUNGS: Breath sounds equal, CTA BL HEART: RRR, s1, s2 ABDOMEN: Soft, nontender, nondistended, normoactive bowel sounds MSK: Right plantar surface has open wound at proximal 5th/4th metatarsal is improving NEUROLOGICAL: Normal speech Laboratory Results - last 24 hr 12/25/19 12/26/19 12/26/19 22:43 05:40 06:00 WBC RBC Hgb Hct MCV MCH MCHC RDW Plt Count MPV Sodium 139 Potassium 4.0 Chloride 104 Carbon Dioxide 28 Anion Gap 7 L BUN 15.0 Creatinine 0.9 Est GFR (CKD-EPI)AfAm 111.83 Est GFR (CKD-EPI)NonAf 96.49 POC Glucometer 129 123 Random Glucose 141 H Calcium 9.3 Phosphorus 3.4 Magnesium 2.4 Vancomycin Pre-Dose 12/26/19 12/26/19 12/26/19 07:52 08:55 11:34 WBC 7.6 RBC 3.83 L Hgb 11.9 Hct 35.5 MCV 92.6 MCH 31.0 MCHC 33.5 RDW 13.2 Plt Count 318 MPV 8.5 Sodium Potassium Chloride Carbon Dioxide Anion Gap BUN Creatinine Est GFR (CKD-EPI)AfAm Est GFR (CKD-EPI)NonAf POC Glucometer 188 Random Glucose Calcium Phosphorus Magnesium Vancomycin Pre-Dose 20.6 H 12/26/19 12/26/19 17:01 18:22 WBC 8.4 RBC 3.69 L Hgb 11.9 Hct 34.5 L MCV 93.4 MCH 32.2 MCHC 34.4 RDW 13.1 Plt Count 359 MPV 9.1 Sodium Potassium Chloride Carbon Dioxide Anion Gap BUN Creatinine Est GFR (CKD-EPI)AfAm Est GFR (CKD-EPI)NonAf POC Glucometer 107 Random Glucose Calcium Phosphorus Magnesium Vancomycin Pre-Dose Active Medications Generic Name Dose Route Start Last Admin Trade Name Ulices PRN Reason Stop Dose Admin Amlodipine Besylate 10 mg 12/23/19 10:00 12/26/19 09:54 Norvasc - PO 10 mg DAILY [facility] Administration Aspirin 81 mg 12/23/19 10:00 12/26/19 09:54 Ecotrin - PO 81 mg DAILY [facility] Administration Clonidine 0.1 mg 12/22/19 22:00 12/26/19 09:54 Catapres - PO 0.1 mg BID [facility] Administration Collagenase 1 applic 12/26/19 10:00 12/26/19 09:57 Santyl - TP 1 applic DAILY [facility] Administration Protocol Docusate Sodium 100 mg 12/22/19 22:00 12/26/19 09:53 Colace - PO 100 mg BID [facility] Administration Enoxaparin Sodium 40 mg 12/23/19 10:00 12/26/19 09:53 Lovenox - SQ 40 mg DAILY [facility] Administration Furosemide 40 mg 12/23/19 10:00 12/26/19 09:54 Lasix - PO 40 mg DAILY [facility] Administration Gabapentin 600 mg 12/23/19 10:00 12/26/19 09:54 Neurontin - PO 600 mg DAILY [facility] Administration Meropenem 1 gm/ Dextrose 100 mls @ 200 mls/hr 12/24/19 18:00 12/26/19 17:52 IVPB 200 mls/hr Q8H-IV [facility] Administration Vancomycin HCl 1,000 mg in 250 mls @ 166.667 mls/hr 12/26/19 22:00 Vancomycin (Pre-Docked) IVPB Q12H [facility] Protocol Insulin Aspart 0 vial 12/22/19 16:30 12/26/19 17:49 Novolog Vial Sliding Scale - SQ Not Given ACHS [facility] Protocol Metoprolol Succinate 100 mg 12/23/19 10:00 12/26/19 09:54 Toprol Xl - PO 100 mg DAILY [facility] Administration Morphine Sulfate 60 mg 12/22/19 22:00 12/26/19 14:23 Ms Contin - PO 60 mg TID [facility] Administration Nicotine 7 mg 12/26/19 10:00 12/26/19 11:16 Nicoderm Patch - TD 7 mg DAILY [facility] Administration Rosuvastatin Calcium 10 mg 12/22/19 22:00 12/25/19 22:33 Crestor - PO 10 mg HS [facility] Administration Senna 2 tab 12/22/19 16:28 Senna - PO HS PRN CONSTIPATION Tiotropium [place] 2 puff 12/23/19 10:00 12/26/19 09:55 Spiriva Respimat IH Not Given DAILY [facility] ASSESSMENT/PLAN: 54yo M with PMH of T2DM, CAD s/p CABG triple bypass in 2018, dyslipidemia, polysubstance abuse, narcotic dependency chronic hep C, bilateral lower extremity polyneuropathy, recently discharged from [facility] after treated for right foot infected wound foreign body removal on 12/15/19. The patient was discharged on PO Augmentin after receiving clindamycin & Zosyn dur ing hospitalization also underwent I&D and foreign body removal on 12/12/19. Today the patient came to wound care center and was transferred to ED for IV antibiotic as wound was not healing wanted to r/o osteomyelitis. Patient failed outpatient p.o. antibiotic Right Foot Osteomyelitis - MRI + for osteo - wound culture grew staph aureus and coagulase-negative and E faecalis - ID consulted (Dr. Wilkerson) Vancomycin Day 4 Meropenem Day 3 patient can be d/c on IV vanc and artem for 6-7 weeks -Vanc troph high, switched to 1000 mg - Podiatry Consulted (Dr. 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 - New Patient This patient is new to me today: No - Critical Care Critical Care patient: No ATTENDING PHYSICIAN STATEMENT I saw and evaluated the patient. I reviewed the resident's note and discussed the case with the resident. I agree with the resident's findings and plan as documented. SUBJECTIVE: OBJECTIVE: ASSESSMENT AND PLAN:
[2019-12-26 19:20] LABS: BLOOD UREA NITROGEN 17.1 mg/dL (7-18); CALCIUM 8.9 mg/dL (8.5-10.1); CREATININE 1.1 mg/dL (0.55-1.3); MAGNESIUM 2.2 mg/dL (1.8-2.4); PHOSPHOROUS 3.7 mg/dL (2.5-4.9); POTASSIUM 4.3 mmol/L (3.5-5.1)
--- NOTE | 2019-12-26 19:49 | PN ---
Teaching Attending Note Name of Resident: Nader Seo ATTENDING PHYSICIAN STATEMENT I saw and evaluated the patient. I reviewed the resident's note and discussed the case with the resident. I agree with the resident's findings and plan as documented. SUBJECTIVE: No fever or chills. No pain . No CHAPARRO . no SOB caught smoking in hospital OBJECTIVE: NAd, cooperative. CV: RRr Lungs: CTAB Ext: No edema on legs. R foot with an ulcer on the laterl aspect of the 5th metatarsal head with no discharge or surrounding erythema decreased sensatio to light touch in foot . ASSESSMENT AND PLAN: 54 y/o man withh/o opioid dependence, smoking , T2DM, CAD s/p CABG triple b ypass in 2018, dyslipidemia,hep C, polyneuropathy, recent wound infection in foot , s/p foreign body removal, now here with 1- OM in R 5th metatarsal head and phalanges - cont artem and vanco - vanco trough noted. decrease dose to 1 g BID instead of 1,25 g BID - check trough before 4th dose - refer to [facility] - 6 weeks of IV abx - to be followed by Podiatry - ESR , CRP, CBC, LFTS weekly while on Abx 2- HTN: cont clonidine, BB, and norvasc 3- DM : cont SSI 4- H/o CAD " cont ASA , statin , and BB 5- Nicotine dependence. advised not to smoke in hospital . apply nicotine patch dc to home with VNS and IV Abx when arrangements are made. he declines rehab
[2019-12-26] MEDS: ROSUVASTATIN CA 10 MG TABLET (FP) PO SCH (22:00)
[2019-12-26] MEDS ORDERED: VANCOMYCIN 1 GRAM (PRE-DOCKED) 1,000 MG/250 ML BAG IVPB SCH (22:00)
[2019-12-26] MEDS: VANCOMYCIN 1 GRAM (PRE-DOCKED) 1,000 MG/250 ML BAG IVPB SCH (22:01)
[2019-12-27] MEDS ORDERED: MEROPENEM 1 GM VIAL (RESTRICTED TO ID) IVPB ONE ×3 (01:53→17:02)
[2019-12-27] MEDS ORDERED: DEXTROSE 5%-WATER 100 ML IVPB ONE ×3 (01:53→17:02)
[2019-12-27] MEDS: MEROPENEM 1 GM in DEXTROSE 5%-WATER 100 ML IVPB SCH ×3 (01:57→17:04)
[2019-12-27] MEDS: morphine SO4 SUSTAINED ACTING 30 MG TABLET.SA PO SCH ×3 (06:21→22:23)
[2019-12-27] MEDS: INSULIN SLIDING SCALE (NOVOLOG) 1 VIAL SQ SCH ×4 (06:29→22:25)
[2019-12-27 08:58] LABS: HEMATOCRIT 36.5 % (35.4-49); HEMOGLOBIN 12.3 GM/dL (11.7-16.9); MCH 31.5 pg (25.7-33.7); MCHC 33.8 g/dl (32.0-35.9); MEAN CELL VOLUME 93.2 fl (80-96); MEAN PLT VOLUME 9.3 fl (7.5-11.1); PLATELET COUNT 329 K/MM3 (134-434); RBC 3.92 M/mm3 (4.00-5.60); RDW 13.2 % (11.9-15.9); WHITE BLOOD COUNT 6.8 K/mm3 (4.0-10.0)
[2019-12-27 09:16] LABS: BLOOD UREA NITROGEN 14.8 mg/dL (7-18); CALCIUM 9.4 mg/dL (8.5-10.1); MAGNESIUM 2.4 mg/dL (1.8-2.4); PHOSPHOROUS 3.6 mg/dL (2.5-4.9); POTASSIUM 4.5 mmol/L (3.5-5.1)
[2019-12-27] MEDS ORDERED: PT OWN MED DRAWER 7, Y5N ONE ×2 (09:56→09:57)
[2019-12-27] MEDS: VANCOMYCIN 1 GRAM (PRE-DOCKED) 1,000 MG/250 ML BAG IVPB SCH ×2 (10:01→22:26)
[2019-12-27] MEDS: NICOTINE 7 MG/24 HOURS TOPICAL PATCH TD SCH (10:02)
[2019-12-27] MEDS: ENOXAPARIN NA (PORCINE) 40 MG/0.4 ML DISP.SYRIN SQ SCH (10:02)
[2019-12-27] MEDS: COLLAGENASE CLOSTRIDIUM HIST. 30 GRAMS TUBE TP SCH (10:03)
[2019-12-27] MEDS: amLODIPine BESYLATE 10 MG TABLET (FP) PO SCH (10:03)
[2019-12-27] MEDS: cloNIDine HCL 0.1 MG TABLET PO SCH ×2 (10:03→22:24)
[2019-12-27] MEDS: DOCUSATE SODIUM 100 MG CAPSULE (FP) PO SCH ×2 (10:03→22:24)
[2019-12-27] MEDS: GABAPENTIN 300 MG CAPSULE PO SCH (10:03)
[2019-12-27] MEDS: ASPIRIN COATED 81 MG TABLET.EC PO SCH (10:03)
[2019-12-27] MEDS: FUROSEMIDE 40 MG TABLET (FP) PO SCH (10:03)
[2019-12-27] MEDS: TIOTROPIUM BROMIDE 2.5 MCG (SPIRIVA) RESPIMAT INHALER IH SCH (10:04)
--- NOTE | 2019-12-27 11:55 | PN ---
Progress Note, Physician History of Present Illness: stable no new issues - Current Medication List Current Medications: Active Medications Amlodipine Besylate (Norvasc -) 10 mg PO DAILY [facility] Last Admin: 12/27/19 10:03 Dose: 10 mg Documented by: Aspirin (Ecotrin -) 81 mg PO DAILY [facility] Last Admin: 12/27/19 10:03 Dose: 81 mg Documented by: Clonidine (Catapres -) 0.1 mg PO BID [facility] Last Admin: 12/27/19 10:03 Dose: 0.1 mg Documented by: Collagenase (Santyl -) 1 applic TP DAILY [facility]; Protocol Last Admin: 12/27/19 10:03 Dose: 1 applic Documented by: Docusate Sodium (Colace -) 100 mg PO BID [facility] Last Admin: 12/27/19 10:03 Dose: 100 mg Documented by: Enoxaparin Sodium (Lovenox -) 40 mg SQ DAILY [facility] Last Admin: 12/27/19 10:02 Dose: 40 mg Documented by: Furosemide (Lasix -) 40 mg PO DAILY [facility] Last Admin: 12/27/19 10:03 Dose: 40 mg Documented by: Gabapentin (Neurontin -) 600 mg PO DAILY [facility] Last Admin: 12/27/19 10:03 Dose: 600 mg Documented by: Meropenem 1 gm/ Dextrose 100 mls @ 200 mls/hr IVPB Q8H-IV [facility] Last Admin: 12/27/19 10:01 Dose: 200 mls/hr Documented by: Vancomycin HCl (Vancomycin (Pre-Docked)) 1,000 mg in 250 mls @ 166.667 mls/hr IVPB Q12H [facility]; Protocol Last Admin: 12/27/19 10:01 Dose: 166.667 mls/hr Documented by: Insulin Aspart (Novolog Vial Sliding Scale -) 0 vial SQ ACHS [facility]; Protocol Last Admin: 12/27/19 06:29 Dose: Not Given Documented by: Metoprolol Succinate (Toprol Xl -) 100 mg PO DAILY [facility] Last Admin: 12/27/19 10:03 Dose: 100 mg Documented by: Morphine Sulfate (Ms Contin -) 60 mg PO TID [facility] Last Admin: 12/27/19 06:21 Dose: 60 mg Documented by: Nicotine (Nicoderm Patch -) 7 mg TD DAILY [facility] Last Admin: 12/27/19 10:02 Dose: 7 mg Documented by: Rosuvastatin Calcium (Crestor -) 10 mg PO HS [facility] Last Admin: 12/26/19 22:00 Dose: 10 mg Documented by: Senna (Senna -) 2 tab PO HS PRN PRN Reason: CONSTIPATION Last Admin: 12/26/19 22:00 Dose: 2 tab Documented by: Tiotropium [place] (Spiriva Respimat) 2 puff IH DAILY [facility] Last Admin: 12/27/19 10:04 Dose: 2 puff Documented by: - Objective Vital Signs: Vital Signs Temperature 98.1 F 12/27/19 06:00 Pulse Rate 61 12/27/19 06:00 Respiratory Rate 18 12/27/19 06:00 Blood Pressure 143/87 12/27/19 06:00 O2 Sat by Pulse Oximetry (%) 98 12/27/19 06:00 Constitutional: Yes: No Distress, Calm Eyes: Yes: Conjunctiva Clear HENT: Yes: Atraumatic, Normocephalic Neck: Yes: Trachea Midline Cardiovascular: Yes: Regular Rate and Rhythm Respiratory: Yes: Regular, CTA Bilaterally Gastrointestinal: Yes: Normal Bowel Sounds, Soft Musculoskeletal: Yes: WNL Extremities: Yes: Other Wound/Incision: Yes: Dressing Dry and Intact Neurological: Yes: Alert, Oriented Labs: CBC, BMP 12/27/19 08:15 12/27/19 08:15 Assessment/Plan roblem List - Problems (1) Cellulitis Code(s): L03.90 - CELLULITIS, UNSPECIFIED Qualifiers: Site of cellulitis: extremity Site of cellulitis of extremity: lower extremity Laterality: right Qualified Code(s): L03.115 - Cellulitis of right lower limb (2) Diabetic foot infection Code(s): E11.628 - TYPE 2 DIABETES MELLITUS WITH OTHER SKIN COMPLICATIONS; L08.9 - LOCAL INFECTION OF THE SKIN AND SUBCUTANEOUS TISSUE, UNSP (3) CAD (coronary artery disease) Code(s): I25.10 - ATHSCL HEART DISEASE OF [place] CORONARY ARTERY W/O ANG PCTRS (4) Diabetes Code(s): E11.9 - TYPE 2 DIABETES MELLITUS WITHOUT COMPLICATIONS (5) HTN (hypertension) Code(s): I10 - ESSENTIAL (PRIMARY) HYPERTENSION Assessment/Plan Rt foot infected diabetic ulcer Rt foot Cellulitis/ OM of 5th MT/phalanx Recent Rt foot abscess s/p I+D and foreign body removal DM with neuropathy CAD [place] s/p CABG s/p Hep C treatment Opiod dependence continue artem and vanco follow vanco levels wound care will need terminal make up operator abx will need the abx for 6-7 weeks more
--- NOTE | 2019-12-27 15:04 | PN ---
Teaching Attending Note Name of Resident: Antonieta Gonzalez ATTENDING PHYSICIAN STATEMENT I saw and evaluated the patient. I reviewed the resident's note and discussed the case with the resident. I agree with the resident's findings and plan as documented. SUBJECTIVE: No fever or chills. minimal pain in L foot OBJECTIVE: NAd, cooperative. CV: RRR Lungs: CTAB Ext: No edema on legs. R foot with an ulcer on the laterl aspect of the 5th metatarsal head with no discharge or surrounding erythema and no change from yesterday decreased sensation to light touch in foot . ASSESSMENT AND PLAN: 54 y/o man withh/o opioid dependence, smoking , T2DM, CAD s/p CABG triple bypass in 2018, dyslipidemia,hep C, polyneuropathy, recent wound infection in foot , s/p foreign body removal, now here with 1- OM in R 5th metatarsal head and phalanges - cont artem and vanco - vanco trough due to lanza evening - refer to O - 6 weeks of IV abx - to be followed by Podiatry - ESR , CRP, CBC, LFTS weekly while on Abx - cont santyl daily - wear surgical shoe when ambulating 2- HTN: cont clonidine, BB, and norvasc 3- DM : cont SSI 4- H/o CAD " cont ASA , statin , and BB 5- Nicotine dependence. cont nicotine patch . dispo: will need PICC for IV abx. will discuss dispo planning with patient and SW
--- NOTE | 2019-12-27 19:52 | PN ---
Physical Exam: SUBJECTIVE: Patient seen and examined bedside today. Patient expresses he badly wants to go home. In no acute distress. No events overnight. Reports nicotine patch is helping. OBJECTIVE: Vital Signs Period Temp Pulse Resp BP Sys/Mcnulty Pulse Ox Last 24 Hr 95.9 F-98.9 F 60-69 18-20 135-144/67-87 93-98 GENERAL: The patient is awake, alert, and fully oriented, in no acute distress. HEAD: Normal with no signs of trauma. EYES: PERRL, conjunctiva clear. LUNGS: Breath sounds equal, CTA BL HEART: RRR, s1, s2 ABDOMEN: Soft, nontender, nondistended, normoactive bowel sounds MSK: Right plantar surface has open wound at proximal 5th/4th metatarsal is improving NEUROLOGICAL: Normal speech Laboratory Results - last 24 hr 12/24/19 12/26/19 12/27/19 09:10 21:10 06:26 WBC RBC Hgb Hct MCV MCH MCHC RDW Plt Count MPV Sodium Potassium Chloride Carbon Dioxide Anion Gap BUN Creatinine Est GFR (CKD-EPI)AfAm Est GFR (CKD-EPI)NonAf POC Glucometer 162 130 Random Glucose Calcium Phosphorus Magnesium HCV Quantitation Hcv not detected HCV RNA log copies/mL TNP 12/27/19 12/27/19 12/27/19 08:15 08:15 12:23 WBC 6.8 RBC 3.92 L Hgb 12.3 Hct 36.5 MCV 93.2 MCH 31.5 MCHC 33.8 RDW 13.2 Plt Count 329 MPV 9.3 Sodium 135 L Potassium 4.5 Chloride 100 Carbon Dioxide 28 Anion Gap 7 L BUN 14.8 Creatinine 1.0 Est GFR (CKD-EPI)AfAm 98.46 Est GFR (CKD-EPI)NonAf 84.95 POC Glucometer 385 Random Glucose 173 H Calcium 9.4 Phosphorus 3.6 Magnesium 2.4 HCV Quantitation HCV RNA log copies/mL 12/27/19 12/27/19 12:26 16:58 WBC RBC Hgb Hct MCV MCH MCHC RDW Plt Count MPV Sodium Potassium Chloride Carbon Dioxide Anion Gap BUN Creatinine Est GFR (CKD-EPI)AfAm Est GFR (CKD-EPI)NonAf POC Glucometer 201 117 Random Glucose Calcium Phosphorus Magnesium HCV Quantitation HCV RNA log copies/mL Active Medications Generic Name Dose Route Start Last Admin Trade Name Freq PRN Reason Stop Dose Admin Amlodipine Besylate 10 mg 12/23/19 10:00 12/27/19 10:03 Norvasc - PO 10 mg DAILY [facility] Administration Aspirin 81 mg 12/23/19 10:00 12/27/19 10:03 Ecotrin - PO 81 mg DAILY [facility] Administration Clonidine 0.1 mg 12/22/19 22:00 12/27/19 10:03 Catapres - PO 0.1 mg BID [facility] Administration Collagenase 1 applic 12/26/19 10:00 12/27/19 10:03 Santyl - TP 1 applic DAILY [facility] Administration Protocol Docusate Sodium 100 mg 12/22/19 22:00 12/27/19 10:03 Colace - PO 100 mg BID [facility] Administration Enoxaparin Sodium 40 mg 12/23/19 10:00 12/27/19 10:02 Lovenox - SQ 40 mg DAILY [facility] Administration Furosemide 40 mg 12/23/19 10:00 12/27/19 10:03 Lasix - PO 40 mg DAILY [facility] Administration Gabapentin 600 mg 12/23/19 10:00 12/27/19 10:03 Neurontin - PO 600 mg DAILY [facility] Administration Meropenem 1 gm/ Dextrose 100 mls @ 200 mls/hr 12/24/19 18:00 12/27/19 17:04 IVPB 200 mls/hr Q8H-IV [facility] Administration Vancomycin HCl 1,000 mg in 250 mls @ 166.667 mls/hr 12/26/19 22:00 12/27/19 10:01 Vancomycin (Pre-Docked) IVPB 166.667 mls/hr Q12H [facility] Administration Protocol Insulin Aspart 0 vial 12/22/19 16:30 12/27/19 16:59 Novolog Vial Sliding Scale - SQ Not Given ACHS [facility] Protocol Metoprolol Succinate 100 mg 12/23/19 10:00 12/27/19 10:03 Toprol Xl - PO 100 mg DAILY [facility] Administration Morphine Sulfate 60 mg 12/22/19 22:00 12/27/19 14:13 Ms Contin - PO 60 mg TID [facility] Administration Nicotine 7 mg 12/26/19 10:00 12/27/19 10:02 Nicoderm Patch - TD 7 mg DAILY [facility] Administration Rosuvastatin Calcium 10 mg 12/22/19 22:00 12/26/19 22:00 Crestor - PO 10 mg HS [facility] Administration Senna 2 tab 12/22/19 16:28 12/26/19 22:00 Senna - PO 2 tab HS PRN Administration CONSTIPATION Tiotropium [place] 2 puff 12/23/19 10:00 12/27/19 10:04 Spiriva Respimat IH 2 puff DAILY [facility] Administration ASSESSMENT/PLAN: 54yo M with PMH of T2DM, CAD s/p CABG triple bypass in 2018, dyslipidemia, p olysubstance abuse, narcotic dependency chronic hep C, bilateral lower extremity polyneuropathy, recently discharged from [facility] after treated for right foot infected wound foreign body removal on 12/15/19. The patient was discharged on PO Augmentin after receiving clindamycin & Zosyn during hospitalization also underwent I&D and foreign body removal on 12/12/19. Today the patient came to wound care center and was transferred to ED for IV antibiotic as wound was not healing wanted to r/o osteomyelitis. Patient failed outpatient p.o. antibiotic Right Foot Osteomyelitis - MRI + for osteo - wound culture grew staph aureus and coagulase-negative and E faecalis - ID consulted (Dr. Wilkerson) Vancomycin Day 5 Meropenem Day 4 patient can be d/c on IV vanc and artem for 6 weeks - picc line tomorrow -Vanc troph high, switched to 1000 mg - Podiatry Consulted (Dr. Leyva) continue santyl daily and on discharge close follow up patient should remain NWB except for when absolutely necessary, and if so, must use his boot provided Hypertension: well controlled - continue all home medications T2DM: - Hold metformin - continue glyburide - SS with coverage CAD: s/p triple bypass - resume aspirin, statin & beta-blockers Hypercholesterolemia: - Continue statin Asthma: - Stable resume home medications Polyneuropathy: Chronic 2/2 diabetes - gabapentin 600 mg PO daily DVT Px: - Lovenox Dispo There was concern for patient being discharged with PICC line because of his history of opioid dependence. Patient's PCP vouches for the patient that he has never had an issue with IV drugs and has consistently been getting his medication from his PCP without mishaps. Plan is to place PICC line tomorrow and confirm his visiting nursing services will be in place. Visit type - Emergency Visit Emergency Visit: Yes ED Registration Date: 12/22/19 Care time: The patient presented to the Emergency Department on the above date and was hospitalized for further evaluation of their emergent condition. - New Patient This patient is new to me today: No - Critical Care Critical Care patient: No - Discharge Referral Referred to [facility] Med P.C.: No ATTENDING PHYSICIAN STATEMENT I saw and evaluated the patient. I reviewed the resident's note and discussed the case with the resident. I agree with the resident's findings and plan as documented. SUBJECTIVE: OBJECTIVE: ASSESSMENT AND PLAN:
[2019-12-27] MEDS ORDERED: INSULIN (NOVOLOG) ASPART 100 UNITS/ML 10ML VIAL ONE (22:22)
[2019-12-27] MEDS: ROSUVASTATIN CA 10 MG TABLET (FP) PO SCH (22:24)
[2019-12-28] MEDS ORDERED: MEROPENEM 1 GM VIAL (RESTRICTED TO ID) IVPB ONE ×3 (02:38→17:01)
[2019-12-28] MEDS ORDERED: DEXTROSE 5%-WATER 100 ML IVPB ONE ×3 (02:38→17:02)
[2019-12-28] MEDS: MEROPENEM 1 GM in DEXTROSE 5%-WATER 100 ML IVPB SCH ×3 (02:51→17:07)
[2019-12-28] MEDS: INSULIN SLIDING SCALE (NOVOLOG) 1 VIAL SQ SCH ×3 (06:27→17:35)
[2019-12-28] MEDS: morphine SO4 SUSTAINED ACTING 30 MG TABLET.SA PO SCH ×2 (06:27→15:42)
[2019-12-28] MEDS ORDERED: PT OWN MED DRAWER 7, Y5N ONE (09:41)
[2019-12-28] MEDS: FUROSEMIDE 40 MG TABLET (FP) PO SCH (09:49)
[2019-12-28] MEDS: ASPIRIN COATED 81 MG TABLET.EC PO SCH (09:49)
[2019-12-28] MEDS: amLODIPine BESYLATE 10 MG TABLET (FP) PO SCH (09:49)
[2019-12-28] MEDS: GABAPENTIN 300 MG CAPSULE PO SCH (09:49)
[2019-12-28] MEDS: DOCUSATE SODIUM 100 MG CAPSULE (FP) PO SCH (09:50)
[2019-12-28] MEDS: NICOTINE 7 MG/24 HOURS TOPICAL PATCH TD SCH (09:50)
[2019-12-28] MEDS: ENOXAPARIN NA (PORCINE) 40 MG/0.4 ML DISP.SYRIN SQ SCH (09:50)
[2019-12-28] MEDS: cloNIDine HCL 0.1 MG TABLET PO SCH (09:50)
[2019-12-28] MEDS: TIOTROPIUM BROMIDE 2.5 MCG (SPIRIVA) RESPIMAT INHALER IH SCH (09:51)
[2019-12-28] MEDS: COLLAGENASE CLOSTRIDIUM HIST. 30 GRAMS TUBE TP SCH (09:51)
[2019-12-28] MEDS: VANCOMYCIN 1 GRAM (PRE-DOCKED) 1,000 MG/250 ML BAG IVPB SCH (10:03)
--- NOTE | 2019-12-28 10:36 | PN ---
Progress Note, Physician History of Present Illness: stable no new issues - Current Medication List Current Medications: Active Medications Amlodipine Besylate (Norvasc -) 10 mg PO DAILY [facility] Last Admin: 12/28/19 09:49 Dose: 10 mg Documented by: Aspirin (Ecotrin -) 81 mg PO DAILY [facility] Last Admin: 12/28/19 09:49 Dose: 81 mg Documented by: Clonidine (Catapres -) 0.1 mg PO BID [facility] Last Admin: 12/28/19 09:50 Dose: 0.1 mg Documented by: Collagenase (Santyl -) 1 applic TP DAILY [facility]; Protocol Last Admin: 12/28/19 09:51 Dose: 1 applic Documented by: Docusate Sodium (Colace -) 100 mg PO BID [facility] Last Admin: 12/28/19 09:50 Dose: 100 mg Documented by: Enoxaparin Sodium (Lovenox -) 40 mg SQ DAILY [facility] Last Admin: 12/28/19 09:50 Dose: Not Given Documented by: Furosemide (Lasix -) 40 mg PO DAILY [facility] Last Admin: 12/28/19 09:49 Dose: 40 mg Documented by: Gabapentin (Neurontin -) 600 mg PO DAILY [facility] Last Admin: 12/28/19 09:49 Dose: 600 mg Documented by: Meropenem 1 gm/ Dextrose 100 mls @ 200 mls/hr IVPB Q8H-IV [facility] Last Admin: 12/28/19 09:48 Dose: 200 mls/hr Documented by: Vancomycin HCl (Vancomycin (Pre-Docked)) 1,000 mg in 250 mls @ 166.667 mls/hr IVPB Q12H [facility]; Protocol Last Admin: 12/28/19 10:03 Dose: 166.667 mls/hr Documented by: Insulin Aspart (Novolog Vial Sliding Scale -) 0 vial SQ ACHS [facility]; Protocol Last Admin: 12/28/19 06:27 Dose: 2 units Documented by: Metoprolol Succinate (Toprol Xl -) 100 mg PO DAILY [facility] Last Admin: 12/28/19 09:49 Dose: 100 mg Documented by: Morphine Sulfate (Ms Contin -) 60 mg PO TID [facility] Last Admin: 12/28/19 06:27 Dose: 60 mg Documented by: Nicotine (Nicoderm Patch -) 7 mg TD DAILY [facility] Last Admin: 12/28/19 09:50 Dose: Not Given Documented by: Rosuvastatin Calcium (Crestor -) 10 mg PO HS [facility] Last Admin: 12/27/19 22:24 Dose: 10 mg Documented by: Senna (Senna -) 2 tab PO HS PRN PRN Reason: CONSTIPATION Last Admin: 12/26/19 22:00 Dose: 2 tab Documented by: Tiotropium [place] (Spiriva Respimat) 2 puff IH DAILY [facility] Last Admin: 12/28/19 09:51 Dose: 2 puff Documented by: - Objective Vital Signs: Vital Signs Temperature 99 F 12/28/19 04:12 Pulse Rate 60 12/28/19 04:12 Respiratory Rate 18 12/28/19 04:12 Blood Pressure 160/74 12/28/19 04:12 O2 Sat by Pulse Oximetry (%) 96 12/28/19 04:12 Constitutional: Yes: No Distress, Calm Cardiovascular: Yes: S1, S2 Respiratory: Yes: Regular, CTA Bilaterally Gastrointestinal: Yes: Normal Bowel Sounds, Soft Musculoskeletal: Yes: WNL Extremities: Yes: Other Neurological: Yes: Alert, Oriented Psychiatric: Yes: Alert, Oriented Labs: CBC, BMP 12/27/19 08:15 12/27/19 08:15 Assessment/Plan roblem List - Problems (1) Cellulitis Code(s): L03.90 - CELLULITIS, UNSPECIFIED Qualifiers: Site of cellulitis: extremity Site of cellulitis of extremity: lower extremity Laterality: right Qualified Code(s): L03.115 - Cellulitis of right lower limb (2) Diabetic foot infection Code(s): E11.628 - TYPE 2 DIABETES MELLITUS WITH OTHER SKIN COMPLICATIONS; L08.9 - LOCAL INFECTION OF THE SKIN AND SUBCUTANEOUS TISSUE, UNSP (3) CAD (coronary artery disease) Code(s): I25.10 - ATHSCL HEART DISEASE OF [place] CORONARY ARTERY W/O ANG PCTRS (4) Diabetes Code(s): E11.9 - TYPE 2 DIABETES MELLITUS WITHOUT COMPLICATIONS (5) HTN (hypertension) Code(s): I10 - ESSENTIAL (PRIMARY) HYPERTENSION Assessment/Plan Rt foot infected diabetic ulcer Rt foot Cellulitis/ OM of 5th MT/phalanx Recent Rt foot abscess s/p I+D and foreign body removal DM with neuropathy CAD [place] s/p CABG s/p Hep C treatment Opiod dependence continue artem and vanco follow vanco levels wound care 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
[2019-12-28 11:27] VITALS: BMI 29.1
[2019-12-28] MEDS ORDERED: INSULIN (NOVOLOG) ASPART 100 UNITS/ML 10ML VIAL ONE (12:09)
--- NOTE | 2019-12-28 14:45 | PN ---
Teaching Attending Note Name of Resident: Antonieta Gonzalez ATTENDING PHYSICIAN STATEMENT I saw and evaluated the patient. I reviewed the resident's note and discussed the case with the resident. I agree with the resident's findings and plan as documented. SUBJECTIVE: no fever or chills. No pain . OBJECTIVE: NAd, cooperative. CV: RRR Lungs: CTAB Ext: No edema on legs. R foot with a clean dressing . not removed. ASSESSMENT AND PLAN: 54 y/o man withh/o opioid dependence, smoking , T2DM, CAD s/p CABG triple bypass in 2018, dyslipidemia,hep C, polyneuropathy, recent wound infection in foot , s/p foreign body removal, now here with 1- OM in R 5th metatarsal head and phalanges - cont artem 1g q 8 hr and vanco . vanco 1 g q 12 - refer to [facility] ( f/u with Dr. Worley ) - 6 weeks of IV abx after dc (( d/w LATOYArGeorge Wilkerson) - to be followed by Podiatry - ESR , CRP, CBC, LFTS weekly while on Abx . to be faxed to Dr. Wilkerson after dc - cont santyl daily - wear surgical shoe when ambulating 2- HTN: cont clonidine, BB, and norvasc 3- DM : po meds to be resumed after dc 4- H/o CAD " cont ASA , statin , and BB 5- Nicotine dependence. cont nicotine patch after dc dc home with VNS for ABx. expressed again the risk of infections and if he misuses his PICCline. and specifically , advised not to use his PICC line for drugs ( overdose and )
--- NOTE | 2019-12-28 15:09 | DS ---
Physical Exam: SUBJECTIVE: Patient seen and examined bedside. In no acute distress. No events overnight. OBJECTIVE: Vital Signs Period Temp Pulse Resp BP Sys/Mcnulty Pulse Ox Last 24 Hr 98.1 F-99.3 F 60-75 18-20 136-160/67-93 93-98 PHYSICAL EXAM GENERAL: The patient is awake, alert, and fully oriented, in no acute distress. HEAD: Normal with no signs of trauma. EYES: PERRL, conjunctiva clear. LUNGS: Breath sounds equal, CTA BL HEART: RRR, s1, s2 ABDOMEN: Soft, nontender, nondistended, normoactive bowel sounds MSK: Right plantar surface has open wound at proximal 5th/4th metatarsal NEUROLOGICAL: Normal speech LABS Laboratory Results - last 24 hr 12/27/19 12/27/19 12/28/19 16:58 22:20 05:55 POC Glucometer 117 164 188 Vancomycin Pre-Dose 12/28/19 12/28/19 08:40 12:14 POC Glucometer 163 Vancomycin Pre-Dose 13.9 H HOSPITAL COURSE: Patient came to the hospital with right foot wound and pain. He had recently been discharged from [facility] after being treated for foreign body removal and infection of the right foot on 12/15/19. The patient went to wound care clinic on 12/21 and was told to go to the ED because the wound was worse. Patient was admitted for right foot cellulitis and work up for osteomyelitis. MRI confirmed osteomyelitis of the head of the fifth metatarsal and of the phalanges more prominent in the proximal and middle phalanx. Patient was treated with IV Vancomycin and Merropenem in the hospital as well as daily wound dressing with Santyl. He is being discharged with a PICC line to continue his antibiotics treatment that will take at least 6 weeks. Visiting nursing services are in place. He is to follow up with infectious disease and podiatry. Date of Admission:12/22/19 Date of Discharge: 12/28/19 Minutes to complete discharge: 36 Discharge Summary Problems reviewed: Yes Reason For Visit: DIABETIC FOOT INFECTION Current Active Problems Cellulitis (Acute) Diabetic foot infection (Acute) Osteomyelitis (Acute) Condition: Improved - Instructions Diet, Activity, Other Instructions: You came into the hospital for an infection of your foot. You had an MRI showing that the infection was in your bone. You were evaluated by Infectious disease and by podiatry and were treated with IV antibiotics. You will be discharged home with home infusion with [place] You are going to have a PICC line. You will need IV Merrepenem every 8 hours and IV Vancomycin every 12 hours for 6 more weeks. You will need repeat blood work to check the Vancomycin level on Friday 12/29 You need weekly Labs sent to Dr. Wilkerson office: CBC, CMP, LFTs & CRP, and vanc trough. Please continue your home medications as prescribed. Please continue to use Santyl on your wound on your foot daily. Please continue to off-load pressure from infected area. If you are to walk use the [facility] edge off-loading shoe. There is an attached prescription. Your last dose of Merrepenem was 10:00 AM, your next dose should be at 18:00 (6:00 PM) Your last dose of Vancomycin was at 10 AM, your next dose should be at 22:00 (10:00 PM) Please follow up with your Hydro Pneumatic Tester, Dr. Leyva in 1 week Please follow up with your primary care physician, Dr. Orosco to further manage your healthcare Please follow up with the wound care physician, Dr. Worley, in 1 week to monitor your improvement It is strongly recommended that you stop smoking. this is important for your lungs and your wound health Please follow a low carb, low sugar, low sodium diet IF you have new, worsening, or concerning symptoms please return to the ED or call 911. after you finish your antibiotics , the PICC line needs to be removed. either the VNS or IR here can remove it . report any redness or discharge form the picc site to your MD. Nicotine patch ordered. follow step 1, 2, 3 . Do not smoke while using the patch Referrals: Nader Orosco MD [Primary Care Provider] - 1 Week Abner Worley DO [Staff Physician] - 1 Week Marlin Leyva DPM [Staff Physician] - 1 Week Disposition: VNS/HOME HEALTH CARE - Home Medications Comprehensive Discharge Medication List: Ambulatory Orders Glyburide/Metformin HCl [Glyburide-Metformin 2.5-500 mg] 1 each PO BID tablet 09/13/12 Amlodipine Besylate [Norvasc -] 10 mg PO DAILY 01/06/17 Clonidine HCl 0.1 mg PO BID 01/06/17 Morphine Sulfate [Morphine Sulfate ER] 60 mg PO QID PRN 02/01/17 Gabapentin 900 mg PO BID 01/23/19 Aspirin [ASA -] 81 mg PO DAILY 12/11/19 Furosemide [Lasix] 40 mg PO DAILY 12/11/19 Collagenase Clostridium Hist. [Santyl -] 1 applic TP DAILY tube 12/27/19 Docusate Sodium [Colace -] 100 mg PO BID capsule 12/27/19 Meropenem [Merrem (Restricted To Id) -] 1 gm IVPB Q8H-IV vial 12/27/19 Metoprolol Tartrate [Lopressor] 100 mg PO BID 12/27/19 Rosuvastatin Calcium [Crestor] 10 mg PO DAILY 12/27/19 Tiotropium [place] [Spiriva] 1 inh .ROUTE DAILY 12/27/19 Miscellaneous Medical Supply [Outpatient Order] 1 each ASDIR #1 misc 12/28/19 Nicotine [Nicotine Patch 14mg/24 hr] 1 each TD DAILY #14 patch.td24 12/28/19 Nicotine [Nicotine Patch 21 mg/24 hr] 1 each TD DAILY #42 patch.td24 12/28/19 Nicotine [Nicotine Patch 7 mg/24 hr] 1 each TD DAILY #14 patch.td24 12/28/19 Vancomycin 1 Gram (Pre-Docked) [Vancomycin (Pre-Docked)] 1,000 mg IVPB Q12H 42 Days bag 12/28/19 This patient is new to me today: No Emergency Visit: Yes ED Registration Date: 12/22/19 Care time: The patient presented to the Emergency Department on the above date a nd was hospitalized for further evaluation of their emergent condition. Critical Care patient: No - Discharge Referral Referred to [facility] Med P.C.: No ATTENDING PHYSICIAN STATEMENT I saw and evaluated the patient. I reviewed the resident's note and discussed the case with the resident. I agree with the resident's findings and plan as documented. SUBJECTIVE: OBJECTIVE: ASSESSMENT AND PLAN:
[2019-12-28 15:34] VITALS: BP 127/67; PULSE 64; TEMP 98.2
--- NOTE | 2019-12-28 16:46 | PN ---
Progress Note, Physician History of Present Illness: Pt presented to [facility] on with healed surgical sites on plantar surface. Also presented with a new wound lateral right foot secondary to non compliance and go back to work with loafers on his feet which he presented with on to [facility]. Labs drawn. xray done. Asked to return Wednesday. If labs up and foot did not look better he would be admitted, as he was on Wednesday. - Current Medication List Current Medications: Active Medications Amlodipine Besylate (Norvasc -) 10 mg PO DAILY [facility] Last Admin: 12/28/19 09:49 Dose: 10 mg Documented by: Aspirin (Ecotrin -) 81 mg PO DAILY [facility] Last Admin: 12/28/19 09:49 Dose: 81 mg Documented by: Clonidine (Catapres -) 0.1 mg PO BID [facility] Last Admin: 12/28/19 09:50 Dose: 0.1 mg Documented by: Collagenase (Santyl -) 1 applic TP DAILY [facility]; Protocol Last Admin: 12/28/19 09:51 Dose: 1 applic Documented by: Docusate Sodium (Colace -) 100 mg PO BID [facility] Last Admin: 12/28/19 09:50 Dose: 100 mg Documented by: Enoxaparin Sodium (Lovenox -) 40 mg SQ DAILY [facility] Last Admin: 12/28/19 09:50 Dose: Not Given Documented by: Furosemide (Lasix -) 40 mg PO DAILY [facility] Last Admin: 12/28/19 09:49 Dose: 40 mg Documented by: Gabapentin (Neurontin -) 600 mg PO DAILY [facility] Last Admin: 12/28/19 09:49 Dose: 600 mg Documented by: Meropenem 1 gm/ Dextrose 100 mls @ 200 mls/hr IVPB Q8H-IV [facility] Last Admin: 12/28/19 09:48 Dose: 200 mls/hr Documented by: Vancomycin HCl (Vancomycin (Pre-Docked)) 1,000 mg in 250 mls @ 166.667 mls/hr IVPB Q12H [facility]; Protocol Last Admin: 12/28/19 10:03 Dose: 166.667 mls/hr Documented by: Insulin Aspart (Novolog Vial Sliding Scale -) 0 vial SQ ACHS [facility]; Protocol Last Admin: 12/28/19 12:19 Dose: Not Given Documented by: Metoprolol Succinate (Toprol Xl -) 100 mg PO DAILY [facility] Last Admin: 12/28/19 09:49 Dose: 100 mg Documented by: Morphine Sulfate (Ms Contin -) 60 mg PO TID [facility] Last Admin: 12/28/19 15:42 Dose: 60 mg Documented by: Nicotine (Nicoderm Patch -) 7 mg TD DAILY [facility] Last Admin: 12/28/19 09:50 Dose: Not Given Documented by: Rosuvastatin Calcium (Crestor -) 10 mg PO HS [facility] Last Admin: 12/27/19 22:24 Dose: 10 mg Documented by: Senna (Senna -) 2 tab PO HS PRN PRN Reason: CONSTIPATION Last Admin: 12/26/19 22:00 Dose: 2 tab Documented by: Tiotropium [place] (Spiriva Respimat) 2 puff IH DAILY [facility] Last Admin: 12/28/19 09:51 Dose: 2 puff Documented by: - Objective Vital Signs: Vital Signs Temperature 98.2 F 12/28/19 14:00 Pulse Rate 64 12/28/19 14:00 Respiratory Rate 18 12/28/19 14:00 Blood Pressure 127/67 12/28/19 14:00 O2 Sat by Pulse Oximetry (%) 95 12/28/19 14:00 Wound/Incision: Yes: Other (+clean and granulating wound right foot, - cellulitis, -drainage) Labs: CBC, BMP 12/27/19 08:15 12/27/19 08:15 Assessment/Plan om grade 3 wound unrelated to foreign body removal cellulitis Santyl daily to wound. HBO. IVABX as per ID. Orthowedge shoe. Follow up in [facility]. Will follow till DC.
[2020-01-05 14:16] LABS: OXYCODONE BLOOD NEGATIVE
[2020-01-05 14:19] LABS: PCP BLOOD NEGATIVE
== END 2019-12-28 18:13 | disposition home health service (06) | DRG 344 ==
LOC: JER 12:39 → JERBED 17:22 → J5S 19:40
PROVIDERS: ADMIT Internal Medicine; ATTEND Internal Medicine
PROC: 02HV33Z Insertion of Infusion Device into Superior Vena Cava, Percutaneous Approach (ICD-10-PCS; principal; 2019-12-28)
DX: E11.69 Type 2 diabetes mellitus with other specified complication (principal); I25.10 Atherosclerotic heart disease of native coronary artery without angina pectoris; I10 Essential (primary) hypertension; B18.2 Chronic viral hepatitis C; E78.5 Hyperlipidemia, unspecified; J45.909 Unspecified asthma, uncomplicated; F10.11 Alcohol abuse, in remission; E78.00 Pure hypercholesterolemia, unspecified; E11.628 Type 2 diabetes mellitus with other skin complications; L03.115 Cellulitis of right lower limb; F11.20 Opioid dependence, uncomplicated; Z91.19 Patient's noncompliance with other medical treatment and regimen; M86.9 Osteomyelitis, unspecified; E11.621 Type 2 diabetes mellitus with foot ulcer; E11.40 Type 2 diabetes mellitus with diabetic neuropathy, unspecified; Z95.1 Presence of aortocoronary bypass graft; E66.9 Obesity, unspecified; Z68.29 Body mass index [BMI] 29.0-29.9, adult; F17.210 Nicotine dependence, cigarettes, uncomplicated
CPT/HCPCS: 36415; 36569; 71045-TC-FY; 73718-TC-RT; 77001-TC-FY; 80048; 80053; 80307; 82550; 82962; 83735; 84100; 84484; 85025; 85027; 85651; 86140; 87040; 87086; 87522; 93005; 93010; 99285-25; 99406; C1751; G0463-25; G0480; J0735; U0003

== ENCOUNTER 2020-01-09 23:43 | Emergency (ER) | payer OTHER ==
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
[2020-01-09] MEDS ORDERED: TETRACAINE 0.5% OPHTH SOLN 2 ML BOTTLE ONE (23:50)
[2020-01-09] MEDS ORDERED: FLUORESCEIN NA 1 EA STRIP ONE (23:50)
[2020-01-10] MEDS ORDERED: TOBRA 0.3%/DEXAMETH 0.1% OPHTHALMIC SUSP 2.5 ML BTL ONE (00:06)
[2020-01-10 00:07] VITALS: BP 164/86; PULSE 73; TEMP 99.1; BMI 28.5
[2020-01-10] MEDS ORDERED: cloNIDine HCL 0.1 MG TABLET PO ONE (00:26)
[2020-01-10] MEDS ORDERED: cloNIDine HCL 0.1 MG TABLET ONE (00:26)
[2020-01-10] MEDS ORDERED: TOBRA 0.3%/DEXAMETH 0.1% OPHTHALMIC SUSP 2.5 ML BTL OU SCH (06:00)
== END 2020-01-10 00:38 | disposition home or self-care (01) ==
LOC: FER 23:43
DX: T26.41XA Burn of right eye and adnexa, part unspecified, initial encounter (principal); T26.42XA Burn of left eye and adnexa, part unspecified, initial encounter
CPT/HCPCS: 99283-25; J0735

== ENCOUNTER 2020-06-27 12:36 | Emergency (ER) | payer OTHER ==
[2020-06-27 13:01] VITALS: BP 155/83; PULSE 67; TEMP 98.8; BMI 27.1
== END 2020-06-27 14:35 | disposition home or self-care (01) ==
LOC: FER 12:36
DX: M25.561 Pain in right knee (principal)
CPT/HCPCS: 73562-TC-LT-FY; 73562-TC-RT-FY; 99284-25

== ENCOUNTER 2021-05-14 13:06 | Inpatient (IN) | payer OTHER ==
[2021-05-14 13:50] VITALS: BMI 30.5
[2021-05-14] MEDS ORDERED: VANCOMYCIN 1,000 MG in DEXTROSE 5%-WATER - 250 ML IVPB ONE (15:27)
[2021-05-14] MEDS ORDERED: PIPERACILLIN/TAZOB 3.375 GM 3.375 GM in DEXTROSE 5%-WATER - 50 ML IVPB ONE (15:28)
[2021-05-14] MEDS ORDERED: PIPERACILLIN/TAZOB 3.375 GM 3.375 GM/50 ML BAG IVPB ONE (17:26)
[2021-05-14] MEDS ORDERED: VANCOMYCIN 1 GRAM (PRE-DOCKED) 1,000 MG/250 ML BAG IVPB ONE (17:26)
[2021-05-14 17:54] LABS: BASO % 0.7 % (0-2.0); EOS % 3.8 % (0-4.5); HEMATOCRIT 33.3 % (35.4-49); HEMOGLOBIN 11.5 GM/dL (11.7-16.9); MCH 32.2 pg (25.7-33.7); MCHC 34.6 g/dl (32.0-35.9); MEAN CELL VOLUME 93.1 fl (80-96); MEAN PLT VOLUME 9.1 fl (7.5-11.1); MONO % 9.1 % (3.8-10.2); NEUT % 70.4 % (42.8-82.8); PLATELET COUNT 348 10^3/uL (134-434); RBC 3.57 M/mm3 (4.00-5.60); RDW 12.6 % (11.9-15.9)
[2021-05-14 17:58] LABS: EPI CELLS 9 /uL (0-25.1); HYALINE CASTS 0 /uL (0-3.1); URINE APPEARANCE CLEAR; URINE BACTERIA 15 /uL (0-1359); URINE BILIRUBIN NEGATIVE (NEGATIVE); URINE COLOR YELLOW; URINE GLUCOSE (UA) NEGATIVE (NEGATIVE); URINE KETONE NEGATIVE (NEGATIVE); URINE LEUK ESTERASE NEGATIVE (NEGATIVE); URINE NITRITE NEGATIVE (NEGATIVE); URINE PROTEIN 3+ (NEGATIVE); URINE RBC 149 /uL (0-23.9); URINE WBC 10 /uL (0-25.8)
[2021-05-14 18:03] LABS: INR 1.17 (0.83-1.09); PROTHROMBIN TIME (PATIENT) 13.7 SEC (9.7-13.0)
[2021-05-14 18:24] LABS: ALBUMIN 3.2 g/dl (3.4-5.0); BLOOD UREA NITROGEN 13.9 mg/dL (7-18); CALCIUM 8.9 mg/dL (8.5-10.1)
[2021-05-14 18:27] LABS: CREATININE 1.2 mg/dL (0.55-1.3)
[2021-05-14 18:29] LABS: BILIRUBIN,TOTAL 0.3 mg/dL (0.2-1)
[2021-05-14] MEDS: NICOTINE 21 MG/24 HOURS TOPICAL PATCH TD SCH (23:08)
[2021-05-15] MEDS ORDERED: MEROPENEM 1 GM VIAL (RESTRICTED TO ID) IVPB ONE ×2 (02:05→09:24)
[2021-05-15] MEDS ORDERED: DEXTROSE 5%-WATER 100 ML IVPB ONE ×2 (02:05→09:24)
[2021-05-15] MEDS: MEROPENEM 1 GM in DEXTROSE 5%-WATER 100 ML IVPB SCH ×2 (02:14→09:36)
[2021-05-15] MEDS ORDERED: MORPHINE SULFATE 60 MG PO PRN (02:28)
[2021-05-15] MEDS ORDERED: amLODIPine BESYLATE 10 MG TABLET (FP) PO ONE (02:30)
[2021-05-15] MEDS ORDERED: ACETAMINOPHEN 1000 MG/100 ML VIAL IVPB PRN (02:34)
[2021-05-15] MEDS ORDERED: ONDANSETRON 4 MG/2 ML VIAL IVPUSH PRN (02:34)
[2021-05-15] MEDS ORDERED: MELATONIN 5 MG TABLETS PO PRN (02:34)
[2021-05-15] MEDS ORDERED: morphine SO4 SUSTAINED ACTING 30 MG TABLET.SA PO PRN (02:54)
[2021-05-15] MEDS ORDERED: VANCOMYCIN PREMIX 1.5 GM 1,500 MG/300 ML BAG IVPB SCH (05:00)
[2021-05-15] MEDS: HEPARIN NA (PORCINE) 5,000 UNITS/ML 1ML VIAL SQ SCH ×3 (05:56→23:59)
[2021-05-15] MEDS: DOCUSATE SODIUM 100 MG CAPSULE (FP) PO SCH ×2 (05:56→14:20)
[2021-05-15] MEDS: INSULIN SLIDING SCALE (NOVOLOG) 1 VIAL SQ SCH ×4 (06:00→17:45)
[2021-05-15 09:32] LABS: BASO % 0.7 % (0-2.0); EOS % 4.4 % (0-4.5); HEMATOCRIT 32.3 % (35.4-49); HEMOGLOBIN 11.3 GM/dL (11.7-16.9); LYMPH % 13.7 % (8-40); MCH 32.6 pg (25.7-33.7); MCHC 35.2 g/dl (32.0-35.9); MEAN CELL VOLUME 92.7 fl (80-96); MEAN PLT VOLUME 8.7 fl (7.5-11.1); NEUT % 71.2 % (42.8-82.8); PLATELET COUNT 285 10^3/uL (134-434); RBC 3.48 M/mm3 (4.00-5.60); RDW 12.5 % (11.9-15.9); WHITE BLOOD COUNT 9.1 K/mm3 (4.0-10.0)
[2021-05-15] MEDS: POTASSIUM CHLORIDE TABS 10 MEQ TABLET.ER (FP) PO SCH (09:35)
[2021-05-15] MEDS: SENNOSIDES 8.6MG TABLET (FP) PO SCH (09:35)
[2021-05-15] MEDS: METOPROLOL TARTRATE 50 MG TABLET (FP) PO SCH (09:35)
[2021-05-15] MEDS: ASPIRIN 81 MG CHEWABLE TABLETS PO SCH (09:36)
[2021-05-15] MEDS: NICOTINE 21 MG/24 HOURS TOPICAL PATCH TD SCH (09:36)
[2021-05-15] MEDS: GABAPENTIN 300 MG CAPSULE PO SCH (09:36)
[2021-05-15] MEDS: amLODIPine BESYLATE 10 MG TABLET (FP) PO SCH (09:36)
[2021-05-15] MEDS: cloNIDine HCL 0.1 MG TABLET PO SCH (09:36)
[2021-05-15] MEDS: FUROSEMIDE 40 MG TABLET (FP) PO SCH (09:36)
[2021-05-15 09:55] LABS: CALCIUM 8.7 mg/dL (8.5-10.1)
[2021-05-15 09:56] LABS: ALBUMIN 2.8 g/dl (3.4-5.0); BLOOD UREA NITROGEN 20.9 mg/dL (7-18); MAGNESIUM 2.3 mg/dL (1.8-2.4)
[2021-05-15 09:59] LABS: CREATININE 1.2 mg/dL (0.55-1.3); PHOSPHOROUS 4.4 mg/dL (2.5-4.9)
[2021-05-15 10:00] LABS: BILIRUBIN,TOTAL 0.5 mg/dL (0.2-1); TOT PROT 7.2 g/dl (6.4-8.2)
[2021-05-15] MEDS ORDERED: VANCOMYCIN 1 GM in D5W (PRE-DOCKED) 1,000 MG/250 ML IVPB SCH (17:00)
[2021-05-15] MEDS ORDERED: PIPERACILLIN/TAZOBACTAM 3.375 GM VIAL IVPB ONE (17:56)
[2021-05-15] MEDS ORDERED: DEXTROSE 5%-WATER - 50 ML IVPB ONE (17:57)
[2021-05-15] MEDS: DOXYCYCLINE HYCLATE 100 MG CAPSULE PO SCH (18:00)
[2021-05-15] MEDS: PIPERACILLIN/TAZOB 3.375 GM 3.375 GM in DEXTROSE 5%-WATER - 50 ML IVPB SCH (18:03)
[2021-05-15] MEDS: morphine SO4 SUSTAINED ACTING 30 MG TABLET.SA PO PRN (23:58)
[2021-05-16] MEDS ORDERED: PIPERACILLIN/TAZOBACTAM 3.375 GM VIAL IVPB ONE ×3 (01:28→17:05)
[2021-05-16] MEDS ORDERED: DEXTROSE 5%-WATER - 50 ML IVPB ONE ×3 (01:28→17:05)
[2021-05-16] MEDS: PIPERACILLIN/TAZOB 3.375 GM 3.375 GM in DEXTROSE 5%-WATER - 50 ML IVPB SCH ×3 (01:43→17:09)
[2021-05-16] MEDS ORDERED: MEROPENEM 1 GM in DEXTROSE 5%-WATER 100 ML IVPB SCH (02:00)
[2021-05-16] MEDS ORDERED: VANCOMYCIN HCL 1,500 MG in DEXTROSE 5%-WATER - 250 ML IVPB SCH (05:00)
[2021-05-16] MEDS: INSULIN SLIDING SCALE (NOVOLOG) 1 VIAL SQ SCH ×5 (06:51→22:14)
[2021-05-16] MEDS: HEPARIN NA (PORCINE) 5,000 UNITS/ML 1ML VIAL SQ SCH ×3 (06:51→22:13)
[2021-05-16] MEDS: DOCUSATE SODIUM 100 MG CAPSULE (FP) PO SCH ×4 (06:51→22:13)
[2021-05-16] MEDS ORDERED: PT OWN MED DRAWER 7, Y5N ONE (09:47)
[2021-05-16] MEDS: NICOTINE 21 MG/24 HOURS TOPICAL PATCH TD SCH (09:59)
[2021-05-16] MEDS: SENNOSIDES 8.6MG TABLET (FP) PO SCH ×3 (10:00→22:13)
[2021-05-16] MEDS: POTASSIUM CHLORIDE TABS 10 MEQ TABLET.ER (FP) PO SCH (10:00)
[2021-05-16] MEDS: METOPROLOL TARTRATE 50 MG TABLET (FP) PO SCH (10:00)
[2021-05-16] MEDS: cloNIDine HCL 0.1 MG TABLET PO SCH (10:00)
[2021-05-16] MEDS: DOXYCYCLINE HYCLATE 100 MG CAPSULE PO SCH ×2 (10:00→17:09)
[2021-05-16] MEDS: amLODIPine BESYLATE 10 MG TABLET (FP) PO SCH (10:00)
[2021-05-16] MEDS: FUROSEMIDE 40 MG TABLET (FP) PO SCH (10:00)
[2021-05-16] MEDS: GABAPENTIN 300 MG CAPSULE PO SCH ×3 (10:00→22:13)
[2021-05-16] MEDS: ASPIRIN 81 MG CHEWABLE TABLETS PO SCH (10:00)
[2021-05-16] MEDS: morphine SO4 SUSTAINED ACTING 30 MG TABLET.SA PO PRN (14:16)
[2021-05-16 14:27] LABS: BASO % 0.9 % (0-2.0); EOS % 4.7 % (0-4.5); HEMATOCRIT 33.3 % (35.4-49); HEMOGLOBIN 11.4 GM/dL (11.7-16.9); LYMPH % 16.9 % (8-40); MCH 32.1 pg (25.7-33.7); MCHC 34.2 g/dl (32.0-35.9); MEAN CELL VOLUME 93.9 fl (80-96); MONO % 10.5 % (3.8-10.2); PLATELET COUNT 312 10^3/uL (134-434); RBC 3.54 M/mm3 (4.00-5.60); RDW 12.6 % (11.9-15.9); WHITE BLOOD COUNT 8.4 K/mm3 (4.0-10.0)
[2021-05-16 14:54] LABS: BLOOD UREA NITROGEN 25.2 mg/dL (7-18); CALCIUM 8.7 mg/dL (8.5-10.1)
[2021-05-16 14:55] LABS: ALBUMIN 2.8 g/dl (3.4-5.0); MAGNESIUM 2.6 mg/dL (1.8-2.4)
[2021-05-16 14:57] LABS: CREATININE 1.2 mg/dL (0.55-1.3)
[2021-05-16 14:58] LABS: TOT PROT 7.4 g/dl (6.4-8.2)
[2021-05-16 15:02] LABS: BILIRUBIN,TOTAL 0.5 mg/dL (0.2-1)
[2021-05-16] MEDS: glyBURIDE 2.5 MG TABLET PO SCH (17:09)
[2021-05-16] MEDS: ROSUVASTATIN CA 10 MG TABLET (FP) PO SCH ×2 (22:13)
[2021-05-17] MEDS ORDERED: DEXTROSE 5%-WATER - 50 ML IVPB ONE ×3 (01:23→16:43)
[2021-05-17] MEDS ORDERED: PIPERACILLIN/TAZOBACTAM 3.375 GM VIAL IVPB ONE ×3 (01:23→16:43)
[2021-05-17] MEDS: PIPERACILLIN/TAZOB 3.375 GM 3.375 GM in DEXTROSE 5%-WATER - 50 ML IVPB SCH ×3 (01:59→17:18)
[2021-05-17] MEDS: HEPARIN NA (PORCINE) 5,000 UNITS/ML 1ML VIAL SQ SCH ×3 (05:58→22:40)
[2021-05-17] MEDS: DOCUSATE SODIUM 100 MG CAPSULE (FP) PO SCH ×3 (05:58→22:40)
[2021-05-17] MEDS: glyBURIDE 2.5 MG TABLET PO SCH ×2 (05:59→17:17)
[2021-05-17] MEDS: INSULIN SLIDING SCALE (NOVOLOG) 1 VIAL SQ SCH ×4 (05:59→22:40)
[2021-05-17] MEDS: METOPROLOL TARTRATE 50 MG TABLET (FP) PO SCH (10:00)
[2021-05-17] MEDS: ASPIRIN 81 MG CHEWABLE TABLETS PO SCH (10:08)
[2021-05-17] MEDS: cloNIDine HCL 0.1 MG TABLET PO SCH (10:09)
[2021-05-17] MEDS: amLODIPine BESYLATE 10 MG TABLET (FP) PO SCH (10:09)
[2021-05-17] MEDS: GABAPENTIN 300 MG CAPSULE PO SCH ×2 (10:09→22:40)
[2021-05-17] MEDS: POTASSIUM CHLORIDE TABS 10 MEQ TABLET.ER (FP) PO SCH (10:09)
[2021-05-17] MEDS: DOXYCYCLINE HYCLATE 100 MG CAPSULE PO SCH ×2 (10:09→17:18)
[2021-05-17] MEDS: FUROSEMIDE 40 MG TABLET (FP) PO SCH (10:09)
[2021-05-17] MEDS: SENNOSIDES 8.6MG TABLET (FP) PO SCH ×2 (10:09→22:40)
[2021-05-17] MEDS: morphine SO4 SUSTAINED ACTING 30 MG TABLET.SA PO PRN (10:10)
[2021-05-17] MEDS: NICOTINE 21 MG/24 HOURS TOPICAL PATCH TD SCH (10:29)
[2021-05-17] MEDS: COLLAGENASE CLOSTRIDIUM HIST. 30 GRAMS TUBE TP SCH (13:46)
[2021-05-17 17:57] LABS: BASO % 0.5 % (0-2.0); EOS % 5.9 % (0-4.5); HEMATOCRIT 31.4 % (35.4-49); HEMOGLOBIN 10.8 GM/dL (11.7-16.9); LYMPH % 21.8 % (8-40); MCH 31.8 pg (25.7-33.7); MCHC 34.3 g/dl (32.0-35.9); MEAN CELL VOLUME 92.7 fl (80-96); MEAN PLT VOLUME 8.6 fl (7.5-11.1); MONO % 12.6 % (3.8-10.2); NEUT % 59.2 % (42.8-82.8); PLATELET COUNT 297 10^3/uL (134-434); RBC 3.39 M/mm3 (4.00-5.60); RDW 12.6 % (11.9-15.9); WHITE BLOOD COUNT 8.1 K/mm3 (4.0-10.0)
[2021-05-17 18:21] LABS: ALBUMIN 2.7 g/dl (3.4-5.0); BLOOD UREA NITROGEN 22.7 mg/dL (7-18); CALCIUM 8.6 mg/dL (8.5-10.1); MAGNESIUM 2.6 mg/dL (1.8-2.4)
[2021-05-17 18:24] LABS: CREATININE 1.3 mg/dL (0.55-1.3)
[2021-05-17 18:26] LABS: BILIRUBIN,TOTAL 0.2 mg/dL (0.2-1); TOT PROT 7.1 g/dl (6.4-8.2)
[2021-05-17] MEDS: ROSUVASTATIN CA 10 MG TABLET (FP) PO SCH (22:40)
[2021-05-18] MEDS ORDERED: PIPERACILLIN/TAZOBACTAM 3.375 GM VIAL IVPB ONE ×3 (00:56→17:14)
[2021-05-18] MEDS ORDERED: DEXTROSE 5%-WATER - 50 ML IVPB ONE ×3 (00:56→17:14)
[2021-05-18] MEDS: PIPERACILLIN/TAZOB 3.375 GM 3.375 GM in DEXTROSE 5%-WATER - 50 ML IVPB SCH ×3 (01:02→17:17)
[2021-05-18] MEDS ORDERED: PT OWN MED DRAWER 7, Y5N ONE ×2 (05:44→17:15)
[2021-05-18] MEDS: glyBURIDE 2.5 MG TABLET PO SCH ×2 (06:05→17:16)
[2021-05-18] MEDS: HEPARIN NA (PORCINE) 5,000 UNITS/ML 1ML VIAL SQ SCH ×3 (06:05→21:46)
[2021-05-18] MEDS: DOCUSATE SODIUM 100 MG CAPSULE (FP) PO SCH ×3 (06:05→21:46)
[2021-05-18] MEDS: INSULIN SLIDING SCALE (NOVOLOG) 1 VIAL SQ SCH ×4 (06:06→21:47)
[2021-05-18] MEDS: SENNOSIDES 8.6MG TABLET (FP) PO SCH ×2 (10:04→21:46)
[2021-05-18] MEDS: DOXYCYCLINE HYCLATE 100 MG CAPSULE PO SCH ×2 (10:04→17:16)
[2021-05-18] MEDS: METOPROLOL TARTRATE 50 MG TABLET (FP) PO SCH (10:04)
[2021-05-18] MEDS: GABAPENTIN 300 MG CAPSULE PO SCH ×2 (10:04→21:46)
[2021-05-18] MEDS: cloNIDine HCL 0.1 MG TABLET PO SCH (10:04)
[2021-05-18] MEDS: NICOTINE 21 MG/24 HOURS TOPICAL PATCH TD SCH (10:05)
[2021-05-18] MEDS: amLODIPine BESYLATE 10 MG TABLET (FP) PO SCH (10:05)
[2021-05-18] MEDS: FUROSEMIDE 40 MG TABLET (FP) PO SCH (10:05)
[2021-05-18] MEDS: POTASSIUM CHLORIDE TABS 10 MEQ TABLET.ER (FP) PO SCH (10:05)
[2021-05-18] MEDS: ASPIRIN 81 MG CHEWABLE TABLETS PO SCH (10:05)
[2021-05-18] MEDS: COLLAGENASE CLOSTRIDIUM HIST. 30 GRAMS TUBE TP SCH (10:10)
[2021-05-18 18:14] LABS: BASO % 0.7 % (0-2.0); EOS % 4.1 % (0-4.5); HEMATOCRIT 33.1 % (35.4-49); HEMOGLOBIN 11.5 GM/dL (11.7-16.9); LYMPH % 22.9 % (8-40); MCH 32.1 pg (25.7-33.7); MCHC 34.6 g/dl (32.0-35.9); MEAN CELL VOLUME 92.6 fl (80-96); MEAN PLT VOLUME 8.3 fl (7.5-11.1); MONO % 10.9 % (3.8-10.2); NEUT % 61.4 % (42.8-82.8); PLATELET COUNT 328 10^3/uL (134-434); RBC 3.58 M/mm3 (4.00-5.60); RDW 12.7 % (11.9-15.9); WHITE BLOOD COUNT 9.3 K/mm3 (4.0-10.0)
[2021-05-18 18:35] LABS: CALCIUM 8.5 mg/dL (8.5-10.1)
[2021-05-18 18:36] LABS: ALBUMIN 2.8 g/dl (3.4-5.0); BLOOD UREA NITROGEN 23.2 mg/dL (7-18); MAGNESIUM 2.4 mg/dL (1.8-2.4)
[2021-05-18 18:38] LABS: CREATININE 1.5 mg/dL (0.55-1.3)
[2021-05-18 18:41] LABS: BILIRUBIN,TOTAL 0.3 mg/dL (0.2-1); TOT PROT 7.6 g/dl (6.4-8.2)
[2021-05-18] MEDS: ROSUVASTATIN CA 10 MG TABLET (FP) PO SCH (21:46)
[2021-05-19] MEDS ORDERED: PIPERACILLIN/TAZOBACTAM 3.375 GM VIAL IVPB ONE ×2 (01:04→09:20)
[2021-05-19] MEDS ORDERED: DEXTROSE 5%-WATER - 50 ML IVPB ONE ×2 (01:04→09:20)
[2021-05-19] MEDS: PIPERACILLIN/TAZOB 3.375 GM 3.375 GM in DEXTROSE 5%-WATER - 50 ML IVPB SCH ×2 (01:15→09:59)
[2021-05-19 04:59] VITALS: TEMP 97.6
[2021-05-19] MEDS ORDERED: PT OWN MED DRAWER 7, Y5N ONE (05:42)
[2021-05-19] MEDS: INSULIN SLIDING SCALE (NOVOLOG) 1 VIAL SQ SCH ×2 (06:01→12:00)
[2021-05-19] MEDS: DOCUSATE SODIUM 100 MG CAPSULE (FP) PO SCH ×2 (06:01→14:00)
[2021-05-19] MEDS: HEPARIN NA (PORCINE) 5,000 UNITS/ML 1ML VIAL SQ SCH ×2 (06:01→14:00)
[2021-05-19] MEDS: glyBURIDE 2.5 MG TABLET PO SCH (06:01)
[2021-05-19] MEDS: METOPROLOL TARTRATE 50 MG TABLET (FP) PO SCH (09:49)
[2021-05-19] MEDS: amLODIPine BESYLATE 10 MG TABLET (FP) PO SCH (09:49)
[2021-05-19] MEDS: cloNIDine HCL 0.1 MG TABLET PO SCH (09:50)
[2021-05-19] MEDS: GABAPENTIN 300 MG CAPSULE PO SCH (09:50)
[2021-05-19] MEDS: ASPIRIN 81 MG CHEWABLE TABLETS PO SCH (09:51)
[2021-05-19] MEDS: DOXYCYCLINE HYCLATE 100 MG CAPSULE PO SCH (09:51)
[2021-05-19] MEDS: FUROSEMIDE 40 MG TABLET (FP) PO SCH (09:51)
[2021-05-19] MEDS: POTASSIUM CHLORIDE TABS 10 MEQ TABLET.ER (FP) PO SCH (09:51)
[2021-05-19] MEDS: SENNOSIDES 8.6MG TABLET (FP) PO SCH (09:51)
[2021-05-19] MEDS: NICOTINE 21 MG/24 HOURS TOPICAL PATCH TD SCH (10:52)
[2021-05-19] MEDS: COLLAGENASE CLOSTRIDIUM HIST. 30 GRAMS TUBE TP SCH (12:00)
[2021-05-19 13:35] VITALS: BP 148/80; PULSE 68
== END 2021-05-19 14:28 | disposition home or self-care (01) | DRG 383 ==
LOC: JER 13:06 → JERBED 19:49 → J5S 05-15 00:34
PROVIDERS: ATTEND Nurse Practitioner Family
DX: L03.116 Cellulitis of left lower limb (principal); E78.5 Hyperlipidemia, unspecified; I10 Essential (primary) hypertension; F11.20 Opioid dependence, uncomplicated; I25.10 Atherosclerotic heart disease of native coronary artery without angina pectoris; I25.2 Old myocardial infarction; E11.40 Type 2 diabetes mellitus with diabetic neuropathy, unspecified; G47.00 Insomnia, unspecified; E11.621 Type 2 diabetes mellitus with foot ulcer; L97.528 Non-pressure chronic ulcer of other part of left foot with other specified severity; R50.9 Fever, unspecified; R11.0 Nausea; F17.200 Nicotine dependence, unspecified, uncomplicated; Z95.1 Presence of aortocoronary bypass graft
CPT/HCPCS: 36415; 80053; 81003; 82962; 83036; 83735; 84100; 85025; 85610; 85651; 86140; 87040; 87086; 93005; 93010; 93970-TC; 99285-25; C9803; G0463-25; J0735; J1644; U0003; U0005

== ENCOUNTER 2021-06-25 11:12 | Inpatient (IN) | payer OTHER ==
[2021-06-25] MEDS ORDERED: DALBAVANCIN HCL 1,500 MG in DEXTROSE 5%-WATER - 500 ML IVPB ONE (12:18)
[2021-06-25 13:10] LABS: EOS % 8.2 % (0-4.5); HEMATOCRIT 34.1 % (35.4-49); HEMOGLOBIN 11.7 GM/dL (11.7-16.9); LYMPH % 22.6 % (8-40); MCH 30.9 pg (25.7-33.7); MCHC 34.2 g/dl (32.0-35.9); MEAN CELL VOLUME 90.3 fl (80-96); MEAN PLT VOLUME 9.1 fl (7.5-11.1); MONO % 9.3 % (3.8-10.2); NEUT % 58.9 % (42.8-82.8); PLATELET COUNT 328 10^3/uL (134-434); RBC 3.78 M/mm3 (4.00-5.60); RDW 13.4 % (11.9-15.9); WHITE BLOOD COUNT 8.7 K/mm3 (4.0-10.0)
[2021-06-25 13:16] LABS: INR 1.1 (0.83-1.09); PROTHROMBIN TIME (PATIENT) 12.7 SEC (9.7-13.0)
[2021-06-25 13:45] LABS: ALBUMIN 3.5 g/dl (3.4-5.0); CALCIUM 9.4 mg/dL (8.5-10.1)
[2021-06-25 13:46] LABS: BLOOD UREA NITROGEN 33.7 mg/dL (7-18)
[2021-06-25 13:50] LABS: CREATININE 1.3 mg/dL (0.55-1.3)
[2021-06-25 13:51] LABS: BILIRUBIN,TOTAL 0.3 mg/dL (0.2-1)
[2021-06-25] MEDS ORDERED: SODIUM CHLORIDE 1,000 ML IV SCH (15:30)
[2021-06-25] MEDS: INSULIN SLIDING SCALE (NOVOLOG) 1 VIAL SQ SCH ×2 (16:45→23:20)
[2021-06-25] MEDS ORDERED: ROSUVASTATIN CA 10 MG TABLET PO SCH (22:00)
[2021-06-25] MEDS: GABAPENTIN 300 MG CAPSULE PO SCH (23:17)
[2021-06-26 00:41] VITALS: BMI 30.5
[2021-06-26] MEDS: INSULIN SLIDING SCALE (NOVOLOG) 1 VIAL SQ SCH ×2 (06:27→21:01)
[2021-06-26] MEDS ORDERED: INSULIN (NOVOLOG) ASPART 100 UNITS/ML 10ML VIAL ONE (06:40)
[2021-06-26] MEDS: GABAPENTIN 300 MG CAPSULE PO SCH ×2 (09:41→21:01)
[2021-06-26] MEDS ORDERED: cloNIDine HCL 0.1 MG TABLET PO SCH (10:00)
[2021-06-26] MEDS ORDERED: FUROSEMIDE 40 MG TABLET (FP) PO SCH (10:00)
[2021-06-26] MEDS ORDERED: METOPROLOL TARTRATE 50 MG TABLET (FP) PO SCH (10:00)
[2021-06-26] MEDS ORDERED: amLODIPine BESYLATE 10 MG TABLET (FP) PO SCH (10:00)
[2021-06-26 11:43] LABS: HEMATOCRIT 34.2 % (35.4-49); HEMOGLOBIN 11.2 GM/dL (11.7-16.9); LYMPH % 17.9 % (8-40); MCH 29.4 pg (25.7-33.7); MCHC 32.6 g/dl (32.0-35.9); MEAN CELL VOLUME 90.3 fl (80-96); MEAN PLT VOLUME 9.5 fl (7.5-11.1); MONO % 8.6 % (3.8-10.2); NEUT % 64.5 % (42.8-82.8); PLATELET COUNT 286 10^3/uL (134-434); RBC 3.79 M/mm3 (4.00-5.60); RDW 13.3 % (11.9-15.9); WHITE BLOOD COUNT 7.4 K/mm3 (4.0-10.0)
[2021-06-26] MEDS ORDERED: LIDOCAINE HCL 1%, 10 MG/ML (20ML VIAL) ONE (11:55)
[2021-06-26] MEDS ORDERED: HEPARIN NA (PORCINE) 5,000 UNITS/ML 1ML VIAL ONE ×4 (11:55→13:42)
[2021-06-26 12:07] LABS: CALCIUM 9.1 mg/dL (8.5-10.1)
[2021-06-26 12:08] LABS: ALBUMIN 3.3 g/dl (3.4-5.0); BLOOD UREA NITROGEN 22.5 mg/dL (7-18); MAGNESIUM 2.3 mg/dL (1.8-2.4)
[2021-06-26] MEDS ORDERED: MIDAZOLAM HCL 2 MG/2 ML SINGLE DOSE VIAL ONE (12:09)
[2021-06-26] MEDS ORDERED: PROPOFOL 20 ML ONE ×4 (12:09→13:58)
[2021-06-26 12:11] LABS: CREATININE 1.1 mg/dL (0.55-1.3); PHOSPHOROUS 3.9 mg/dL (2.5-4.9)
[2021-06-26 12:12] LABS: BILIRUBIN,TOTAL 0.3 mg/dL (0.2-1); TOT PROT 7.6 g/dl (6.4-8.2)
[2021-06-26] MEDS ORDERED: ceFAZolin SODIUM 1 GM VIAL IVPB ONE (12:15)
[2021-06-26] MEDS ORDERED: ceFAZolin SODIUM 1 GM VIAL ONE (12:21)
[2021-06-26] MEDS ORDERED: LIDOCAINE HCL 1%, 10 MG/ML (20ML VIAL) INF ONE (12:26)
[2021-06-26] MEDS ORDERED: LACTATED RINGERS SOLUTION 1,000 ML IV SCH (16:00)
[2021-06-26] MEDS ORDERED: CLOPIDOGREL BISULFATE 75 MG TABLET (FP) ONE (16:17)
[2021-06-26] MEDS: CLOPIDOGREL BISULFATE 75 MG TABLET (FP) PO SCH (16:20)
[2021-06-26] MEDS ORDERED: morphine CARPU-JECT 2 MG/1 ML DISP.SYRIN IVPUSH PRN (16:56)
[2021-06-26] MEDS: LACTATED RINGERS SOLUTION 1,000 ML IV SCH (20:00)
[2021-06-26] MEDS: ROSUVASTATIN CA 10 MG TABLET PO SCH (21:01)
[2021-06-26] MEDS: ACETAMINOPHEN 1000 MG/100 ML BAG IVPB PRN (23:39)
[2021-06-27] MEDS: INSULIN SLIDING SCALE (NOVOLOG) 1 VIAL SQ SCH ×4 (06:28→21:42)
[2021-06-27] MEDS: ACETAMINOPHEN 1000 MG/100 ML BAG IVPB PRN ×2 (06:29→12:43)
[2021-06-27] MEDS: GABAPENTIN 300 MG CAPSULE PO SCH ×2 (10:20→21:37)
[2021-06-27] MEDS: cloNIDine HCL 0.1 MG TABLET PO SCH (10:21)
[2021-06-27] MEDS: METOPROLOL TARTRATE 50 MG TABLET (FP) PO SCH (10:21)
[2021-06-27] MEDS: amLODIPine BESYLATE 10 MG TABLET (FP) PO SCH (10:21)
[2021-06-27] MEDS: COLLAGENASE CLOSTRIDIUM HIST. 30 GRAMS TUBE TP SCH (10:22)
[2021-06-27] MEDS ORDERED: HEPARIN NA (PORCINE) 5,000 UNITS/ML 1ML VIAL IVPUSH PRN (10:43)
[2021-06-27] MEDS ORDERED: HEPARIN NA (PORCINE) 5,000 UNITS/ML 1ML VIAL IVPUSH ONE (11:00)
[2021-06-27] MEDS: HEPARIN INFUSION - 25,000 UNITS/500 ML INFUS.BAG IVPB SCH (11:24)
[2021-06-27 12:04] LABS: HEMATOCRIT 29.3 % (35.4-49); MCH 30.3 pg (25.7-33.7); MEAN CELL VOLUME 89.2 fl (80-96); MEAN PLT VOLUME 8.7 fl (7.5-11.1); PLATELET COUNT 255 10^3/uL (134-434); RBC 3.29 M/mm3 (4.00-5.60); RDW 13.3 % (11.9-15.9)
[2021-06-27 12:09] LABS: ALBUMIN 3.1 g/dl (3.4-5.0); CALCIUM 8.7 mg/dL (8.5-10.1)
[2021-06-27 12:10] LABS: MAGNESIUM 2.1 mg/dL (1.8-2.4)
[2021-06-27 12:13] LABS: CREATININE 1.1 mg/dL (0.55-1.3)
[2021-06-27 12:14] LABS: BILIRUBIN,TOTAL 0.4 mg/dL (0.2-1)
[2021-06-27] MEDS ORDERED: DEXTROSE 5%-WATER - 50 ML IVPB ONE (15:49)
[2021-06-27] MEDS ORDERED: PIPERACILLIN/TAZOBACTAM 3.375 GM VIAL IVPB ONE (15:49)
[2021-06-27] MEDS: PIPERACILLIN/TAZOB 3.375 GM 3.375 GM in DEXTROSE 5%-WATER - 50 ML IVPB SCH (16:30)
[2021-06-27] MEDS: LACTATED RINGERS SOLUTION 1,000 ML IV SCH (19:00)
[2021-06-27] MEDS: ROSUVASTATIN CA 10 MG TABLET PO SCH (21:37)
[2021-06-28] MEDS ORDERED: PIPERACILLIN/TAZOBACTAM 3.375 GM VIAL IVPB ONE ×3 (00:20→17:40)
[2021-06-28] MEDS ORDERED: DEXTROSE 5%-WATER - 50 ML IVPB ONE ×3 (00:21→17:40)
[2021-06-28] MEDS: ACETAMINOPHEN 1000 MG/100 ML BAG IVPB PRN ×4 (00:30→18:37)
[2021-06-28] MEDS: PIPERACILLIN/TAZOB 3.375 GM 3.375 GM in DEXTROSE 5%-WATER - 50 ML IVPB SCH ×3 (01:00→17:52)
[2021-06-28] MEDS: HEPARIN INFUSION - 25,000 UNITS/500 ML INFUS.BAG IVPB SCH ×2 (01:57→18:28)
[2021-06-28] MEDS: HEPARIN NA (PORCINE) 5,000 UNITS/ML 1ML VIAL IVPUSH PRN ×2 (02:56→18:43)
[2021-06-28] MEDS: INSULIN SLIDING SCALE (NOVOLOG) 1 VIAL SQ SCH ×4 (06:16→21:26)
[2021-06-28 09:06] LABS: BASO % 0.4 % (0-2.0); EOS % 5.3 % (0-4.5); HEMATOCRIT 30.7 % (35.4-49); HEMOGLOBIN 10.5 GM/dL (11.7-16.9); MCH 30.6 pg (25.7-33.7); MCHC 34.4 g/dl (32.0-35.9); MEAN CELL VOLUME 89.2 fl (80-96); MEAN PLT VOLUME 9.2 fl (7.5-11.1); MONO % 11.7 % (3.8-10.2); NEUT % 61.6 % (42.8-82.8); PLATELET COUNT 235 10^3/uL (134-434); RBC 3.44 M/mm3 (4.00-5.60); RDW 13.4 % (11.9-15.9); WHITE BLOOD COUNT 8.6 K/mm3 (4.0-10.0)
[2021-06-28] MEDS: CLOPIDOGREL BISULFATE 75 MG TABLET (FP) PO SCH (09:36)
[2021-06-28] MEDS: amLODIPine BESYLATE 10 MG TABLET (FP) PO SCH (09:36)
[2021-06-28] MEDS: GABAPENTIN 300 MG CAPSULE PO SCH ×2 (09:36→21:23)
[2021-06-28] MEDS: cloNIDine HCL 0.1 MG TABLET PO SCH (09:36)
[2021-06-28] MEDS: METOPROLOL TARTRATE 50 MG TABLET (FP) PO SCH (09:41)
[2021-06-28 10:14] LABS: CALCIUM 9.2 mg/dL (8.5-10.1)
[2021-06-28 10:15] LABS: ALBUMIN 3.4 g/dl (3.4-5.0)
[2021-06-28 10:17] LABS: CREATININE 1.3 mg/dL (0.55-1.3)
[2021-06-28 10:19] LABS: BILIRUBIN,TOTAL 0.4 mg/dL (0.2-1); TOT PROT 7.8 g/dl (6.4-8.2)
[2021-06-28] MEDS ORDERED: VANCOMYCIN/WATER BAGS 1,250 MG/250 ML BAG IVPB SCH (14:00)
[2021-06-28] MEDS: COLLAGENASE CLOSTRIDIUM HIST. 30 GRAMS TUBE TP SCH (15:10)
[2021-06-28] MEDS: LACTATED RINGERS SOLUTION 1,000 ML IV SCH (18:02)
[2021-06-28] MEDS ORDERED: INSULIN (NOVOLOG) ASPART 100 UNITS/ML 10ML VIAL ONE (21:17)
[2021-06-28] MEDS: ROSUVASTATIN CA 10 MG TABLET PO SCH (21:23)
[2021-06-29] MEDS ORDERED: PIPERACILLIN/TAZOBACTAM 3.375 GM VIAL IVPB ONE ×3 (00:23→16:19)
[2021-06-29] MEDS ORDERED: DEXTROSE 5%-WATER - 50 ML IVPB ONE ×3 (00:24→16:19)
[2021-06-29] MEDS: ACETAMINOPHEN 1000 MG/100 ML BAG IVPB PRN ×4 (00:57→18:05)
[2021-06-29] MEDS: PIPERACILLIN/TAZOB 3.375 GM 3.375 GM in DEXTROSE 5%-WATER - 50 ML IVPB SCH ×3 (01:08→18:05)
[2021-06-29] MEDS: INSULIN SLIDING SCALE (NOVOLOG) 1 VIAL SQ SCH ×4 (06:24→21:15)
[2021-06-29 09:39] LABS: EOS % 8.5 % (0-4.5); HEMATOCRIT 29.6 % (35.4-49); HEMOGLOBIN 9.9 GM/dL (11.7-16.9); LYMPH % 18.2 % (8-40); MCHC 33.4 g/dl (32.0-35.9); MEAN CELL VOLUME 89.7 fl (80-96); MEAN PLT VOLUME 9.3 fl (7.5-11.1); MONO % 7.5 % (3.8-10.2); NEUT % 64.8 % (42.8-82.8); PLATELET COUNT 232 10^3/uL (134-434); RDW 13.6 % (11.9-15.9); WHITE BLOOD COUNT 6.5 K/mm3 (4.0-10.0)
[2021-06-29] MEDS: HEPARIN INFUSION - 25,000 UNITS/500 ML INFUS.BAG IVPB SCH (10:20)
[2021-06-29] MEDS: COLLAGENASE CLOSTRIDIUM HIST. 30 GRAMS TUBE TP SCH (10:34)
[2021-06-29] MEDS: cloNIDine HCL 0.1 MG TABLET PO SCH (10:34)
[2021-06-29] MEDS: GABAPENTIN 300 MG CAPSULE PO SCH ×2 (10:34→21:14)
[2021-06-29] MEDS: METOPROLOL TARTRATE 50 MG TABLET (FP) PO SCH (10:34)
[2021-06-29] MEDS: amLODIPine BESYLATE 10 MG TABLET (FP) PO SCH (10:34)
[2021-06-29] MEDS: CLOPIDOGREL BISULFATE 75 MG TABLET (FP) PO SCH (10:34)
[2021-06-29 10:43] LABS: ALBUMIN 3.1 g/dl (3.4-5.0); BLOOD UREA NITROGEN 14.9 mg/dL (7-18)
[2021-06-29 10:46] LABS: CREATININE 1.2 mg/dL (0.55-1.3)
[2021-06-29 10:48] LABS: BILIRUBIN,TOTAL 0.3 mg/dL (0.2-1); TOT PROT 7.3 g/dl (6.4-8.2)
[2021-06-29 11:48] LABS: HEMATOCRIT 30.1 % (35.4-49); HEMOGLOBIN 9.9 GM/dL (11.7-16.9); MCH 29.6 pg (25.7-33.7); MEAN CELL VOLUME 89.6 fl (80-96); MEAN PLT VOLUME 9.8 fl (7.5-11.1); PLATELET COUNT 245 10^3/uL (134-434); RBC 3.36 M/mm3 (4.00-5.60); RDW 13.3 % (11.9-15.9); WHITE BLOOD COUNT 7.1 K/mm3 (4.0-10.0)
[2021-06-29] MEDS: APIXABAN 5 MG TABLET PO SCH ×2 (14:12→21:14)
[2021-06-29] MEDS: LACTATED RINGERS SOLUTION 1,000 ML IV SCH (17:07)
[2021-06-29] MEDS ORDERED: INSULIN (NOVOLOG) ASPART 100 UNITS/ML 10ML VIAL ONE (20:58)
[2021-06-29] MEDS: ROSUVASTATIN CA 10 MG TABLET PO SCH (21:14)
[2021-06-30] MEDS: ACETAMINOPHEN 1000 MG/100 ML BAG IVPB PRN (00:02)
[2021-06-30] MEDS ORDERED: PIPERACILLIN/TAZOBACTAM 3.375 GM VIAL IVPB ONE ×3 (00:59→17:21)
[2021-06-30] MEDS ORDERED: DEXTROSE 5%-WATER - 50 ML IVPB ONE ×3 (00:59→17:21)
[2021-06-30] MEDS ORDERED: KETOROLAC TROMETHAMINE 15 MG/ML VIAL IVPUSH ONE (01:09)
[2021-06-30] MEDS: MELATONIN 5 MG TABLETS PO PRN ×2 (02:25→21:40)
[2021-06-30] MEDS: PIPERACILLIN/TAZOB 3.375 GM 3.375 GM in DEXTROSE 5%-WATER - 50 ML IVPB SCH ×3 (02:32→17:25)
[2021-06-30] MEDS ORDERED: oxyCODONE HCL 5 MG TABLET PO ONE ×2 (02:49→07:41)
[2021-06-30] MEDS ORDERED: hydrALAZINE HCL 10 MG TABLET PO ONE ×2 (06:11→09:30)
[2021-06-30] MEDS: ACETAMINOPHEN 500 MG TABLET (FP) PO PRN (06:18)
[2021-06-30] MEDS: INSULIN SLIDING SCALE (NOVOLOG) 1 VIAL SQ SCH ×5 (06:19→21:41)
[2021-06-30] MEDS: GABAPENTIN 300 MG CAPSULE PO SCH ×2 (09:53→21:40)
[2021-06-30] MEDS: CLOPIDOGREL BISULFATE 75 MG TABLET (FP) PO SCH (09:53)
[2021-06-30] MEDS: METOPROLOL TARTRATE 50 MG TABLET (FP) PO SCH (09:53)
[2021-06-30] MEDS: APIXABAN 5 MG TABLET PO SCH ×2 (09:53→21:40)
[2021-06-30] MEDS: cloNIDine HCL 0.1 MG TABLET PO SCH (09:54)
[2021-06-30] MEDS: NICOTINE 14 MG/24 HOURS TOPICAL PATCH TD SCH (09:54)
[2021-06-30] MEDS: COLLAGENASE CLOSTRIDIUM HIST. 30 GRAMS TUBE TP SCH (09:54)
[2021-06-30] MEDS: amLODIPine BESYLATE 10 MG TABLET (FP) PO SCH (09:54)
[2021-06-30] MEDS ORDERED: INSULIN (NOVOLOG) ASPART 100 UNITS/ML 10ML VIAL ONE (12:00)
[2021-06-30 12:09] LABS: BASO % 0.6 % (0-2.0); HEMOGLOBIN 10.4 GM/dL (11.7-16.9); LYMPH % 16.4 % (8-40); MCH 29.3 pg (25.7-33.7); MCHC 32.4 g/dl (32.0-35.9); MEAN CELL VOLUME 90.5 fl (80-96); MEAN PLT VOLUME 9.7 fl (7.5-11.1); MONO % 7.8 % (3.8-10.2); NEUT % 70.2 % (42.8-82.8); PLATELET COUNT 310 10^3/uL (134-434); RBC 3.53 M/mm3 (4.00-5.60); RDW 13.4 % (11.9-15.9); WHITE BLOOD COUNT 8.7 K/mm3 (4.0-10.0)
[2021-06-30 12:20] LABS: ALBUMIN 3.5 g/dl (3.4-5.0); MAGNESIUM 2.2 mg/dL (1.8-2.4)
[2021-06-30 12:21] LABS: BLOOD UREA NITROGEN 14.1 mg/dL (7-18)
[2021-06-30 12:23] LABS: CREATININE 1.4 mg/dL (0.55-1.3)
[2021-06-30 12:24] LABS: PHOSPHOROUS 4.6 mg/dL (2.5-4.9); TOT PROT 7.9 g/dl (6.4-8.2)
[2021-06-30 12:25] LABS: BILIRUBIN,TOTAL 0.4 mg/dL (0.2-1)
[2021-06-30] MEDS ORDERED: morphine SO4 SUSTAINED ACTING 100 MG TABLET.SA PO PRN (13:57)
[2021-06-30] MEDS ORDERED: SODIUM CHLORIDE 1,000 ML IV SCH (15:00)
[2021-06-30] MEDS ORDERED: morphine SO4 SUSTAINED ACTING 30 MG TABLET.SA PO ONE (19:32)
[2021-06-30] MEDS: ROSUVASTATIN CA 10 MG TABLET PO SCH (21:40)
[2021-06-30] MEDS ORDERED: morphine SO4 SUSTAINED ACTING 30 MG TABLET.SA PO SCH ×2 (22:00)
[2021-07-01] MEDS ORDERED: PIPERACILLIN/TAZOBACTAM 3.375 GM VIAL IVPB ONE ×2 (01:13→08:33)
[2021-07-01] MEDS ORDERED: DEXTROSE 5%-WATER - 50 ML IVPB ONE ×2 (01:14→08:33)
[2021-07-01] MEDS: PIPERACILLIN/TAZOB 3.375 GM 3.375 GM in DEXTROSE 5%-WATER - 50 ML IVPB SCH ×2 (01:27→09:00)
[2021-07-01] MEDS: INSULIN SLIDING SCALE (NOVOLOG) 1 VIAL SQ SCH ×4 (05:59→22:56)
[2021-07-01] MEDS: NICOTINE 14 MG/24 HOURS TOPICAL PATCH TD SCH ×2 (09:00→09:34)
[2021-07-01] MEDS: APIXABAN 5 MG TABLET PO SCH ×2 (09:02→22:56)
[2021-07-01] MEDS: CLOPIDOGREL BISULFATE 75 MG TABLET (FP) PO SCH (09:02)
[2021-07-01] MEDS: GABAPENTIN 300 MG CAPSULE PO SCH ×2 (09:02→22:58)
[2021-07-01] MEDS: METOPROLOL TARTRATE 50 MG TABLET (FP) PO SCH (09:02)
[2021-07-01] MEDS: COLLAGENASE CLOSTRIDIUM HIST. 30 GRAMS TUBE TP SCH (09:03)
[2021-07-01] MEDS: cloNIDine HCL 0.1 MG TABLET PO SCH (09:03)
[2021-07-01] MEDS: amLODIPine BESYLATE 10 MG TABLET (FP) PO SCH (09:03)
[2021-07-01 10:01] LABS: HEMATOCRIT 29.6 % (35.4-49); HEMOGLOBIN 9.8 GM/dL (11.7-16.9); MCH 29.9 pg (25.7-33.7); MCHC 33.1 g/dl (32.0-35.9); MEAN CELL VOLUME 90.2 fl (80-96); MEAN PLT VOLUME 9.9 fl (7.5-11.1); PLATELET COUNT 268 10^3/uL (134-434); RBC 3.28 M/mm3 (4.00-5.60); RDW 13.7 % (11.9-15.9); WHITE BLOOD COUNT 10.7 K/mm3 (4.0-10.0)
[2021-07-01 13:31] LABS: HEMATOCRIT 29.3 % (35.4-49); HEMOGLOBIN 9.6 GM/dL (11.7-16.9); MCH 29.9 pg (25.7-33.7); MCHC 32.7 g/dl (32.0-35.9); MEAN CELL VOLUME 91.4 fl (80-96); PLATELET COUNT 268 10^3/uL (134-434); RDW 13.3 % (11.9-15.9); WHITE BLOOD COUNT 9.6 K/mm3 (4.0-10.0)
[2021-07-01 13:35] LABS: BLOOD UREA NITROGEN 24.4 mg/dL (7-18); CALCIUM 8.4 mg/dL (8.5-10.1)
[2021-07-01] MEDS ORDERED: SODIUM CHLORIDE 1,000 ML IV SCH (13:54)
[2021-07-01] MEDS ORDERED: morphine SO4 SUSTAINED ACTING 30 MG TABLET.SA PO SCH (15:00)
[2021-07-01] MEDS ORDERED: hydrALAZINE HCL 10 MG TABLET PO PRN (15:57)
[2021-07-01] MEDS ORDERED: INSULIN (NOVOLOG) ASPART 100 UNITS/ML 10ML VIAL ONE (16:15)
[2021-07-01] MEDS ORDERED: hydrALAZINE HCL 20 MG/ML VIAL IVPUSH PRN (16:17)
[2021-07-01] MEDS: morphine SO4 SUSTAINED ACTING 30 MG TABLET.SA PO SCH ×2 (17:24→22:55)
[2021-07-01] MEDS: ACETAMINOPHEN 500 MG TABLET (FP) PO PRN (17:38)
[2021-07-01] MEDS: LACTATED RINGERS SOLUTION 1,000 ML/1,000 ML INFUS.BAG IV SCH (18:41)
[2021-07-01] MEDS ORDERED: LIDOCAINE HCL 2% JELLY (5 ML/TUBE) TP ONE (20:31)
[2021-07-01] MEDS: ROSUVASTATIN CA 10 MG TABLET PO SCH (22:54)
[2021-07-02] MEDS: ACETAMINOPHEN 500 MG TABLET (FP) PO PRN ×2 (03:17→16:12)
[2021-07-02] MEDS: INSULIN SLIDING SCALE (NOVOLOG) 1 VIAL SQ SCH ×4 (06:35→22:02)
[2021-07-02] MEDS: LACTATED RINGERS SOLUTION 1,000 ML/1,000 ML INFUS.BAG IV SCH ×2 (06:39→17:21)
[2021-07-02 08:44] LABS: HEMATOCRIT 25.9 % (35.4-49); HEMOGLOBIN 8.5 GM/dL (11.7-16.9); MEAN PLT VOLUME 9.6 fl (7.5-11.1); PLATELET COUNT 192 10^3/uL (134-434); RBC 2.85 M/mm3 (4.00-5.60); RDW 13.6 % (11.9-15.9); WHITE BLOOD COUNT 7.3 K/mm3 (4.0-10.0)
[2021-07-02 09:02] LABS: CALCIUM 8.6 mg/dL (8.5-10.1)
[2021-07-02 09:03] LABS: ALBUMIN 2.9 g/dl (3.4-5.0); BLOOD UREA NITROGEN 21.9 mg/dL (7-18); MAGNESIUM 2.2 mg/dL (1.8-2.4)
[2021-07-02 09:06] LABS: CREATININE 1.5 mg/dL (0.55-1.3); PHOSPHOROUS 4.4 mg/dL (2.5-4.9)
[2021-07-02 09:07] LABS: BILIRUBIN,TOTAL 0.4 mg/dL (0.2-1); TOT PROT 6.4 g/dl (6.4-8.2)
[2021-07-02] MEDS: CLOPIDOGREL BISULFATE 75 MG TABLET (FP) PO SCH (09:29)
[2021-07-02] MEDS: amLODIPine BESYLATE 10 MG TABLET (FP) PO SCH (09:30)
[2021-07-02] MEDS: METOPROLOL TARTRATE 50 MG TABLET (FP) PO SCH (09:30)
[2021-07-02] MEDS: APIXABAN 5 MG TABLET PO SCH ×2 (09:30→21:58)
[2021-07-02] MEDS: cloNIDine HCL 0.1 MG TABLET PO SCH (09:31)
[2021-07-02] MEDS: GABAPENTIN 300 MG CAPSULE PO SCH ×2 (09:31→21:58)
[2021-07-02] MEDS: NICOTINE 14 MG/24 HOURS TOPICAL PATCH TD SCH ×2 (09:32→13:28)
[2021-07-02] MEDS: morphine SO4 SUSTAINED ACTING 30 MG TABLET.SA PO SCH ×4 (09:32→21:58)
[2021-07-02] MEDS: COLLAGENASE CLOSTRIDIUM HIST. 30 GRAMS TUBE TP SCH (09:45)
[2021-07-02] MEDS: ROSUVASTATIN CA 10 MG TABLET PO SCH (21:58)
[2021-07-03] MEDS: LACTATED RINGERS SOLUTION 1,000 ML/1,000 ML INFUS.BAG IV SCH ×3 (02:18→16:12)
[2021-07-03] MEDS ORDERED: morphine SO4 SUSTAINED ACTING 30 MG TABLET.SA PO ONE (05:09)
[2021-07-03] MEDS: ACETAMINOPHEN 500 MG TABLET (FP) PO PRN ×2 (05:29→18:12)
[2021-07-03] MEDS: INSULIN SLIDING SCALE (NOVOLOG) 1 VIAL SQ SCH ×4 (06:49→21:43)
[2021-07-03] MEDS ORDERED: TAMSULOSIN HCL 0.4 MG CAP PO SCH (08:30)
[2021-07-03 08:35] LABS: ALBUMIN 2.9 g/dl (3.4-5.0); CALCIUM 8.9 mg/dL (8.5-10.1)
[2021-07-03 08:36] LABS: BLOOD UREA NITROGEN 17.4 mg/dL (7-18)
[2021-07-03 08:38] LABS: CREATININE 1.4 mg/dL (0.55-1.3)
[2021-07-03 08:39] LABS: PHOSPHOROUS 3.5 mg/dL (2.5-4.9)
[2021-07-03 08:40] LABS: TOT PROT 6.9 g/dl (6.4-8.2)
[2021-07-03 08:42] LABS: BILIRUBIN,TOTAL 0.5 mg/dL (0.2-1)
[2021-07-03 09:11] LABS: HEMATOCRIT 28.2 % (35.4-49); HEMOGLOBIN 9.5 GM/dL (11.7-16.9); MCH 30.1 pg (25.7-33.7); MCHC 33.6 g/dl (32.0-35.9); MEAN CELL VOLUME 89.5 fl (80-96); MEAN PLT VOLUME 9.5 fl (7.5-11.1); PLATELET COUNT 196 10^3/uL (134-434); RBC 3.15 M/mm3 (4.00-5.60); RDW 13.6 % (11.9-15.9); WHITE BLOOD COUNT 8.6 K/mm3 (4.0-10.0)
[2021-07-03] MEDS: amLODIPine BESYLATE 10 MG TABLET (FP) PO SCH (10:37)
[2021-07-03] MEDS: METOPROLOL TARTRATE 50 MG TABLET (FP) PO SCH (10:38)
[2021-07-03] MEDS: cloNIDine HCL 0.1 MG TABLET PO SCH (10:38)
[2021-07-03] MEDS: TAMSULOSIN HCL 0.4 MG CAP PO SCH (10:38)
[2021-07-03] MEDS: CLOPIDOGREL BISULFATE 75 MG TABLET (FP) PO SCH (10:38)
[2021-07-03] MEDS: APIXABAN 5 MG TABLET PO SCH ×2 (10:39→21:42)
[2021-07-03] MEDS: GABAPENTIN 300 MG CAPSULE PO SCH ×2 (10:39→21:42)
[2021-07-03] MEDS: NICOTINE 14 MG/24 HOURS TOPICAL PATCH TD SCH (10:40)
[2021-07-03] MEDS: morphine SO4 SUSTAINED ACTING 30 MG TABLET.SA PO SCH ×4 (10:40→21:41)
[2021-07-03] MEDS: COLLAGENASE CLOSTRIDIUM HIST. 30 GRAMS TUBE TP SCH (13:50)
[2021-07-03] MEDS ORDERED: PIPERACILLIN/TAZOBACTAM 3.375 GM VIAL IVPB ONE (17:55)
[2021-07-03] MEDS ORDERED: DEXTROSE 5%-WATER - 50 ML IVPB ONE (17:56)
[2021-07-03] MEDS ORDERED: PIPERACILLIN/TAZOB 3.375 GM 3.375 GM in DEXTROSE 5%-WATER - 50 ML IVPB ONE (18:00)
[2021-07-03] MEDS: VANCOMYCIN 1 GM in D5W (PRE-DOCKED) 1,000 MG/250 ML IVPB SCH (18:03)
[2021-07-03 20:25] LABS: EPI CELLS 5 /uL (0-25.1); HYALINE CASTS 0 /uL (0-3.1); PH,URINE 7.5 (5.0-8.0); URINE APPEARANCE CLEAR; URINE BACTERIA 3 /uL (0-1359); URINE BILIRUBIN NEGATIVE (NEGATIVE); URINE COLOR YELLOW; URINE GLUCOSE (UA) NEGATIVE (NEGATIVE); URINE KETONE NEGATIVE (NEGATIVE); URINE LEUK ESTERASE NEGATIVE (NEGATIVE); URINE NITRITE NEGATIVE (NEGATIVE); URINE PROTEIN 2+ (NEGATIVE); URINE RBC 43 /uL (0-23.9); URINE UROBILINOGEN 0.2 mg/dL (0.2-1.0); URINE WBC 11 /uL (0-25.8)
[2021-07-03] MEDS: ROSUVASTATIN CA 10 MG TABLET PO SCH (21:41)
[2021-07-04] MEDS: MELATONIN 5 MG TABLETS PO PRN ×2 (02:18→23:36)
[2021-07-04] MEDS: ACETAMINOPHEN 500 MG TABLET (FP) PO PRN ×4 (02:18→23:34)
[2021-07-04] MEDS ORDERED: morphine SO4 SUSTAINED ACTING 30 MG TABLET.SA PO ONE ×2 (03:43→04:00)
[2021-07-04] MEDS: INSULIN SLIDING SCALE (NOVOLOG) 1 VIAL SQ SCH ×4 (06:13→22:00)
[2021-07-04 08:14] LABS: HEMOGLOBIN 9.4 GM/dL (11.7-16.9); MCHC 33.6 g/dl (32.0-35.9); MEAN CELL VOLUME 89.3 fl (80-96); MEAN PLT VOLUME 9.9 fl (7.5-11.1); PLATELET COUNT 198 10^3/uL (134-434); RBC 3.13 M/mm3 (4.00-5.60); RDW 13.6 % (11.9-15.9); WHITE BLOOD COUNT 7.8 K/mm3 (4.0-10.0)
[2021-07-04 08:36] LABS: ALBUMIN 2.8 g/dl (3.4-5.0); BLOOD UREA NITROGEN 16.2 mg/dL (7-18); CALCIUM 9.1 mg/dL (8.5-10.1)
[2021-07-04 08:37] LABS: MAGNESIUM 2.1 mg/dL (1.8-2.4)
[2021-07-04 08:39] LABS: CREATININE 1.2 mg/dL (0.55-1.3); PHOSPHOROUS 4.5 mg/dL (2.5-4.9)
[2021-07-04 08:40] LABS: BILIRUBIN,TOTAL 0.6 mg/dL (0.2-1); TOT PROT 6.8 g/dl (6.4-8.2)
[2021-07-04] MEDS ORDERED: PIPERACILLIN/TAZOBACTAM 4.5 GM VIAL IVPB ONE ×3 (09:57→20:12)
[2021-07-04] MEDS ORDERED: DEXTROSE 5%-WATER 100 ML IVPB ONE ×3 (09:57→20:12)
[2021-07-04] MEDS: PIPERACILLIN/TAZOB 4.5 GM 4.5 GM in DEXTROSE 5%-WATER 100 ML IVPB SCH ×3 (10:37→21:55)
[2021-07-04] MEDS: TAMSULOSIN HCL 0.4 MG CAP PO SCH (10:38)
[2021-07-04] MEDS: METOPROLOL TARTRATE 50 MG TABLET (FP) PO SCH (10:38)
[2021-07-04] MEDS: cloNIDine HCL 0.1 MG TABLET PO SCH (10:38)
[2021-07-04] MEDS: CLOPIDOGREL BISULFATE 75 MG TABLET (FP) PO SCH (10:39)
[2021-07-04] MEDS: amLODIPine BESYLATE 10 MG TABLET (FP) PO SCH (10:39)
[2021-07-04] MEDS: ASPIRIN 81 MG CHEWABLE TABLETS PO SCH (10:39)
[2021-07-04] MEDS: GABAPENTIN 300 MG CAPSULE PO SCH ×2 (10:39→21:58)
[2021-07-04] MEDS: NICOTINE 14 MG/24 HOURS TOPICAL PATCH TD SCH (10:40)
[2021-07-04] MEDS: APIXABAN 5 MG TABLET PO SCH ×2 (10:40→21:58)
[2021-07-04] MEDS: COLLAGENASE CLOSTRIDIUM HIST. 30 GRAMS TUBE TP SCH (10:40)
[2021-07-04] MEDS: morphine SO4 SUSTAINED ACTING 30 MG TABLET.SA PO SCH ×4 (10:41→21:59)
[2021-07-04] MEDS ORDERED: LACTATED RINGERS SOLUTION 1,000 ML/1,000 ML INFUS.BAG IV SCH (11:21)
[2021-07-04] MEDS: VANCOMYCIN 1 GM in D5W (PRE-DOCKED) 1,000 MG/250 ML IVPB SCH (12:09)
[2021-07-04] MEDS: ROSUVASTATIN CA 10 MG TABLET PO SCH (21:58)
[2021-07-05] MEDS ORDERED: PIPERACILLIN/TAZOBACTAM 4.5 GM VIAL IVPB ONE ×4 (01:18→21:08)
[2021-07-05] MEDS ORDERED: DEXTROSE 5%-WATER 100 ML IVPB ONE ×4 (01:18→21:08)
[2021-07-05] MEDS: PIPERACILLIN/TAZOB 4.5 GM 4.5 GM in DEXTROSE 5%-WATER 100 ML IVPB SCH ×5 (02:13→23:00)
[2021-07-05] MEDS: INSULIN SLIDING SCALE (NOVOLOG) 1 VIAL SQ SCH ×4 (06:44→21:52)
[2021-07-05] MEDS: TAMSULOSIN HCL 0.4 MG CAP PO SCH (08:27)
[2021-07-05] MEDS: ACETAMINOPHEN 500 MG TABLET (FP) PO PRN ×3 (08:29→21:46)
[2021-07-05 09:56] LABS: HEMATOCRIT 30.2 % (35.4-49); MCH 29.7 pg (25.7-33.7); MCHC 33.3 g/dl (32.0-35.9); MEAN CELL VOLUME 89.4 fl (80-96); MEAN PLT VOLUME 9.3 fl (7.5-11.1); PLATELET COUNT 273 10^3/uL (134-434); RBC 3.38 M/mm3 (4.00-5.60); RDW 13.8 % (11.9-15.9); WHITE BLOOD COUNT 7.6 K/mm3 (4.0-10.0)
[2021-07-05] MEDS: VANCOMYCIN 1 GRAM (PRE-DOCKED) 1,000 MG/250 ML BAG IVPB SCH (10:06)
[2021-07-05] MEDS: NICOTINE 14 MG/24 HOURS TOPICAL PATCH TD SCH (10:06)
[2021-07-05] MEDS: morphine SO4 SUSTAINED ACTING 30 MG TABLET.SA PO SCH ×4 (10:07→21:40)
[2021-07-05] MEDS: ASPIRIN 81 MG CHEWABLE TABLETS PO SCH (10:07)
[2021-07-05] MEDS: METOPROLOL TARTRATE 50 MG TABLET (FP) PO SCH ×2 (10:07→21:40)
[2021-07-05] MEDS: GABAPENTIN 300 MG CAPSULE PO SCH ×2 (10:07→21:41)
[2021-07-05] MEDS: APIXABAN 5 MG TABLET PO SCH ×2 (10:07→21:47)
[2021-07-05] MEDS: amLODIPine BESYLATE 10 MG TABLET (FP) PO SCH (10:08)
[2021-07-05] MEDS: CLOPIDOGREL BISULFATE 75 MG TABLET (FP) PO SCH (10:08)
[2021-07-05] MEDS: cloNIDine HCL 0.1 MG TABLET PO SCH ×2 (10:08→21:35)
[2021-07-05] MEDS: COLLAGENASE CLOSTRIDIUM HIST. 30 GRAMS TUBE TP SCH (10:14)
[2021-07-05 10:20] LABS: CALCIUM 9.2 mg/dL (8.5-10.1)
[2021-07-05 10:21] LABS: BLOOD UREA NITROGEN 16.6 mg/dL (7-18)
[2021-07-05 10:24] LABS: CREATININE 1.4 mg/dL (0.55-1.3); PHOSPHOROUS 4.5 mg/dL (2.5-4.9)
[2021-07-05 10:26] LABS: BILIRUBIN,TOTAL 0.4 mg/dL (0.2-1); TOT PROT 7.2 g/dl (6.4-8.2)
[2021-07-05] MEDS: LACTATED RINGERS SOLUTION 1,000 ML/1,000 ML INFUS.BAG IV SCH (14:10)
[2021-07-05] MEDS: ROSUVASTATIN CA 10 MG TABLET PO SCH (21:35)
[2021-07-06] MEDS ORDERED: PIPERACILLIN/TAZOBACTAM 4.5 GM VIAL IVPB ONE ×4 (03:18→20:32)
[2021-07-06] MEDS ORDERED: DEXTROSE 5%-WATER 100 ML IVPB ONE ×4 (03:18→20:33)
[2021-07-06] MEDS: PIPERACILLIN/TAZOB 4.5 GM 4.5 GM in DEXTROSE 5%-WATER 100 ML IVPB SCH ×4 (03:28→22:41)
[2021-07-06] MEDS: INSULIN SLIDING SCALE (NOVOLOG) 1 VIAL SQ SCH ×4 (06:48→22:53)
[2021-07-06 08:00] LABS: BASO % 0.9 % (0-2.0); EOS % 7.7 % (0-4.5); HEMOGLOBIN 10.1 GM/dL (11.7-16.9); LYMPH % 20.5 % (8-40); MCH 29.9 pg (25.7-33.7); MCHC 33.6 g/dl (32.0-35.9); MEAN CELL VOLUME 88.9 fl (80-96); MONO % 10.2 % (3.8-10.2); NEUT % 60.7 % (42.8-82.8); PLATELET COUNT 311 10^3/uL (134-434); RBC 3.37 M/mm3 (4.00-5.60); RDW 13.5 % (11.9-15.9); WHITE BLOOD COUNT 7.1 K/mm3 (4.0-10.0)
[2021-07-06 08:25] LABS: BLOOD UREA NITROGEN 13.8 mg/dL (7-18); MAGNESIUM 2.1 mg/dL (1.8-2.4)
[2021-07-06 08:29] LABS: CREATININE 1.3 mg/dL (0.55-1.3); PHOSPHOROUS 4.7 mg/dL (2.5-4.9)
[2021-07-06] MEDS: amLODIPine BESYLATE 10 MG TABLET (FP) PO SCH (09:33)
[2021-07-06] MEDS: TAMSULOSIN HCL 0.4 MG CAP PO SCH (09:33)
[2021-07-06] MEDS: APIXABAN 5 MG TABLET PO SCH ×2 (09:33→22:43)
[2021-07-06] MEDS: CLOPIDOGREL BISULFATE 75 MG TABLET (FP) PO SCH (09:33)
[2021-07-06] MEDS: METOPROLOL TARTRATE 50 MG TABLET (FP) PO SCH ×2 (09:34→22:43)
[2021-07-06] MEDS: cloNIDine HCL 0.1 MG TABLET PO SCH ×2 (09:34→22:41)
[2021-07-06] MEDS: morphine SO4 SUSTAINED ACTING 30 MG TABLET.SA PO SCH ×4 (09:34→22:45)
[2021-07-06] MEDS: ASPIRIN 81 MG CHEWABLE TABLETS PO SCH (09:34)
[2021-07-06] MEDS: NICOTINE 14 MG/24 HOURS TOPICAL PATCH TD SCH (09:35)
[2021-07-06] MEDS: COLLAGENASE CLOSTRIDIUM HIST. 30 GRAMS TUBE TP SCH (09:36)
[2021-07-06] MEDS: GABAPENTIN 300 MG CAPSULE PO SCH ×2 (09:39→22:45)
[2021-07-06] MEDS: ACETAMINOPHEN 500 MG TABLET (FP) PO PRN ×2 (09:52→23:12)
[2021-07-06] MEDS: VANCOMYCIN 1 GRAM (PRE-DOCKED) 1,000 MG/250 ML BAG IVPB SCH ×2 (11:12→23:12)
[2021-07-06] MEDS: LACTATED RINGERS SOLUTION 1,000 ML/1,000 ML INFUS.BAG IV SCH ×2 (11:21→12:43)
[2021-07-06] MEDS: VANCOMYCIN 1 GM in D5W (PRE-DOCKED) 1,000 MG/250 ML IVPB SCH ×2 (13:57→14:28)
[2021-07-06] MEDS: NICOTINE POLACRILEX 4 MG GUM BUC PRN (16:13)
[2021-07-06] MEDS: ROSUVASTATIN CA 10 MG TABLET PO SCH (22:44)
[2021-07-07] MEDS ORDERED: DEXTROSE 5%-WATER 100 ML IVPB ONE ×2 (01:32→08:47)
[2021-07-07] MEDS ORDERED: PIPERACILLIN/TAZOBACTAM 4.5 GM VIAL IVPB ONE ×2 (01:32→08:47)
[2021-07-07] MEDS: PIPERACILLIN/TAZOB 4.5 GM 4.5 GM in DEXTROSE 5%-WATER 100 ML IVPB SCH ×4 (02:17→16:01)
[2021-07-07] MEDS: INSULIN SLIDING SCALE (NOVOLOG) 1 VIAL SQ SCH ×2 (06:04→11:03)
[2021-07-07] MEDS: cloNIDine HCL 0.1 MG TABLET PO SCH (09:02)
[2021-07-07] MEDS: GABAPENTIN 300 MG CAPSULE PO SCH (09:02)
[2021-07-07] MEDS: APIXABAN 5 MG TABLET PO SCH (09:02)
[2021-07-07] MEDS: TAMSULOSIN HCL 0.4 MG CAP PO SCH (09:02)
[2021-07-07] MEDS: amLODIPine BESYLATE 10 MG TABLET (FP) PO SCH (09:02)
[2021-07-07] MEDS: METOPROLOL TARTRATE 50 MG TABLET (FP) PO SCH (09:03)
[2021-07-07] MEDS: morphine SO4 SUSTAINED ACTING 30 MG TABLET.SA PO SCH ×2 (09:03→13:42)
[2021-07-07] MEDS: CLOPIDOGREL BISULFATE 75 MG TABLET (FP) PO SCH (09:03)
[2021-07-07 09:04] LABS: EOS % 7.7 % (0-4.5); HEMATOCRIT 33.1 % (35.4-49); LYMPH % 23.1 % (8-40); MCH 29.4 pg (25.7-33.7); MCHC 33.2 g/dl (32.0-35.9); MEAN CELL VOLUME 88.4 fl (80-96); MEAN PLT VOLUME 9.2 fl (7.5-11.1); MONO % 10.4 % (3.8-10.2); NEUT % 57.8 % (42.8-82.8); PLATELET COUNT 335 10^3/uL (134-434); RBC 3.75 M/mm3 (4.00-5.60); RDW 13.6 % (11.9-15.9); WHITE BLOOD COUNT 7.1 K/mm3 (4.0-10.0)
[2021-07-07] MEDS: ACETAMINOPHEN 500 MG TABLET (FP) PO PRN (09:04)
[2021-07-07] MEDS: COLLAGENASE CLOSTRIDIUM HIST. 30 GRAMS TUBE TP SCH (09:04)
[2021-07-07] MEDS: NICOTINE POLACRILEX 4 MG GUM BUC PRN (09:05)
[2021-07-07] MEDS: ASPIRIN 81 MG CHEWABLE TABLETS PO SCH (09:06)
[2021-07-07 09:13] LABS: CALCIUM 9.3 mg/dL (8.5-10.1)
[2021-07-07 09:14] LABS: ALBUMIN 3.4 g/dl (3.4-5.0); BLOOD UREA NITROGEN 15.2 mg/dL (7-18); MAGNESIUM 2.2 mg/dL (1.8-2.4)
[2021-07-07 09:16] LABS: PHOSPHOROUS 5.2 mg/dL (2.5-4.9)
[2021-07-07 09:17] LABS: CREATININE 1.4 mg/dL (0.55-1.3)
[2021-07-07 09:18] LABS: BILIRUBIN,TOTAL 0.5 mg/dL (0.2-1)
[2021-07-07] MEDS: VANCOMYCIN 1 GRAM (PRE-DOCKED) 1,000 MG/250 ML BAG IVPB SCH (12:16)
[2021-07-07] MEDS: LACTATED RINGERS SOLUTION 1,000 ML/1,000 ML INFUS.BAG IV SCH (13:45)
[2021-07-07 14:24] VITALS: BP 135/78; PULSE 57; TEMP 98.2
== END 2021-07-07 17:02 | disposition left against medical advice (07) | DRG 181 ==
LOC: JER 11:12 → JERBED 15:30 → INTOOBSV 15:30 → UNDOADMOB 15:30 → JERBED 18:43 → J6S 22:55 → OBSVTOIN 06-27 15:16 → J7W 06-30 13:11
PROVIDERS: ADMIT Internal Medicine; ATTEND Internal Medicine
PROC: 047L3DZ Dilation of Left Femoral Artery with Intraluminal Device, Percutaneous Approach (ICD-10-PCS; 2021-06-26)
PROC: B40DYZZ Plain Radiography of Aorta and Bilateral Lower Extremity Arteries using Other Contrast (ICD-10-PCS; 2021-06-26)
PROC: 04CL3ZZ Extirpation of Matter from Left Femoral Artery, Percutaneous Approach (ICD-10-PCS; principal; 2021-06-26 13:00)
DX: E11.51 Type 2 diabetes mellitus with diabetic peripheral angiopathy without gangrene (principal); E11.621 Type 2 diabetes mellitus with foot ulcer; E11.42 Type 2 diabetes mellitus with diabetic polyneuropathy; N17.9 Acute kidney failure, unspecified; J18.9 Pneumonia, unspecified organism; F11.20 Opioid dependence, uncomplicated; I82.432 Acute embolism and thrombosis of left popliteal vein; L97.528 Non-pressure chronic ulcer of other part of left foot with other specified severity; E78.5 Hyperlipidemia, unspecified; I25.10 Atherosclerotic heart disease of native coronary artery without angina pectoris; I25.2 Old myocardial infarction; Z95.1 Presence of aortocoronary bypass graft; I10 Essential (primary) hypertension
CPT/HCPCS: 36415; 71045-TC-FY; 73718-TC-LT; 76000-TC-FY; 80048; 80053; 81003; 82962; 83605; 83735; 84100; 85025; 85027; 85610; 85730; 86850; 86900; 86901; 87040; 87070; 87086; 87186; 87205; 93005; 93010; 93971-TC; 94760; 97116-GP; 97162-GP; 99285-25; C9803; G0378; G0463-25; G0480; J0131; J0735; J0875; J1644; U0003; U0005

== ENCOUNTER 2021-07-08 14:32 | Emergency (ER) | payer OTHER ==
[2021-07-08 14:50] VITALS: BP 111/63; PULSE 66; TEMP 97.7; BMI 35.5
== END 2021-07-08 17:31 | disposition home or self-care (01) ==
LOC: JER 14:32
DX: Z48.00 Encounter for change or removal of nonsurgical wound dressing (principal)
CPT/HCPCS: 99281-25

== ENCOUNTER 2021-09-08 13:44 | Inpatient (IN) | payer OTHER ==
[2021-09-08] MEDS ORDERED: PIPERACILLIN/TAZOB 3.375 GM 3.375 GM in DEXTROSE 5%-WATER - 50 ML IVPB ONE (15:37)
[2021-09-08] MEDS ORDERED: CLINDAMYCIN 600MG PREMIX IVPB 600 MG/50 ML BAG IVPB ONE ×2 (15:37→16:19)
[2021-09-08] MEDS ORDERED: VANCOMYCIN 1 GM in D5W (PRE-DOCKED) 1,000 MG/250 ML IVPB ONE (15:37)
[2021-09-08] MEDS ORDERED: VANCOMYCIN 1 GRAM (PRE-DOCKED) 1,000 MG/250 ML BAG IVPB ONE (16:18)
[2021-09-08] MEDS ORDERED: PIPERACILLIN/TAZOB 3.375 GM 3.375 GM/50 ML BAG IVPB ONE (16:19)
[2021-09-08 17:01] LABS: BASO % 0.6 % (0-2.0); EOS % 4.7 % (0-4.5); HEMATOCRIT 32.7 % (35.4-49); MCH 29.8 pg (25.7-33.7); MCHC 33.7 g/dl (32.0-35.9); MEAN CELL VOLUME 88.5 fl (80-96); MEAN PLT VOLUME 9.5 fl (7.5-11.1); MONO % 10.8 % (3.8-10.2); NEUT % 74.9 % (42.8-82.8); PLATELET COUNT 265 10^3/uL (134-434); RBC 3.69 M/mm3 (4.00-5.60); RDW 15.6 % (11.9-15.9)
[2021-09-08 17:08] LABS: INR 1.4 (0.83-1.09); PROTHROMBIN TIME (PATIENT) 16.2 SEC (9.7-13.0)
[2021-09-08 17:10] LABS: ACTIVATED PTT 32.3 SECONDS (25.2-36.5)
[2021-09-08 17:31] LABS: ALBUMIN 2.9 g/dl (3.4-5.0); BLOOD UREA NITROGEN 13.9 mg/dL (7-18); CALCIUM 8.9 mg/dL (8.5-10.1)
[2021-09-08 17:34] LABS: CREATININE 1.3 mg/dL (0.55-1.3)
[2021-09-08 17:36] LABS: BILIRUBIN,TOTAL 0.3 mg/dL (0.2-1); TOT PROT 7.6 g/dl (6.4-8.2)
[2021-09-08] MEDS ORDERED: SODIUM CHLORIDE 1,000 ML IV SCH (21:15)
[2021-09-08] MEDS ORDERED: TETANUS AND DIPHTHERIA TOXOID 0.5 ML DISP.SYRIN IM ONE (21:34)
[2021-09-08] MEDS ORDERED: PIPERACILLIN/TAZOB 4.5 GM 4.5 GM in DEXTROSE 5%-WATER 100 ML IVPB SCH (22:00)
[2021-09-08] MEDS ORDERED: ROSUVASTATIN CA 10 MG TABLET PO SCH (22:00)
[2021-09-08] MEDS ORDERED: GABAPENTIN 300 MG CAPSULE PO SCH (22:00)
[2021-09-08] MEDS ORDERED: METOPROLOL TARTRATE 50 MG TABLET (FP) PO SCH (22:00)
[2021-09-08] MEDS ORDERED: cloNIDine HCL 0.1 MG TABLET PO SCH (22:00)
[2021-09-08] MEDS ORDERED: LACTATED RINGERS SOLUTION 1,000 ML/1,000 ML INFUS.BAG IV SCH (22:15)
[2021-09-08] MEDS ORDERED: PIPERACILLIN/TAZOBACTAM 4.5 GM VIAL IVPB ONE (22:34)
[2021-09-08] MEDS ORDERED: DEXTROSE 5%-WATER 100 ML IVPB ONE (22:34)
[2021-09-08] MEDS: PIPERACILLIN/TAZOB 4.5 GM 4.5 GM in DEXTROSE 5%-WATER 100 ML IVPB SCH (22:40)
[2021-09-09] MEDS ORDERED: CLINDAMYCIN 600MG PREMIX IVPB 600 MG/50 ML BAG IVPB SCH ×2 (00:05→01:00)
[2021-09-09 01:36] VITALS: BMI 26.2
[2021-09-09 03:12] VITALS: BP 154/81; PULSE 68; TEMP 98.4
[2021-09-09] MEDS: PIPERACILLIN/TAZOB 4.5 GM 4.5 GM in DEXTROSE 5%-WATER 100 ML IVPB SCH (05:00)
[2021-09-09] MEDS ORDERED: INSULIN SLIDING SCALE (NOVOLOG) 1 VIAL SQ SCH (07:00)
[2021-09-09] MEDS ORDERED: TAMSULOSIN HCL 0.4 MG CAP PO SCH (08:30)
[2021-09-09 08:34] LABS: BASO % 0.5 % (0-2.0); EOS % 3.6 % (0-4.5); HEMATOCRIT 32.8 % (35.4-49); MCH 29.8 pg (25.7-33.7); MCHC 33.6 g/dl (32.0-35.9); MEAN CELL VOLUME 88.5 fl (80-96); MEAN PLT VOLUME 9.4 fl (7.5-11.1); MONO % 12.2 % (3.8-10.2); NEUT % 74.7 % (42.8-82.8); PLATELET COUNT 264 10^3/uL (134-434); RDW 15.8 % (11.9-15.9); WHITE BLOOD COUNT 9.5 K/mm3 (4.0-10.0)
[2021-09-09 08:38] LABS: ALBUMIN 2.9 g/dl (3.4-5.0); BLOOD UREA NITROGEN 16.8 mg/dL (7-18); CALCIUM 9.1 mg/dL (8.5-10.1); MAGNESIUM 2.3 mg/dL (1.8-2.4)
[2021-09-09 08:41] LABS: CREATININE 1.5 mg/dL (0.55-1.3); PHOSPHOROUS 4.4 mg/dL (2.5-4.9)
[2021-09-09 08:43] LABS: BILIRUBIN,TOTAL 0.3 mg/dL (0.2-1); TOT PROT 7.6 g/dl (6.4-8.2)
[2021-09-09] MEDS ORDERED: amLODIPine BESYLATE 10 MG TABLET (FP) PO SCH (10:00)
[2021-09-09] MEDS ORDERED: VANCOMYCIN 1 GM in D5W (PRE-DOCKED) 1,000 MG/250 ML IVPB SCH (10:00)
[2021-09-09] MEDS ORDERED: VANCOMYCIN/WATER FOR INJ (PEG) 1,000 MG/200 ML BAG IVPB SCH (10:00)
== END 2021-09-09 05:20 | disposition left against medical advice (07) | DRG 344 ==
LOC: JER 13:44 → JERBED 18:41 → J6S 20:17
PROVIDERS: ADMIT Hospitalist; ATTEND Internal Medicine
DX: E11.69 Type 2 diabetes mellitus with other specified complication (principal); M86.9 Osteomyelitis, unspecified; E11.40 Type 2 diabetes mellitus with diabetic neuropathy, unspecified; E11.621 Type 2 diabetes mellitus with foot ulcer; E78.5 Hyperlipidemia, unspecified; I10 Essential (primary) hypertension; I25.10 Atherosclerotic heart disease of native coronary artery without angina pectoris; L08.9 Local infection of the skin and subcutaneous tissue, unspecified; I25.2 Old myocardial infarction; Z95.1 Presence of aortocoronary bypass graft; Z86.718 Personal history of other venous thrombosis and embolism
CPT/HCPCS: 36415; 73630-TC-LT; 73660-TC-LT-FY; 80053; 82962; 83735; 84100; 85025; 85610; 85651; 85730; 86140; 86850; 86900; 86901; 87040; 87070; 87077; 87186; 87205; 93971-TC; 99285-25; C9803-CS; G0277; J0735; U0003; U0005

== ENCOUNTER 2021-09-09 06:54 | Inpatient (IN) | payer OTHER ==
[2021-09-09 10:06] LABS: BASO % 0.4 % (0-2.0); EOS % 3.9 % (0-4.5); HEMATOCRIT 31.5 % (35.4-49); HEMOGLOBIN 10.7 GM/dL (11.7-16.9); LYMPH % 12.3 % (8-40); MCHC 34.1 g/dl (32.0-35.9); NEUT % 71.4 % (42.8-82.8); PLATELET COUNT 260 10^3/uL (134-434); RBC 3.58 M/mm3 (4.00-5.60); RDW 15.4 % (11.9-15.9); WHITE BLOOD COUNT 7.9 K/mm3 (4.0-10.0)
[2021-09-09 10:12] LABS: INR 1.33 (0.83-1.09); PROTHROMBIN TIME (PATIENT) 15.3 SEC (9.7-13.0)
[2021-09-09 10:28] LABS: CALCIUM 8.7 mg/dL (8.5-10.1)
[2021-09-09 10:29] LABS: ALBUMIN 2.6 g/dl (3.4-5.0); BLOOD UREA NITROGEN 16.5 mg/dL (7-18)
[2021-09-09 10:32] LABS: CREATININE 1.4 mg/dL (0.55-1.3)
[2021-09-09 10:33] LABS: BILIRUBIN,TOTAL 0.2 mg/dL (0.2-1); TOT PROT 7.4 g/dl (6.4-8.2)
[2021-09-09] MEDS ORDERED: PIPERACILLIN/TAZOBACTAM 3.375 GM VIAL IVPB ONE ×2 (12:16→17:48)
[2021-09-09] MEDS ORDERED: DEXTROSE 5%-WATER - 50 ML IVPB ONE ×2 (12:16→17:48)
[2021-09-09] MEDS: PIPERACILLIN/TAZOB 3.375 GM 3.375 GM in DEXTROSE 5%-WATER - 50 ML IVPB SCH ×2 (12:39→18:03)
[2021-09-09] MEDS ORDERED: ACETAMINOPHEN 1000 MG/100 ML BAG IVPB ONE (12:49)
[2021-09-09] MEDS: CLINDAMYCIN 600MG PREMIX IVPB 600 MG/50 ML BAG IVPB SCH ×2 (13:43→19:17)
[2021-09-09] MEDS ORDERED: morphine SO4 SUSTAINED ACTING 30 MG TABLET.SA PO SCH (15:30)
[2021-09-09] MEDS: INSULIN SLIDING SCALE (NOVOLOG) 1 VIAL SQ SCH (17:08)
[2021-09-09] MEDS: amLODIPine BESYLATE 10 MG TABLET (FP) PO SCH (17:08)
[2021-09-09] MEDS: morphine SO4 SUSTAINED ACTING 30 MG TABLET.SA PO SCH ×2 (17:29→23:13)
[2021-09-09 17:47] VITALS: BMI 24.7
[2021-09-09] MEDS: cloNIDine HCL 0.1 MG TABLET PO SCH (23:13)
[2021-09-10] MEDS: CLINDAMYCIN 600MG PREMIX IVPB 600 MG/50 ML BAG IVPB SCH ×3 (01:49→17:43)
[2021-09-10] MEDS ORDERED: PIPERACILLIN/TAZOBACTAM 3.375 GM VIAL IVPB ONE ×3 (03:16→17:36)
[2021-09-10] MEDS ORDERED: DEXTROSE 5%-WATER - 50 ML IVPB ONE ×3 (03:16→17:36)
[2021-09-10] MEDS: PIPERACILLIN/TAZOB 3.375 GM 3.375 GM in DEXTROSE 5%-WATER - 50 ML IVPB SCH ×3 (03:19→17:37)
[2021-09-10] MEDS: morphine SO4 SUSTAINED ACTING 30 MG TABLET.SA PO SCH ×3 (07:06→22:37)
[2021-09-10] MEDS: INSULIN SLIDING SCALE (NOVOLOG) 1 VIAL SQ SCH ×3 (07:11→16:56)
[2021-09-10 09:05] LABS: EOS % 6.6 % (0-4.5); HEMATOCRIT 32.9 % (35.4-49); HEMOGLOBIN 11.1 GM/dL (11.7-16.9); LYMPH % 15.2 % (8-40); MCH 29.5 pg (25.7-33.7); MCHC 33.7 g/dl (32.0-35.9); MEAN CELL VOLUME 87.7 fl (80-96); MEAN PLT VOLUME 9.9 fl (7.5-11.1); MONO % 12.5 % (3.8-10.2); NEUT % 64.7 % (42.8-82.8); PLATELET COUNT 290 10^3/uL (134-434); RBC 3.75 M/mm3 (4.00-5.60); RDW 15.7 % (11.9-15.9); WHITE BLOOD COUNT 6.4 K/mm3 (4.0-10.0)
[2021-09-10 09:39] LABS: CALCIUM 8.9 mg/dL (8.5-10.1)
[2021-09-10 09:40] LABS: ALBUMIN 2.8 g/dl (3.4-5.0); MAGNESIUM 2.4 mg/dL (1.8-2.4)
[2021-09-10 09:43] LABS: CREATININE 1.1 mg/dL (0.55-1.3); PHOSPHOROUS 4.4 mg/dL (2.5-4.9)
[2021-09-10 09:44] LABS: BILIRUBIN,TOTAL 0.7 mg/dL (0.2-1); TOT PROT 7.6 g/dl (6.4-8.2)
[2021-09-10] MEDS: METOPROLOL TARTRATE 50 MG TABLET (FP) PO SCH ×2 (10:16→22:36)
[2021-09-10] MEDS: TAMSULOSIN HCL 0.4 MG CAP PO SCH (10:16)
[2021-09-10] MEDS: amLODIPine BESYLATE 10 MG TABLET (FP) PO SCH (10:16)
[2021-09-10] MEDS: ROSUVASTATIN CA 10 MG TABLET PO SCH (10:16)
[2021-09-10] MEDS: cloNIDine HCL 0.1 MG TABLET PO SCH ×2 (10:16→22:36)
[2021-09-10 15:08] LABS: SARS-CoV-2 NAA Not Detected (Not Detected)
[2021-09-10] MEDS: APIXABAN 5 MG TABLET PO SCH (22:36)
[2021-09-11] MEDS: CLINDAMYCIN 600MG PREMIX IVPB 600 MG/50 ML BAG IVPB SCH ×3 (01:52→18:23)
[2021-09-11] MEDS ORDERED: PIPERACILLIN/TAZOBACTAM 3.375 GM VIAL IVPB ONE ×3 (02:36→17:16)
[2021-09-11] MEDS ORDERED: DEXTROSE 5%-WATER - 50 ML IVPB ONE ×3 (02:36→17:16)
[2021-09-11] MEDS: PIPERACILLIN/TAZOB 3.375 GM 3.375 GM in DEXTROSE 5%-WATER - 50 ML IVPB SCH ×3 (02:37→17:43)
[2021-09-11] MEDS ORDERED: diphenhydrAMINE HCL 25 MG CAPSULE (FP) PO ONE (04:03)
[2021-09-11] MEDS: morphine SO4 SUSTAINED ACTING 30 MG TABLET.SA PO SCH ×3 (06:30→21:59)
[2021-09-11] MEDS: INSULIN SLIDING SCALE (NOVOLOG) 1 VIAL SQ SCH ×3 (06:31→16:28)
[2021-09-11 09:06] LABS: BASO % 0.7 % (0-2.0); EOS % 6.8 % (0-4.5); HEMATOCRIT 31.9 % (35.4-49); HEMOGLOBIN 10.5 GM/dL (11.7-16.9); LYMPH % 29.1 % (8-40); MCH 29.1 pg (25.7-33.7); MCHC 32.9 g/dl (32.0-35.9); MEAN CELL VOLUME 88.2 fl (80-96); MEAN PLT VOLUME 9.6 fl (7.5-11.1); MONO % 14.5 % (3.8-10.2); NEUT % 48.9 % (42.8-82.8); PLATELET COUNT 314 10^3/uL (134-434); RBC 3.62 M/mm3 (4.00-5.60); RDW 15.4 % (11.9-15.9); WHITE BLOOD COUNT 7.2 K/mm3 (4.0-10.0)
[2021-09-11 09:23] LABS: ALBUMIN 2.4 g/dl (3.4-5.0); BLOOD UREA NITROGEN 12.2 mg/dL (7-18); CALCIUM 8.3 mg/dL (8.5-10.1)
[2021-09-11 09:26] LABS: CREATININE 1.1 mg/dL (0.55-1.3)
[2021-09-11 09:28] LABS: BILIRUBIN,TOTAL 0.4 mg/dL (0.2-1); TOT PROT 7.3 g/dl (6.4-8.2)
[2021-09-11] MEDS: TAMSULOSIN HCL 0.4 MG CAP PO SCH (09:42)
[2021-09-11] MEDS: METOPROLOL TARTRATE 50 MG TABLET (FP) PO SCH ×2 (09:43→21:59)
[2021-09-11] MEDS: FUROSEMIDE 40 MG TABLET (FP) PO SCH (09:43)
[2021-09-11] MEDS: cloNIDine HCL 0.1 MG TABLET PO SCH ×2 (09:43→22:00)
[2021-09-11] MEDS: amLODIPine BESYLATE 10 MG TABLET (FP) PO SCH (09:43)
[2021-09-11] MEDS: ROSUVASTATIN CA 10 MG TABLET PO SCH (09:43)
[2021-09-11] MEDS: APIXABAN 5 MG TABLET PO SCH ×2 (09:43→22:00)
[2021-09-11] MEDS: ASPIRIN COATED 81 MG TABLET.EC PO SCH (09:43)
[2021-09-12] MEDS ORDERED: PIPERACILLIN/TAZOBACTAM 3.375 GM VIAL IVPB ONE ×3 (01:19→18:10)
[2021-09-12] MEDS ORDERED: DEXTROSE 5%-WATER - 50 ML IVPB ONE ×3 (01:20→18:11)
[2021-09-12] MEDS: PIPERACILLIN/TAZOB 3.375 GM 3.375 GM in DEXTROSE 5%-WATER - 50 ML IVPB SCH ×3 (02:10→18:22)
[2021-09-12] MEDS: CLINDAMYCIN 600MG PREMIX IVPB 600 MG/50 ML BAG IVPB SCH ×3 (02:42→17:01)
[2021-09-12] MEDS: morphine SO4 SUSTAINED ACTING 30 MG TABLET.SA PO SCH ×3 (06:18→21:32)
[2021-09-12] MEDS: INSULIN SLIDING SCALE (NOVOLOG) 1 VIAL SQ SCH ×3 (06:19→16:27)
[2021-09-12 09:16] LABS: BASO % 0.9 % (0-2.0); EOS % 6.1 % (0-4.5); HEMATOCRIT 32.8 % (35.4-49); HEMOGLOBIN 11.1 GM/dL (11.7-16.9); LYMPH % 21.9 % (8-40); MCH 29.7 pg (25.7-33.7); MCHC 33.8 g/dl (32.0-35.9); MEAN CELL VOLUME 87.8 fl (80-96); MONO % 9.4 % (3.8-10.2); NEUT % 61.7 % (42.8-82.8); PLATELET COUNT 339 10^3/uL (134-434); RBC 3.74 M/mm3 (4.00-5.60); RDW 15.5 % (11.9-15.9); WHITE BLOOD COUNT 7.7 K/mm3 (4.0-10.0)
[2021-09-12 09:32] LABS: BLOOD UREA NITROGEN 15.3 mg/dL (7-18)
[2021-09-12 09:36] LABS: CREATININE 1.2 mg/dL (0.55-1.3)
[2021-09-12 09:37] LABS: BILIRUBIN,TOTAL 0.2 mg/dL (0.2-1); TOT PROT 7.9 g/dl (6.4-8.2)
[2021-09-12] MEDS: METOPROLOL TARTRATE 50 MG TABLET (FP) PO SCH ×2 (09:38→21:33)
[2021-09-12] MEDS: amLODIPine BESYLATE 10 MG TABLET (FP) PO SCH (09:38)
[2021-09-12] MEDS: FUROSEMIDE 40 MG TABLET (FP) PO SCH (09:38)
[2021-09-12] MEDS: ROSUVASTATIN CA 10 MG TABLET PO SCH (09:39)
[2021-09-12] MEDS: cloNIDine HCL 0.1 MG TABLET PO SCH ×2 (09:39→21:32)
[2021-09-12] MEDS: TAMSULOSIN HCL 0.4 MG CAP PO SCH (09:39)
[2021-09-12] MEDS: ASPIRIN COATED 81 MG TABLET.EC PO SCH (09:39)
[2021-09-12] MEDS: APIXABAN 5 MG TABLET PO SCH ×2 (09:39→21:34)
[2021-09-12] MEDS ORDERED: INSULIN (NOVOLOG) ASPART 100 UNITS/ML 10ML VIAL ONE (11:03)
[2021-09-12] MEDS ORDERED: VANCOMYCIN 1 GM in D5W (PRE-DOCKED) 1,000 MG/250 ML IVPB ONE (13:33)
[2021-09-12] MEDS ORDERED: VANCOMYCIN/WATER FOR INJ (PEG) 1,000 MG/200 ML BAG IVPB SCH (14:15)
[2021-09-13] MEDS ORDERED: DEXTROSE 5%-WATER - 50 ML IVPB ONE ×3 (01:27→17:09)
[2021-09-13] MEDS ORDERED: PIPERACILLIN/TAZOBACTAM 3.375 GM VIAL IVPB ONE ×3 (01:27→17:08)
[2021-09-13] MEDS: PIPERACILLIN/TAZOB 3.375 GM 3.375 GM in DEXTROSE 5%-WATER - 50 ML IVPB SCH ×3 (02:07→17:42)
[2021-09-13] MEDS: CLINDAMYCIN 600MG PREMIX IVPB 600 MG/50 ML BAG IVPB SCH ×3 (02:46→18:01)
[2021-09-13] MEDS ORDERED: INSULIN (NOVOLOG) ASPART 100 UNITS/ML 10ML VIAL ONE (06:20)
[2021-09-13] MEDS: morphine SO4 SUSTAINED ACTING 30 MG TABLET.SA PO SCH ×3 (06:29→21:37)
[2021-09-13] MEDS: INSULIN SLIDING SCALE (NOVOLOG) 1 VIAL SQ SCH ×3 (06:30→17:13)
[2021-09-13] MEDS: cloNIDine HCL 0.1 MG TABLET PO SCH ×2 (11:00→21:37)
[2021-09-13] MEDS: ROSUVASTATIN CA 10 MG TABLET PO SCH (11:00)
[2021-09-13] MEDS: APIXABAN 5 MG TABLET PO SCH ×2 (11:00→21:37)
[2021-09-13] MEDS: METOPROLOL TARTRATE 50 MG TABLET (FP) PO SCH ×2 (11:00→21:37)
[2021-09-13] MEDS: amLODIPine BESYLATE 10 MG TABLET (FP) PO SCH (11:00)
[2021-09-13] MEDS: ASPIRIN COATED 81 MG TABLET.EC PO SCH (11:00)
[2021-09-13] MEDS: FUROSEMIDE 40 MG TABLET (FP) PO SCH (11:00)
[2021-09-13] MEDS: TAMSULOSIN HCL 0.4 MG CAP PO SCH (11:01)
[2021-09-13] MEDS: NICOTINE 21 MG/24 HOURS TOPICAL PATCH TD SCH (14:00)
[2021-09-14] MEDS ORDERED: PIPERACILLIN/TAZOBACTAM 3.375 GM VIAL IVPB ONE ×2 (02:07→09:56)
[2021-09-14] MEDS ORDERED: DEXTROSE 5%-WATER - 50 ML IVPB ONE ×2 (02:07→09:56)
[2021-09-14] MEDS: PIPERACILLIN/TAZOB 3.375 GM 3.375 GM in DEXTROSE 5%-WATER - 50 ML IVPB SCH ×2 (02:08→10:30)
[2021-09-14] MEDS: CLINDAMYCIN 600MG PREMIX IVPB 600 MG/50 ML BAG IVPB SCH ×2 (02:52→09:58)
[2021-09-14] MEDS: morphine SO4 SUSTAINED ACTING 30 MG TABLET.SA PO SCH ×2 (06:36→13:23)
[2021-09-14] MEDS: INSULIN SLIDING SCALE (NOVOLOG) 1 VIAL SQ SCH ×2 (06:36→12:07)
[2021-09-14] MEDS: cloNIDine HCL 0.1 MG TABLET PO SCH (10:30)
[2021-09-14] MEDS: ASPIRIN COATED 81 MG TABLET.EC PO SCH (10:31)
[2021-09-14] MEDS: ROSUVASTATIN CA 10 MG TABLET PO SCH (10:31)
[2021-09-14] MEDS: FUROSEMIDE 40 MG TABLET (FP) PO SCH (10:31)
[2021-09-14] MEDS: APIXABAN 5 MG TABLET PO SCH (10:31)
[2021-09-14] MEDS: NICOTINE 21 MG/24 HOURS TOPICAL PATCH TD SCH (10:32)
[2021-09-14] MEDS: amLODIPine BESYLATE 10 MG TABLET (FP) PO SCH (10:32)
[2021-09-14] MEDS: TAMSULOSIN HCL 0.4 MG CAP PO SCH (10:33)
[2021-09-14] MEDS: METOPROLOL TARTRATE 50 MG TABLET (FP) PO SCH (11:22)
[2021-09-14 13:54] VITALS: BP 144/71; PULSE 55; TEMP 98.5
[2021-09-14] MEDS ORDERED: SULFAMETHOXAZOLE/TRIMETHOPRIM 800MG/160MG D.S. TABLET PO SCH (22:00)
== END 2021-09-14 17:02 | disposition home or self-care (01) | DRG 380 ==
LOC: JER 06:54 → JERBED 07:59 → J6S 10:25
PROVIDERS: ADMIT Internal Medicine
PROC: 0H9NXZZ Drainage of Left Foot Skin, External Approach (ICD-10-PCS; principal; 2021-09-09)
DX: E11.621 Type 2 diabetes mellitus with foot ulcer (principal); L97.529 Non-pressure chronic ulcer of other part of left foot with unspecified severity; I25.10 Atherosclerotic heart disease of native coronary artery without angina pectoris; I10 Essential (primary) hypertension; L03.116 Cellulitis of left lower limb; Z95.1 Presence of aortocoronary bypass graft; E11.40 Type 2 diabetes mellitus with diabetic neuropathy, unspecified; Z86.718 Personal history of other venous thrombosis and embolism; E78.5 Hyperlipidemia, unspecified; E11.22 Type 2 diabetes mellitus with diabetic chronic kidney disease; I12.9 Hypertensive chronic kidney disease with stage 1 through stage 4 chronic kidney disease, or unspecified chronic kidney disease; N18.9 Chronic kidney disease, unspecified; R60.9 Edema, unspecified; N40.0 Benign prostatic hyperplasia without lower urinary tract symptoms
CPT/HCPCS: 36415; 73718-TC-LT; 80053; 82962; 83735; 84100; 85025; 85610; 87070; 87077; 87186; 87205; 93005; 93010; 99285-25; C9803-CS; J0735; U0003; U0005

== ENCOUNTER 2021-10-31 09:16 | Inpatient (IN) | payer OTHER ==
[2021-10-31] MEDS ORDERED: SODIUM CHLORIDE 0.9% 500 ML INFUS.BAG IV ONE (10:22)
[2021-10-31 11:34] LABS: HEMATOCRIT 34.3 % (35.4-49); HEMOGLOBIN 11.4 GM/dL (11.7-16.9); MCH 29.5 pg (25.7-33.7); MCHC 33.1 g/dl (32.0-35.9); MEAN CELL VOLUME 89.1 fl (80-96); MEAN PLT VOLUME 9.1 fl (7.5-11.1); PLATELET COUNT 314 10^3/uL (134-434); RBC 3.86 M/mm3 (4.00-5.60); RDW 14.1 % (11.9-15.9); WHITE BLOOD COUNT 7.5 K/mm3 (4.0-10.0)
[2021-10-31 11:41] LABS: INR 1.13 (0.83-1.09)
[2021-10-31 11:44] LABS: ACTIVATED PTT 37.2 SECONDS (25.2-36.5)
[2021-10-31] MEDS ORDERED: VANCOMYCIN/WATER 1250 MG 1,250 MG/250 ML BAG IVPB ONE (12:00)
[2021-10-31 12:02] LABS: CALCIUM 9.7 mg/dL (8.5-10.1)
[2021-10-31 12:03] LABS: ALBUMIN 3.8 g/dl (3.4-5.0); BLOOD UREA NITROGEN 23.2 mg/dL (7-18)
[2021-10-31 12:06] LABS: CREATININE 1.1 mg/dL (0.55-1.3)
[2021-10-31 12:08] LABS: BILIRUBIN,TOTAL 0.3 mg/dL (0.2-1); TOT PROT 8.4 g/dl (6.4-8.2)
[2021-10-31] MEDS ORDERED: ACETAMINOPHEN 325 MG TABLET (FP) PO PRN (13:39)
[2021-10-31] MEDS: INSULIN SLIDING SCALE (NOVOLOG) 1 VIAL SQ SCH ×2 (16:12→21:44)
[2021-10-31] MEDS ORDERED: NICOTINE 21 MG/24 HOURS TOPICAL PATCH ONE (16:14)
[2021-10-31] MEDS: NICOTINE 21 MG/24 HOURS TOPICAL PATCH TD SCH (16:30)
[2021-10-31] MEDS: COLLAGENASE CLOSTRIDIUM HIST. 30 GRAMS TUBE TP SCH (17:07)
[2021-10-31 20:34] VITALS: BMI 33.9
[2021-10-31] MEDS ORDERED: oxyCODONE HCL 5 MG TABLET PO ONE (20:56)
[2021-10-31] MEDS: GABAPENTIN 300 MG CAPSULE PO SCH (21:38)
[2021-10-31] MEDS: METOPROLOL TARTRATE 50 MG TABLET (FP) PO SCH (21:39)
[2021-10-31] MEDS: APIXABAN 5 MG TABLET PO SCH (21:40)
[2021-10-31] MEDS: ROSUVASTATIN CA 10 MG TABLET PO SCH (21:40)
[2021-10-31] MEDS: cloNIDine HCL 0.1 MG TABLET PO SCH (22:35)
[2021-11-01] MEDS: INSULIN SLIDING SCALE (NOVOLOG) 1 VIAL SQ SCH ×4 (06:18→21:09)
[2021-11-01] MEDS: TAMSULOSIN HCL 0.4 MG CAP PO SCH (09:49)
[2021-11-01] MEDS: METOPROLOL TARTRATE 50 MG TABLET (FP) PO SCH ×2 (09:50→21:10)
[2021-11-01] MEDS: APIXABAN 5 MG TABLET PO SCH ×2 (09:50→21:08)
[2021-11-01] MEDS: amLODIPine BESYLATE 10 MG TABLET (FP) PO SCH (09:50)
[2021-11-01] MEDS: NICOTINE 21 MG/24 HOURS TOPICAL PATCH TD SCH (09:50)
[2021-11-01] MEDS: FUROSEMIDE 40 MG TABLET (FP) PO SCH (09:50)
[2021-11-01] MEDS: GABAPENTIN 300 MG CAPSULE PO SCH ×2 (09:50→21:08)
[2021-11-01] MEDS: POLYETHYLENE GLYCOL (HEALTHYLAX) 3350 17 GM PACKET PO SCH (09:51)
[2021-11-01] MEDS ORDERED: ENOXAPARIN NA (PORCINE) 40 MG/0.4 ML DISP.SYRIN SQ SCH (10:00)
[2021-11-01 10:42] LABS: BASO % 0.6 % (0-2.0); EOS % 7.1 % (0-4.5); HEMATOCRIT 32.5 % (35.4-49); HEMOGLOBIN 10.7 GM/dL (11.7-16.9); LYMPH % 28.1 % (8-40); MCH 29.7 pg (25.7-33.7); MEAN PLT VOLUME 9.8 fl (7.5-11.1); MONO % 10.2 % (3.8-10.2); PLATELET COUNT 234 10^3/uL (134-434); RBC 3.61 M/mm3 (4.00-5.60); RDW 14.2 % (11.9-15.9)
[2021-11-01 11:18] LABS: ALBUMIN 3.4 g/dl (3.4-5.0); BLOOD UREA NITROGEN 18.1 mg/dL (7-18); CALCIUM 9.1 mg/dL (8.5-10.1); MAGNESIUM 2.3 mg/dL (1.8-2.4)
[2021-11-01 11:21] LABS: CREATININE 0.9 mg/dL (0.55-1.3); PHOSPHOROUS 4.3 mg/dL (2.5-4.9)
[2021-11-01 11:22] LABS: BILIRUBIN,TOTAL 0.4 mg/dL (0.2-1); TOT PROT 7.3 g/dl (6.4-8.2)
[2021-11-01] MEDS: COLLAGENASE CLOSTRIDIUM HIST. 30 GRAMS TUBE TP SCH (11:49)
[2021-11-01] MEDS: cloNIDine HCL 0.1 MG TABLET PO SCH ×2 (11:49→21:08)
[2021-11-01] MEDS: ROSUVASTATIN CA 10 MG TABLET PO SCH (21:08)
[2021-11-01] MEDS: morphine SO4 SUSTAINED ACTING 30 MG TABLET.SA PO SCH (21:10)
[2021-11-02] MEDS: morphine SO4 SUSTAINED ACTING 30 MG TABLET.SA PO SCH ×3 (06:11→21:35)
[2021-11-02] MEDS: INSULIN SLIDING SCALE (NOVOLOG) 1 VIAL SQ SCH ×5 (06:12→21:37)
[2021-11-02] MEDS: TAMSULOSIN HCL 0.4 MG CAP PO SCH (08:49)
[2021-11-02] MEDS: POLYETHYLENE GLYCOL (HEALTHYLAX) 3350 17 GM PACKET PO SCH (09:05)
[2021-11-02] MEDS: amLODIPine BESYLATE 10 MG TABLET (FP) PO SCH (09:05)
[2021-11-02] MEDS: APIXABAN 5 MG TABLET PO SCH ×2 (09:05→21:35)
[2021-11-02] MEDS: cloNIDine HCL 0.1 MG TABLET PO SCH ×2 (09:06→21:36)
[2021-11-02] MEDS: GABAPENTIN 300 MG CAPSULE PO SCH ×2 (09:06→21:34)
[2021-11-02] MEDS: METOPROLOL TARTRATE 50 MG TABLET (FP) PO SCH ×2 (09:06→21:36)
[2021-11-02] MEDS: FUROSEMIDE 40 MG TABLET (FP) PO SCH (09:06)
[2021-11-02] MEDS: NICOTINE 21 MG/24 HOURS TOPICAL PATCH TD SCH (09:06)
[2021-11-02] MEDS: LINEZOLID 600 MG TABLET (RESTRICTED TO ID) PO SCH ×2 (09:17→21:32)
[2021-11-02 09:49] LABS: BASO % 0.4 % (0-2.0); EOS % 6.5 % (0-4.5); HEMATOCRIT 30.8 % (35.4-49); HEMOGLOBIN 10.6 GM/dL (11.7-16.9); LYMPH % 29.2 % (8-40); MCH 30.5 pg (25.7-33.7); MCHC 34.4 g/dl (32.0-35.9); MEAN CELL VOLUME 88.5 fl (80-96); MEAN PLT VOLUME 9.9 fl (7.5-11.1); MONO % 11.4 % (3.8-10.2); NEUT % 52.5 % (42.8-82.8); PLATELET COUNT 267 10^3/uL (134-434); RBC 3.48 M/mm3 (4.00-5.60); RDW 13.9 % (11.9-15.9); WHITE BLOOD COUNT 6.2 K/mm3 (4.0-10.0)
[2021-11-02 10:06] LABS: BLOOD UREA NITROGEN 22.9 mg/dL (7-18); CALCIUM 8.9 mg/dL (8.5-10.1)
[2021-11-02 10:10] LABS: CREATININE 1.1 mg/dL (0.55-1.3)
[2021-11-02 11:39] LABS: ERYTHROCYTE SEDIMENTATION RATE 111 mm/hr (0-20)
[2021-11-02] MEDS: COLLAGENASE CLOSTRIDIUM HIST. 30 GRAMS TUBE TP SCH (12:54)
[2021-11-02] MEDS: ROSUVASTATIN CA 10 MG TABLET PO SCH (21:36)
[2021-11-03] MEDS: morphine SO4 SUSTAINED ACTING 30 MG TABLET.SA PO SCH ×3 (05:58→21:21)
[2021-11-03] MEDS: INSULIN SLIDING SCALE (NOVOLOG) 1 VIAL SQ SCH ×4 (05:59→21:28)
[2021-11-03] MEDS: TAMSULOSIN HCL 0.4 MG CAP PO SCH (09:01)
[2021-11-03] MEDS: LINEZOLID 600 MG TABLET (RESTRICTED TO ID) PO SCH ×2 (09:01→21:28)
[2021-11-03] MEDS: cloNIDine HCL 0.1 MG TABLET PO SCH ×2 (09:01→21:21)
[2021-11-03] MEDS: GABAPENTIN 300 MG CAPSULE PO SCH ×2 (09:01→21:21)
[2021-11-03] MEDS: NICOTINE 21 MG/24 HOURS TOPICAL PATCH TD SCH (09:02)
[2021-11-03] MEDS: FUROSEMIDE 40 MG TABLET (FP) PO SCH (09:02)
[2021-11-03] MEDS: POLYETHYLENE GLYCOL (HEALTHYLAX) 3350 17 GM PACKET PO SCH (09:02)
[2021-11-03] MEDS: METOPROLOL TARTRATE 50 MG TABLET (FP) PO SCH ×2 (09:02→21:21)
[2021-11-03] MEDS: amLODIPine BESYLATE 10 MG TABLET (FP) PO SCH (09:02)
[2021-11-03] MEDS: APIXABAN 5 MG TABLET PO SCH ×2 (09:02→21:22)
[2021-11-03 09:05] LABS: BASO % 0.4 % (0-2.0); EOS % 7.9 % (0-4.5); HEMATOCRIT 32.8 % (35.4-49); HEMOGLOBIN 11.1 GM/dL (11.7-16.9); MCHC 33.7 g/dl (32.0-35.9); MEAN CELL VOLUME 88.8 fl (80-96); MEAN PLT VOLUME 9.1 fl (7.5-11.1); MONO % 10.4 % (3.8-10.2); NEUT % 51.3 % (42.8-82.8); PLATELET COUNT 241 10^3/uL (134-434); RBC 3.69 M/mm3 (4.00-5.60); RDW 13.8 % (11.9-15.9); WHITE BLOOD COUNT 5.3 K/mm3 (4.0-10.0)
[2021-11-03 09:31] LABS: CALCIUM 9.1 mg/dL (8.5-10.1)
[2021-11-03 09:32] LABS: BLOOD UREA NITROGEN 24.8 mg/dL (7-18)
[2021-11-03] MEDS: COLLAGENASE CLOSTRIDIUM HIST. 30 GRAMS TUBE TP SCH (11:54)
[2021-11-03] MEDS: ROSUVASTATIN CA 10 MG TABLET PO SCH (21:22)
[2021-11-04] MEDS: morphine SO4 SUSTAINED ACTING 30 MG TABLET.SA PO SCH ×3 (06:44→21:18)
[2021-11-04] MEDS: INSULIN SLIDING SCALE (NOVOLOG) 1 VIAL SQ SCH ×4 (06:48→21:19)
[2021-11-04] MEDS: TAMSULOSIN HCL 0.4 MG CAP PO SCH (08:33)
[2021-11-04] MEDS: NICOTINE 21 MG/24 HOURS TOPICAL PATCH TD SCH (10:08)
[2021-11-04] MEDS: FUROSEMIDE 40 MG TABLET (FP) PO SCH (10:08)
[2021-11-04] MEDS: GABAPENTIN 300 MG CAPSULE PO SCH ×2 (10:08→21:18)
[2021-11-04] MEDS: METOPROLOL TARTRATE 50 MG TABLET (FP) PO SCH ×2 (10:08→21:17)
[2021-11-04] MEDS: cloNIDine HCL 0.1 MG TABLET PO SCH ×2 (10:08→21:18)
[2021-11-04] MEDS: amLODIPine BESYLATE 10 MG TABLET (FP) PO SCH (10:08)
[2021-11-04] MEDS: LINEZOLID 600 MG TABLET (RESTRICTED TO ID) PO SCH ×2 (10:08→21:18)
[2021-11-04] MEDS: POLYETHYLENE GLYCOL (HEALTHYLAX) 3350 17 GM PACKET PO SCH (10:08)
[2021-11-04] MEDS: APIXABAN 5 MG TABLET PO SCH ×2 (10:08→21:19)
[2021-11-04] MEDS: COLLAGENASE CLOSTRIDIUM HIST. 30 GRAMS TUBE TP SCH (13:28)
[2021-11-04] MEDS: ROSUVASTATIN CA 10 MG TABLET PO SCH (21:18)
[2021-11-05] MEDS: INSULIN SLIDING SCALE (NOVOLOG) 1 VIAL SQ SCH ×4 (06:59→21:49)
[2021-11-05] MEDS: morphine SO4 SUSTAINED ACTING 30 MG TABLET.SA PO SCH ×3 (06:59→21:44)
[2021-11-05] MEDS: TAMSULOSIN HCL 0.4 MG CAP PO SCH (08:25)
[2021-11-05] MEDS: POLYETHYLENE GLYCOL (HEALTHYLAX) 3350 17 GM PACKET PO SCH (09:54)
[2021-11-05] MEDS: GABAPENTIN 300 MG CAPSULE PO SCH ×2 (09:54→21:43)
[2021-11-05] MEDS: METOPROLOL TARTRATE 50 MG TABLET (FP) PO SCH ×2 (09:54→21:45)
[2021-11-05] MEDS: LINEZOLID 600 MG TABLET (RESTRICTED TO ID) PO SCH ×2 (09:54→21:45)
[2021-11-05] MEDS: APIXABAN 5 MG TABLET PO SCH ×2 (09:54→21:45)
[2021-11-05] MEDS: cloNIDine HCL 0.1 MG TABLET PO SCH ×2 (09:54→21:44)
[2021-11-05] MEDS: FUROSEMIDE 40 MG TABLET (FP) PO SCH (09:54)
[2021-11-05] MEDS: NICOTINE 21 MG/24 HOURS TOPICAL PATCH TD SCH (09:54)
[2021-11-05] MEDS: amLODIPine BESYLATE 10 MG TABLET (FP) PO SCH (09:54)
[2021-11-05] MEDS: COLLAGENASE CLOSTRIDIUM HIST. 30 GRAMS TUBE TP SCH (09:55)
[2021-11-05] MEDS: ROSUVASTATIN CA 10 MG TABLET PO SCH (21:44)
[2021-11-06] MEDS: morphine SO4 SUSTAINED ACTING 30 MG TABLET.SA PO SCH (05:44)
[2021-11-06] MEDS: INSULIN SLIDING SCALE (NOVOLOG) 1 VIAL SQ SCH ×2 (06:10→11:00)
[2021-11-06] MEDS: TAMSULOSIN HCL 0.4 MG CAP PO SCH (08:39)
[2021-11-06] MEDS: GABAPENTIN 300 MG CAPSULE PO SCH (09:33)
[2021-11-06] MEDS: amLODIPine BESYLATE 10 MG TABLET (FP) PO SCH (09:33)
[2021-11-06] MEDS: APIXABAN 5 MG TABLET PO SCH (09:33)
[2021-11-06] MEDS: FUROSEMIDE 40 MG TABLET (FP) PO SCH (09:33)
[2021-11-06] MEDS: METOPROLOL TARTRATE 50 MG TABLET (FP) PO SCH (09:33)
[2021-11-06] MEDS: cloNIDine HCL 0.1 MG TABLET PO SCH (09:33)
[2021-11-06] MEDS: NICOTINE 21 MG/24 HOURS TOPICAL PATCH TD SCH (09:34)
[2021-11-06] MEDS: COLLAGENASE CLOSTRIDIUM HIST. 30 GRAMS TUBE TP SCH (09:34)
[2021-11-06] MEDS: POLYETHYLENE GLYCOL (HEALTHYLAX) 3350 17 GM PACKET PO SCH (09:34)
[2021-11-06] MEDS: LINEZOLID 600 MG TABLET (RESTRICTED TO ID) PO SCH (09:36)
[2021-11-06 11:00] LABS: BASO % 1.1 % (0-2.0); EOS % 9.7 % (0-4.5); HEMATOCRIT 35.9 % (35.4-49); HEMOGLOBIN 12.4 GM/dL (11.7-16.9); LYMPH % 23.8 % (8-40); MCH 30.5 pg (25.7-33.7); MCHC 34.6 g/dl (32.0-35.9); MEAN CELL VOLUME 88.2 fl (80-96); MEAN PLT VOLUME 9.4 fl (7.5-11.1); MONO % 7.3 % (3.8-10.2); NEUT % 58.1 % (42.8-82.8); PLATELET COUNT 279 10^3/uL (134-434); RBC 4.07 M/mm3 (4.00-5.60); WHITE BLOOD COUNT 6.7 K/mm3 (4.0-10.0)
[2021-11-06 11:02] LABS: INR 1.15 (0.83-1.09); PROTHROMBIN TIME (PATIENT) 13.3 SEC (9.7-13.0)
[2021-11-06 11:05] LABS: ACTIVATED PTT 37.1 SECONDS (25.2-36.5)
[2021-11-06] MEDS ORDERED: HEPARIN NA (PORCINE) 5,000 UNITS/ML 1ML VIAL ONE (11:11)
[2021-11-06] MEDS ORDERED: LIDOCAINE HCL 1%, 10 MG/ML (20ML VIAL) ONE (11:11)
[2021-11-06] MEDS ORDERED: MIDAZOLAM HCL 2 MG/2 ML SINGLE DOSE VIAL ONE ×3 (11:17→11:18)
[2021-11-06] MEDS ORDERED: FENTANYL CITRATE/PF 50 MCG/ML VIAL ONE ×3 (11:18)
[2021-11-06] MEDS ORDERED: PROPOFOL 20 ML ONE (11:18)
[2021-11-06 11:31] LABS: ALBUMIN 3.9 g/dl (3.4-5.0); CALCIUM 9.6 mg/dL (8.5-10.1)
[2021-11-06 11:32] LABS: BLOOD UREA NITROGEN 33.1 mg/dL (7-18)
[2021-11-06] MEDS ORDERED: LIDOCAINE HCL 1%, 10 MG/ML (20ML VIAL) NR ONE ×2 (11:32)
[2021-11-06 11:34] LABS: CREATININE 1.2 mg/dL (0.55-1.3)
[2021-11-06 11:40] LABS: BILIRUBIN,TOTAL 0.2 mg/dL (0.2-1); TOT PROT 8.4 g/dl (6.4-8.2)
[2021-11-06] MEDS ORDERED: ONDANSETRON 4 MG/2 ML VIAL IVPUSH PRN ×2 (11:58→13:58)
[2021-11-06] MEDS ORDERED: LACTATED RINGERS SOLUTION 1,000 ML IV SCH ×2 (12:00→13:58)
[2021-11-06 13:20] VITALS: BP 149/67; PULSE 51; TEMP 97.6
[2021-11-06] MEDS ORDERED: ACETAMINOPHEN 325 MG TABLET (FP) PO PRN (13:58)
[2021-11-06] MEDS ORDERED: morphine SO4 SUSTAINED ACTING 30 MG TABLET.SA PO SCH (14:00)
[2021-11-06] MEDS ORDERED: INSULIN SLIDING SCALE (NOVOLOG) 1 VIAL SQ SCH (16:30)
[2021-11-06] MEDS ORDERED: GABAPENTIN 300 MG CAPSULE PO SCH (22:00)
[2021-11-06] MEDS ORDERED: LINEZOLID 600 MG TABLET (RESTRICTED TO ID) PO SCH (22:00)
[2021-11-06] MEDS ORDERED: METOPROLOL TARTRATE 50 MG TABLET (FP) PO SCH (22:00)
[2021-11-06] MEDS ORDERED: APIXABAN 5 MG TABLET PO SCH (22:00)
[2021-11-06] MEDS ORDERED: ROSUVASTATIN CA 10 MG TABLET PO SCH (22:00)
[2021-11-06] MEDS ORDERED: cloNIDine HCL 0.1 MG TABLET PO SCH (22:00)
[2021-11-07] MEDS ORDERED: TAMSULOSIN HCL 0.4 MG CAP PO SCH (08:30)
[2021-11-07] MEDS ORDERED: COLLAGENASE CLOSTRIDIUM HIST. 30 GRAMS TUBE TP SCH (10:00)
[2021-11-07] MEDS ORDERED: NICOTINE 21 MG/24 HOURS TOPICAL PATCH TD SCH (10:00)
[2021-11-07] MEDS ORDERED: FUROSEMIDE 40 MG TABLET (FP) PO SCH (10:00)
[2021-11-07] MEDS ORDERED: amLODIPine BESYLATE 10 MG TABLET (FP) PO SCH (10:00)
[2021-11-07] MEDS ORDERED: POLYETHYLENE GLYCOL (HEALTHYLAX) 3350 17 GM PACKET PO SCH (10:00)
== END 2021-11-06 18:57 | disposition home or self-care (01) | DRG 380 ==
LOC: JER 09:16 → JERBED 10:22 → J6S 19:40
PROVIDERS: ADMIT Internal Medicine
PROC: B40GYZZ Plain Radiography of Left Lower Extremity Arteries using Other Contrast (ICD-10-PCS; 2021-11-06)
PROC: B40DYZZ Plain Radiography of Aorta and Bilateral Lower Extremity Arteries using Other Contrast (ICD-10-PCS; principal; 2021-11-06 14:00)
DX: E11.621 Type 2 diabetes mellitus with foot ulcer (principal); L97.528 Non-pressure chronic ulcer of other part of left foot with other specified severity; E11.42 Type 2 diabetes mellitus with diabetic polyneuropathy; I25.10 Atherosclerotic heart disease of native coronary artery without angina pectoris; I10 Essential (primary) hypertension; L03.116 Cellulitis of left lower limb; F41.8 Other specified anxiety disorders; N40.0 Benign prostatic hyperplasia without lower urinary tract symptoms; L02.612 Cutaneous abscess of left foot; E78.5 Hyperlipidemia, unspecified; Z95.1 Presence of aortocoronary bypass graft; F17.200 Nicotine dependence, unspecified, uncomplicated; Z86.718 Personal history of other venous thrombosis and embolism; Z91.14 Patient's other noncompliance with medication regimen
CPT/HCPCS: 36415; 71045-TC-FY; 73630-TC-LT; 73718-TC-LT; 75635-TC; 76000-TC-FY; 80048; 80053; 82962; 83735; 84100; 85025; 85027; 85610; 85651; 85730; 86140; 86850; 86900; 86901; 87040; 87070; 87186; 87205; 93005; 93010; 94760; 97116-GP; 97162-GP; 99285-25; C9803-CS; G0463-25; J0735; J1644; Q9967; U0003; U0005

== ENCOUNTER 2022-01-18 23:27 | Inpatient (IN) | payer OTHER ==
[2022-01-18] MEDS ORDERED: SODIUM CHLORIDE 1,000 ML IV ONE (23:50)
[2022-01-18] MEDS ORDERED: PIPERACILLIN/TAZOB 4.5 GM 4.5 GM in DEXTROSE 5%-WATER 100 ML IVPB ONE (23:53)
[2022-01-18] MEDS ORDERED: VANCOMYCIN 1 GM in D5W (PRE-DOCKED) 1,000 MG/250 ML IVPB ONE (23:53)
[2022-01-19] MEDS ORDERED: PIPERACILLIN/TAZOBACTAM 4.5 GM VIAL IVPB ONE (00:38)
[2022-01-19] MEDS ORDERED: VANCOMYCIN 1,000 MG VIAL (RESTRICTED TO ID ONLY) ONE (00:39)
[2022-01-19 01:31] LABS: BASO % 0.3 % (0-2.0); EOS % 3.1 % (0-4.5); HEMATOCRIT 27.9 % (35.4-49); HEMOGLOBIN 9.7 GM/dL (11.7-16.9); LYMPH % 12.7 % (8-40); MCHC 34.7 g/dl (32.0-35.9); MEAN CELL VOLUME 86.4 fl (80-96); MEAN PLT VOLUME 9.6 fl (7.5-11.1); MONO % 5.9 % (3.8-10.2); PLATELET COUNT 453 10^3/uL (134-434); RBC 3.23 M/mm3 (4.00-5.60); RDW 15.8 % (11.9-15.9); WHITE BLOOD COUNT 10.6 K/mm3 (4.0-10.0)
[2022-01-19 01:38] LABS: EPI CELLS >36 /uL (0-25.1); HYALINE CASTS 40 /uL (0-3.1); PH,URINE 5.5 (5.0-8.0); URINE APPEARANCE CLOUDY; URINE BACTERIA 9 /uL (0-1359); URINE BILIRUBIN NEGATIVE (NEGATIVE); URINE COLOR DK YELLOW; URINE GLUCOSE (UA) 1+ (NEGATIVE); URINE KETONE TRACE (NEGATIVE); URINE LEUK ESTERASE TRACE (NEGATIVE); URINE NITRITE NEGATIVE (NEGATIVE); URINE PROTEIN 3+ (NEGATIVE); URINE RBC 43 /uL (0-23.9); URINE WBC 80 /uL (0-25.8)
[2022-01-19 01:50] LABS: CALCIUM 8.6 mg/dL (8.5-10.1)
[2022-01-19 01:51] LABS: ALBUMIN 2.3 g/dl (3.4-5.0); BLOOD UREA NITROGEN 23.1 mg/dL (7-18)
[2022-01-19 01:54] LABS: CREATININE 1.5 mg/dL (0.55-1.3)
[2022-01-19 01:56] LABS: BILIRUBIN,TOTAL 0.3 mg/dL (0.2-1)
[2022-01-19] MEDS ORDERED: HYDROmorphone HCL/PF 1 MG/ML VIAL ONE (02:48)
[2022-01-19] MEDS ORDERED: HYDROmorphone HCl 2 MG/ML VIAL IVPB ONE (02:50)
[2022-01-19] MEDS ORDERED: HYDROmorphone HCL CARPU-JECT 1 MG/1 ML DISP.SYRIN IVPUSH STA (02:57)
[2022-01-19] MEDS ORDERED: ACETAMINOPHEN 325 MG TABLET (FP) ONE (03:13)
[2022-01-19] MEDS ORDERED: SODIUM CHLORIDE 1,000 ML IV SCH (04:00)
[2022-01-19 04:06] VITALS: BMI 28.3
[2022-01-19] MEDS ORDERED: ACETAMINOPHEN 1000 MG/100 ML BAG IVPB ONE (04:52)
[2022-01-19] MEDS ORDERED: PIPERACILLIN/TAZOB 4.5 GM 4.5 GM in DEXTROSE 5%-WATER 100 ML IVPB SCH (09:00)
[2022-01-19] MEDS: METOPROLOL TARTRATE 50 MG TABLET (FP) PO SCH ×2 (09:56→21:26)
[2022-01-19] MEDS: INSULIN (LEVEMIR) 100 UNITS/ML UNITS SQ SCH ×2 (09:56→21:26)
[2022-01-19] MEDS: amLODIPine BESYLATE 10 MG TABLET (FP) PO SCH (09:57)
[2022-01-19] MEDS: APIXABAN 5 MG TABLET PO SCH ×2 (09:57→21:26)
[2022-01-19] MEDS: INSULIN SLIDING SCALE (NOVOLOG) 1 VIAL SQ SCH ×3 (11:39→21:27)
[2022-01-19] MEDS: VANCOMYCIN/WATER 1250 MG 1,250 MG/250 ML BAG IVPB SCH (12:09)
[2022-01-19] MEDS ORDERED: VANCOMYCIN/WATER 1250 MG 1,250 MG/250 ML BAG IVPB SCH (13:00)
[2022-01-19] MEDS ORDERED: oxyCODONE HCL 5 MG TABLET PO PRN (13:30)
[2022-01-19] MEDS ORDERED: ACETAMINOPHEN 325 MG TABLET (FP) PO PRN (13:30)
[2022-01-19 13:56] LABS: HEMATOCRIT 25.5 % (35.4-49); HEMOGLOBIN 8.7 G/dL (11.7-16.9); MCH 30.1 pg (25.7-33.7); MCHC 34.2 g/dl (32.0-35.9); MEAN CELL VOLUME 88.1 fl (80-96); MEAN PLT VOLUME 10.1 fl (7.5-11.1); PLATELET COUNT 391.7 10^3/uL (134-434); RBC 2.89 10^6/uL (4.00-5.60); RDW 16.1 % (11.9-15.9); WHITE BLOOD COUNT 11.6 10^3/uL (4.0-10.8)
[2022-01-19 13:57] LABS: BILIRUBIN,TOTAL 0.4 mg/dl (0.2-1); CALCIUM 7.9 mg/dl (8.5-10); CREATININE 1.3 mg/dl (0.55-1.3); TOT PROT 6.3 g/dl (6.4-8.2)
[2022-01-19] MEDS ORDERED: FUROSEMIDE 20 MG TABLET (FP) PO ONE (14:09)
[2022-01-19] MEDS: PIPERACILLIN/TAZOB 4.5 GM 4.5 GM in DEXTROSE 5%-WATER 100 ML IVPB SCH ×2 (14:54→21:27)
[2022-01-19] MEDS: LINEZOLID 600 MG PREMIX BAG 600 MG/300 ML BAG IVPB SCH (15:52)
[2022-01-19] MEDS: ACETAMINOPHEN 325 MG TABLET (FP) PO PRN (17:25)
[2022-01-19] MEDS ORDERED: INSULIN (NOVOLOG) ASPART 100 UNITS/ML 10ML VIAL ONE (21:12)
[2022-01-19] MEDS: ROSUVASTATIN CA 10 MG TABLET PO SCH (21:26)
[2022-01-19] MEDS: GABAPENTIN 300 MG CAPSULE PO SCH (21:26)
[2022-01-20] MEDS: VANCOMYCIN/WATER 1250 MG 1,250 MG/250 ML BAG IVPB SCH (00:33)
[2022-01-20] MEDS: ACETAMINOPHEN 325 MG TABLET (FP) PO PRN ×3 (00:34→20:05)
[2022-01-20] MEDS: oxyCODONE HCL 5 MG TABLET PO PRN ×3 (00:34→20:04)
[2022-01-20] MEDS: PIPERACILLIN/TAZOB 4.5 GM 4.5 GM in DEXTROSE 5%-WATER 100 ML IVPB SCH ×4 (03:10→20:05)
[2022-01-20] MEDS: LINEZOLID 600 MG PREMIX BAG 600 MG/300 ML BAG IVPB SCH ×2 (03:45→16:11)
[2022-01-20] MEDS: INSULIN SLIDING SCALE (NOVOLOG) 1 VIAL SQ SCH ×4 (06:59→22:17)
[2022-01-20 09:32] LABS: HEMATOCRIT 26.5 % (35.4-49); HEMOGLOBIN 9.1 GM/dL (11.7-16.9); MCH 29.2 pg (25.7-33.7); MCHC 34.4 g/dl (32.0-35.9); MEAN CELL VOLUME 84.9 fl (80-96); PLATELET COUNT 365 10^3/uL (134-434); RBC 3.12 M/mm3 (4.00-5.60); RDW 15.5 % (11.9-15.9); WHITE BLOOD COUNT 11.7 K/mm3 (4.0-10.0)
[2022-01-20] MEDS: amLODIPine BESYLATE 10 MG TABLET (FP) PO SCH (11:37)
[2022-01-20] MEDS: INSULIN (LEVEMIR) 100 UNITS/ML UNITS SQ SCH ×2 (11:37→22:19)
[2022-01-20] MEDS: METOPROLOL TARTRATE 50 MG TABLET (FP) PO SCH ×2 (11:37→22:14)
[2022-01-20] MEDS: APIXABAN 5 MG TABLET PO SCH ×2 (11:37→22:14)
[2022-01-20] MEDS: COLLAGENASE CLOSTRIDIUM HIST. 30 GRAMS TUBE TP SCH (15:30)
[2022-01-20] MEDS ORDERED: INSULIN (NOVOLOG) ASPART 100 UNITS/ML 10ML VIAL ONE (17:26)
[2022-01-20 18:26] LABS: ALBUMIN 1.8 g/dl (3.4-5.0)
[2022-01-20 18:27] LABS: CALCIUM 7.9 mg/dL (8.5-10.1); MAGNESIUM 1.9 mg/dL (1.8-2.4)
[2022-01-20 18:28] LABS: BILIRUBIN,TOTAL 0.6 mg/dL (0.2-1); TOT PROT 6.6 g/dl (6.4-8.2)
[2022-01-20] MEDS: GABAPENTIN 300 MG CAPSULE PO SCH (22:14)
[2022-01-20] MEDS: ROSUVASTATIN CA 10 MG TABLET PO SCH (22:14)
[2022-01-21] MEDS: LINEZOLID 600 MG PREMIX BAG 600 MG/300 ML BAG IVPB SCH ×2 (02:57→14:07)
[2022-01-21] MEDS: PIPERACILLIN/TAZOB 4.5 GM 4.5 GM in DEXTROSE 5%-WATER 100 ML IVPB SCH ×4 (02:57→21:26)
[2022-01-21] MEDS: INSULIN SLIDING SCALE (NOVOLOG) 1 VIAL SQ SCH ×4 (06:31→21:36)
[2022-01-21] MEDS: oxyCODONE HCL 5 MG TABLET PO PRN ×3 (09:43→22:32)
[2022-01-21] MEDS: amLODIPine BESYLATE 10 MG TABLET (FP) PO SCH (09:44)
[2022-01-21] MEDS: ACETAMINOPHEN 325 MG TABLET (FP) PO PRN ×3 (09:44→22:31)
[2022-01-21] MEDS: METOPROLOL TARTRATE 50 MG TABLET (FP) PO SCH ×2 (09:44→21:34)
[2022-01-21] MEDS: APIXABAN 5 MG TABLET PO SCH ×2 (09:44→21:34)
[2022-01-21] MEDS: COLLAGENASE CLOSTRIDIUM HIST. 30 GRAMS TUBE TP SCH ×2 (09:45→15:33)
[2022-01-21] MEDS: INSULIN (LEVEMIR) 100 UNITS/ML UNITS SQ SCH ×2 (09:45→21:34)
[2022-01-21] MEDS ORDERED: INSULIN (NOVOLOG) ASPART 100 UNITS/ML 10ML VIAL ONE ×2 (11:02→21:18)
[2022-01-21] MEDS: ROSUVASTATIN CA 10 MG TABLET PO SCH (21:34)
[2022-01-21] MEDS: GABAPENTIN 300 MG CAPSULE PO SCH (21:34)
[2022-01-22] MEDS: PIPERACILLIN/TAZOB 4.5 GM 4.5 GM in DEXTROSE 5%-WATER 100 ML IVPB SCH ×4 (02:45→21:54)
[2022-01-22] MEDS: LINEZOLID 600 MG PREMIX BAG 600 MG/300 ML BAG IVPB SCH ×2 (03:56→15:49)
[2022-01-22] MEDS ORDERED: morphine SO4 SUSTAINED ACTING 15 MG TABLET.SA PO ONE ×2 (04:16→04:35)
[2022-01-22] MEDS: INSULIN SLIDING SCALE (NOVOLOG) 1 VIAL SQ SCH ×4 (06:21→22:00)
[2022-01-22 09:18] LABS: HEMATOCRIT 30.5 % (35.4-49); HEMOGLOBIN 10.5 GM/dL (11.7-16.9); MCH 29.1 pg (25.7-33.7); MCHC 34.6 g/dl (32.0-35.9); MEAN CELL VOLUME 84.2 fl (80-96); MEAN PLT VOLUME 8.4 fl (7.5-11.1); PLATELET COUNT 581 10^3/uL (134-434); RBC 3.62 M/mm3 (4.00-5.60)
[2022-01-22] MEDS: INSULIN (LEVEMIR) 100 UNITS/ML UNITS SQ SCH ×2 (09:50→21:45)
[2022-01-22] MEDS: COLLAGENASE CLOSTRIDIUM HIST. 30 GRAMS TUBE TP SCH (09:51)
[2022-01-22] MEDS: METOPROLOL TARTRATE 50 MG TABLET (FP) PO SCH ×2 (09:51→21:45)
[2022-01-22] MEDS: amLODIPine BESYLATE 10 MG TABLET (FP) PO SCH (09:51)
[2022-01-22] MEDS: APIXABAN 5 MG TABLET PO SCH ×2 (09:51→21:45)
[2022-01-22 10:34] LABS: ALBUMIN 1.9 g/dl (3.4-5.0); BLOOD UREA NITROGEN 12.2 mg/dL (7-18); CALCIUM 8.1 mg/dL (8.5-10.1)
[2022-01-22 10:39] LABS: BILIRUBIN,TOTAL 0.3 mg/dL (0.2-1); TOT PROT 6.6 g/dl (6.4-8.2)
[2022-01-22] MEDS ORDERED: INSULIN (NOVOLOG) ASPART 100 UNITS/ML 10ML VIAL ONE (11:07)
[2022-01-22] MEDS: morphine SULFATE IMMEDIATE RELEASE 30 MG TAB PO PRN ×2 (11:58→21:59)
[2022-01-22] MEDS ORDERED: SENNOSIDES 8.6MG TABLET (FP) PO PRN (18:15)
[2022-01-22] MEDS ORDERED: POLYETHYLENE GLYCOL (HEALTHYLAX) 3350 17 GM PACKET PO PRN (18:15)
[2022-01-22] MEDS: DOCUSATE SODIUM 100 MG CAPSULE (FP) PO PRN (20:25)
[2022-01-22] MEDS: GABAPENTIN 300 MG CAPSULE PO SCH (21:45)
[2022-01-22] MEDS: ROSUVASTATIN CA 10 MG TABLET PO SCH (21:45)
[2022-01-23] MEDS: PIPERACILLIN/TAZOB 4.5 GM 4.5 GM in DEXTROSE 5%-WATER 100 ML IVPB SCH ×2 (03:02→09:06)
[2022-01-23] MEDS: LINEZOLID 600 MG PREMIX BAG 600 MG/300 ML BAG IVPB SCH (03:35)
[2022-01-23] MEDS: INSULIN SLIDING SCALE (NOVOLOG) 1 VIAL SQ SCH ×4 (06:15→22:25)
[2022-01-23] MEDS: amLODIPine BESYLATE 10 MG TABLET (FP) PO SCH (09:05)
[2022-01-23] MEDS: COLLAGENASE CLOSTRIDIUM HIST. 30 GRAMS TUBE TP SCH (09:06)
[2022-01-23] MEDS: INSULIN (LEVEMIR) 100 UNITS/ML UNITS SQ SCH ×2 (09:06→22:25)
[2022-01-23] MEDS: METOPROLOL TARTRATE 50 MG TABLET (FP) PO SCH ×2 (09:06→22:26)
[2022-01-23] MEDS: APIXABAN 5 MG TABLET PO SCH ×2 (09:06→22:26)
[2022-01-23] MEDS: morphine SULFATE IMMEDIATE RELEASE 30 MG TAB PO PRN ×2 (09:15→15:57)
[2022-01-23] MEDS: DOCUSATE SODIUM 100 MG CAPSULE (FP) PO PRN (09:16)
[2022-01-23 10:52] LABS: BASO % 0.2 % (0-2.0); HEMATOCRIT 28.1 % (35.4-49); HEMOGLOBIN 9.3 GM/dL (11.7-16.9); LYMPH % 10.8 % (8-40); MCH 28.4 pg (25.7-33.7); MCHC 33.3 g/dl (32.0-35.9); MEAN CELL VOLUME 85.5 fl (80-96); MEAN PLT VOLUME 8.7 fl (7.5-11.1); MONO % 7.2 % (3.8-10.2); NEUT % 79.8 % (42.8-82.8); PLATELET COUNT 507 10^3/uL (134-434); RBC 3.28 M/mm3 (4.00-5.60); RDW 15.9 % (11.9-15.9); WHITE BLOOD COUNT 12.2 K/mm3 (4.0-10.0)
[2022-01-23 11:12] LABS: BLOOD UREA NITROGEN 9.8 mg/dL (7-18); CALCIUM 7.8 mg/dL (8.5-10.1)
[2022-01-23 11:16] LABS: CREATININE 0.9 mg/dL (0.55-1.3)
[2022-01-23] MEDS ORDERED: hydrOXYzine PAMOATE 25 MG CAPSULE (FP) PO ONE (16:48)
[2022-01-23] MEDS: ALPRAZolam 1 MG TABLET PO PRN (17:29)
[2022-01-23] MEDS: ROSUVASTATIN CA 10 MG TABLET PO SCH (22:26)
[2022-01-23] MEDS: GABAPENTIN 300 MG CAPSULE PO SCH (22:26)
[2022-01-23] MEDS: oxyCODONE HCL 5 MG TABLET PO PRN (22:36)
[2022-01-23] MEDS: ACETAMINOPHEN 325 MG TABLET (FP) PO PRN (22:37)
[2022-01-23] MEDS ORDERED: MELATONIN 5 MG TABLETS PO ONE (23:03)
[2022-01-24] MEDS: ALPRAZolam 1 MG TABLET PO PRN ×2 (02:51→14:16)
[2022-01-24] MEDS: INSULIN SLIDING SCALE (NOVOLOG) 1 VIAL SQ SCH ×4 (07:14→22:28)
[2022-01-24] MEDS: METOPROLOL TARTRATE 50 MG TABLET (FP) PO SCH ×2 (10:56→22:07)
[2022-01-24] MEDS: amLODIPine BESYLATE 10 MG TABLET (FP) PO SCH (10:56)
[2022-01-24] MEDS: ACETAMINOPHEN 325 MG TABLET (FP) PO PRN ×2 (10:56→22:18)
[2022-01-24] MEDS: APIXABAN 5 MG TABLET PO SCH ×2 (10:56→22:07)
[2022-01-24] MEDS: oxyCODONE HCL 5 MG TABLET PO PRN ×2 (10:57→22:19)
[2022-01-24] MEDS: INSULIN (LEVEMIR) 100 UNITS/ML UNITS SQ SCH ×2 (10:58→22:26)
[2022-01-24] MEDS: COLLAGENASE CLOSTRIDIUM HIST. 30 GRAMS TUBE TP SCH (10:58)
[2022-01-24 11:26] LABS: HEMATOCRIT 28.1 % (35.4-49); HEMOGLOBIN 9.6 GM/dL (11.7-16.9); MCH 28.8 pg (25.7-33.7); MCHC 34.1 g/dl (32.0-35.9); MEAN CELL VOLUME 84.4 fl (80-96); MEAN PLT VOLUME 8.6 fl (7.5-11.1); PLATELET COUNT 471 10^3/uL (134-434); RBC 3.33 M/mm3 (4.00-5.60); RDW 16.2 % (11.9-15.9); WHITE BLOOD COUNT 13.4 K/mm3 (4.0-10.0)
[2022-01-24 11:47] LABS: BLOOD UREA NITROGEN 9.7 mg/dL (7-18)
[2022-01-24 11:48] LABS: CALCIUM 7.7 mg/dL (8.5-10.1)
[2022-01-24 11:51] LABS: CREATININE 0.8 mg/dL (0.55-1.3)
[2022-01-24] MEDS: MAG HYDROX/AL HYDROX/SIMETH 30 ML UNIT-DOSE CUP PO SCH ×2 (12:35→17:12)
[2022-01-24] MEDS: PANTOPRAZOLE 20 MG TABLET PO SCH (12:35)
[2022-01-24] MEDS: ONDANSETRON 4 MG/2 ML VIAL IVPUSH PRN ×2 (17:31→23:05)
[2022-01-24] MEDS: GABAPENTIN 300 MG CAPSULE PO SCH (22:07)
[2022-01-24] MEDS: PIPERACILLIN/TAZOB 4.5 GM 4.5 GM in DEXTROSE 5%-WATER 100 ML IVPB SCH (22:07)
[2022-01-24] MEDS: ROSUVASTATIN CA 10 MG TABLET PO SCH (22:07)
[2022-01-25] MEDS: MAG HYDROX/AL HYDROX/SIMETH 30 ML UNIT-DOSE CUP PO SCH ×4 (01:04→18:23)
[2022-01-25] MEDS: ALPRAZolam 1 MG TABLET PO PRN ×2 (02:08→14:20)
[2022-01-25] MEDS: LINEZOLID 600 MG PREMIX BAG 600 MG/300 ML BAG IVPB SCH ×2 (02:08→16:24)
[2022-01-25] MEDS: PIPERACILLIN/TAZOB 4.5 GM 4.5 GM in DEXTROSE 5%-WATER 100 ML IVPB SCH ×4 (03:54→22:15)
[2022-01-25] MEDS: INSULIN SLIDING SCALE (NOVOLOG) 1 VIAL SQ SCH ×4 (07:09→22:16)
[2022-01-25] MEDS: ONDANSETRON 4 MG/2 ML VIAL IVPUSH PRN ×2 (08:36→18:23)
[2022-01-25] MEDS ORDERED: INSULIN (NOVOLOG) ASPART 100 UNITS/ML 10ML VIAL ONE (11:09)
[2022-01-25] MEDS: PANTOPRAZOLE 20 MG TABLET PO SCH (11:11)
[2022-01-25] MEDS: METOPROLOL TARTRATE 50 MG TABLET (FP) PO SCH ×2 (11:11→22:16)
[2022-01-25] MEDS: amLODIPine BESYLATE 10 MG TABLET (FP) PO SCH (11:11)
[2022-01-25] MEDS: INSULIN (LEVEMIR) 100 UNITS/ML UNITS SQ SCH ×2 (11:12→22:16)
[2022-01-25] MEDS: APIXABAN 5 MG TABLET PO SCH (12:59)
[2022-01-25] MEDS: COLLAGENASE CLOSTRIDIUM HIST. 30 GRAMS TUBE TP SCH (13:00)
[2022-01-25] MEDS ORDERED: SODIUM CHLORIDE 1,000 ML IV SCH (13:15)
[2022-01-25] MEDS: ACETAMINOPHEN 325 MG TABLET (FP) PO PRN ×2 (13:58→20:14)
[2022-01-25] MEDS: oxyCODONE HCL 5 MG TABLET PO PRN ×2 (13:58→20:13)
[2022-01-25] MEDS: ROSUVASTATIN CA 10 MG TABLET PO SCH (22:15)
[2022-01-25] MEDS: GABAPENTIN 300 MG CAPSULE PO SCH (22:16)
[2022-01-26] MEDS: MAG HYDROX/AL HYDROX/SIMETH 30 ML UNIT-DOSE CUP PO SCH ×5 (00:42→17:29)
[2022-01-26] MEDS: PIPERACILLIN/TAZOB 4.5 GM 4.5 GM in DEXTROSE 5%-WATER 100 ML IVPB SCH ×4 (02:34→22:20)
[2022-01-26] MEDS: oxyCODONE HCL 5 MG TABLET PO PRN (02:34)
[2022-01-26] MEDS: LINEZOLID 600 MG PREMIX BAG 600 MG/300 ML BAG IVPB SCH ×2 (02:34→15:39)
[2022-01-26] MEDS: ACETAMINOPHEN 325 MG TABLET (FP) PO PRN ×2 (02:35→08:15)
[2022-01-26] MEDS: ONDANSETRON 4 MG/2 ML VIAL IVPUSH PRN (02:55)
[2022-01-26] MEDS: INSULIN SLIDING SCALE (NOVOLOG) 1 VIAL SQ SCH ×4 (07:00→22:34)
[2022-01-26] MEDS: ALPRAZolam 1 MG TABLET PO PRN (08:15)
[2022-01-26] MEDS: amLODIPine BESYLATE 10 MG TABLET (FP) PO SCH ×2 (08:47→12:11)
[2022-01-26] MEDS: PANTOPRAZOLE 20 MG TABLET PO SCH ×2 (08:48→12:12)
[2022-01-26] MEDS: METOPROLOL TARTRATE 50 MG TABLET (FP) PO SCH ×3 (08:48→22:23)
[2022-01-26] MEDS ORDERED: ONDANSETRON 4 MG/2 ML VIAL IVPUSH PRN ×3 (09:26→10:44)
[2022-01-26] MEDS ORDERED: LACTATED RINGERS SOLUTION 1,000 ML IV SCH ×2 (09:30→10:44)
[2022-01-26] MEDS ORDERED: LIDOCAINE HCL/PF 2% SDV 5ML VIAL ONE (09:31)
[2022-01-26] MEDS ORDERED: MIDAZOLAM HCL 2 MG/2 ML SINGLE DOSE VIAL ONE (09:31)
[2022-01-26] MEDS ORDERED: PROPOFOL 40 ML ONE (09:31)
[2022-01-26] MEDS ORDERED: SUCCINYLCHOLINE CHLORIDE 200 MG/10 ML SYRINGE ONE (09:40)
[2022-01-26] MEDS ORDERED: BUPIVACAINE HCL/PF 0.5% (5MG/ML) 10 ML VIAL ONE (09:51)
[2022-01-26] MEDS ORDERED: LIDOCAINE HCL 1%, 10 MG/ML (20ML VIAL) ONE (09:51)
[2022-01-26] MEDS ORDERED: LIDOCAINE HCL 1%, 10 MG/ML (50 mL VIAL) INF ONE (10:10)
[2022-01-26] MEDS: INSULIN (LEVEMIR) 100 UNITS/ML UNITS SQ SCH ×2 (10:31→22:33)
[2022-01-26] MEDS ORDERED: ACETAMINOPHEN 1000 MG/100 ML BAG IVPB ONE (10:44)
[2022-01-26] MEDS ORDERED: ALPRAZolam 1 MG TABLET PO PRN (10:44)
[2022-01-26] MEDS ORDERED: ACETAMINOPHEN 325 MG TABLET (FP) PO PRN (10:44)
[2022-01-26] MEDS ORDERED: SENNOSIDES 8.6MG TABLET (FP) PO PRN (10:44)
[2022-01-26] MEDS ORDERED: DOCUSATE SODIUM 100 MG CAPSULE (FP) PO PRN (10:44)
[2022-01-26] MEDS ORDERED: POLYETHYLENE GLYCOL (HEALTHYLAX) 3350 17 GM PACKET PO PRN (10:44)
[2022-01-26] MEDS: COLLAGENASE CLOSTRIDIUM HIST. 30 GRAMS TUBE TP SCH (12:12)
[2022-01-26 12:36] LABS: BASO % 0.3 % (0-2.0); EOS % 2.7 % (0-4.5); HEMATOCRIT 29.5 % (35.4-49); HEMOGLOBIN 9.9 GM/dL (11.7-16.9); LYMPH % 11.6 % (8-40); MCHC 33.6 g/dl (32.0-35.9); MEAN CELL VOLUME 86.3 fl (80-96); MEAN PLT VOLUME 7.7 fl (7.5-11.1); MONO % 7.1 % (3.8-10.2); NEUT % 78.3 % (42.8-82.8); PLATELET COUNT 491 10^3/uL (134-434); RBC 3.43 M/mm3 (4.00-5.60); RDW 16.2 % (11.9-15.9); WHITE BLOOD COUNT 12.3 K/mm3 (4.0-10.0)
[2022-01-26 13:01] LABS: CALCIUM 7.9 mg/dL (8.5-10.1)
[2022-01-26 13:06] LABS: ALBUMIN 1.9 g/dl (3.4-5.0); BLOOD UREA NITROGEN 12.4 mg/dL (7-18)
[2022-01-26 13:07] LABS: BILIRUBIN,TOTAL 0.4 mg/dL (0.2-1); CREATININE 1.2 mg/dL (0.55-1.3); TOT PROT 6.1 g/dl (6.4-8.2)
[2022-01-26 14:23] VITALS: RESP 18
[2022-01-26] MEDS: GABAPENTIN 300 MG CAPSULE PO SCH (22:23)
[2022-01-26] MEDS: ROSUVASTATIN CA 10 MG TABLET PO SCH (22:23)
[2022-01-27] MEDS: MAG HYDROX/AL HYDROX/SIMETH 30 ML UNIT-DOSE CUP PO SCH ×5 (01:21→23:34)
[2022-01-27] MEDS ORDERED: MELATONIN 5 MG TABLETS PO ONE (01:24)
[2022-01-27] MEDS: LINEZOLID 600 MG PREMIX BAG 600 MG/300 ML BAG IVPB SCH ×2 (02:41→15:27)
[2022-01-27] MEDS: PIPERACILLIN/TAZOB 4.5 GM 4.5 GM in DEXTROSE 5%-WATER 100 ML IVPB SCH ×3 (04:39→14:45)
[2022-01-27] MEDS: INSULIN (LEVEMIR) 100 UNITS/ML UNITS SQ SCH ×2 (06:22→21:19)
[2022-01-27] MEDS: INSULIN SLIDING SCALE (NOVOLOG) 1 VIAL SQ SCH ×4 (06:23→21:19)
[2022-01-27] MEDS: METOPROLOL TARTRATE 50 MG TABLET (FP) PO SCH ×2 (10:04→21:10)
[2022-01-27] MEDS: amLODIPine BESYLATE 10 MG TABLET (FP) PO SCH (10:04)
[2022-01-27] MEDS: PANTOPRAZOLE 20 MG TABLET PO SCH (10:04)
[2022-01-27] MEDS: COLLAGENASE CLOSTRIDIUM HIST. 30 GRAMS TUBE TP SCH (10:57)
[2022-01-27 12:55] LABS: HEMATOCRIT 25.9 % (35.4-49); HEMOGLOBIN 8.6 GM/dL (11.7-16.9); MCH 28.3 pg (25.7-33.7); MCHC 33.1 g/dl (32.0-35.9); MEAN CELL VOLUME 85.5 fl (80-96); MEAN PLT VOLUME 8.2 fl (7.5-11.1); PLATELET COUNT 466 10^3/uL (134-434); RBC 3.03 M/mm3 (4.00-5.60); RDW 15.9 % (11.9-15.9); WHITE BLOOD COUNT 9.6 K/mm3 (4.0-10.0)
[2022-01-27 13:33] LABS: CREATININE 1.8 mg/dL (0.55-1.3)
[2022-01-27 13:35] LABS: BLOOD UREA NITROGEN 18.2 mg/dL (7-18)
[2022-01-27 14:23] LABS: CALCIUM 7.1 mg/dL (8.5-10.1)
[2022-01-27] MEDS ORDERED: ACETAMINOPHEN 325 MG TABLET (FP) PO PRN (15:09)
[2022-01-27] MEDS: oxyCODONE HCL 5 MG TABLET PO PRN ×2 (15:23→21:10)
[2022-01-27] MEDS ORDERED: SODIUM CHLORIDE 1,000 ML IV SCH (15:45)
[2022-01-27] MEDS: ALPRAZolam 1 MG TABLET PO PRN ×2 (16:29→16:33)
[2022-01-27] MEDS: PIPERACILLIN/TAZOB 3.375 GM 3.375 GM in DEXTROSE 5%-WATER - 50 ML IVPB SCH (21:09)
[2022-01-27] MEDS: ROSUVASTATIN CA 10 MG TABLET PO SCH (21:10)
[2022-01-27] MEDS: APIXABAN 5 MG TABLET PO SCH (21:10)
[2022-01-27] MEDS: GABAPENTIN 300 MG CAPSULE PO SCH (21:10)
[2022-01-27] MEDS ORDERED: MELATONIN 5 MG TABLETS PO PRN (22:08)
[2022-01-27] MEDS: ACETAMINOPHEN 1000 MG/100 ML BAG IVPB PRN (22:51)
[2022-01-28] MEDS: LINEZOLID 600 MG PREMIX BAG 600 MG/300 ML BAG IVPB SCH (02:19)
[2022-01-28] MEDS: PIPERACILLIN/TAZOB 3.375 GM 3.375 GM in DEXTROSE 5%-WATER - 50 ML IVPB SCH ×2 (03:30→08:23)
[2022-01-28] MEDS: oxyCODONE HCL 5 MG TABLET PO PRN ×2 (03:41→09:47)
[2022-01-28] MEDS: MAG HYDROX/AL HYDROX/SIMETH 30 ML UNIT-DOSE CUP PO SCH (07:04)
[2022-01-28] MEDS: ALPRAZolam 1 MG TABLET PO PRN (07:04)
[2022-01-28] MEDS: INSULIN (LEVEMIR) 100 UNITS/ML UNITS SQ SCH (07:10)
[2022-01-28] MEDS: INSULIN SLIDING SCALE (NOVOLOG) 1 VIAL SQ SCH (07:10)
[2022-01-28] MEDS ORDERED: ACETAMINOPHEN 1000 MG/100 ML BAG IVPB PRN (08:57)
[2022-01-28 09:13] LABS: BASO % 0.3 % (0-2.0); EOS % 2.3 % (0-4.5); HEMATOCRIT 24.8 % (35.4-49); HEMOGLOBIN 8.2 GM/dL (11.7-16.9); MCH 28.3 pg (25.7-33.7); MCHC 33.3 g/dl (32.0-35.9); MEAN PLT VOLUME 7.8 fl (7.5-11.1); NEUT % 77.4 % (42.8-82.8); PLATELET COUNT 467 10^3/uL (134-434); RBC 2.91 M/mm3 (4.00-5.60); RDW 15.8 % (11.9-15.9); WHITE BLOOD COUNT 9.2 K/mm3 (4.0-10.0)
[2022-01-28] MEDS: amLODIPine BESYLATE 10 MG TABLET (FP) PO SCH (09:29)
[2022-01-28] MEDS: METOPROLOL TARTRATE 50 MG TABLET (FP) PO SCH (09:29)
[2022-01-28] MEDS: PANTOPRAZOLE 20 MG TABLET PO SCH (09:29)
[2022-01-28] MEDS: APIXABAN 5 MG TABLET PO SCH (09:29)
[2022-01-28] MEDS: ACETAMINOPHEN 1000 MG/100 ML BAG IVPB PRN (09:31)
[2022-01-28 09:37] LABS: CALCIUM 7.1 mg/dL (8.5-10.1)
[2022-01-28 09:38] LABS: ALBUMIN 1.6 g/dl (3.4-5.0); BLOOD UREA NITROGEN 11.6 mg/dL (7-18)
[2022-01-28 09:41] LABS: CREATININE 1.4 mg/dL (0.55-1.3)
[2022-01-28 09:42] LABS: BILIRUBIN,TOTAL 0.3 mg/dL (0.2-1); TOT PROT 5.2 g/dl (6.4-8.2)
[2022-01-28] MEDS: COLLAGENASE CLOSTRIDIUM HIST. 30 GRAMS TUBE TP SCH ×2 (09:49→10:12)
[2022-01-28] MEDS ORDERED: GABAPENTIN 300 MG CAPSULE PO SCH (10:00)
[2022-01-28 11:22] VITALS: BP 140/71; PULSE 77; TEMP 98.7
[2022-01-28] MEDS ORDERED: POLYETHYLENE GLYCOL (HEALTHYLAX) 3350 17 GM PACKET PO SCH (11:30)
== END 2022-01-28 12:15 | disposition left against medical advice (07) | DRG 344 ==
LOC: FER 23:27 → FM/S 01-19 02:45 → J6S 01-19 20:42
PROVIDERS: ADMIT Internal Medicine
PROC: 0Q9 Lower Bones, Drainage (ICD-10-PCS; principal; 2022-01-26 09:30)
DX: E11.69 Type 2 diabetes mellitus with other specified complication (principal); M86.8X7 Other osteomyelitis, ankle and foot; I25.10 Atherosclerotic heart disease of native coronary artery without angina pectoris; D75.839 Thrombocytosis, unspecified; E11.42 Type 2 diabetes mellitus with diabetic polyneuropathy; F11.20 Opioid dependence, uncomplicated; D64.9 Anemia, unspecified; I10 Essential (primary) hypertension; E87.1 Hypo-osmolality and hyponatremia; E11.52 Type 2 diabetes mellitus with diabetic peripheral angiopathy with gangrene; E11.628 Type 2 diabetes mellitus with other skin complications; L08.9 Local infection of the skin and subcutaneous tissue, unspecified; E11.621 Type 2 diabetes mellitus with foot ulcer; L97.519 Non-pressure chronic ulcer of other part of right foot with unspecified severity; N17.9 Acute kidney failure, unspecified; R21 Rash and other nonspecific skin eruption; B95.61 Methicillin susceptible Staphylococcus aureus infection as the cause of diseases classified elsewhere; M31.0 Hypersensitivity angiitis; Z95.1 Presence of aortocoronary bypass graft
CPT/HCPCS: 0241U-QW; 36415; 71045-TC-FY; 73630-TC-LT; 73700-TC-RT; 76000-TC-FY; 76775-TC; 80048; 80053; 81003; 81015; 82436; 82533; 82550; 82570; 82728; 82962; 83540; 83550; 83605; 83735; 83930; 84133; 84156; 84300; 84443; 85025; 85027; 85045; 85651; 86140; 86705; 87040; 87070; 87075; 87086; 87186; 87205; 87340; 87517; 93005; 93926-TC; 94760; 99285-25

== ENCOUNTER 2022-01-28 19:10 | Observation (INO) | payer OTHER ==
[2022-01-28] MEDS ORDERED: LINEZOLID 600 MG PREMIX BAG 600 MG in PREMIX 300 IVPB ONE (22:38)
[2022-01-28] MEDS ORDERED: PIPERACILLIN/TAZOB 4.5 GM 4.5 GM in DEXTROSE 5%-WATER 100 ML IVPB ONE (22:38)
[2022-01-28] MEDS ORDERED: PIPERACILLIN/TAZOB 4.5 GM 4.5 GM/100 ML BAG IVPB ONE (23:00)
[2022-01-29 04:20] VITALS: BMI 28.0
[2022-01-29] MEDS ORDERED: ACETAMINOPHEN 325 MG TABLET (FP) PO PRN (05:31)
[2022-01-29] MEDS ORDERED: ALPRAZolam 1 MG TABLET PO PRN (05:32)
[2022-01-29] MEDS ORDERED: DOCUSATE SODIUM 100 MG CAPSULE (FP) PO PRN (05:34)
[2022-01-29] MEDS ORDERED: ONDANSETRON 4 MG/2 ML VIAL IVPUSH PRN (05:39)
[2022-01-29] MEDS ORDERED: SENNOSIDES 8.6MG TABLET (FP) PO PRN (05:41)
[2022-01-29] MEDS ORDERED: PIPERACILLIN/TAZOB 4.5 GM 4.5 GM in DEXTROSE 5%-WATER 100 ML IVPB SCH ×2 (05:45→07:30)
[2022-01-29] MEDS ORDERED: LINEZOLID 600 MG PREMIX BAG 600 MG in PREMIX 300 IVPB SCH (05:45)
[2022-01-29] MEDS: INSULIN SLIDING SCALE (NOVOLOG) 1 VIAL SQ SCH ×3 (06:45→16:50)
[2022-01-29 08:58] LABS: BASO % 0.6 % (0-2.0); EOS % 4.3 % (0-4.5); HEMATOCRIT 23.7 % (35.4-49); HEMOGLOBIN 8.1 GM/dL (11.7-16.9); LYMPH % 17.8 % (8-40); MCH 29.1 pg (25.7-33.7); MCHC 34.2 g/dl (32.0-35.9); MEAN CELL VOLUME 85.2 fl (80-96); MEAN PLT VOLUME 7.7 fl (7.5-11.1); MONO % 11.2 % (3.8-10.2); NEUT % 66.1 % (42.8-82.8); PLATELET COUNT 400 10^3/uL (134-434); RBC 2.78 M/mm3 (4.00-5.60); RDW 15.9 % (11.9-15.9); WHITE BLOOD COUNT 8.2 K/mm3 (4.0-10.0)
[2022-01-29 09:14] LABS: CHLORIDE 100 mmol/L (98-107); SODIUM 134 mmol/L (136-145)
[2022-01-29 09:17] LABS: ALBUMIN 1.5 g/dl (3.4-5.0); ANION GAP 8 MMOL/L (8-16); BLOOD UREA NITROGEN 14.4 mg/dL (7-18); CO2 27 mmol/L (21-32); GLUCOSE,RANDOM 151 mg/dL (74-106); MAGNESIUM 1.9 mg/dL (1.8-2.4)
[2022-01-29 09:20] LABS: CREATININE 1.5 mg/dL (0.55-1.3); PHOSPHOROUS 4.2 mg/dL (2.5-4.9); SGOT/AST 9 U/L (15-37); SGPT/ALT 9 U/L (13-61)
[2022-01-29 09:21] LABS: BILIRUBIN,TOTAL 0.2 mg/dL (0.2-1); TOT PROT 4.7 g/dl (6.4-8.2)
[2022-01-29 09:22] LABS: ALK PHOS 64 U/L (45-117)
[2022-01-29 09:25] LABS: CALCIUM 6.9 mg/dL (8.5-10.1)
[2022-01-29] MEDS ORDERED: COLLAGENASE CLOSTRIDIUM HIST. 30 GRAMS TUBE TP SCH (10:00)
[2022-01-29] MEDS ORDERED: PANTOPRAZOLE 20 MG TABLET PO SCH (10:00)
[2022-01-29] MEDS ORDERED: APIXABAN 5 MG TABLET PO SCH (10:00)
[2022-01-29] MEDS ORDERED: METOPROLOL TARTRATE 50 MG TABLET (FP) PO SCH (10:00)
[2022-01-29] MEDS ORDERED: amLODIPine BESYLATE 10 MG TABLET (FP) PO SCH (10:00)
[2022-01-29] MEDS: oxyCODONE HCL 5 MG TABLET PO PRN ×2 (11:17→17:20)
[2022-01-29] MEDS ORDERED: LINEZOLID 600 MG PREMIX BAG 600 MG/300 ML BAG IVPB SCH (13:00)
[2022-01-29] MEDS ORDERED: INSULIN (LEVEMIR) 100 UNITS/ML UNITS SQ SCH (22:00)
[2022-01-29] MEDS ORDERED: GABAPENTIN 300 MG CAPSULE PO SCH (22:00)
[2022-01-29] MEDS ORDERED: ROSUVASTATIN CA 10 MG TABLET PO SCH (22:00)
[2022-01-29 22:45] VITALS: BP 146/83; PULSE 86; RESP 20; TEMP 98.8
[2022-01-30] MEDS ORDERED: DAPTOMYCIN 750 MG in SODIUM CHLORIDE 50 ML IVPB SCH (10:00)
== END 2022-01-29 23:00 | disposition left against medical advice (07) ==
LOC: JER 19:10 → JERBED 23:02 → INTOOBSV 23:02 → UNDOADMOB 23:02 → J4S 01-29 03:36 → JERBED 01-29 03:36 → J4S 01-29 13:26 → JERBED 01-29 13:26 → J4S 01-29 22:34
PROVIDERS: ADMIT Hospitalist
DX: R21 Rash and other nonspecific skin eruption (principal); F11.20 Opioid dependence, uncomplicated; Z29.8 Encounter for other specified prophylactic measures; Z79.01 Long term (current) use of anticoagulants; Z88.8 Allergy status to other drugs, medicaments and biological substances; Z91.030 Bee allergy status; E11.42 Type 2 diabetes mellitus with diabetic polyneuropathy; I25.10 Atherosclerotic heart disease of native coronary artery without angina pectoris; I10 Essential (primary) hypertension; L03.115 Cellulitis of right lower limb; F17.210 Nicotine dependence, cigarettes, uncomplicated
CPT/HCPCS: 36415; 80053; 82962; 83735; 84100; 85025; 96365; 96366; 96367; 96368; 99285-25; C9803-CS; G0378; U0003; U0005

== ENCOUNTER 2022-01-30 04:51 | Observation (INO) | payer OTHER ==
[2022-01-30 05:05] VITALS: BMI 28.4
[2022-01-30 08:50] LABS: BASO % 0.6 % (0-2.0); EOS % 2.1 % (0-4.5); HEMATOCRIT 24.3 % (35.4-49); LYMPH % 10.8 % (8-40); MCH 28.1 pg (25.7-33.7); MCHC 32.8 g/dl (32.0-35.9); MEAN CELL VOLUME 85.6 fl (80-96); MEAN PLT VOLUME 7.3 fl (7.5-11.1); MONO % 10.1 % (3.8-10.2); NEUT % 76.4 % (42.8-82.8); PLATELET COUNT 485 10^3/uL (134-434); RBC 2.84 M/mm3 (4.00-5.60); RDW 15.8 % (11.9-15.9); WHITE BLOOD COUNT 11.3 K/mm3 (4.0-10.0)
[2022-01-30 09:14] LABS: CALCIUM 7.5 mg/dL (8.5-10.1)
[2022-01-30 09:15] LABS: BLOOD UREA NITROGEN 13.6 mg/dL (7-18)
[2022-01-30 09:18] LABS: CREATININE 1.5 mg/dL (0.55-1.3)
[2022-01-30 09:19] LABS: BILIRUBIN,TOTAL 0.1 mg/dL (0.2-1)
[2022-01-30 09:20] LABS: TOT PROT 5.9 g/dl (6.4-8.2)
[2022-01-30] MEDS ORDERED: SODIUM CHLORIDE IVPB ONE (09:22)
[2022-01-30] MEDS ORDERED: DAPTOMYCIN IVPB ONE (09:22)
[2022-01-30 09:26] LABS: ALBUMIN 1.8 g/dl (3.4-5.0)
[2022-01-30 09:42] LABS: ERYTHROCYTE SEDIMENTATION RATE 95 mm/hr (0-20)
[2022-01-30] MEDS ORDERED: SODIUM CHLORIDE 1,000 ML IV SCH ×2 (10:30→14:30)
[2022-01-30] MEDS ORDERED: APIXABAN 5 MG TABLET PO SCH (10:45)
[2022-01-30] MEDS ORDERED: APIXABAN 5 MG TABLET ONE (11:41)
[2022-01-30 12:33] VITALS: RESP 18
[2022-01-30] MEDS: INSULIN SLIDING SCALE (NOVOLOG) 1 VIAL SQ SCH ×2 (12:35→17:25)
[2022-01-30 17:40] VITALS: BP 154/63; PULSE 75; TEMP 98
[2022-01-30] MEDS ORDERED: METOPROLOL TARTRATE 50 MG TABLET (FP) PO SCH (22:00)
[2022-01-30] MEDS ORDERED: GABAPENTIN 300 MG CAPSULE PO SCH (22:00)
[2022-01-31] MEDS ORDERED: amLODIPine BESYLATE 10 MG TABLET (FP) PO SCH (10:00)
[2022-01-31] MEDS ORDERED: ASPIRIN COATED 81 MG TABLET.EC PO SCH (10:00)
== END 2022-01-30 17:51 | disposition home or self-care (01) ==
LOC: JER 04:51 → JERBED 08:57 → UNDOADMOB 08:57 → OBSVTOIN 10:27 → INTOOBSV 10:27 → JERBED 12:56
PROVIDERS: ADMIT Internal Medicine; ATTEND Internal Medicine
PROC: 3E03329 Introduction of Other Anti-infective into Peripheral Vein, Percutaneous Approach (ICD-10-PCS; principal; 2022-01-30)
PROC: 3E0337Z Introduction of Electrolytic and Water Balance Substance into Peripheral Vein, Percutaneous Approach (ICD-10-PCS; 2022-01-30)
DX: M86.9 Osteomyelitis, unspecified (principal); E11.40 Type 2 diabetes mellitus with diabetic neuropathy, unspecified; R21 Rash and other nonspecific skin eruption; Z95.1 Presence of aortocoronary bypass graft; I25.10 Atherosclerotic heart disease of native coronary artery without angina pectoris; I11.9 Hypertensive heart disease without heart failure; Z86.718 Personal history of other venous thrombosis and embolism
CPT/HCPCS: 36415; 80053; 82550; 82962; 85025; 85651; 86140; 96361; 96365; 99285-25; G0378; J0878

== ENCOUNTER 2022-01-31 11:43 | Day surgery (SDC) | payer OTHER ==
[2022-01-31] MEDS ORDERED: DAPTOMYCIN 750 MG in SODIUM CHLORIDE 50 ML IVPB SCH (13:15)
[2022-01-31 14:43] VITALS: BP 131/75; PULSE 100; RESP 20; TEMP 98.3
== END 2022-01-31 15:01 | disposition home or self-care (01) ==
LOC: FINFUSION 11:43 → FM/S 11:43 → FINFUSION 15:01
PROVIDERS: ATTEND Internal Medicine Infectious Disease
DX: E11.621 Type 2 diabetes mellitus with foot ulcer (principal); L03.116 Cellulitis of left lower limb; E11.22 Type 2 diabetes mellitus with diabetic chronic kidney disease; N18.9 Chronic kidney disease, unspecified; Z79.4 Long term (current) use of insulin; F11.20 Opioid dependence, uncomplicated; A49.02 Methicillin resistant Staphylococcus aureus infection, unspecified site
CPT/HCPCS: 96365; J0878

== ENCOUNTER 2022-02-01 12:41 | Day surgery (SDC) | payer OTHER ==
[~2022-02-01 12:41] MED LIST: DAPTOMYCIN 750 MG in SODIUM CHLORIDE 50 ML IVPB SCH
[2022-02-01 13:57] VITALS: BP 125/72; PULSE 89; RESP 18; TEMP 98.8
== END 2022-02-01 14:27 | disposition home or self-care (01) ==
LOC: FINFUSION 12:41 → FM/S 12:41 → FINFUSION 14:27
PROVIDERS: ATTEND Internal Medicine Infectious Disease
DX: E11.621 Type 2 diabetes mellitus with foot ulcer (principal); L03.116 Cellulitis of left lower limb; E11.22 Type 2 diabetes mellitus with diabetic chronic kidney disease; N18.9 Chronic kidney disease, unspecified; Z79.4 Long term (current) use of insulin; A49.02 Methicillin resistant Staphylococcus aureus infection, unspecified site
CPT/HCPCS: 96365; J0878

== ENCOUNTER 2022-02-02 12:27 | Day surgery (SDC) | payer OTHER ==
[~2022-02-02 12:27] MED LIST changes: +DAPTOMYCIN 750 MG in SODIUM CHLORIDE 50 ML IVPB ONE; -DAPTOMYCIN 750 MG in SODIUM CHLORIDE 50 ML IVPB SCH
[2022-02-02 13:14] VITALS: RESP 18; TEMP 99
[2022-02-02 13:58] VITALS: BP 128/86; PULSE 89
== END 2022-02-02 13:59 | disposition home or self-care (01) ==
LOC: FINFUSION 12:27 → FM/S 12:28 → FINFUSION 13:59
PROVIDERS: ATTEND Internal Medicine Infectious Disease
DX: E11.621 Type 2 diabetes mellitus with foot ulcer (principal); L03.116 Cellulitis of left lower limb; E11.22 Type 2 diabetes mellitus with diabetic chronic kidney disease; N17.9 Acute kidney failure, unspecified; Z79.4 Long term (current) use of insulin; A49.02 Methicillin resistant Staphylococcus aureus infection, unspecified site
CPT/HCPCS: 96365; J0878

== ENCOUNTER 2022-02-03 13:29 | Day surgery (SDC) | payer OTHER ==
[2022-02-03 14:24] VITALS: BP 137/67; PULSE 84; RESP 16; TEMP 97.8
== END 2022-02-03 14:40 | disposition home or self-care (01) ==
LOC: FINFUSION 13:29 → FM/S 13:31 → FINFUSION 14:40
PROVIDERS: ATTEND Internal Medicine Infectious Disease
DX: E11.621 Type 2 diabetes mellitus with foot ulcer (principal); L03.116 Cellulitis of left lower limb; E11.22 Type 2 diabetes mellitus with diabetic chronic kidney disease; N18.9 Chronic kidney disease, unspecified; Z79.4 Long term (current) use of insulin; A49.02 Methicillin resistant Staphylococcus aureus infection, unspecified site
CPT/HCPCS: 96365; J0878

== ENCOUNTER 2022-02-04 12:31 | Day surgery (SDC) | payer OTHER ==
[2022-02-04 13:04] VITALS: RESP 18; TEMP 99.2
[2022-02-04 13:47] VITALS: BP 127/57; PULSE 68
[2022-02-04] MEDS ORDERED: DAPTOMYCIN 750 MG in SODIUM CHLORIDE 50 ML IVPB ONE (14:00)
== END 2022-02-04 14:23 | disposition home or self-care (01) ==
LOC: FINFUSION 12:31 → FM/S 12:36 → FINFUSION 14:23
PROVIDERS: ATTEND Internal Medicine Infectious Disease
DX: E11.621 Type 2 diabetes mellitus with foot ulcer (principal); L03.116 Cellulitis of left lower limb; E11.22 Type 2 diabetes mellitus with diabetic chronic kidney disease; N18.9 Chronic kidney disease, unspecified; Z79.4 Long term (current) use of insulin; A49.02 Methicillin resistant Staphylococcus aureus infection, unspecified site
CPT/HCPCS: 96365; J0878

== ENCOUNTER 2022-02-05 12:33 | Day surgery (SDC) | payer OTHER ==
[2022-02-05] MEDS ORDERED: DAPTOMYCIN 750 MG in SODIUM CHLORIDE 50 ML IVPB ONE (13:00)
[2022-02-05 14:20] VITALS: BP 154/70; PULSE 89; RESP 18; TEMP 98.3
== END 2022-02-05 14:20 | disposition home or self-care (01) ==
LOC: FINFUSION 12:33 → FM/S 12:36 → FINFUSION 14:20
PROVIDERS: ATTEND Internal Medicine Infectious Disease
PROC: 3E033GC Introduction of Other Therapeutic Substance into Peripheral Vein, Percutaneous Approach (ICD-10-PCS; principal; 2022-02-05)
DX: E11.621 Type 2 diabetes mellitus with foot ulcer (principal); L03.116 Cellulitis of left lower limb; E11.22 Type 2 diabetes mellitus with diabetic chronic kidney disease; N18.9 Chronic kidney disease, unspecified; Z79.4 Long term (current) use of insulin; A49.02 Methicillin resistant Staphylococcus aureus infection, unspecified site
CPT/HCPCS: 96365; J0878

== ENCOUNTER 2022-02-06 12:37 | Day surgery (SDC) | payer OTHER ==
[2022-02-06] MEDS ORDERED: DAPTOMYCIN 750 MG in SODIUM CHLORIDE 50 ML IVPB ONE (14:00)
[2022-02-06 14:07] LABS: ALBUMIN 2.1 g/dl (3.4-5.0); BILIRUBIN,TOTAL 0.6 mg/dl (0.2-1); CALCIUM 7.9 mg/dl (8.5-10); CREATININE 1.1 mg/dl (0.55-1.3); TOT PROT 6.4 g/dl (6.4-8.2)
[2022-02-06 14:17] VITALS: BP 147/62; PULSE 92; RESP 18; TEMP 97.9
[2022-02-06 14:41] LABS: BASO % 0.8 % (0-2.0); EOS % 3.9 % (0-4.5); HEMATOCRIT 21.9 % (35.4-49); HEMOGLOBIN 7.4 GM/dL (11.7-16.9); LYMPH % 14.2 % (8-40); MCH 28.8 pg (25.7-33.7); MCHC 33.6 g/dl (32.0-35.9); MEAN CELL VOLUME 85.7 fl (80-96); MONO % 5.9 % (3.8-10.2); NEUT % 75.2 % (42.8-82.8); PLATELET COUNT 541 10^3/uL (134-434); RBC 2.56 M/mm3 (4.00-5.60); RDW 16.6 % (11.9-15.9); WHITE BLOOD COUNT 10.6 K/mm3 (4.0-10.0)
== END 2022-02-06 14:18 | disposition home or self-care (01) ==
LOC: FINFUSION 12:37 → FM/S 12:41 → FINFUSION 14:18
PROVIDERS: ATTEND Internal Medicine Infectious Disease
PROC: 3E033GC Introduction of Other Therapeutic Substance into Peripheral Vein, Percutaneous Approach (ICD-10-PCS; principal; 2022-02-06)
DX: E11.621 Type 2 diabetes mellitus with foot ulcer (principal); L03.116 Cellulitis of left lower limb; N18.9 Chronic kidney disease, unspecified; Z79.4 Long term (current) use of insulin; A49.02 Methicillin resistant Staphylococcus aureus infection, unspecified site
CPT/HCPCS: 36415; 80053; 82550; 85025; 96365; 96367; J0878

== ENCOUNTER 2022-02-07 11:49 | Day surgery (SDC) | payer OTHER ==
[2022-02-07] MEDS ORDERED: DAPTOMYCIN 750 MG in SODIUM CHLORIDE 50 ML IVPB SCH (12:00)
[2022-02-07 12:38] VITALS: BP 115/66; PULSE 95; RESP 18; TEMP 98.1
== END 2022-02-07 12:44 | disposition home or self-care (01) ==
LOC: FINFUSION 11:49 → FM/S 11:50 → FINFUSION 12:44
PROVIDERS: ATTEND Internal Medicine Infectious Disease
PROC: 3E033GC Introduction of Other Therapeutic Substance into Peripheral Vein, Percutaneous Approach (ICD-10-PCS; principal; 2022-02-07)
DX: E11.621 Type 2 diabetes mellitus with foot ulcer (principal); L03.116 Cellulitis of left lower limb; E11.22 Type 2 diabetes mellitus with diabetic chronic kidney disease; N18.9 Chronic kidney disease, unspecified; Z79.4 Long term (current) use of insulin; A49.02 Methicillin resistant Staphylococcus aureus infection, unspecified site
CPT/HCPCS: 96365; J0878

== ENCOUNTER 2022-02-08 13:46 | Day surgery (SDC) | payer OTHER ==
[~2022-02-08 13:46] MED LIST changes: +DAPTOMYCIN 750 MG in SODIUM CHLORIDE 100 ML IVPB ONE; -DAPTOMYCIN 750 MG in SODIUM CHLORIDE 50 ML IVPB ONE
[2022-02-08 20:01] VITALS: BP 125/75; PULSE 96; RESP 20; TEMP 99.5
== END 2022-02-08 20:30 | disposition home or self-care (01) ==
LOC: FINFUSION 13:46 → FM/S 13:55 → FINFUSION 20:30
PROVIDERS: ATTEND Internal Medicine Infectious Disease
PROC: 3E033GC Introduction of Other Therapeutic Substance into Peripheral Vein, Percutaneous Approach (ICD-10-PCS; principal; 2022-02-08)
DX: E11.621 Type 2 diabetes mellitus with foot ulcer (principal); L03.116 Cellulitis of left lower limb; E11.22 Type 2 diabetes mellitus with diabetic chronic kidney disease; N18.9 Chronic kidney disease, unspecified; Z79.4 Long term (current) use of insulin; A49.02 Methicillin resistant Staphylococcus aureus infection, unspecified site
CPT/HCPCS: 96365; J0878

== ENCOUNTER 2022-02-09 14:20 | Day surgery (SDC) | payer OTHER ==
[2022-02-09 15:29] VITALS: BP 104/62; PULSE 85; RESP 18; TEMP 97.6
== END 2022-02-09 15:39 | disposition home or self-care (01) ==
LOC: FINFUSION 14:20 → FM/S 14:20 → FINFUSION 15:39
PROVIDERS: ATTEND Internal Medicine Infectious Disease
PROC: 3E033GC Introduction of Other Therapeutic Substance into Peripheral Vein, Percutaneous Approach (ICD-10-PCS; principal; 2022-02-09)
DX: E11.621 Type 2 diabetes mellitus with foot ulcer (principal); L03.116 Cellulitis of left lower limb; E11.22 Type 2 diabetes mellitus with diabetic chronic kidney disease; N18.9 Chronic kidney disease, unspecified; Z79.4 Long term (current) use of insulin; A49.02 Methicillin resistant Staphylococcus aureus infection, unspecified site
CPT/HCPCS: 96365; J0878

== ENCOUNTER 2022-02-10 16:50 | Day surgery (SDC) | payer OTHER ==
[~2022-02-10 16:50] MED LIST changes: -DAPTOMYCIN 750 MG in SODIUM CHLORIDE 100 ML IVPB ONE; +DAPTOMYCIN 750 MG in SODIUM CHLORIDE 50 ML IVPB ONE
[2022-02-10 17:52] VITALS: BP 118/57; PULSE 90; RESP 18; TEMP 99.3
== END 2022-02-10 17:52 | disposition home or self-care (01) ==
LOC: FINFUSION 16:50 → FM/S 16:56 → FINFUSION 17:52
PROVIDERS: ATTEND Internal Medicine Infectious Disease
DX: E11.621 Type 2 diabetes mellitus with foot ulcer (principal); L03.116 Cellulitis of left lower limb; E11.22 Type 2 diabetes mellitus with diabetic chronic kidney disease; Z79.4 Long term (current) use of insulin; A49.02 Methicillin resistant Staphylococcus aureus infection, unspecified site
CPT/HCPCS: 96365; J0878

== ENCOUNTER 2022-02-11 17:26 | Day surgery (SDC) | payer OTHER ==
[2022-02-11 19:25] VITALS: BP 135/63; PULSE 99; RESP 18; TEMP 98.5
== END 2022-02-11 18:55 | disposition home or self-care (01) ==
LOC: FINFUSION 17:26 → FM/S 17:29 → FINFUSION 18:55
PROVIDERS: ATTEND Internal Medicine Infectious Disease
DX: E11.621 Type 2 diabetes mellitus with foot ulcer (principal); L03.116 Cellulitis of left lower limb; E11.22 Type 2 diabetes mellitus with diabetic chronic kidney disease; Z79.4 Long term (current) use of insulin; Z49.02 Encounter for fitting and adjustment of peritoneal dialysis catheter
CPT/HCPCS: 96365; J0878